=== PATIENT | male | born 1980 | race Caucasian/White ===

== ENCOUNTER 2024-08-28 02:49 | Inpatient (IN) | payer OTHER, SELFPAY ==
[2024-08-28 02:50] VITALS: BP 136/90; PULSE 116; RESP 18; O2SAT 96; BMI 25.8
--- NOTE | 2024-08-28 03:02 | ED_ITS ---
Documented by User: Ernesto Mauricio DO 08/28/24 05:49 HPI - Altered Mental Status 2 General: Chief Complaint: Altered Mental Status Stated Complaint: combative Time Seen by Provider: 08/28/24 03:01 Mode of arrival: other (Police) Limitations: altered mental status History of Present Illness: Presents to the ER by police escort for altered mental status and agitation. Please see he was at his neighbors yard throwing stuff at her house while he was seeing things and hearing things and talking to people that were not there. He was saying that he was Satan and he was shooting lasers out of his eyeballs Patient is resting comfortably in bed but he will not acknowledge anyone's existence, speak to anyone or look anyone in the eye. Per chart review it does appear the patient has a history of polysubstance abuse schizophrenia, psychosis, anxiety, After about 10 minutes of being here patient began yelling and acting in a very threatening and psychotic manner. Patient will not stay in his room. Patient asked like he is attempting to perform comfy moves on people. Patient is yelling and talking to people about things that he is of the person or the things are there. Related Data Previous Rx's Medication Instructions Recorded clonazepam 1 mg tablet 1 mg PO BID Anxiety 30 days #60 06/22/24 tabs Allergies Allergy/AdvReac Type Severity Reaction Status Date / Time No Known Allergies Allergy Unverified 05/27/24 09:06 Review of Systems 2 General: Reports: ROS unobtainable due to mental status PFS ED 2 PFSH: Medical History Psychiatric care Smoker Polysubstance abuse Nicotine addiction, alcoholism sober since November 2023, history of methamphetamine use Obesity (BMI 35.0-39.9 without comorbidity) Anxiety as acute reaction to gross stress Unspecified psychosis Schizophrenia Surgical History No pertinent past surgical history Family History Father Heart disease Gout Mother Diabetes mellitus, type 2 Diabetes Cancer Social History Smoking and tobacco/nicotine status: current every day tobacco/nicotine user Quit status (tobacco/nicotine): not considering quitting Alcohol intake: former Year of sobriety/quit date alcohol: 5 mo Substance/Drug Use: former Date of last use: 3 yrs Former substance use details: methametpmine Physical Exam 2 Const: COMMON NORMALS: no acute distress, average body habitus, healthy appearing and well nourished HENMT: COMMON NORMALS: normocephalic, atraumatic, hearing grossly normal bilaterally, external ears normal, Normal external nose present and moist oral mucous membranes HEAD & SCALP: normocephalic and atraumatic NOSE: Normal external nose present EXTERNAL EAR: Yes external ears normal Neck/C-Spine: COMMON NORMALS: no JVD Chest: COMMONS NORMALS: normal inspection of the chest and normal palpation of entire chest wall Resp: COMMON NORMALS: normal respiratory effort, No retractions, No use of accessory muscles and clear to auscultation bilaterally AUSCULTATION: clear to auscultation bilaterally Cardio: COMMON NORMALS: no JVD, regular rate, regular rhythm, S1 normal heart sound present, S2 normal heart sound present, No gallops present (Cardio), No clicks present (Cardio), No murmurs present (Cardio) and No rub (Cardio) R ATE: regular rate RHYTHM: regular rhythm HEART SOUNDS: S1 normal heart sound present and S2 normal heart sound present GI: COMMON NORMALS: Normal to inspection, nondistended, normoactive bowel sounds present, Soft to palpation, non-tender, No hepatosplenomegaly present and no masses PALPATION: Yes Soft to palpation and Yes No hepatosplenomegaly present Course 2 Vital Signs: Vital signs: Vital Signs Temperature 97.6 F 08/29/24 05:00 Pulse Rate 70 08/29/24 20:00 Respiratory Rate 16 08/30/24 04:00 Blood Pressure 143/81 08/29/24 20:00 Pulse Oximetry 98 08/29/24 20:00 Oxygen Delivery Me thod Room Air 08/29/24 20:00 MDM - Altered Mental Status Medical Records I reviewed the patient's medical records. Lab Data I reviewed the patient's lab results. 08/28/24 03:00 08/28/24 03:00 Laboratory Results WBC 6.71 10^3/uL (3.29-11.43) 08/28/24 03:00 RBC 5.16 10^6/uL (3.85-5.65) 08/28/24 03:00 Hgb 14.80 g/dL (11.27-16.99) 08/28/24 03:00 Hct 44.9 % (37-53) 08/28/24 03:00 MCV 87.0 fl (82-101) 08/28/24 03:00 MCH 28.7 pg (27-33) 08/28/24 03:00 MCHC 33.0 g/dL (30-55) 08/28/24 03:00 RDW 13.6 % (12.1-15.1) 08/28/24 03:00 Plt Count 262 10^3/cmm (157-399) 08/28/24 03:00 MPV 10.3 fL (7.4-10.4) 08/28/24 03:00 Neut % (Auto) 51.5 % 08/28/24 03:00 Lymph % (Auto) 33.8 % 08/28/24 03:00 Pope % (Auto) 11.9 % 08/28/24 03:00 Eos % (Auto) 1.6 % 08/28/24 03:00 Baso % (Auto) 0.9 % 08/28/24 03:00 Neut # (Auto) 3.45 10^3/uL (1.8-7.7) 08/28/24 03:00 Lymph # (Auto) 2.3 10^3/uL (0.8-4.8) 08/28/24 03:00 Pope # (Auto) 0.8 10^3/uL (0.2-0.9) 08/28/24 03:00 Eos # (Auto) 0.1 10^3/uL (0.0-0.8) 08/28/24 03:00 Baso # (Auto) 0.1 10^3/uL (0.0-0.1) 08/28/24 03:00 Nucleated RBC % (auto) 0 % 08/28/24 03:00 Nucleated RBCs # 0.0 /100WBC 08/28/24 03:00 Sodium 137 mmol/L (136-145) 08/28/24 03:00 Potassium 3.6 mmol/L (3.5-5.1) 08/28/24 03:00 Chloride 102 mmol/L (98-107) 08/28/24 03:00 Carbon Dioxide 20 mmol/L (22-29) L 08/28/24 03:00 Anion Gap 18.6 (5-19) 08/28/24 03:00 BUN 6 mg/dL (6-20) 08/28/24 03:00 Creatinine 1.0 mg/dL (0.7-1.2) 08/28/24 03:00 GFR Calculation 81.9 mL/min (90-130) L 08/28/24 03:00 Glucose 101 mg/dL (65-115) 08/28/24 03:00 Calculated Osmolality 282 mOsm/kg (285-295) L 08/28/24 03:00 Calcium 8.4 mg/dL (8.5-10.5) L 08/28/24 03:00 Total Bilirubin 0.4 mg/dL (0.15-1.2) 08/28/24 03:00 AST 31 U/L (0-40) 08/28/24 03:00 ALT 18 U/L (0-41) 08/28/24 03:00 Alkaline Phosphatase 138 U/L (40-130) H 08/28/24 03:00 Total Protein 7.5 g/dL (6.6-8.7) 08/28/24 03:00 Albumin 4.5 g/dL (3.5-5.2) 08/28/24 03:00 Globulin 3.0 g/dL (1.3-4.6) 08/28/24 03:00 Urine Color Yellow (Yellow) 08/28/24 05:15 Urine Appearance Clear (CLEAR) 08/28/24 05:15 Urine pH 5.5 (5-7) 08/28/24 05:15 Ur Specific [place] 1.007 (1.005-1.030) 08/28/24 05:15 Urine Protein Negative (Negative) 08/28/24 05:15 Urine Glucose (UA) Negative (Normal) 08/28/24 05:15 Urine Ketones Negative (Negative) 08/28/24 05:15 Urine Blood Negative (Negative) 08/28/24 05:15 Urine Nitrate Negative (Negative) 08/28/24 05:15 Urine Bilirubin Negative (Negative) 08/28/24 05:15 Urine Urobilinogen 0.2 mg/dL (Negative) 08/28/24 05:15 Ur Leukocyte Esterase Negative (Negative) 08/28/24 05:15 Urine RBC 0-2 /hpf (0-2) 08/28/24 05:15 Urine WBC 0-5 /hpf (0-5) 08/28/24 05:15 Ur Squamous Epith Cells 0-5 /hpf (0-5) 08/28/24 05:15 Amorphous Sediment Not Reportable 08/28/24 05:15 Urine Bacteria None seen /hpf (NONE) 08/28/24 05:15 Hyaline Casts 0.81 /lpf 08/28/24 05:15 Salicylates 0.5 mg/dL (3-10) L 08/28/24 03:00 Urine Opiates Screen Negative ng/mL (Negative) 08/28/24 05:15 Acetaminophen < 5.0 ug/mL (10-30) L 08/28/24 03:00 Ur Barbiturates Screen Negative ng/mL (Negative) 08/28/24 05:15 Ur Phencyclidine Scrn Negative ng/mL (Negative) 08/28/24 05:15 Ur Amphetamines Screen Negative ng/mL (Negative) 08/28/24 05:15 U Benzodiazepines Scrn Negative ng/mL (Negative) 08/28/24 05:15 Urine Cocaine Screen Negative ng/mL (Negative) 08/28/24 05:15 U Marijuana (THC) Screen Negative ng/mL (Negative) 08/28/24 05:15 Ethyl Alcohol 190 mg/dL (0-10) H 08/28/24 03:00 Coronavirus (PCR) Negative (Negative) 08/28/24 09:46 Influenza A (PCR) Negative (Negative) 08/28/24 09:46 Influenza Type B (PCR) Negative (Negative) 08/28/24 09:46 RSV (PCR) Negative (Negative) 08/28/24 09:46 No radiology studies performed this visit Discharge Plan Discharge Patient Disposition: Admitted As Inpatient Admit Provider: Javier Grace Clinical Impression: Alcoholic intoxication Unspecified psychosis Qualifiers: Psychosis type: unspecified psychosis type Qualified Code(s): F29 - Unspecified psychosis not due to a substance or known physiological condition Condition: Stable Sign Out Sign Out Data: Patient Sign Out occurred on 08/28/24 at 06:12. Patient's care was discussed, and care was transferred from Ernesto Mauricio DO to Alejandro Nicolas DO. Coding Level of Care Code ED [employer] for Concepciong Araseli Face to Face: Restrn/Seclusion Events leading up to initiation: Demonstrating self-destructive behavior (cutting, hitting lock etc.) and Combative/Striking out at staff or others Evaluation of patient's immediate situation: Alert and oriented and No signs of physical distress Patient reaction since intervention applied: De-escalation/no displays of violent/destructive behavior Recent labs reviewed: Yes Review of medications: Yes Patient's current medical/behavioral condition: No new concerns since last ROS Need for restraint or seclusion is: Continued Attending notified: Yes Documented by User: Ludin West DO 08/29/24 05:20 HPI - Altered Mental Status 2 General: Chief Complaint: Altered Mental Status Stated Complaint: combative Time Seen by Provider: 08/28/24 03:01 Related Data Previous Rx's Medication Instructions Recorded clonazepam 1 mg tablet 1 mg PO BID Anxiety 30 days #60 06/22/24 tabs Allergies Allergy/AdvReac Type Severity Reaction Status Date / Time No Known Allergies Allergy Unverified 05/27/24 09:06 [facility] ED 2 PFSH: Medical History Psychiatric care Smoker Polysubstance abuse Nicotine addiction, alcoholism sober since November 2023, history of methamphetamine use Obesity (BMI 35.0-39.9 without comorbidity) Anxiety as acute reaction to gross stress Unspecified psychosis Schizophrenia Surgical History No pertinent past surgical history Family History Father Heart disease Gout Mother Diabetes mellitus, type 2 Diabetes Cancer Social History Smoking and tobacco/nicotine status: current every day tobacco/nicotine user Quit status (tobacco/nicotine): not considering quitting Alcohol intake: former Year of sobriety/quit date alcohol: 5 mo Substance/Drug Use: former Date of last use: 3 yrs Former substance use details: methametpmine Course 2 Vital Signs: Vital signs: Vital Signs Temperature 97.6 F 08/29/24 05:00 Pulse Rate 70 08/29/24 20:00 Respiratory Rate 16 08/30/24 04:00 Blood Pressure 143/81 08/29/24 20:00 Pulse Oximetry 98 08/29/24 20:00 Oxygen Delivery Me thod Room Air 08/29/24 20:00 MDM - Altered Mental Status Medical Decision Making 43-year-old male signed out to me at shift change. This gentleman has been calm since yesterday morning. He has not had any outburst of activity. He began to suffer some withdrawal symptoms yesterday, requiring some doses of lorazepam, which helped significantly. Despite no longer being intoxicated, he continues to talk to the wall in the room, respond to internal stimuli, and have bizarre behavior. 96-hour affidavits were written by law enforcement. Medically, he is stable. His laboratory is essentially nonremarkable. We have had trouble finding bed availability across the state, as until now, we have not had a bed at our facility. We have, however opened up a bed at our facility 3 discharges, and he is stable for admission here. Lab Data 08/28/24 03:00 08/28/24 03:00 Laboratory Results WBC 6.71 10^3/uL (3.29-11.43) 08/28/24 03:00 RBC 5.16 10^6/uL (3.85-5.65) 08/28/24 03:00 Hgb 14.80 g/dL (11.27-16.99) 08/28/24 03:00 Hct 44.9 % (37-53) 08/28/24 03:00 MCV 87.0 fl (82-101) 08/28/24 03:00 MCH 28.7 pg (27-33) 08/28/24 03:00 MCHC 33.0 g/dL (30-55) 08/28/24 03:00 RDW 13.6 % (12.1-15.1) 08/28/24 03:00 Plt Count 262 10^3/cmm (157-399) 08/28/24 03:00 MPV 10.3 fL (7.4-10.4) 08/28/24 03:00 Neut % (Auto) 51.5 % 08/28/24 03:00 Lymph % (Auto) 33.8 % 08/28/24 03:00 Pope % (Auto) 11.9 % 08/28/24 03:00 Eos % (Auto) 1.6 % 08/28/24 03:00 Baso % (Auto) 0.9 % 08/28/24 03:00 Neut # (Auto) 3.45 10^3/uL (1.8-7.7) 08/28/24 03:00 Lymph # (Auto) 2.3 10^3/uL (0.8-4.8) 08/28/24 03:00 Pope # (Auto) 0.8 10^3/uL (0.2-0.9) 08/28/24 03:00 Eos # (Auto) 0.1 10^3/uL (0.0-0.8) 08/28/24 03:00 Baso # (Auto) 0.1 10^3/uL (0.0-0.1) 08/28/24 03:00 Nucleated RBC % (auto) 0 % 08/28/24 03:00 Nucleated RBCs # 0.0 /100WBC 08/28/24 03:00 Sodium 137 mmol/L (136-145) 08/28/24 03:00 Potassium 3.6 mmol/L (3.5-5.1) 08/28/24 03:00 Chloride 102 mmol/L (98-107) 08/28/24 03:00 Carbon Dioxide 20 mmol/L (22-29) L 08/28/24 03:00 Anion Gap 18.6 (5-19) 08/28/24 03:00 BUN 6 mg/dL (6-20) 08/28/24 03:00 Creatinine 1.0 mg/dL (0.7-1.2) 08/28/24 03:00 GFR Calculation 81.9 mL/min (90-130) L 08/28/24 03:00 Glucose 101 mg/dL (65-115) 08/28/24 03:00 Calculated Osmolality 282 mOsm/kg (285-295) L 08/28/24 03:00 Calcium 8.4 mg/dL (8.5-10.5) L 08/28/24 03:00 Total Bilirubin 0.4 mg/dL (0.15-1.2) 08/28/24 03:00 AST 31 U/L (0-40) 08/28/24 03:00 ALT 18 U/L (0-41) 08/28/24 03:00 Alkaline Phosphatase 138 U/L (40-130) H 08/28/24 03:00 Total Protein 7.5 g/dL (6.6-8.7) 08/28/24 03:00 Albumin 4.5 g/dL (3.5-5.2) 08/28/24 03:00 Globulin 3.0 g/dL (1.3-4.6) 08/28/24 03:00 Urine Color Yellow (Yellow) 08/28/24 05:15 Urine Appearance Clear (CLEAR) 08/28/24 05:15 Urine pH 5.5 (5-7) 08/28/24 05:15 Ur Specific [place] 1.007 (1.005-1.030) 08/28/24 05:15 Urine Protein Negative (Negative) 08/28/24 05:15 Urine Glucose (UA) Negative (Normal) 08/28/24 05:15 Urine Ketones Negative (Negative) 08/28/24 05:15 Urine Blood Negative (Negative) 08/28/24 05:15 Urine Nitrate Negative (Negative) 08/28/24 05:15 Urine Bilirubin Negative (Negative) 08/28/24 05:15 Urine Urobilinogen 0.2 mg/dL (Negative) 08/28/24 05:15 Ur Leukocyte Esterase Negative (Negative) 08/28/24 05:15 Urine RBC 0-2 /hpf (0-2) 08/28/24 05:15 Urine WBC 0-5 /hpf (0-5) 08/28/24 05:15 Ur Squamous Epith Cells 0-5 /hpf (0-5) 08/28/24 05:15 Amorphous Sediment Not Reportable 08/28/24 05:15 Urine Bacteria None seen /hpf (NONE) 08/28/24 05:15 Hyaline Casts 0.81 /lpf 08/28/24 05:15 Salicylates 0.5 mg/dL (3-10) L 08/28/24 03:00 Urine Opiates Screen Negative ng/mL (Negative) 08/28/24 05:15 Acetaminophen < 5.0 ug/mL (10-30) L 08/28/24 03:00 Ur Barbiturates Screen Negative ng/mL (Negative) 08/28/24 05:15 Ur Phencyclidine Scrn Negative ng/mL (Negative) 08/28/24 05:15 Ur Amphetamines Screen Negative ng/mL (Negative) 08/28/24 05:15 U Benzodiazepines Scrn Negative ng/mL (Negative) 08/28/24 05:15 Urine Cocaine Screen Negative ng/mL (Negative) 08/28/24 05:15 U Marijuana (THC) Screen Negative ng/mL (Negative) 08/28/24 05:15 Ethyl Alcohol 190 mg/dL (0-10) H 08/28/24 03:00 Coronavirus (PCR) Negative (Negative) 08/28/24 09:46 Influenza A (PCR) Negative (Negative) 08/28/24 09:46 Influenza Type B (PCR) Negative (Negative) 08/28/24 09:46 RSV (PCR) Negative (Negative) 08/28/24 09:46 Discharge Plan Discharge Patient Disposition: Admitted As Inpatient Admit Provider: Javier Grace Clinical Impression: Alcoholic intoxication Unspecified psychosis Qualifiers: Psychosis type: unspecified psychosis type Qualified Code(s): F29 - Unspecified psychosis not due to a substance or known physiological condition Condition: Stable Sign Out Sign Out Data: Patient Sign Out occurred on 08/28/24 at 06:12. Patient's care was discussed, and care was transferred from Ernesto Mauricio DO to Alejandro Nicolas DO. Coding Level of Care Code ED [employer] for Chg Fwd Documented by User: Alejandro Nicolas DO 08/30/24 07:16 HPI - Altered Mental Status 2 General: Chief Complaint: Altered Mental Status Stated Complaint: combative Time Seen by Provider: 08/28/24 03:01 Related Data Previous Rx's Medication Instructions Recorded clonazepam 1 mg tablet 1 mg PO BID Anxiety 30 days #60 06/22/24 tabs Allergies Allergy/AdvReac Type Severity Reaction Status Date / Time No Known Allergies Allergy Unverified 05/27/24 09:06 PFS ED 2 PFSH: Medical History Psychiatric care Smoker Polysubstance abuse Nicotine addiction, alcoholism sober since November 2023, history of methamphetamine use Obesity (BMI 35.0-39.9 without comorbidity) Anxiety as acute reaction to gross stress Unspecified psychosis Schizophrenia Surgical History No pertinent past surgical history Family History Father Heart disease Gout Mother Diabetes mellitus, type 2 Diabetes Cancer Social History Smoking and tobacco/nicotine status: current every day tobacco/nicotine user Quit status (tobacco/nicotine): not considering quitting Alcohol intake: former Year of sobriety/quit date alcohol: 5 mo Substance/Drug Use: former Date of last use: 3 yrs Former substance use details: methametpmine Course 2 Vital Signs: Vital signs: Vital Signs Temperature 97.6 F 08/29/24 05:00 Pulse Rate 70 08/29/24 20:00 Respiratory Rate 16 08/30/24 04:00 Blood Pressure 143/81 08/29/24 20:00 Pulse Oximetry 98 08/29/24 20:00 Oxygen Delivery Me thod Room Air 08/29/24 20:00 MDM - Altered Mental Status Medical Decision Making Care assumed at change of shift patient has had some hallucinations he was given Ativan suspect that his withdrawal from alcohol he has otherwise been stable care signed out to Dr. West 43-year-old male signed out to me at shift change. This gentleman has been calm since yesterday morning. He has not had any outburst of activity. He began to suffer some withdrawal symptoms yesterday, requiring some doses of lorazepam, which helped significantly. Despite no longer being intoxicated, he continues to talk to the wall in the room, respond to internal stimuli, and have bizarre behavior. 96-hour affidavits were written by law enforcement. Medically, he is stable. His laboratory is essentially nonremarkable. We have had trouble finding bed availability across the state, as until now, we have not had a bed at our facility. We have, however opened up a bed at our facility 3 discharges, and he is stable for admission here. Lab Data 08/28/24 03:00 08/28/24 03:00 Laboratory Results WBC 6.71 10^3/uL (3.29-11.43) 08/28/24 03:00 RBC 5.16 10^6/uL (3.85-5.65) 08/28/24 03:00 Hgb 14.80 g/dL (11.27-16.99) 08/28/24 03:00 Hct 44.9 % (37-53) 08/28/24 03:00 MCV 87.0 fl (82-101) 08/28/24 03:00 MCH 28.7 pg (27-33) 08/28/24 03:00 MCHC 33.0 g/dL (30-55) 08/28/24 03:00 RDW 13.6 % (12.1-15.1) 08/28/24 03:00 Plt Count 262 10^3/cmm (157-399) 08/28/24 03:00 MPV 10.3 fL (7.4-10.4) 08/28/24 03:00 Neut % (Auto) 51.5 % 08/28/24 03:00 Lymph % (Auto) 33.8 % 08/28/24 03:00 Pope % (Auto) 11.9 % 08/28/24 03:00 Eos % (Auto) 1.6 % 08/28/24 03:00 Baso % (Auto) 0.9 % 08/28/24 03:00 Neut # (Auto) 3.45 10^3/uL (1.8-7.7) 08/28/24 03:00 Lymph # (Auto) 2.3 10^3/uL (0.8-4.8) 08/28/24 03:00 Pope # (Auto) 0.8 10^3/uL (0.2-0.9) 08/28/24 03:00 Eos # (Auto) 0.1 10^3/uL (0.0-0.8) 08/28/24 03:00 Baso # (Auto) 0.1 10^3/uL (0.0-0.1) 08/28/24 03:00 Nucleated RBC % (auto) 0 % 08/28/24 03:00 Nucleated RBCs # 0.0 /100WBC 08/28/24 03:00 Sodium 137 mmol/L (136-145) 08/28/24 03:00 Potassium 3.6 mmol/L (3.5-5.1) 08/28/24 03:00 Chloride 102 mmol/L (98-107) 08/28/24 03:00 Carbon Dioxide 20 mmol/L (22-29) L 08/28/24 03:00 Anion Gap 18.6 (5-19) 08/28/24 03:00 BUN 6 mg/dL (6-20) 08/28/24 03:00 Creatinine 1.0 mg/dL (0.7-1.2) 08/28/24 03:00 GFR Calculation 81.9 mL/min (90-130) L 08/28/24 03:00 Glucose 101 mg/dL (65-115) 08/28/24 03:00 Calculated Osmolality 282 mOsm/kg (285-295) L 08/28/24 03:00 Calcium 8.4 mg/dL (8.5-10.5) L 08/28/24 03:00 Total Bilirubin 0.4 mg/dL (0.15-1.2) 08/28/24 03:00 AST 31 U/L (0-40) 08/28/24 03:00 ALT 18 U/L (0-41) 08/28/24 03:00 Alkaline Phosphatase 138 U/L (40-130) H 08/28/24 03:00 Total Protein 7.5 g/dL (6.6-8.7) 08/28/24 03:00 Albumin 4.5 g/dL (3.5-5.2) 08/28/24 03:00 Globulin 3.0 g/dL (1.3-4.6) 08/28/24 03:00 Urine Color Yellow (Yellow) 08/28/24 05:15 Urine Appearance Clear (CLEAR) 08/28/24 05:15 Urine pH 5.5 (5-7) 08/28/24 05:15 Ur Specific [place] 1.007 (1.005-1.030) 08/28/24 05:15 Urine Protein Negative (Negative) 08/28/24 05:15 Urine Glucose (UA) Negative (Normal) 08/28/24 05:15 Urine Ketones Negative (Negative) 08/28/24 05:15 Urine Blood Negative (Negative) 08/28/24 05:15 Urine Nitrate Negative (Negative) 08/28/24 05:15 Urine Bilirubin Negative (Negative) 08/28/24 05:15 Urine Urobilinogen 0.2 mg/dL (Negative) 08/28/24 05:15 Ur Leukocyte Esterase Negative (Negative) 08/28/24 05:15 Urine RBC 0-2 /hpf (0-2) 08/28/24 05:15 Urine WBC 0-5 /hpf (0-5) 08/28/24 05:15 Ur Squamous Epith Cells 0-5 /hpf (0-5) 08/28/24 05:15 Amorphous Sediment Not Reportable 08/28/24 05:15 Urine Bacteria None seen /hpf (NONE) 08/28/24 05:15 Hyaline Casts 0.81 /lpf 08/28/24 05:15 Salicylates 0.5 mg/dL (3-10) L 08/28/24 03:00 Urine Opiates Screen Negative ng/mL (Negative) 08/28/24 05:15 Acetaminophen < 5.0 ug/mL (10-30) L 08/28/24 03:00 Ur Barbiturates Screen Negative ng/mL (Negative) 08/28/24 05:15 Ur Phencyclidine Scrn Negative ng/mL (Negative) 08/28/24 05:15 Ur Amphetamines Screen Negative ng/mL (Negative) 08/28/24 05:15 U Benzodiazepines Scrn Negative ng/mL (Negative) 08/28/24 05:15 Urine Cocaine Screen Negative ng/mL (Negative) 08/28/24 05:15 U Marijuana (THC) Screen Negative ng/mL (Negative) 08/28/24 05:15 Ethyl Alcohol 190 mg/dL (0-10) H 08/28/24 03:00 Coronavirus (PCR) Negative (Negative) 08/28/24 09:46 Influenza A (PCR) Negative (Negative) 08/28/24 09:46 Influenza Type B (PCR) Negative (Negative) 08/28/24 09:46 RSV (PCR) Negative (Negative) 08/28/24 09:46 Discharge Plan Discharge Patient Disposition: Admitted As Inpatient Admit Provider: Javier Grace Clinical Impression: Alcoholic intoxication Unspecified psychosis Qualifiers: Psychosis type: unspecified psychosis type Qualified Code(s): F29 - Unspecified psychosis not due to a substance or known physiological condition Condition: Stable Sign Out Sign Out Data: Patient Sign Out occurred on 08/28/24 at 06:12. Patient's care was discussed, and care was transferred from Ernesto Mauricio DO to Alejandro Nicolas DO. Coding Level of Care Code ED [employer] for Leona Marx
[2024-08-28 03:12] LABS: Basophils # 0.1 10^3/uL (0.0-0.1); Basophils % 0.9 %; Eosinophils # 0.1 10^3/uL (0.0-0.8); Eosinophils % 1.6 %; Hematocrit 44.9 % (37-53); Lymphocytes # 2.3 10^3/uL (0.8-4.8); Lymphocytes % 33.8 %; Mean Corpuscular Hemoglobin 28.7 pg (27-33); Mean Platelet Volume 10.3 fL (7.4-10.4); Monocytes # 0.8 10^3/uL (0.2-0.9); Monocytes % 11.9 %; Neutrophils # 3.45 10^3/uL (1.8-7.7); Neutrophils % 51.5 %; Nucleated Red Blood Cells % 0 %; Platelet Count 262 10^3/cmm (157-399); Red Blood Count 5.16 10^6/uL (3.85-5.65); Red Cell Distribution Width 13.6 % (12.1-15.1); White Blood Count 6.71 10^3/uL (3.29-11.43)
[2024-08-28 03:34] LABS: Alanine Aminotransferase 18 U/L (0-41); Albumin Level 4.5 g/dL (3.5-5.2); Alcohol Level 190 mg/dL (0-10); Alkaline Phosphatase 138 U/L (40-130); Anion Gap 18.6 (5-19); Aspartate Amino Transferase 31 U/L (0-40); Blood Urea Nitrogen 6 mg/dL (6-20); Calcium 8.4 mg/dL (8.5-10.5); Carbon Dioxide 20 mmol/L (22-29); Chloride 102 mmol/L (98-107); Creatinine Clr Calc Pharmacy 97.8427; Glomerular Filtration Rate 81.9 mL/min (90-130); Glucose 101 mg/dL (65-115); Osmolality Calculated 282 mOsm/kg (285-295); Potassium 3.6 mmol/L (3.5-5.1); Salicylate 0.5 mg/dL (3-10); Sodium 137 mmol/L (136-145); Total Bilirubin 0.4 mg/dL (0.15-1.2); Total Protein 7.5 g/dL (6.6-8.7)
[2024-08-28 03:36] LABS: Acetaminophen < 5.0 ug/mL (10-30)
--- NOTE | 2024-08-28 04:00 | PC.NURSE ---
pt up and out of room making aggressive actions. pt hitting his chest and waving his arms toward staff. MD notified and order for ketamine administered.
[2024-08-28] MEDS: ketamine 100 mg/mL Inj 5 mL 200 MG IM (04:07)
[2024-08-28] MEDS: LORazepam 2 mg/mL INJ 1 mL IM (05:12)
--- NOTE | 2024-08-28 05:14 | PC.NURSE ---
to room. pt out of bed saying he needs to urinate. pt speaking jibberish. attempted to obtain urine. pt unable to urinate. pt continues to get out of bed. notified and order for ativan IM given and administered.
[2024-08-28 05:53] LABS: Bilirubin Urine Negative (Negative); Blood Urine Negative (Negative); Glucose Urine UA Negative (Normal); Ketones Urine Negative (Negative); Leukocyte Esterase Urine Negative (Negative); Nitrate Urine Negative (Negative); Protein Urine Negative (Negative); Specific Gravity, Urine 1.007 (1.005-1.030); Urine Appearance Clear (CLEAR); Urine Color Yellow (Yellow); Urobilinogen Urine 0.2 mg/dL (Negative); pH Urine 5.5 (5-7)
[2024-08-28 05:58] LABS: Add Urine Microscopic? YES; Bacteria Urine None Seen /hpf; Hyaline Casts Urine 0.81 /lpf; RBC Urine 0-2 /hpf (0-2); Squamous Epithelial Cell Urine 0-5 /hpf (0-5); WBC Urine 0-5 /hpf (0-5)
[2024-08-28 06:01] LABS: Amphetamines Screen Urine Negative (Negative); Barbiturates Screen Urine Negative (Negative); Benzodiazepines Screen Urine Negative (Negative); Cocaine Screen Urine Negative (Negative); Opiate Screen Urine Negative (Negative); PCP Screen Urine Negative (Negative); THC Screen Urine Negative (Negative)
--- NOTE | 2024-08-28 07:38 | PC.NURSE ---
Addendum entered by Traci Xiao RN 08/28/24 07:45: time correction 0650 Original Note: this RN assumed care from ANDI Hopkins at 0750, pt in stable condition at time of transfer and is resting in room with even unlabored respirations.
[2024-08-28 07:44] VITALS: BP 123/83; PULSE 99; RESP 18; O2SAT 98
[2024-08-28 10:47] LABS: Covid PCR NEGATIVE (Negative); Influenza A NEGATIVE (Negative); Influenza B NEGATIVE (Negative); Respiratory Syncytial Virus Ce NEGATIVE (Negative)
--- NOTE | 2024-08-28 11:05 | PC.NURSE ---
this nurse assumed pt care at 1105 from Aster ESCAMILLA. pt resting in bed and stable at this time.
[2024-08-28] MEDS: LORazepam 2 mg Tablet PO (12:10)
[2024-08-28 19:06] VITALS: BP 107/62; PULSE 60; RESP 16; O2SAT 97
--- NOTE | 2024-08-29 01:25 | PC.NURSE ---
Assumed care of pt. Pt resting quietly. NAD. Resp even/unlabored. Skin w/p/d.
[2024-08-29 04:08] VITALS: BP 126/76; PULSE 72; RESP 15; O2SAT 100
--- NOTE | 2024-08-29 04:35 | PC.NURSE ---
THIS NURSE CONTACTED ABOUT PT HOME PRESCRIPTION OF CLONAZEPAM 1MG BID FOR RESTART ORDERS. PHYSICIAN WAS NOTIFIED THAT PT REQUIRED CIWA PROTOCOL. PHYSICIAN GAVE ORDERS FOR THIS NURSE TO HOLD MEDICATION AT LEAST UNTIL PT IS TAKEN OFF CIWA PROTOCOL AND THAT PT COVERING PROVIDER WILL HANDLE MEDICATION MANAGEMENT FROM THEN ON.
[2024-08-29 05:00] VITALS: BP 149/80; PULSE 88; RESP 18; TEMP 36.4; O2SAT 94
[2024-08-29 08:00] VITALS: BP 122/81; PULSE 78; RESP 17; O2SAT 95
--- NOTE | 2024-08-29 11:32 | PC.NURSE ---
Patient refused flu vaccination this morning. Stated he did not want one at this time.
[2024-08-29 12:00] VITALS: BP 123/77; PULSE 81; RESP 16; O2SAT 97
--- NOTE | 2024-08-29 15:23 | W.PM.NPUH&PS ---
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 of beer, 1 joint weekly, grams, etc.: A joint once and made him sick Age at first use: 40 Cocaine/Crack Date of last use: 08/30/21 Prior Lifetime use/Use in the last 3 months: Prior Lifetime Use Method of Use: Smoked (Glass pipe ) and Other Frequency in last 30 days: Other (Tried once) Amount of use in the last 30 days For Example: 1 joint daily, 30 pack of beer, 1 joint weekly, grams, etc.: Tried once smoked out of glass pipe Age at first use: 40 Compulsive Spending Denies Past History: Denies Past History Gambling Denies Past History: Denies Past History Hallucinogens Date of last use: 01/12/02 Method of Use: Oral Amount of use in the last 30 days For Example: 1 joint daily, 30 pack of beer, 1 joint weekly, grams, etc.: Took acid hits Age at first use: 21 Inhalants Date of last use: 05/15/03 Prior Lifetime use/Use in the last 3 months: Prior Lifetime Use Method of Use: Other (huffed) Frequency in last 30 days: Other (When available ) Amount of use in the last 30 days For Example: 1 joint daily, 30 pack of beer, 1 joint weekly, grams, etc.: Coolant bottle on break at work Age at first use: 13 Misuse of RX Medications Denies Past History: Denies Past History Amount of use in the last 30 days Nicotine Date of last use: 06/23/24 Prior Lifetime use/Use in the last 3 months: Use in the last 3 months Method of Use: Smoked Frequency in last 30 days: Daily Amount of use in the last 30 days For Example: 1 joint daily, 30 pack of beer, 1 joint weekly, grams, etc.: a pack of smokes a day Age at first use: 9 Do you want a referral to a tobacco regional facilities specialist?: No Opioid Pain Medications (non-prescribed) Denies Past History: Denies Past History Amount of use in the last 30 days [id number] Denies Past History: Denies Past History Amount of use in the last 30 days Sedatives(Benzos,Sleep Pills, No script) Denies Past History: Denies Past History Amount of use in the last 30 days In the last 12 months have you Taken the substance in larger amounts for longer than you're meant to: Nicotine Wanting to cut down or stop using the substance but not managing to: Alcohol Spending a lot of time getting, using, or recovering from use of the substance: Alcohol Cravings and urges to use the substance: Alcohol and Nicotine Not managing to do what you should at work, home, or school because of substance use: Alcohol Using substances again and again, even when it puts you in danger: Alcohol and Nicotine Continuing to use, even when you know you have a physical or psychological problems that could have been caused or made worse by the substance: Alcohol and Nicotine Needing more of the substance to get the effect you want (tolerance): Alcohol and Nicotine 2 to 3 symptoms indicate Mild RUSLAN, 4 to 5 Symptoms indicate moderate RUSLAN, 5 or More indicate Severe RUSLAN AOD (Alcohol and Other Drugs) Diagnosis and justification:: F17.200 Referrals and Recommendations: RUSLAN Outpatient Services: Does client have a less severe RUSLAN?: No Does client wish to have referral to RUSLAN treatment?: Yes Tobacco Cessation Treatment: Does Client have a nicotine use disorder?: Yes Does the client want a referral to the Tobacco Cessation Treatment program?: No Co-Occurring Treatment/ITCD services: Does client have [facility] qualifying mental health diagnosis and RUSLAN diagnosis?: Yes Does the client want a referral to the ITCD program?: Yes Patient-Family Edu. Assessment Date Done Patient Family Education Date Done: 06/23/24 Education Assessment Motivation Level: Appears Motivated, Asks Questions and Cooperative Best Way to Learn: Hands-On Level of Education: Less than 12 years(Specify) (10th Grade) Preferred Language for Healthcare: [place] Barriers Which Affect Learning Language/Culture: No Difficulty Reading: No Difficulty Writing: No Physical Barriers: No Sensory Barriers: No Emotional Barriers: No Cognitive Barriers: No Intensity of Illness: Yes Financial Concerns: No Any denominational or cultural practices that may affect medical care (Restrictions of diet, Blood Transfusions, etc.): No Knowledge of Current Illness: Below Average What would you like to know about your condition or illness?: More About Diagnosis, How to [place], Treatment Options and Prognosis Goals/Plans Education Goals/Plans: Plan of care, Treatment and Services, Basic Health Practices and Safety and Habilitation or Rehabilitation Techniques/Achieving [place] Risks Date Date of last Risks: 06/23/24 Suicide Risk Assessment In the last 30 days have you... Little interest or pleasure in doing things: not at all Feeling down, depressed, or hopeless: more than half the days PHQ-2 Score: 2 Total (If greater than 3 please do full PHQ-9): Yes Have you had suicidal thoughts?: Not At All Do you ever wish you weren't alive anymore?: Not At All Suicide Risk Score: 2 Patient score 3 or greater or had suicidal thoughts?: No Risk to Others Current or History of HI: Denies any homicidal thoughts, plans, intentions, or time frames Previous and/or current violence: No Previous and/or current threats (verbal/physical): No If both Yes, then complete full screening: No Other Self-Harm or Risk Taking Behaviors Other Risk Taking Behaviors:: None Protective Factors Protective Factors and Deterrents: Identifies a reason for living and Responsibility to family or others Final Disposition of Risk Screening Final Disposition: No Emergency response: Safety planning OZH PHQ-9 Over the last 2 weeks, how often have you been bothered by any of the following problems? 1. Little interest or pleasure in doing things: not at all 2. Feeling down, depressed, or hopeless: more than half the days PHQ-9 score (0-4 None; 5-9 Mild; 10-14 Moderate; 15-19 Moderately severe; 20-27 Severe) Source: Developed by Drs. Danie De Paz, Chelle Zafar, Keegan Saldana and colleagues, with an educational jun from [employer]. OZH JAZMINE-7 JAZMINE-7 Over the last 2 weeks, have you felt bothered by any of these things? Feeling nervous, anxious, or on edge: 3 = Nearly every day Not being able to stop or control worryin = More than half the days Worrying too much about different things: 0 = Not at all Trouble relaxin = Several days Being so restless that it is hard to sit still: 1 = Several days Becoming easily annoyed or irritable: 0 = Not at all Feeling afraid as if something awful might happen: 1 = Several days Total JAZMINE-7 score (0-4 normal; 5-9 mild; 10-14 moderate; 15-21 severe): 8 Source: Developed by Drs. Danie De Paz, Chelle Zafar, Keegan Saldana and colleagues, with an educational jun from [employer]. Meds NPU Home Medications Medication Instructions Recorded Confirmed Last Taken Type clonazepam 1 mg tablet 1 mg PO BID Anxiety 30 days #60 06/22/24 08/29/24 Unknown Rx tabs Allergies Allergy/AdvReac Type Severity Reaction Status Date / Time No Known Allergies Allergy Unverified 05/27/24 09:06 PFS NPU PFSH: Medical History Psychiatric care Smoker Polysubstance abuse Nicotine addiction, alcoholism sober since November 2023, history of methamphetamine use Obesity (BMI 35.0-39.9 without comorbidity) Anxiety as acute reaction to gross stress Unspecified psychosis Schizophrenia Surgical History No pertinent past surgical history Family History Father Heart disease Gout Mother Diabetes mellitus, type 2 Diabetes Cancer Social History Smoking and tobacco/nicotine status: current every day tobacco/nicotine user Quit status (tobacco/nicotine): not considering quitting Alcohol intake: former Year of sobriety/quit date alcohol: 5 mo Substance/Drug Use: former Date of last use: 3 yrs Former substance use details: methametpmine Mental Status Exam MSE Comments: The patient was lying in bed with no eye contact. His gait appeared within normal limits. There was no evidence of any abnormal involuntary motor movements tics or tremors appreciated. He was alert and oriented to person and place at this time only. His he was partially cooperative on interview. He appeared somewhat guarded. His speech was monotone in quality and increased in rate and normal in volume. He did not appear to be responding to internal stimuli. There was evidence of bizarre delusions. He appeared hyperreligious. His mood was described as fine. His affect was bizarre and mood incongruent. His thought process was initially linear but appeared to derail. He denied any homicidal or suicidal ideation. Recent and remote memory appeared poor. His insight is impaired. His judgment is impaired. His impulse control appeared poor. Vitals/I&O/Wt Last Vital Signs Temp 97.6 F 08/29/24 05:00 Pulse 81 08/29/24 12:00 Resp 16 08/29/24 12:00 BP 123/77 08/29/24 12:00 Pulse Ox 97 08/29/24 12:00 O2 Del Method Room Air 08/29/24 05:00 Weight last 48 hrs Weight 77.111 kg Weight 77.111 kg Data NPU 08/28/24 03:00 08/28/24 03:00 A&P Assessment and plan (1) Schizoaffective disorder, manic type: (2) Schizophrenia: Qualifiers: Schizophrenia type: undifferentiated schizophrenia Qualified Code(s): F20.3 - Undifferentiated schizophrenia (3) Alcoholic intoxication: (4) Polysubstance abuse: Plan 43-year-old male who presents with psychosis with a blood alcohol level of 190 with a history of schizophrenia requesting Klonopin admitted with bizarre behavior. Patient will continue to require acute inpatient hospitalization at this time. #1.? Engage patient in individual milieu and group therapy. #2?? Recommend sober living treatment at the highest level of care to which the patient is willing to commit #3??? CIWA for alcohol withdrawal #4?? TO-15 minute checks? #5?? Will attempt to gather collateral information, consider forced medications as patient refusing antipsychotic medications. Involuntary Hold Information 96 Hour Hold: 96 Hour Involuntary Admission: Yes 96 Hour Hold Ending Date: 09/03/24 96 Hour Hold Ending Time: 00:01 Other Hold: Hold End Date: 09/03/24 Attestations NPU Medical Necessity Statement*: Inpatient hospitalization is medically necessary and deemed to ?be ?the clinically appropriate intervention ?at this time.? We will monitor/initiate medications and make changes as indicated.? The patient will be in the hospital for over 2 midnights.? The patient?s likely length of stay 7-10 days. Coding Level of Care Code Acute Code for [facility] Fwd Diagnoses Schizoaffective disorder, manic type F25.0 Undifferentiated schizophrenia F20.3 Schizophrenia type: undifferentiated schizophrenia Alcoholic intoxication F10.929 Polysubstance abuse F19.10
[2024-08-29 16:00] VITALS: RESP 16
--- NOTE | 2024-08-29 17:06 | PC.NURSE ---
THIS CLIMATOLOGY PROFESSOR WENT IN TO PTS ROOM, ASKED IF I COULD GET 1600 VITALS, PT STATED I DID NOT EAT THAT . THIS CLIMATOLOGY PROFESSOR THEN ASKED IF I COULD GET HIS BLOOD PRESSURE. PT DID NOT RESPOND VERBALLY, BUT THEN STARTED PUNCHING AT THE AIR MULTIPLE TIMES. RESPIRATIONS WERE OBTAINED AT 16. CHARGE NURSE NOTIFIED.
[2024-08-29 20:00] VITALS: BP 143/81; PULSE 70; RESP 18; O2SAT 98
[2024-08-29] MEDS: OLANZapine 10 mg ODT PO (20:05)
[2024-08-30] VITALS: RESP 16
[2024-08-30 04:00] VITALS: RESP 16
[2024-08-30 08:00] VITALS: BP 134/79; PULSE 129; RESP 18; TEMP 36.6; O2SAT 98
[2024-08-30] MEDS: folic acid 1 mg Tablet PO (09:02)
[2024-08-30] MEDS: multivitamin therapeutic Tablet 1 TAB PO (09:02)
[2024-08-30] MEDS: thiamine 100 mg Tablet PO (09:02)
[2024-08-30 12:00] VITALS: BP 109/67; PULSE 52; RESP 18; TEMP 36.6; O2SAT 96
[2024-08-30 16:00] VITALS: BP 116/70; PULSE 60; RESP 18; TEMP 36.6; O2SAT 99
--- NOTE | 2024-08-30 17:51 | P.NPUPN_ITS ---
Subjective NPU 2 Subjective: 43-year-old male schizoaffective disorde r bipolar type admitted with bizarre behavior leading to involuntary hospitalization. Patient continued to isolate himself in the room. He had refused any antipsychotic medications. The patient had reported that he continued to have special telles and stated that he was influenced by witchcraft. He reported that his anxiety was his primary problem and continued to report that Celine was his master. Mental Status Exam 2 MSE Comments: The patient was lying in bed with no eye contact. His gait appeared within normal limits. There was no evidence of any abnormal involuntary motor movements tics or tremors appreciated. He was alert and oriented to person and place at this time only. His he was partially cooperative on interview. He remained guarded on interview. His speech was monotone in quality and increased in rate and normal in volume. He did not appear to be responding to internal stimuli. There was evidence of bizarre delusions. He appeared hyperreligious. His mood was described as okay. His affect was bizarre and mood incongruent. His thought process was initially linear but appeared to derail. He denied any homicidal or suicidal ideation. Recent and remote memory appeared poor. His insight is impaired. His judgment is impaired. His impulse control appeared poor. Vitals/I&O/Wt Last Vital Signs Temp 98 F 08/30/24 16:00 Pulse 60 08/30/24 16:00 Resp 18 08/30/24 16:00 BP 116/70 08/30/24 16:00 Pulse Ox 99 08/30/24 16:00 O2 Del Method Room Air 08/29/24 20:00 Weight last 48 hrs Weight 77.111 kg Data NPU 08/28/24 03:00 08/28/24 03:00 A&P Assessment and plan (1) Schizoaffective disorder, manic type: (2) Schizophrenia: Qualifiers: Schizophrenia type: undifferentiated schizophrenia Qualified Code(s): F 20.3 - Undifferentiated schizophrenia (3) Alcoholic intoxication: (4) Polysubstance abuse: Plan 43-year-old male who presents with psychosis with a blood alcohol level of 190 with a history of schizophrenia requesting Klonopin admitted with bizarre behavior. Patient will continue to require acute inpatient hospitalization at this time. #1.? Engage patient in individual milieu and group therapy. #2?? Recommend sober living treatment at the highest level of care to which the patient is willing to commit #3??? CIWA for alcohol withdrawal #4?? TO-15 minute checks? #5?? Will attempt to gather collateral information, consider forced medications as patient refusing antipsychotic medications. Involuntary Hold Information 2 96 Hour Hold: 96 Hour Involuntary Admission: Yes 96 Hour Hold Ending Date: 09/03/24 96 Hour Hold Ending Time: 00:01 Other Hold: Hold End Date: 09/03/24 Attestations NPU 2 Medical Necessity Statement*: Inpatient hospitalization is medically necessary and deemed to ?be ?the clinically appropriate intervention ?at this time.? We will monitor/initiate medications and make changes as indicated. The patient?s likely length of stay 7-10 days. Coding Level of Care Code Acute Code for [facility] Diagnoses Schizoaffective disorder, manic type F25.0 Undifferentiated schizophrenia F20.3 Schizophrenia type: undifferentiated schizophrenia Alcoholic intoxication F10.929 Polysubstance abuse F19.10
[2024-08-30 20:00] VITALS: BP 127/80; PULSE 78; RESP 18; O2SAT 98
[2024-08-30] MEDS: trazodone 50 mg Tablet PO (21:08)
[2024-08-30] MEDS: OLANZapine 10 mg ODT PO (21:08)
[2024-08-31] VITALS: RESP 18
[2024-08-31 04:00] VITALS: BP 112/67; PULSE 51; RESP 16; O2SAT 95
--- NOTE | 2024-08-31 09:26 | PC.NURSE ---
Patient refused morning vitamins. Patient said, No I ain't taking that shit.
[2024-08-31 11:15] VITALS: BP 126/76; PULSE 84; RESP 16; TEMP 36.7; O2SAT 97
[2024-08-31 14:12] VITALS: BP 121/84; PULSE 94; RESP 18; TEMP 36.7; O2SAT 97
--- NOTE | 2024-08-31 15:09 | P.NPUPN_ITS ---
Subjective NPU 2 Subjective: 43-year-old male schizoaffective disorde r bipolar type admitted with bizarre behavior leading to involuntary hospitalization. The patient had continued to report that he did not wish to be on any medications. He had spoken again of having been genetically cursed. He had stated that he was at home when the police had arrived and stated that he remained unsure as to where he would go. He had continued to report that he was influenced by the june adhoclabs. He had continued to engage in substantial self talk while alone and isolating in the room. He had engaged in oral intake both fluids and solids here. Mental Status Exam 2 MSE Comments: The patient was lying in bed with no eye contact. His gait appeared within normal limits. There was no evidence of any abnormal involuntary motor movements tics or tremors appreciated. He was alert and oriented to person and place at this time only. His he was partially cooperative on interview. He remained guarded on interview. His speech was monotone in quality and increased in rate and normal in volume. He did appear to be responding to internal stimuli. There was evidence of bizarre delusions of persecution. He appeared hyperreligious. His mood was described as [place] . His affect was bizarre and mood incongruent. His thought process was initially linear but appeared to derail. He denied any homicidal or suicidal ideation. Recent and remote memory appeared poor. His insight is impaired. His judgment is impaired. His impulse control appeared poor. Vitals/I&O/Wt Last Vital Signs Temp 98.1 F 08/31/24 14:12 Pulse 94 08/31/24 14:12 Resp 18 08/31/24 14:12 BP 121/84 08/31/24 14:12 Pulse Ox 97 08/31/24 14:12 O2 Del Method Room Air 08/31/24 11:15 Data NPU 08/28/24 03:00 08/28/24 03:00 A&P Assessment and plan (1) Schizoaffective disorder, manic type: (2) Schizophrenia: Qualifiers: Schizophrenia type: undifferentiated schizophrenia Qualified Code(s): F 20.3 - Undifferentiated schizophrenia (3) Alcoholic intoxication: (4) Polysubstance abuse: Plan 43-year-old male who presents with psychosis with a blood alcohol level of 190 with a history of schizophrenia requesting Klonopin admitted with bizarre behavior. Patient will continue to require acute inpatient hospitalization at this time. #1.? Engage patient in individual milieu and group therapy. #2?? Recommend sober living treatment at the highest level of care to which the patient is willing to commit #3??? CIWA for alcohol withdrawal. No ETOH withdrawal currently. #4?? TO-15 minute checks? #5?? Will attempt to gather collateral information, consider forced medications as patient refusing antipsychotic medications. Involuntary Hold Information 2 96 Hour Hold: 96 Hour Involuntary Admission: Yes 96 Hour Hold Ending Date: 09/03/24 96 Hour Hold Ending Time: 00:01 Other Hold: Hold End Date: 09/03/24 Attestations NPU 2 Medical Necessity Statement*: Inpatient hospitalization is medically necessary and deemed to ?be ?the clinically appropriate intervention ?at this time.? We will monitor/initiate medications and make changes as indicated. The patient?s likely length of stay 7-10 days. Coding Level of Care Code Acute Code for [facility] Diagnoses Schizoaffective disorder, manic type F25.0 Undifferentiated schizophrenia F20.3 Schizophrenia type: undifferentiated schizophrenia Alcoholic intoxication F10.929 Polysubstance abuse F19.10
--- NOTE | 2024-08-31 19:41 | PC.NURSE ---
this JOB DEVELOPMENT SPECIALIST went into this pts room and asked to get his vs and he stated NO resp 18. pt currently knocking loudly on window in his room as he is repeating his social security number to the window
--- NOTE | 2024-09-01 00:33 | PC.NURSE ---
pt ref vs resp 16 charge notified
--- NOTE | 2024-09-01 06:40 | PC.NURSE ---
pt vs not obtained per charge resp 16
[2024-09-01 08:00] VITALS: BP 112/71; PULSE 69; RESP 16; TEMP 36.5; O2SAT 92
[2024-09-01 11:48] VITALS: BP 146/88; PULSE 94; RESP 16; TEMP 36.5; O2SAT 96
[2024-09-01 14:00] VITALS: BP 112/71; PULSE 69; RESP 16; TEMP 36.5; O2SAT 92
--- NOTE | 2024-09-01 16:29 | P.NPUPN_ITS ---
Subjective NPU 2 Subjective: 43-year-old male schizoaffective disorde r bipolar type admitted with bizarre behavior leading to involuntary hospitalization. The patient had appeared isolative in his room continuing to ruminate about having been placed here against his will. He appeared to be brooding and stated that witchcraft was behind all of this at this time. He reported that he did not need any medications. He had been eating and drinking fluids on the unit but continue to require some prompting for completion of other activities of daily living. He had continued to report that the police were largely responsible for keeping him here as he had suspected that it was some plot involving witchcraft and the devil. Mental Status Exam 2 MSE Comments: The patient was lying in bed with no eye contact. His gait appeared within normal limits. There was no evidence of any abnormal involuntary motor movements tics or tremors appreciated. He was alert and oriented to person and place at this time only. His he was partially cooperative on interview. He remained guarded on interview. His speech was monotone in quality and increased in rate and normal in volume. He did appear to be responding to internal stimuli. There was evidence of bizarre delusions of persecution. He appeared hyperreligious. There was evidence of clang associations. His mood was described as extended . His affect was bizarre and mood incongruent. His thought process was showed evidence of derailment. He denied any homicidal or suicidal ideation. Recent and remote memory appeared poor. His insight is impaired. His judgment is impaired. His impulse control appeared poor. Vitals/I&O/Wt Last Vital Signs Temp 97.7 F 09/01/24 14:00 Pulse 69 09/01/24 14:00 Resp 16 09/01/24 14:00 BP 112/71 09/01/24 14:00 Pulse Ox 92 09/01/24 14:00 O2 Del Method Room Air 09/01/24 14:00 Data NPU 08/28/24 03:00 08/28/24 03:00 A&P Assessment and plan (1) Schizoaffective disorder, manic type: (2) Schizophrenia: Qualifiers: Schizophrenia type: undifferentiated schizophrenia Qualified Code(s): F 20.3 - Undifferentiated schizophrenia (3) Alcoholic intoxication: (4) Polysubstance abuse: Plan 43-year-old male who presents with psychosis with a blood alcohol level of 190 with a history of schizophrenia requesting Klonopin admitted with bizarre behavior. Patient will continue to require acute inpatient hospitalization at this time. #1.? Engage patient in individual milieu and group therapy. #2?? Recommend sober living treatment at the highest level of care to which the patient is willing to commit #3??? CIWA for alcohol withdrawal. No ETOH withdrawal currently. #4?? TO-15 minute checks? #5?? Will attempt to gather collateral information, consider forced medications as patient refusing antipsychotic medications. He will likely need forced medications at this time. Involuntary Hold Information 2 96 Hour Hold: 96 Hour Involuntary Admission: Yes 96 Hour Hold Ending Date: 09/03/24 96 Hour Hold Ending Time: 00:01 Other Hold: Hold End Date: 09/03/24 Attestations NPU 2 Medical Necessity Statement*: Inpatient hospitalization is medically necessary and deemed to ?be ?the clinically appropriate intervention ?at this time.? We will monitor/initiate medications and make changes as indicated. The patient?s likely length of stay 7-10 days. Coding Level of Care Code Acute Code for [facility] Fwd Diagnoses Schizoaffective disorder, manic type F25.0 Undifferentiated schizophrenia F20.3 Schizophrenia type: undifferentiated schizophrenia Alcoholic intoxication F10.929 Polysubstance abuse F19.10
[2024-09-01] MEDS: haloperidol inj 5 mg/mL INJ 1 mL IM (17:29)
[2024-09-01] MEDS: diphenhydrAMINE 50 mg/mL SDV 1mL IM (17:29)
[2024-09-01] MEDS: LORazepam 2 mg/mL INJ 1 mL IM (17:29)
[2024-09-01 20:08] VITALS: BP 107/62; PULSE 74; RESP 18; TEMP 36.3; O2SAT 99
[2024-09-02 05:22] VITALS: BP 116/82; PULSE 78; RESP 18; O2SAT 97
[2024-09-02 14:00] VITALS: BP 144/100; PULSE 83; RESP 18; TEMP 36.7; O2SAT 97
--- NOTE | 2024-09-02 15:23 | W.PM.NPUPNS ---
Subjective NPU Subjective: 43-year-old male schizoaffective disorder bipolar type admitted with bizarre behavior leading to involuntary hospitalization. The patient had continued to complain that he was here due to witchcraft. He had spent time in his room and appeared very angry stating that he would harm someone here if he did not leave soon. He had continued to appear minimally engaged in treatment. He had stated that he was a simple victim of witchcraft and nothing else and reported that the people here were part of a deeper plot to work with the [employer]. He had been practicing Karate moves in his room and minimized any conversations that he was having with himself when asked. Mental Status Exam MSE Comments: The patient was lying in bed with no eye contact. His gait appeared within normal limits. There was no evidence of any abnormal involuntary motor movements tics or tremors appreciated. He was alert and oriented to person and place at this time only. His he was minimally cooperative on interview. He remained extremely guarded on interview as he had quiet conversations with himself and then proceeded to say [facility] when this typewriter assembler arrived near his room. His speech was monotone in quality and increased in rate and normal in volume. He did appear to be responding to internal stimuli. There was evidence of bizarre delusions of persecution. He appeared hyperreligious. There was evidence of clang associations. His mood was described as angry . His affect was bizarre and mood incongruent. His thought process was showed evidence of derailment. He denied any homicidal or suicidal ideation. Recent and remote memory appeared poor. His insight is impaired. His judgment is impaired. His impulse control appeared poor. Vitals/I&O/Wt Last Vital Signs Temp 97.4 F L 09/01/24 20:08 Pulse 78 09/02/24 05:22 Resp 18 09/02/24 05:22 BP 116/82 09/02/24 05:22 Pulse Ox 97 09/02/24 05:22 O2 Del Method Room Air 09/02/24 05:22 Data NPU 08/28/24 03:00 08/28/24 03:00 A&P Assessment and plan (1) Schizoaffective disorder, manic type: (2) Schizophrenia: Qualifiers: Schizophrenia type: undifferentiated schizophrenia Qualified Code(s): F20.3 - Undifferentiated schizophrenia (3) Alcoholic intoxication: (4) Polysubstance abuse: Plan 43-year-old male who presents with psychosis with a blood alcohol level of 190 with a history of schizophrenia requesting Klonopin admitted with bizarre behavior. Patient will continue to require acute inpatient hospitalization at this time. #1.? Engage patient in individual milieu and group therapy. #2?? Recommend sober living treatment at the highest level of care to which the patient is willing to commit #3??? CIWA for alcohol withdrawal. No ETOH withdrawal currently. #4?? TO-15 minute checks? #5?? Will attempt to gather collateral information, consider forced medications as patient refusing antipsychotic medications. 21 day hold filed today with forced medications likely. Involuntary Hold Information 96 Hour Hold: 96 Hour Involuntary Admission: Yes 96 Hour Hold Ending Date: 09/03/24 96 Hour Hold Ending Time: 00:01 Other Hold: Hold End Date: 09/03/24 Attestations NPU Medical Necessity Statement*: Inpatient hospitalization is medically necessary and deemed to ?be ?the clinically appropriate intervention ?at this time.? We will monitor/initiate medications and make changes as indicated. The patient?s likely length of stay 7-10 days. Coding Level of Care Code Acute Code for [facility] Diagnoses Schizoaffective disorder, manic type F25.0 Undifferentiated schizophrenia F20.3 Schizophrenia type: undifferentiated schizophrenia Alcoholic intoxication F10.929 Polysubstance abuse F19.10
[2024-09-02] MEDS: nicotine 4 mg lozenge MUCOUS MEM (17:22)
[2024-09-02 19:30] VITALS: BP 120/81; PULSE 87; RESP 16; TEMP 37.2; O2SAT 97
[2024-09-03] MEDS: nicotine 2 mg Gum BUCCAL ×2 (02:00→18:13)
[2024-09-03 05:54] VITALS: RESP 18
--- NOTE | 2024-09-03 05:54 | PC.NURSE ---
Patient was up all night and was finally resting around 6 am. Nurse said it was ok for aid to get respirations.
--- NOTE | 2024-09-03 09:01 | PC.NURSE ---
PT CONTINUES TO REFUSE AM MEDICATIONS (VITAMINS) AND INVEGA AT BEDTIME. WHEN RN WENT TO ROOM PT ACTED LIKE HE WAS ASLEEP AND THEN ROLLED OVER AND IGNORED RN. PT EDUCATED THAT THIS RN WOULD BE BACK TO COMPLETE ASSESSMENTS.
--- NOTE | 2024-09-03 09:23 | PC.NURSE ---
IN BED RESTING. EVASIVE WITH ASSESSMENT, REFUSING TO SPEAK TO RN. PT DID NOD HEAD NO THAT HE WAS NOT SUICIDAL/HOMICIDAL OR HAVING AVH. DENIES PAIN. AFFECT IS FLAT. PT IS NEGATIVE AND RESISTIVE TO CARE. RATES ANXIETY AND DEPRESSION 0/10. SUPPORT VOICEE.
[2024-09-03 14:00] VITALS: BP 127/91; PULSE 106; RESP 16; TEMP 36.8; O2SAT 96
--- NOTE | 2024-09-03 15:14 | W.PM.NPUPNS ---
Subjective NPU Subjective: Patient presented today reporting that he is doing fine he reports. But then he rambled off some clearly psychotic content that was not connected to it in part of our conversation. He was talking about crocodile [place] and [place] Afghan's as well as him being [place] and [place] Americans. We discussed the 21-day hold and his hearing on Friday and he seemed to appreciate something about that reporting that he could stay here for 6 months if that is what is needed to prove his competency. Mental Status Exam MSE Comments: The patient was lying in bed with no eye contact. His gait appeared within normal limits. There was no evidence of any abnormal involuntary motor movements tics or tremors appreciated. He was alert and oriented to person and place at this time only. His he was minimally cooperative on interview. He remained extremely guarded on interview as he had quiet conversations with himself and then proceeded to [facility] when this television writer arrived near his room. His speech was monotone in quality and increased in rate and normal in volume. He did appear to be responding to internal stimuli. There was evidence of bizarre delusions of persecution. He appeared hyperreligious. There was evidence of clang associations. His mood was described as angry . His affect was bizarre and mood incongruent. His thought process was showed evidence of derailment. He denied any homicidal or suicidal ideation. Recent and remote memory appeared poor. His insight is impaired. His judgment is impaired. His impulse control appeared poor. Vitals/I&O/Wt Last Vital Signs Temp 99 F 09/02/24 19:30 Pulse 87 09/02/24 19:30 Resp 18 09/03/24 05:54 BP 120/81 09/02/24 19:30 Pulse Ox 97 09/02/24 19:30 O2 Del Method Room Air 09/02/24 19:30 Data NPU 08/28/24 03:00 08/28/24 03:00 A&P Assessment and plan (1) Schizoaffective disorder, manic type: (2) Schizophrenia: Qualifiers: Schizophrenia type: undifferentiated schizophrenia Qualified Code(s): F20.3 - Undifferentiated schizophrenia (3) Alcoholic intoxication: (4) Polysubstance abuse: Plan 43-year-old male who presents with psychosis with a blood alcohol level of 190 with a history of schizophrenia requesting Klonopin admitted with bizarre behavior. Patient will continue to require acute inpatient hospitalization at this time. 1.? Engage patient in individual milieu and group therapy. 2.? Recommend sober living treatment at the highest level of care to which the patient is willing to commit 3.??Obtain collateral information patient currently floridly psychotic. 4.? TO-15 minute checks? 5. We will need to consider forced medications as patient refusing antipsychotic medications. 21 day hold filed with hearing on Friday. Involuntary Hold Information 96 Hour Hold: 96 Hour Involuntary Admission: Yes 96 Hour Hold Ending Date: 09/03/24 96 Hour Hold Ending Time: 00:01 Other Hold: Hold End Date: 09/23/24 Attestations NPU Medical Necessity Statement*: Inpatient hospitalization is medically necessary and?the clinically appropriate intervention at this time.? We will monitor/initiate medications and make changes as indicated. Likely length of stay 7-10 days. Coding Level of Care Code Acute Code for [facility] Diagnoses Schizoaffective disorder, manic type F25.0 Undifferentiated schizophrenia F20.3 Schizophrenia type: undifferentiated schizophrenia Alcoholic intoxication F10.929 Polysubstance abuse F19.10
[2024-09-03] MEDS: haloperidol inj 5 mg/mL INJ 1 mL IM (16:45)
--- NOTE | 2024-09-03 18:15 | PC.NURSE ---
PT CONTINUES TO COME TO NURSES STATION HAVING HALLUCINATIONS SPEAKING TO UNSEEN OTHERS, RESPONDING TO INTERNAL AND EXTERNAL STIMULI. PT MADE STATEMENTS YOU KEEP SAYING THEY ARE ENTITIES AND THEY ARE DEMONS, I KEEP MAKING FUN OF YOU GUYS BUT ITS THE DEMONS. I KNOW YOU ALL ARE GOING TO FUCK MY SON UP THE BUTT. SEE YOU HEARD IT TO DIDN'T YOU. I KNOW YOU HEARD IT DIDN'T YOU, JUST FUCK MY SON IN THE BUTT. PT THEN REPORTED THAT HE TAKES CLONAZEPAM 1 MG PO BID AND NEEDED HIS PRESCRIPTION. RN CALLED GARCIA AND CONFIRMED PRESCRIPTION AND THAT PT HAD BEEN TAKING CLONAZEPAM 1 MG PO BID SINCE MARCH, THE ABOVE INFO WAS REPORTED TO DR. GOSS AND ORDERS RECEIVED TO RESTART CLONAZEPAM 1 MG PO BID, ORDERS PLACED AND PT EDUCATED, SUPPORT VOICED.
[2024-09-03] MEDS: CLONazepam 1 mg Tablet PO (21:32)
[2024-09-03] MEDS: paliperidone ER 6 mg Tablet PO (21:32)
[2024-09-03 21:46] VITALS: RESP 15
[2024-09-04 06:00] VITALS: BP 128/85; PULSE 62; RESP 16; O2SAT 98
--- NOTE | 2024-09-04 08:17 | P.NPUPN_ITS ---
Subjective NPU 2 Subjective: Patient presented today reporting that he is okay but spent the entirety of the conversation with his blankets pulled over his head. Staff reported that he has been spending time at his room today and that condition. He did not want to discuss why he was doing that and if that had anything to do with his paranoia. He denied any issues and continued to be resistant to the initiation of an antipsychotic medication to help with his condition. We again discussed that he would have a 21-day hold hearing on Friday. Mental Status Exam 2 MSE Comments: The patient was lying in bed with no eye contact. His gait appeared within normal limits. There was no evidence of any abnormal involuntary motor movements tics or tremors appreciated. He was alert and oriented to person and place at this time only. His he was minimally cooperative on interview. He remained extremely guarded on interview as he had quiet conversations with himself and then proceeded to say SHHH when this television script writer arrived near his room. His speech was monotone in quality and increased in rate and normal in volume. He did appear to be responding to internal stimuli. There was evidence of bizarre delusions of persecution. He appeared hyperreligious. There was evidence of clang associations. His mood was described as angry . His affect was bizarre and mood incongruent. His thought process was showed evidence of derailment. He denied any homicidal or suicidal ideation. Recent and remote memory appeared poor. His insight is impaired. His judgment is impaired. His impulse control appeared poor. Vitals/I&O/Wt Last Vital Signs Temp 98 F 09/04/24 22:00 Pulse 94 09/04/24 22:00 Resp 18 09/04/24 22:00 BP 117/79 09/04/24 22:00 Pulse Ox 95 09/04/24 22:00 O2 Del Method Room Air 09/04/24 22:00 Data NPU 08/28/24 03:00 08/28/24 03:00 A&P Assessment and plan (1) Schizoaffective disorder, manic type: (2) Schizophrenia: Qualifiers: Schizophrenia type: undifferentiated schizophrenia Qualified Code(s): F 20.3 - Undifferentiated schizophrenia (3) Alcoholic intoxication: (4) Polysubstance abuse: Plan 43-year-old male who presents with psychosis with a blood alcohol level of 190 with a history of schizophrenia requesting Klonopin admitted with bizarre behavior. Patient will continue to require acute inpatient hospitalization at this time. 1.? Engage patient in individual milieu and group therapy. 2.? Recommend sober living treatment at the highest level of care to which the patient is willing to commit 3.??Obtain collateral information patient currently floridly psychotic. 4.? TO-15 minute checks? 5. We will need to consider forced medications as patient refusing antipsychotic medications. 21 day hold filed with hearing on Friday. Involuntary Hold Information 2 96 Hour Hold: 96 Hour Involuntary Admission: Yes 96 Hour Hold Ending Date: 09/03/24 96 Hour Hold Ending Time: 00:01 Other Hold: Hold End Date: 09/23/24 Attestations NPU 2 Medical Necessity Statement*: Inpatient hospitalization is medically necessary and?the clinically appropriate intervention at this time.? We will monitor/initiate medications and make changes as indicated. Likely length of stay 7-10 days. Coding Level of Care Code Acute Code for [facility] Diagnoses Schizoaffective disorder, manic type F25.0 Undifferentiated schizophrenia F20.3 Schizophrenia type: undifferentiated schizophrenia Alcoholic intoxication F10.929 Polysubstance abuse F19.10
[2024-09-04] MEDS: multivitamin therapeutic Tablet 1 TAB PO (09:04)
[2024-09-04] MEDS: folic acid 1 mg Tablet PO (09:04)
[2024-09-04] MEDS: CLONazepam 1 mg Tablet PO ×2 (09:04→18:09)
[2024-09-04] MEDS: thiamine 100 mg Tablet PO (09:04)
[2024-09-04] MEDS: nicotine 4 mg lozenge MUCOUS MEM ×4 (09:05→21:48)
--- NOTE | 2024-09-04 09:46 | PC.NURSE ---
Morning assessment Patient denies all during morning assessment. Patient stated that he doesn't understand why he is here because he was drinking and he ended up here. Patient said that this has happened in the past. Patient talking in an animated tone on the phone. Patient appears more clear today.
[2024-09-04 14:00] VITALS: BP 91/55; PULSE 73; RESP 18; TEMP 36.5; O2SAT 100
[2024-09-04] MEDS: paliperidone ER 6 mg Tablet PO (21:33)
[2024-09-04 22:00] VITALS: BP 117/79; PULSE 94; RESP 18; TEMP 36.6; O2SAT 95
[2024-09-04] MEDS: haloperidol inj 5 mg/mL INJ 1 mL IM (23:21)
[2024-09-04] MEDS: diphenhydrAMINE 50 mg/mL SDV 1mL IM (23:21)
[2024-09-04] MEDS: LORazepam 2 mg/mL INJ 1 mL IM (23:22)
[2024-09-05 06:00] VITALS: RESP 15
[2024-09-05] MEDS: folic acid 1 mg Tablet PO (08:57)
[2024-09-05] MEDS: thiamine 100 mg Tablet PO (08:57)
[2024-09-05] MEDS: multivitamin therapeutic Tablet 1 TAB PO (08:57)
[2024-09-05] MEDS: CLONazepam 1 mg Tablet PO ×2 (08:57→20:22)
[2024-09-05] MEDS: nicotine 4 mg lozenge MUCOUS MEM ×4 (09:23→18:06)
[2024-09-05] MEDS: haloperidol 5 mg Tablet PO (12:53)
--- NOTE | 2024-09-05 12:53 | PC.NURSE ---
PRN HALDOL 5 MG GIVEN PO PER PT C/O AGITATION/PSYCHOSIS. PACING UNIT, TALKING TO HIMSELF. TOOK MED WILLINGLY.
[2024-09-05 14:00] VITALS: BP 136/84; PULSE 78; RESP 17; TEMP 36.8; O2SAT 98
--- NOTE | 2024-09-05 15:08 | W.PM.NPUPNS ---
Subjective NPU Subjective: Patient presented today reporting that he was doing a little better. He was more out on the unit and less isolative today per staff reports and direct observation. We discussed his 21-day hold hearing being tomorrow and that he was able to attend if he so desired. We discussed the hearing process. He continues to resist being placed on regular medication but has become more open to a as needed medication you are requesting it when his symptoms had seemed to worsen. Mental Status Exam MSE Comments: The patient was lying in bed with no eye contact. His gait appeared within normal limits. There was no evidence of any abnormal involuntary motor movements tics or tremors appreciated. He was alert and oriented to person and place at this time only. His he was minimally cooperative on interview. He remained extremely guarded on interview as he had quiet conversations with himself and then proceeded to say SHHH when this typewriter assembly and parts inspector arrived near his room. His speech was monotone in quality and increased in rate and normal in volume. He did appear to be responding to internal stimuli. There was evidence of bizarre delusions of persecution. He appeared hyperreligious. There was evidence of clang associations. His mood was described as angry . His affect was bizarre and mood incongruent. His thought process was showed evidence of derailment. He denied any homicidal or suicidal ideation. Recent and remote memory appeared poor. His insight is impaired. His judgment is impaired. His impulse control appeared poor. Vitals/I&O/Wt Last Vital Signs Temp 98 F 09/04/24 22:00 Pulse 94 09/04/24 22:00 Resp 15 09/05/24 06:00 BP 117/79 09/04/24 22:00 Pulse Ox 95 09/04/24 22:00 O2 Del Method Room Air 09/04/24 22:00 Weight last 48 hrs Weight 86.863 kg Data NPU 08/28/24 03:00 08/28/24 03:00 A&P Assessment and plan (1) Schizoaffective disorder, manic type: (2) Schizophrenia: Qualifiers: Schizophrenia type: undifferentiated schizophrenia Qualified Code(s): F20.3 - Undifferentiated schizophrenia (3) Alcoholic intoxication: (4) Polysubstance abuse: Plan 43-year-old male who presents with psychosis with a blood alcohol level of 190 with a history of schizophrenia requesting Klonopin admitted with bizarre behavior. Patient will continue to require acute inpatient hospitalization at this time. 1.? Engage patient in individual milieu and group therapy. 2.? Recommend sober living treatment at the highest level of care to which the patient is willing to commit 3.??Obtain collateral information patient currently floridly psychotic. 4.? TO-15 minute checks? 5. We will need to consider forced medications as patient refusing antipsychotic medications. 21 day hold filed with hearing on Friday. Involuntary Hold Information 96 Hour Hold: 96 Hour Involuntary Admission: Yes 96 Hour Hold Ending Date: 09/03/24 96 Hour Hold Ending Time: 00:01 Other Hold: Hold End Date: 09/23/24 Attestations NPU Medical Necessity Statement*: Inpatient hospitalization is medically necessary and?the clinically appropriate intervention at this time.? We will monitor/initiate medications and make changes as indicated. Likely length of stay 7-10 days. Coding Level of Care Code Acute Code for [facility] Diagnoses Schizoaffective disorder, manic type F25.0 Undifferentiated schizophrenia F20.3 Schizophrenia type: undifferentiated schizophrenia Alcoholic intoxication F10.929 Polysubstance abuse F19.10
--- NOTE | 2024-09-05 15:47 | PC.NURSE ---
Patient at window talking about seretonin and cortisol levels. Patient talking about MDMA and taking it years ago. Patient also said that he saw Alcides today, that he comes and goes. Alcides looks like he could be an [place] dude. Patient is having continuous speech with flat affect.
[2024-09-05] MEDS: paliperidone ER 6 mg Tablet PO (20:22)
[2024-09-05] MEDS: trazodone 50 mg Tablet PO (20:22)
[2024-09-05] MEDS: OLANZapine 5 mg ODT PO (20:22)
[2024-09-05 22:00] VITALS: BP 104/81; PULSE 78; RESP 18; TEMP 36.6; O2SAT 97
[2024-09-05] MEDS: diphenhydrAMINE 50 mg/mL SDV 1mL IM (22:42)
[2024-09-05] MEDS: haloperidol inj 5 mg/mL INJ 1 mL IM (22:42)
--- NOTE | 2024-09-06 05:02 | PC.NURSE ---
At around 2200 pt came up to the window and asked if he could have shots again because they are the only things that help him settle down at night. This nurse asked DR. Zafar if we could give the patient a B52 to help him settle down to be able to go to sleep and the physician said we could give the patient IM Haldol and Benadryl but no Ativan. This nurse told the patient the plan and he agreed. Pt was given Haldol 5mg IM in the right deltoid and Benadryl 50mg IM in the left deltoid at 2237. Pt has been resting in bed since then. Respirations even and unlabored.
[2024-09-06 06:00] VITALS: RESP 15
[2024-09-06] MEDS: folic acid 1 mg Tablet PO (08:43)
[2024-09-06] MEDS: multivitamin therapeutic Tablet 1 TAB PO (08:43)
[2024-09-06] MEDS: thiamine 100 mg Tablet PO (08:43)
[2024-09-06] MEDS: CLONazepam 1 mg Tablet PO ×2 (08:45→21:37)
[2024-09-06 14:00] VITALS: BP 102/73; PULSE 85; TEMP 36.8
[2024-09-06] MEDS: nicotine 4 mg lozenge MUCOUS MEM ×3 (14:38→21:37)
--- NOTE | 2024-09-06 14:45 | W.PM.NPUPNS ---
Subjective NPU Subjective: Patient presented today reporting that he is doing okay. He reported a plan for going to the hearing today. We discussed the plan for getting him restarted on medication. He continues to deny the need for medication and reports that he simply has had a spiritual awakening that is not being well understood. He continues to speak to himself regularly per staff and direct observation. He denies any need for medication but has occasionally asked for as needed medication in the evening. Mental Status Exam MSE Comments: The patient was lying in bed with no eye contact. His gait appeared within normal limits. There was no evidence of any abnormal involuntary motor movements tics or tremors appreciated. He was alert and oriented to person and place at this time only. His he was minimally cooperative on interview. He remained extremely guarded on interview as he had quiet conversations with himself and then proceeded to say SHHH when this proposal writer arrived near his room. His speech was monotone in quality and increased in rate and normal in volume. He did appear to be responding to internal stimuli. There was evidence of bizarre delusions of persecution. He appeared hyperreligious. There was evidence of clang associations. His mood was described as angry . His affect was bizarre and mood incongruent. His thought process was showed evidence of derailment. He denied any homicidal or suicidal ideation. Recent and remote memory appeared poor. His insight is impaired. His judgment is impaired. His impulse control appeared poor. Vitals/I&O/Wt Last Vital Signs Temp 98.2 F 09/06/24 14:00 Pulse 85 09/06/24 14:00 Resp 15 09/06/24 06:00 BP 102/73 09/06/24 14:00 Pulse Ox 97 09/05/24 22:00 O2 Del Method Room Air 09/05/24 22:00 Weight last 48 hrs Weight 86.863 kg Data NPU 08/28/24 03:00 08/28/24 03:00 A&P Assessment and plan (1) Schizoaffective disorder, manic type: (2) Schizophrenia: Qualifiers: Schizophrenia type: undifferentiated schizophrenia Qualified Code(s): F20.3 - Undifferentiated schizophrenia (3) Alcoholic intoxication: (4) Polysubstance abuse: Plan 43-year-old male who presents with psychosis with a blood alcohol level of 190 with a history of schizophrenia requesting Klonopin admitted with bizarre behavior. Patient will continue to require acute inpatient hospitalization at this time. 1.? Engage patient in individual milieu and group therapy. 2.? Recommend sober living treatment at the highest level of care to which the patient is willing to commit 3.??Obtain collateral information patient currently floridly psychotic. 4.? TO-15 minute checks? 5. We will need to consider forced medications as patient refusing antipsychotic medications. 21-day hold hearing at 3:30 PM today Involuntary Hold Information 96 Hour Hold: 96 Hour Involuntary Admission: Yes 96 Hour Hold Ending Date: 09/03/24 96 Hour Hold Ending Time: 00:01 Other Hold: Hold End Date: 09/03/24 Attestations NPU Medical Necessity Statement*: Inpatient hospitalization is medically necessary and?the clinically appropriate intervention at this time.? We will monitor/initiate medications and make changes as indicated. Likely length of stay 7-10 days. Coding Level of Care Code Acute Code for [facility] Diagnoses Schizoaffective disorder, manic type F25.0 Undifferentiated schizophrenia F20.3 Schizophrenia type: undifferentiated schizophrenia Alcoholic intoxication F10.929 Polysubstance abuse F19.10
[2024-09-06 19:35] VITALS: BP 119/81; PULSE 108; RESP 16; TEMP 36.6; O2SAT 97
--- NOTE | 2024-09-07 00:45 | PC.NURSE ---
During 2100 med pass pt stated that he did not want to take his 2100 dose of Invega. When asked why he did not want to take it he stated something must be wrong with your system because i stood in court today and told them i didn't want to take that. This nurse informed the patient that the doctor still wanted him to take it and he stated no ma'am your mistaken and then walked away. This nurse notified Dr. Zafar that patient refused the medication. No new orders were given at this time.
[2024-09-07 06:00] VITALS: BP 124/75; PULSE 74; RESP 16; TEMP 36.5; O2SAT 98
[2024-09-07] MEDS: CLONazepam 1 mg Tablet PO ×2 (09:19→21:58)
[2024-09-07] MEDS: folic acid 1 mg Tablet PO (09:19)
[2024-09-07] MEDS: multivitamin therapeutic Tablet 1 TAB PO (09:19)
[2024-09-07] MEDS: thiamine 100 mg Tablet PO (09:19)
[2024-09-07] MEDS: nicotine 4 mg lozenge MUCOUS MEM ×3 (09:32→18:17)
[2024-09-07 14:00] VITALS: BP 125/85; PULSE 100; RESP 16; TEMP 36.7; O2SAT 97
[2024-09-07] MEDS: diphenhydrAMINE 50 mg/mL SDV 1mL IM (15:52)
[2024-09-07] MEDS: haloperidol inj 5 mg/mL INJ 1 mL IM (15:52)
[2024-09-07] MEDS: LORazepam 2 mg/mL INJ 1 mL IM (15:52)
--- NOTE | 2024-09-07 15:58 | PC.NURSE ---
Patient becoming increasingly agitated after he says he talked with his director of property management, Kortney, although he can not say why. Patient observed to be actively hallucinating, fighting someone/something that is not there and talking constantly. When this RN attempted to redirect him he looked in his mirror and stated, jones, blue and red. That's not normal. My eyes are too black. He then began talking about his son and how he believes he has asperger's and that it has a stigma with it. Patient is having a flight of ideas and continues to argue with someone in the hallway. Patient at one point asked for the code enforcement officer's office number and made the comment that there were too many damn cameras here. Patient would not agree to take any oral medications at this time for anxiety or agitation. However, he did agree to take them intramuscularly. Dr. Zafar notified. Patient given haldol 5 mg IM and ativan 2mg IM in the left deltoid and benadryl 50mg IM in the right deltoid.
--- NOTE | 2024-09-07 16:56 | P.NPUPN_ITS ---
Subjective NPU 2 Subjective: Patient presents today continuum to be resistant to treatment and denying any antipsychotic is helpful reporting that he would to the hospital if any of those medications were started. We attempted to discuss the risk benefits and alternatives of the medications but also tried to understand what he has been exposed to before and we discussed calling insurance and possible pharmacies to identify if they have some information that could assist this. He continued to be very actively psychotic per staff reports and direct observation. Mental Status Exam 2 MSE Comments: The patient was lying in bed with no eye contact. His gait appeared within normal limits. There was no evidence of any abnormal involuntary motor movements tics or tremors appreciated. He was alert and oriented to person and place at this time only. His he was minimally cooperative on interview. He remained extremely guarded on interview as he had quiet conversations with himself and then proceeded to say SHHH when this staff writer arrived near his room. His speech was monotone in quality and increased in rate and normal in volume. He did appear to be responding to internal stimuli. There was evidence of bizarre delusions of persecution. He appeared hyperreligious. There was evidence of clang associations. His mood was described as angry . His affect was bizarre and mood incongruent. His thought process was showed evidence of derailment. He denied any homicidal or suicidal ideation. Recent and remote memory appeared poor. His insight is impaired. His judgment is impaired. His impulse control appeared poor. Vitals/I&O/Wt Last Vital Signs Temp 98.0 F 09/07/24 14:00 Pulse 100 09/07/24 14:00 Resp 16 09/07/24 14:00 BP 125/85 09/07/24 14:00 Pulse Ox 97 09/07/24 14:00 O2 Del Method Room Air 09/07/24 14:00 Data NPU 08/28/24 03:00 08/28/24 03:00 A&P Assessment and plan (1) Schizoaffective disorder, manic type: (2) Schizophrenia: Qualifiers: Schizophrenia type: undifferentiated schizophrenia Qualified Code(s): F 20.3 - Undifferentiated schizophrenia (3) Alcoholic intoxication: (4) Polysubstance abuse: Plan 43-year-old male who presents with psychosis with a blood alcohol level of 190 with a history of schizophrenia requesting Klonopin admitted with bizarre behavior. Patient will continue to require acute inpatient hospitalization at this time. 1.? Engage patient in individual milieu and group therapy. 2.? Recommend sober living treatment at the highest level of care to which the patient is willing to commit 3.??Obtain collateral information patient currently floridly psychotic. 4.? TO-15 minute checks? 5. We will need to consider forced medications as patient refusing antipsychotic medications. Patient placed on a 21-day hold yesterday. We will initiate forced medication protocol tomorrow. Involuntary Hold Information 2 96 Hour Hold: 96 Hour Involuntary Admission: Yes 96 Hour Hold Ending Date: 09/03/24 96 Hour Hold Ending Time: 00:01 Other Hold: Hold End Date: 09/03/24 Attestations NPU 2 Medical Necessity Statement*: Inpatient hospitalization is medically necessary and?the clinically appropriate intervention at this time.? We will monitor/initiate medications and make changes as indicated. Likely length of stay 7-10 days. Coding Level of Care Code Acute Code for [facility] Diagnoses Schizoaffective disorder, manic type F25.0 Undifferentiated schizophrenia F20.3 Schizophrenia type: undifferentiated schizophrenia Alcoholic intoxication F10.929 Polysubstance abuse F19.10
--- NOTE | 2024-09-07 20:22 | PC.NURSE ---
pt ref vs resp 18 charge notified
[2024-09-08 06:00] VITALS: BP 121/79; PULSE 80; RESP 18; TEMP 36.4; O2SAT 98
[2024-09-08] MEDS: nicotine 4 mg lozenge MUCOUS MEM ×4 (06:05→21:01)
[2024-09-08] MEDS: thiamine 100 mg Tablet PO (08:35)
[2024-09-08] MEDS: multivitamin therapeutic Tablet 1 TAB PO (08:35)
[2024-09-08] MEDS: CLONazepam 1 mg Tablet PO ×2 (08:35→21:00)
[2024-09-08] MEDS: folic acid 1 mg Tablet PO (08:35)
--- NOTE | 2024-09-08 11:44 | P.NPUPN_ITS ---
Subjective NPU 2 Subjective: Patient presented today reporting that he is doing okay. Continues to talk to himself regularly per staff reports and direct observation. He continues to refuse his medication and we discussed trying to determine from his insurance company what he is taken before so we do not waste time. We we discussed that we would initiate something through forced medication if necessary tomorrow regardless of our findings. Mental Status Exam 2 MSE Comments: The patient was lying in bed with no eye contact. His gait appeared within normal limits. There was no evidence of any abnormal involuntary motor movements tics or tremors appreciated. He was alert and oriented to person and place at this time only. His he was minimally cooperative on interview. He remained extremely guarded on interview as he had quiet conversations with himself and then proceeded to say [facility] when this television script writer arrived near his room. His speech was monotone in quality and increased in rate and normal in volume. He did appear to be responding to internal stimuli. There was evidence of bizarre delusions of persecution. He appeared hyperreligious. There was evidence of clang associations. His mood was described as angry . His affect was bizarre and mood incongruent. His thought process was showed evidence of derailment. He denied any homicidal or suicidal ideation. Recent and remote memory appeared poor. His insight is impaired. His judgment is impaired. His impulse control appeared poor. Vitals/I&O/Wt Last Vital Signs Temp 97.5 F L 09/08/24 06:00 Pulse 80 09/08/24 06:00 Resp 18 09/08/24 06:00 BP 121/79 09/08/24 06:00 Pulse Ox 98 09/08/24 06:00 O2 Del Method Room Air 09/08/24 06:00 Data NPU 08/28/24 03:00 08/28/24 03:00 A&P Assessment and plan (1) Schizoaffective disorder, manic type: (2) Schizophrenia: Qualifiers: Schizophrenia type: undifferentiated schizophrenia Qualified Code(s): F 20.3 - Undifferentiated schizophrenia (3) Alcoholic intoxication: (4) Polysubstance abuse: Plan 43-year-old male who presents with psychosis with a blood alcohol level of 190 with a history of schizophrenia requesting Klonopin admitted with bizarre behavior. Patient will continue to require acute inpatient hospitalization at this time. 1.? Engage patient in individual milieu and group therapy. 2.? Recommend sober living treatment at the highest level of care to which the patient is willing to commit 3.??Obtain collateral information patient currently floridly psychotic. 4.? TO-15 minute checks? 5. We will need to consider forced medications as patient refusing antipsychotic medications. Patient placed on a 21-day hold yesterday. We will initiate forced medication protocol tomorrow, but trying to determine from his insurance company what he has taken previously. Involuntary Hold Information 2 96 Hour Hold: 96 Hour Involuntary Admission: Yes 96 Hour Hold Ending Date: 09/03/24 96 Hour Hold Ending Time: 00:01 Other Hold: Hold End Date: 09/27/24 Attestations NPU 2 Medical Necessity Statement*: Inpatient hospitalization is medically necessary and?the clinically appropriate intervention at this time.? We will monitor/initiate medications and make changes as indicated. Likely length of stay 7-10 days. Coding Level of Care Code Acute Code for [facility] Diagnoses Schizoaffective disorder, manic type F25.0 Undifferentiated schizophrenia F20.3 Schizophrenia type: undifferentiated schizophrenia Alcoholic intoxication F10.929 Polysubstance abuse F19.10
[2024-09-08 14:00] VITALS: BP 115/66; PULSE 103; RESP 18; TEMP 36.8; O2SAT 97
[2024-09-08 20:09] VITALS: BP 138/95; PULSE 90; RESP 17; TEMP 36.7; O2SAT 97
--- NOTE | 2024-09-09 06:17 | PC.NURSE ---
pt up until 0300 pt was delusional, anxious, hallucinating and was pacing the halls and ref meds and PRNs. doc notified per charge resp only were collected while asleep. resp 18
[2024-09-09] MEDS: nicotine 4 mg lozenge MUCOUS MEM ×4 (08:10→18:29)
[2024-09-09] MEDS: multivitamin therapeutic Tablet 1 TAB PO (09:16)
[2024-09-09] MEDS: thiamine 100 mg Tablet PO (09:16)
[2024-09-09] MEDS: folic acid 1 mg Tablet PO (09:16)
[2024-09-09] MEDS: CLONazepam 1 mg Tablet PO ×2 (09:16→21:31)
--- NOTE | 2024-09-09 11:12 | PC.NURSE ---
CONTINUES TO REFUSE PO INVEGA.. DR. GOSS NOTIFIED, NEW ORDERS TO GIVE IM HALDOL 5MG WITH 50 MG OF BENADRYL FOR REFUSAL OF PO INVEGA. ORDERS PLACED,
[2024-09-09] MEDS: diphenhydrAMINE 50 mg/mL SDV 1mL IM (11:31)
[2024-09-09] MEDS: haloperidol inj 5 mg/mL INJ 1 mL IM (11:31)
[2024-09-09 14:00] VITALS: BP 123/80; PULSE 94; RESP 17; TEMP 36.5; O2SAT 96
--- NOTE | 2024-09-09 14:38 | PC.NURSE ---
PT HAS BEEN OBSERVED BLOWING KISSES TO THE BACK TENDER CLOTH PRINTING, ASKING FOR HER PHONE NUMBER AND STANDING IN THE CORNER STARRING AT HER INAPPROPRIATELY. PT WILL TRY TO HIDE FROM OTHER STAFF MEMBERS AND THE BLOW KISSES AT HER WHEN HE BELIEVES NO ONE IS LOOKING. PT HAS BEEN VERBALLY REDIRECTED MULTIPLE TIMES. PT WILL THEN SIT ON HIS BED AND COMB HIS HAIR, EVEN THOUGH HE IS BALB AND HAS NONE. PT IS ALSO OBSERVED KARATE KICKING IN HIS ROOM. SUPPORT VOICED.
--- NOTE | 2024-09-09 16:55 | P.NPUPN_ITS ---
Subjective NPU 2 Subjective: Patient presented today reporting that he is fine but was very elusive from the standpoint of engaging in a conversation seeming to want to be somewhere other than where this law writer was. Staff report continued talking to himself, isolation and bizarre statements, and this is noted on direct observation. He continued to report the medication not being something he can take due to concerns for sexual side effects. We continue to discuss our attempts to find out if insurance could give us insight on his past effective treatments. We continue to explain the fact that he would get IM Haldol for p.o. refusal of medication. Mental Status Exam 2 MSE Comments: This is a well-nourished well-developed white male in hospital scrubs with limited grooming and with no eye contact. No abnormal movements except for mild psychomotor agitation that which increased with managing the fact that he needed to take medication. He was mostly uncooperative with exam and moderate distress. Speech was increased rate but decreased volume. And he was often heard speaking to himself even at times loudly from within his bathroom. Mood described as fine affect odd and guarded. Thought process was disorganized. Thought content: Patient did not respond to questions about suicidal or homicidal ideation he had no self-directed or outward directed aggression noted except for when conversations about taking medication occurred he had some posturing and verbal aggression, no delusions reported but clear paranoid, persecutory and likely grandiose delusions as well as latter day preoccupation, he did not report any auditory or visual hallucinations but was clearly at times responding to internal stimuli. Attention and concentration was limited and memory was unreliable but none formally tested. Insight And judgment and impulse control are all impaired. Vitals/I&O/Wt Last Vital Signs Temp 97.7 F 09/09/24 14:00 Pulse 94 09/09/24 14:00 Resp 17 09/09/24 14:00 BP 123/80 09/09/24 14:00 Pulse Ox 96 09/09/24 14:00 O2 Del Method Room Air 09/08/24 20:09 Data NPU 08/28/24 03:00 08/28/24 03:00 A&P Assessment and plan (1) Schizoaffective disorder, manic type: (2) Schizophrenia: Qualifiers: Schizophrenia type: undifferentiated schizophrenia Qualified Code(s): F 20.3 - Undifferentiated schizophrenia (3) Alcoholic intoxication: (4) Polysubstance abuse: Plan 43-year-old male who presents with psychosis with a blood alcohol level of 190 with a history of schizophrenia requesting Klonopin admitted with bizarre behavior. Patient will continue to require acute inpatient hospitalization at this time. 1.? Engage patient in individual milieu and group therapy. 2.? Recommend sober living treatment at the highest level of care to which the patient is willing to commit 3.??Obtain collateral information patient currently floridly psychotic. 4.? TO-15 minute checks? 5. We will need to consider forced medications as patient refusing antipsychotic medications. Patient placed on a 21-day hold yesterday. We will initiate forced medication protocol tomorrow, but trying to determine from his insurance company what he has taken previously. Have instituted forced medication protocol. Patient received Haldol injection for refused Invega. Involuntary Hold Information 2 96 Hour Hold: 96 Hour Involuntary Admission: Yes 96 Hour Hold Ending Date: 09/03/24 96 Hour Hold Ending Time: 00:01 Other Hold: Hold End Date: 09/27/24 Attestations NPU 2 Medical Necessity Statement*: Inpatient hospitalization is medically necessary and?the clinically appropriate intervention at this time.? We will monitor/initiate medications and make changes as indicated. Likely length of stay 7-10 days. Coding Level of Care Code Acute Code for [facility] Diagnoses Schizoaffective disorder, manic type F25.0 Undifferentiated schizophrenia F20.3 Schizophrenia type: undifferentiated schizophrenia Alcoholic intoxication F10.929 Polysubstance abuse F19.10
[2024-09-09 19:39] VITALS: BP 144/84; PULSE 84; RESP 18; TEMP 36.6; O2SAT 98
[2024-09-10 06:00] VITALS: BP 130/82; PULSE 69; RESP 18; TEMP 36.7; O2SAT 98
[2024-09-10] MEDS: thiamine 100 mg Tablet PO (08:29)
[2024-09-10] MEDS: paliperidone ER 6 mg Tablet PO (08:29)
[2024-09-10] MEDS: multivitamin therapeutic Tablet 1 TAB PO (08:29)
[2024-09-10] MEDS: folic acid 1 mg Tablet PO (08:29)
[2024-09-10] MEDS: nicotine 4 mg lozenge MUCOUS MEM ×4 (08:29→20:27)
[2024-09-10] MEDS: CLONazepam 1 mg Tablet PO ×2 (08:31→20:28)
[2024-09-10 14:00] VITALS: BP 112/75; PULSE 82; RESP 20; TEMP 36.9; O2SAT 97
--- NOTE | 2024-09-10 14:43 | P.NPUPN_ITS ---
Subjective NPU 2 Subjective: Patient presented today reporting that he is doing okay. He was a little more interactive with this story writer and less invasive. He was less isolative per staff reports and direct observation. He identified that he took his medication and staff reported that this happened. Mental Status Exam 2 MSE Comments: This is a well-nourished well-developed white male in hospital scrubs with limited grooming and with no eye contact. No abnormal movements except for mild psychomotor agitation that which increased with managing the fact that he needed to take medication. He was mostly uncooperative with exam and moderate distress. Speech was increased rate but decreased volume. And he was often heard speaking to himself even at times loudly from within his bathroom. Mood described as fine affect odd and guarded. Thought process was disorganized. Thought content: Patient did not respond to questions about suicidal or homicidal ideation he had no self-directed or outward directed aggression noted except for when conversations about taking medication occurred he had some posturing and verbal aggression, no delusions reported but clear paranoid, persecutory and likely grandiose delusions as well as restorationism preoccupation, he did not report any auditory or visual hallucinations but was clearly at times responding to internal stimuli. Attention and concentration was limited and memory was unreliable but none formally tested. Insight And judgment and impulse control are all impaired. Vitals/I&O/Wt Last Vital Signs Temp 98.1 F 09/10/24 06:00 Pulse 69 09/10/24 06:00 Resp 18 09/10/24 06:00 BP 130/82 09/10/24 06:00 Pulse Ox 98 09/10/24 06:00 O2 Del Method Room Air 09/10/24 06:00 Data NPU 08/28/24 03:00 08/28/24 03:00 A&P Assessment and plan (1) Schizoaffective disorder, manic type: (2) Schizophrenia: Qualifiers: Schizophrenia type: undifferentiated schizophrenia Qualified Code(s): F 20.3 - Undifferentiated schizophrenia (3) Alcoholic intoxication: (4) Polysubstance abuse: Plan 43-year-old male who presents with psychosis with a blood alcohol level of 190 with a history of schizophrenia requesting Klonopin admitted with bizarre behavior. Patient will continue to require acute inpatient hospitalization at this time. 1.? Engage patient in individual milieu and group therapy. 2.? Recommend sober living treatment at the highest level of care to which the patient is willing to commit 3.??Obtain collateral information patient currently floridly psychotic. 4.? TO-15 minute checks? 5. We will need to consider forced medications as patient refusing antipsychotic medications. Patient placed on a 21-day hold. We will initiate forced medication protocol tomorrow, but trying to determine from his insurance company what he has taken previously. Have instituted forced medication protocol. Patient received Haldol injection for refused Invega. He took the medication without incident today. Involuntary Hold Information 2 96 Hour Hold: 96 Hour Involuntary Admission: Yes 96 Hour Hold Ending Date: 09/03/24 96 Hour Hold Ending Time: 00:01 Other Hold: Hold End Date: 09/27/24 Attestations NPU 2 Medical Necessity Statement*: Inpatient hospitalization is medically necessary and?the clinically appropriate intervention at this time.? We will monitor/initiate medications and make changes as indicated. Likely length of stay 7-10 days. Coding Level of Care Code Acute Code for [facility] Diagnoses Schizoaffective disorder, manic type F25.0 Undifferentiated schizophrenia F20.3 Schizophrenia type: undifferentiated schizophrenia Alcoholic intoxication F10.929 Polysubstance abuse F19.10
[2024-09-10 19:31] VITALS: BP 137/81; PULSE 89; RESP 18; TEMP 36.8; O2SAT 98
--- NOTE | 2024-09-10 22:34 | PC.NURSE ---
PT CONTINUES TO SPEAK TO UNSEEN OTHERS AND RESPONDS TO EXTERNAL STIMULI. DENIES PAIN.. DENIES SI/HI AND AVH AT THIS TIME. DENIES HE SPEAKS TO UNSEEN OTHERS BUT IS POSITIVE FOR AVH PER CONTINUOUS OBSERVATIONS. STATES HIS GOAL FOR TONIGHT IS TO GET MY MEDS AND NICOTINE AND GET SOME GOOD REST. PT DID COMPLY WITH TAKING HIS NIGHT TIME MEDICATION CLONZEPAM. PT DID REQUEST TO SEE THE PACKAGE OF THE MEDICATION TO SEE IF ITS REALLY CLONZEPAM CAUSE THATS WHAT I'M SUPPOSE TO TAKE. RN SHOWED PT THE ORIGINAL PACKAGE OF MEDICATION, PT SAID OH OK JUST CHECKING. RN ASSURED PT THAT HE CAN SEE WHAT HE IS TAKING AT ANY TIME, THAT IS WHY WE OPEN THE MEDICATIONS IN FRONT OF THE PTS. EVASIVE WITH ASSESSMENT, WITHDRAWN TO ROOM. ALL QUESTIONS ANSWERED AND SUPPORT WAS VOICED.
[2024-09-11] MEDS: nicotine 4 mg lozenge MUCOUS MEM ×5 (05:40→20:48)
[2024-09-11 05:51] VITALS: BP 148/93; PULSE 91; RESP 20; TEMP 36.6; O2SAT 97
--- NOTE | 2024-09-11 08:12 | W.PM.NPUPNS ---
Subjective NPU Subjective: Patient presented today reporting that he is doing a little better. There was a point where his medication was refused and security and staff prepared for a forced injection however we had a long discussion about his options which did not include not taking medication and after a discussion of the risks, benefits and alternatives including the high risk of tar dive dyskinesia with older medications like Haldol he understood and agreed to proceed as is documented in this note. Mental Status Exam MSE Comments: This is a well-nourished well-developed white male in hospital scrubs with limited grooming and with no eye contact. No abnormal movements except for mild psychomotor agitation that which increased with managing the fact that he needed to take medication. He was mostly uncooperative with exam and moderate distress. Speech was increased rate but decreased volume. And he was often heard speaking to himself even at times loudly from within his bathroom. Mood described as fine affect odd and guarded. Thought process was disorganized. Thought content: Patient did not respond to questions about suicidal or homicidal ideation he had no self-directed or outward directed aggression noted except for when conversations about taking medication occurred he had some posturing and verbal aggression, no delusions reported but clear paranoid, persecutory and likely grandiose delusions as well as zoroastrianism preoccupation, he did not report any auditory or visual hallucinations but was clearly at times responding to internal stimuli. Attention and concentration was limited and memory was unreliable but none formally tested. Insight And judgment and impulse control are all impaired. Vitals/I&O/Wt Last Vital Signs Temp 97.9 F 09/11/24 05:51 Pulse 91 09/11/24 05:51 Resp 20 H 09/11/24 05:51 BP 148/93 09/11/24 05:51 Pulse Ox 97 09/11/24 05:51 O2 Del Method Room Air 09/11/24 05:51 Data NPU 08/28/24 03:00 08/28/24 03:00 A&P Assessment and plan (1) Schizoaffective disorder, manic type: (2) Schizophrenia: Qualifiers: Schizophrenia type: undifferentiated schizophrenia Qualified Code(s): F20.3 - Undifferentiated schizophrenia (3) Alcoholic intoxication: (4) Polysubstance abuse: Plan 43-year-old male who presents with psychosis with a blood alcohol level of 190 with a history of schizophrenia requesting Klonopin admitted with bizarre behavior. Patient will continue to require acute inpatient hospitalization at this time. 1.? Engage patient in individual milieu and group therapy. 2.? Recommend sober living treatment at the highest level of care to which the patient is willing to commit 3.??Obtain collateral information patient currently floridly psychotic. 4.? TO-15 minute checks? 5. We will need to consider forced medications as patient refusing antipsychotic medications. Patient placed on a 21-day hold. We will initiate forced medication protocol tomorrow, but trying to determine from his insurance company what he has taken previously. Have instituted forced medication protocol. Patient once again refused his Invega. We had a fairly lengthy discussion and he agreed to take 10 mg of Haldol daily oral and then took the medication without incident. Ultimately we will transition him to the IM Haldol decanoate prior to discharge. Involuntary Hold Information 96 Hour Hold: 96 Hour Involuntary Admission: Yes 96 Hour Hold Ending Date: 09/03/24 96 Hour Hold Ending Time: 00:01 Other Hold: Hold End Date: 09/27/24 Attestations NPU Medical Necessity Statement*: Inpatient hospitalization is medically necessary and?the clinically appropriate intervention at this time.? We will monitor/initiate medications and make changes as indicated. Likely length of stay 7-10 days. Coding Level of Care Code Acute Code for [facility] Diagnoses Schizoaffective disorder, manic type F25.0 Undifferentiated schizophrenia F20.3 Schizophrenia type: undifferentiated schizophrenia Alcoholic intoxication F10.929 Polysubstance abuse F19.10
[2024-09-11] MEDS: folic acid 1 mg Tablet PO (09:22)
[2024-09-11] MEDS: thiamine 100 mg Tablet PO (09:22)
[2024-09-11] MEDS: CLONazepam 1 mg Tablet PO ×2 (09:22→20:48)
[2024-09-11] MEDS: multivitamin therapeutic Tablet 1 TAB PO (09:22)
--- NOTE | 2024-09-11 10:26 | PC.NURSE ---
Denies avh and si/hi. However, patient is constantly facing the window in his room and talking about various topics to no one in particular. When asked if he was having any pain this morning he replied, my right shoulder hardin from the electricity from the GPS from the [employer]. I uninstalled it from my phone. Unruly Mello said it had been hiding in a file for 6-8 months. I told them to get fucked and to give me an ankle bracelet. I did 20 rounds of ECT and they hooked it to my head and my heart. When they put you back in the wheelchair it's a temporary lobotomy. Patient then continued on repeating himself and when he would trip up on words he would mutter, they won't let me talk. Patient refused his invega this morning and this RN asked him what was concerning him about the invega. He said when he was in sober living in [place] he read google reviews that advised against taking it. He then said, and, andddd my penis stays soft when I masturbate. There's no stimulation and my sperm count is like negative zero percent.
--- NOTE | 2024-09-11 10:45 | PC.NURSE ---
Patient refusing invega PO. Dr. Zafar was notified and he requested this RN place orders to give patient haldol 5mg IM and benadryl 50mg IM. Orders were placed and security was called for preventative measures.
[2024-09-11] MEDS: haloperidol 5 mg Tablet 10 MG PO (11:20)
[2024-09-11 14:00] VITALS: BP 121/76; PULSE 120; RESP 20; TEMP 36.6; O2SAT 97
--- NOTE | 2024-09-11 14:19 | PC.NURSE ---
Patient apologized to a nurse for being rude to her earlier in the day when asked to take his morning medications. He said he understood that staff had to give him something to help treat him while he was here and that he would be more cooperative. Staff thanked him. Patient has been conversational with other patients and calm at this time.
[2024-09-11 19:23] VITALS: BP 145/95; PULSE 91; RESP 18; TEMP 36.7; O2SAT 97
--- NOTE | 2024-09-11 23:58 | PC.NURSE ---
PT CONTINUES TO RESPOND TO INTERNAL AND EXTERNAL STIMULI AND IS THEN OBSERVED SITTING ON BENCH BY NURSES STATION STARRING DIRECTLY AT STAFF, NOT BLINKING. WHEN ASKED WHAT HE NEEDS HE JUST CONTINUES TO SIT, STARE AND NOT BLINK. PT WILL THEN GET UP AND INTERACT WITH EXTERNAL STIMULI WHILE PACING THE HALLS AND LAUGHING INAPPROPRIATELY. DENIES PAIN. DENIES SI/HI AND AVH AT THIS TIME. RATES ANXIETY AND DEPRESSION 10/10 TONIGHT. OFFERED PRN MEDICATION BUT PT STATES NO INVEGA JUST KLONOPIN THATS ALL I WANT. PT IS OBSERVED HAVING EPISODES OF PARANOIA AND MAKES STATEMENTS HE IS SCARED. CONTINUES TO SAY INAPPROPRIATE THINGS TO FEMALE STAFF BUT PT WILL STATE HE KNOWS HE SHOULDN'T SAY IT BECAUSE IF I SAY YOU'RE PRETTY I WILL PROBABLY TONIGHT BECAUSE YOU'RE . RN ASSURED PT HE IS NOT GOING TO TONIGHT. PT WILL LAUGH AND CONTINUE TO MAKE OTHER INAPPROPRIATE STATEMENTS. SUPPORT WAS VOICED.
[2024-09-12] MEDS: nicotine 4 mg lozenge MUCOUS MEM ×4 (05:31→20:14)
[2024-09-12 05:50] VITALS: BP 123/83; PULSE 72; RESP 18; TEMP 36.9; O2SAT 97; BMI 29.7
--- NOTE | 2024-09-12 06:42 | PC.NURSE ---
PT SLEPT APPROXIMATELY 6 HOURS LAST SHIFT. PT IS UP EARLY THIS AM SPEAKING TO UNSEEN OTHERS AND BEING INTRUSIVE WITH STAFF. PT IS OBSERVED IN ROOM DOING KARATEE KICKS. PT WAS VERBALLY REDIRECTED AND DID EVENTUALLY SIT ON THE BENCH AND TALK TO ANOTHER PT. SUPPORT WAS VOICED.
--- NOTE | 2024-09-12 08:09 | P.NPUPN_ITS ---
Subjective NPU 2 Subjective: Patient presented today reporting that things are going okay. He took his medication as prescribed today without difficulty. He continues to stand around and speak incessantly about different subjects and almost a stream of consciousness per staff reports and direct observation. He denied any side effects or any problems with the medication thus far. Mental Status Exam 2 MSE Comments: This is a well-nourished well-developed white male in hospital scrubs with limited grooming and with no eye contact. No abnormal movements except for mild psychomotor agitation that which increased with managing the fact that he needed to take medication. He was mostly uncooperative with exam in mild to moderate distress. Speech was increased rate but decreased volume. And he was often heard speaking to himself even at times loudly from within his bathroom. Mood described as fine affect odd and guarded. Thought process was disorganized. Thought content: Patient did not respond to questions about suicidal or homicidal ideation he had no self-directed or outward directed aggression noted except for when conversations about taking medication occurred he had some posturing and verbal aggression, no delusions reported but clear paranoid, persecutory and likely grandiose delusions as well as oriental orthodox preoccupation, he did not report any auditory or visual hallucinations but was clearly at times responding to internal stimuli. Attention and concentration was limited and memory was unreliable but none formally tested. Insight And judgment and impulse control are all impaired. 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 Patient will continue to require acute inpatient hospitalization at this time. 1.? Engage patient in individual milieu and group therapy. 2.? Recommend sober living treatment at the highest level of care to which the patient is willing to commit 3.??Obtain collateral information patient currently floridly psychotic. 4.? TO-15 minute checks? 5. We will need to consider forced medications as patient refusing antipsychotic medications. Patient placed on a 21-day hold. We will initiate forced medication protocol tomorrow, but trying to determine from his insurance company what he has taken previously. Have instituted forced medication protocol. Patient once again refused his Invega. We had a fairly lengthy discussion and he agreed to take 10 mg of Haldol daily oral and then took the medication without incident. Ultimately we will transition him to the IM Haldol decanoate prior to discharge. Involuntary Hold Information 2 96 Hour Hold: 96 Hour Involuntary Admission: Yes 96 Hour Hold Ending Date: 09/03/24 96 Hour Hold Ending Time: 00:01 Other Hold: Hold End Date: 09/27/24 Attestations NPU 2 Medical Necessity Statement*: Inpatient hospitalization is medically necessary and?the clinically appropriate intervention at this time.? We will monitor/initiate medications and make changes as indicated. Likely length of stay 7-10 days. Coding Level of Care Code Acute Code for [facility] Diagnoses Schizoaffective disorder, manic type F25.0 Undifferentiated schizophrenia F20.3 Schizophrenia type: undifferentiated schizophrenia Alcoholic intoxication F10.929 Polysubstance abuse F19.10
[2024-09-12] MEDS: folic acid 1 mg Tablet PO (09:35)
[2024-09-12] MEDS: haloperidol 5 mg Tablet 10 MG PO (09:35)
[2024-09-12] MEDS: multivitamin therapeutic Tablet 1 TAB PO (09:35)
[2024-09-12] MEDS: thiamine 100 mg Tablet PO (09:35)
[2024-09-12] MEDS: CLONazepam 1 mg Tablet PO ×2 (09:35→21:35)
--- NOTE | 2024-09-12 09:48 | PC.NURSE ---
Morning assessment Patient has animated speech, flight of ideas. Patient appears to be repsonding to internal stimuli. Patient keeps saying to himself, calm down Ernesto. Patient is saying things like, he is an empath and this is because he has cortisol coursing through his body. Patient says that what goes up must come down and what comes down must go up because water coms down from the clouds, the cumulonimbus. And it is a jud
[2024-09-12 14:00] VITALS: BP 121/84; PULSE 89; RESP 18; TEMP 36.6; O2SAT 97
[2024-09-12 21:27] VITALS: BP 130/85; PULSE 86; RESP 17; TEMP 36.8; O2SAT 97
[2024-09-13] MEDS: nicotine 4 mg lozenge MUCOUS MEM ×5 (03:04→21:48)
[2024-09-13 06:00] VITALS: BP 146/99; PULSE 88; RESP 17; TEMP 36.4; O2SAT 98
--- NOTE | 2024-09-13 08:42 | PC.NURSE ---
IN ROOM DOING KARATEE KICKING. DENIES PAIN. DENIES SI/HI AND AVH AT THIS TIME. PT CONTINUES TO BE IMPULSIVE AND INTRUSIVE. SPEECH IS EXCESSIVE AND RAMBLING. TALKING ABOUT POSSESSION, DEMONS AND DRUGS. PT WILL LOOK TO THE SIDE WHILE SPEAKING TO THIS RN AND LAUGH INAPPROPRIATELY. RATES ANXIETY 05/12 AND DEPRESSION 08/12. SLEPT APPROXIMATELY 4 HOURS LAST NIGHT. CONTINUES TO BE IMPULSIVE AND INTRUSIVE. SUPPORT VOICEE.
[2024-09-13] MEDS: haloperidol 5 mg Tablet 10 MG PO (08:45)
[2024-09-13] MEDS: CLONazepam 1 mg Tablet PO ×2 (08:45→20:49)
[2024-09-13] MEDS: folic acid 1 mg Tablet PO (08:45)
[2024-09-13] MEDS: multivitamin therapeutic Tablet 1 TAB PO (08:45)
[2024-09-13] MEDS: thiamine 100 mg Tablet PO (08:45)
[2024-09-13 14:00] VITALS: BP 122/75; PULSE 99; RESP 18; TEMP 36.6; O2SAT 95
[2024-09-13 20:08] VITALS: BP 137/94; PULSE 84; RESP 19; TEMP 36.8; O2SAT 96
--- NOTE | 2024-09-13 21:02 | P.NPUPN_ITS ---
Subjective NPU 2 Subjective: Patient presented today reporting that he is doing okay. He does continue to take the Haldol without any difficulties per staff report. He continues to be somewhat mercurial but is less isolative and more interactive. No notable aggression reported. He denies any side effects to the medication. Mental Status Exam 2 MSE Comments: This is a well-nourished well-developed white male in hospital scrubs with limited grooming and with no eye contact. No abnormal movements except for mild psychomotor agitation that which increased with managing the fact that he needed to take medication. He was mostly uncooperative with exam in mild to moderate distress. Speech was increased rate but decreased volume. And he was often heard speaking to himself. Mood described as fine affect odd and guarded. Thought process was disorganized. Thought content: Patient did not respond to questions about suicidal or homicidal ideation he had no self-directed or outward directed aggression noted except for when conversations about taking medication occurred he had some posturing and verbal aggression, no delusions reported but clear paranoid, persecutory and likely grandiose delusions as well as yazdanism preoccupation, he did not report any auditory or visual hallucinations but was clearly at times responding to internal stimuli. Attention and concentration was limited and memory was unreliable but none formally tested. Insight And judgment and impulse control are all impaired. Vitals/I&O/Wt Last Vital Signs Temp 98.3 F 09/13/24 20:08 Pulse 84 09/13/24 20:08 Resp 19 H 09/13/24 20:08 BP 137/94 09/13/24 20:08 Pulse Ox 96 09/13/24 20:08 O2 Del Method Room Air 09/13/24 20:08 Weight last 48 hrs Weight 88.677 kg Data NPU 08/28/24 03:00 08/28/24 03:00 A&P Assessment and plan (1) Schizoaffective disorder, manic type: (2) Schizophrenia: Qualifiers: Schizophrenia type: undifferentiated schizophrenia Qualified Code(s): F 20.3 - Undifferentiated schizophrenia (3) Alcoholic intoxication: (4) Polysubstance abuse: Plan 43-year-old male who presents with psychosis with a blood alcohol level of 190 with a history of schizophrenia requesting Klonopin admitted with bizarre behavior. Patient will continue to require acute inpatient hospitalization at this time. 1.? Engage patient in individual milieu and group therapy. 2.? Recommend sober living treatment at the highest level of care to which the patient is willing to commit 3.??Obtain collateral information patient currently floridly psychotic. 4.? TO-15 minute checks? 5. We will need to consider forced medications as patient refusing antipsychotic medications. Patient placed on a 21-day hold. We will initiate forced medication protocol tomorrow, but trying to determine from his insurance company what he has taken previously. Have instituted forced medication protocol. Patient once again refused his Invega. We had a fairly lengthy discussion and he agreed to take 10 mg of Haldol daily oral and then took the medication without incident. Ultimately we will transition him to the IM Haldol decanoate prior to discharge. Involuntary Hold Information 2 96 Hour Hold: 96 Hour Involuntary Admission: Yes 96 Hour Hold Ending Date: 09/03/24 96 Hour Hold Ending Time: 00:01 Other Hold: Hold End Date: 09/27/24 Attestations NPU 2 Medical Necessity Statement*: Inpatient hospitalization is medically necessary and?the clinically appropriate intervention at this time.? We will monitor/initiate medications and make changes as indicated. Likely length of stay 7-10 days. Coding Level of Care Code Acute Code for [facility] Diagnoses Schizoaffective disorder, manic type F25.0 Undifferentiated schizophrenia F20.3 Schizophrenia type: undifferentiated schizophrenia Alcoholic intoxication F10.929 Polysubstance abuse F19.10
[2024-09-14 06:00] VITALS: BP 124/85; PULSE 68; RESP 19; TEMP 36.4; O2SAT 97
[2024-09-14] MEDS: thiamine 100 mg Tablet PO (08:11)
[2024-09-14] MEDS: CLONazepam 1 mg Tablet PO ×2 (08:11→20:03)
[2024-09-14] MEDS: haloperidol 5 mg Tablet 10 MG PO (08:11)
[2024-09-14] MEDS: multivitamin therapeutic Tablet 1 TAB PO (08:11)
[2024-09-14] MEDS: folic acid 1 mg Tablet PO (08:11)
[2024-09-14] MEDS: nicotine 4 mg lozenge MUCOUS MEM ×5 (09:09→20:03)
[2024-09-14 14:00] VITALS: BP 115/75; PULSE 108; RESP 16; TEMP 36.7; O2SAT 97
--- NOTE | 2024-09-14 17:43 | P.NPUPN_ITS ---
Subjective NPU 2 Subjective: Patient presented today reporting that he is doing okay. He is starting to be less isolative per staff reports and direct observation. Spending more time out of his room and being more likely to interact with other patients. He continues to have odd conversation topics. We continue to discuss the possibility of some medication changes including possibly adding a mood stabilizer to help his situation. He is overall resistant to medication and so this is a delicate conversation to keep him engaged in any conversation about medications or adding medications. He denied any side effects to the medication. Mental Status Exam 2 MSE Comments: This is a well-nourished well-developed white male in hospital scrubs with limited grooming and with no eye contact. No abnormal movements except for mild psychomotor agitation that which increased with managing the fact that he needed to take medication. He was mostly uncooperative with exam in mild to moderate distress. Speech was increased rate but decreased volume. And he was often heard speaking to himself. Mood described as fine affect odd and guarded. Thought process was disorganized. Thought content: Patient did not respond to questions about suicidal or homicidal ideation he had no self-directed or outward directed aggression noted except for when conversations about taking medication occurred he had some posturing and verbal aggression, no delusions reported but clear paranoid, persecutory and likely grandiose delusions as well as bahai preoccupation, he did not report any auditory or visual hallucinations but was clearly at times responding to internal stimuli. Attention and concentration was limited and memory was unreliable but none formally tested. Insight And judgment and impulse control are all impaired. Vitals/I&O/Wt Last Vital Signs Temp 98.1 F 09/14/24 14:00 Pulse 108 H 09/14/24 14:00 Resp 16 09/14/24 14:00 BP 115/75 09/14/24 14:00 Pulse Ox 97 09/14/24 14:00 O2 Del Method Room Air 09/14/24 14:00 Data NPU 08/28/24 03:00 08/28/24 03:00 A&P Assessment and plan (1) Schizoaffective disorder, manic type: (2) Schizophrenia: Qualifiers: Schizophrenia type: undifferentiated schizophrenia Qualified Code(s): F 20.3 - Undifferentiated schizophrenia (3) Alcoholic intoxication: (4) Polysubstance abuse: Plan 43-year-old male who presents with psychosis with a blood alcohol level of 190 with a history of schizophrenia requesting Klonopin admitted with bizarre behavior. Patient will continue to require acute inpatient hospitalization at this time. 1.? Engage patient in individual milieu and group therapy. 2.? Recommend sober living treatment at the highest level of care to which the patient is willing to commit 3.??Obtain collateral information patient currently floridly psychotic. 4.? TO-15 minute checks? 5. We will need to consider forced medications as patient refusing antipsychotic medications. Patient placed on a 21-day hold. We will initiate forced medication protocol tomorrow, but trying to determine from his insurance company what he has taken previously. Have instituted forced medication protocol. Patient once again refused his Invega. We had a fairly lengthy discussion and he agreed to take 10 mg of Haldol daily oral and then took the medication without incident. Ultimately we will transition him to the IM Haldol decanoate prior to discharge. Will see if he will possibly consider an additional mood stabilizer like Depakote. Involuntary Hold Information 2 96 Hour Hold: 96 Hour Involuntary Admission: Yes 96 Hour Hold Ending Date: 09/03/24 96 Hour Hold Ending Time: 00:01 Other Hold: Hold End Date: 09/27/24 Attestations NPU 2 Medical Necessity Statement*: Inpatient hospitalization is medically necessary and?the clinically appropriate intervention at this time.? We will monitor/initiate medications and make changes as indicated. Likely length of stay 7-10 days. Coding Level of Care Code Acute Code for [facility] Diagnoses Schizoaffective disorder, manic type F25.0 Undifferentiated schizophrenia F20.3 Schizophrenia type: undifferentiated schizophrenia Alcoholic intoxication F10.929 Polysubstance abuse F19.10
[2024-09-14] MEDS: quetiapine 25 mg Tablet 50 MG PO (20:03)
[2024-09-14 20:25] VITALS: BP 138/89; PULSE 66; RESP 18; TEMP 36.7; O2SAT 100
[2024-09-15 04:20] VITALS: BP 123/81; PULSE 70; RESP 18; O2SAT 98
[2024-09-15] MEDS: nicotine 4 mg lozenge MUCOUS MEM ×6 (06:00→19:10)
[2024-09-15] MEDS: thiamine 100 mg Tablet PO (08:34)
[2024-09-15] MEDS: CLONazepam 1 mg Tablet PO ×2 (08:34→19:10)
[2024-09-15] MEDS: multivitamin therapeutic Tablet 1 TAB PO (08:34)
[2024-09-15] MEDS: folic acid 1 mg Tablet PO (08:34)
[2024-09-15] MEDS: haloperidol 5 mg Tablet 10 MG PO (08:34)
[2024-09-15 14:00] VITALS: BP 95/63; PULSE 80; RESP 18; TEMP 36.4; O2SAT 98
--- NOTE | 2024-09-15 15:47 | P.NPUPN_ITS ---
Subjective NPU 2 Subjective: Patient presented today reporting that he is doing okay. He has some moments of frustration at 1 point per staff reports and direct observation otherwise has been taking his medication as prescribed but is starting to desire discharging. We continue to discuss the possibility of him trying a different medication in addition to the Haldol and right now he is resistant. He continues to be less isolative per staff reports and direct observation and he denied any side effects to the medication. Mental Status Exam 2 MSE Comments: This is a well-nourished well-developed white male in hospital scrubs with limited grooming and with no eye contact. No abnormal movements except for mild psychomotor agitation that which increased with managing the fact that he needed to take medication. He was mostly uncooperative with exam in mild to moderate distress. Speech was increased rate but decreased volume. And he was often heard speaking to himself. Mood described as fine affect odd and guarded. Thought process was disorganized. Thought content: Patient did not respond to questions about suicidal or homicidal ideation he had no self-directed or outward directed aggression noted except for when conversations about taking medication occurred he had some posturing and verbal aggression, no delusions reported but clear paranoid, persecutory and likely grandiose delusions as well as restorationist preoccupation, he did not report any auditory or visual hallucinations but was clearly at times responding to internal stimuli. Attention and concentration was limited and memory was unreliable but none formally tested. Insight And judgment and impulse control are all impaired. Vitals/I&O/Wt Last Vital Signs Temp 97.5 F L 09/15/24 14:00 Pulse 80 09/15/24 14:00 Resp 18 09/15/24 14:00 BP 95/63 09/15/24 14:00 Pulse Ox 98 09/15/24 14:00 O2 Del Method Room Air 09/14/24 14:00 Data NPU 08/28/24 03:00 08/28/24 03:00 A&P Assessment and plan (1) Schizoaffective disorder, manic type: (2) Schizophrenia: Qualifiers: Schizophrenia type: undifferentiated schizophrenia Qualified Code(s): F 20.3 - Undifferentiated schizophrenia (3) Alcoholic intoxication: (4) Polysubstance abuse: Plan 43-year-old male who presents with psychosis with a blood alcohol level of 190 with a history of schizophrenia requesting Klonopin admitted with bizarre behavior. Patient will continue to require acute inpatient hospitalization at this time. 1.? Engage patient in individual milieu and group therapy. 2.? Recommend sober living treatment at the highest level of care to which the patient is willing to commit 3.??Obtain collateral information patient currently floridly psychotic. 4.? TO-15 minute checks? 5. We will need to consider forced medications as patient refusing antipsychotic medications. Patient placed on a 21-day hold. We will initiate forced medication protocol tomorrow, but trying to determine from his insurance company what he has taken previously. Have instituted forced medication protocol. Patient once again refused his Invega. We had a fairly lengthy discussion and he agreed to take 10 mg of Haldol daily oral and then took the medication without incident. Ultimately we will transition him to the IM Haldol decanoate prior to discharge. Will see if he will possibly consider an additional mood stabilizer like Depakote. Involuntary Hold Information 2 96 Hour Hold: 96 Hour Involuntary Admission: Yes 96 Hour Hold Ending Date: 09/03/24 96 Hour Hold Ending Time: 00:01 Other Hold: Hold End Date: 09/27/24 Attestations NPU 2 Medical Necessity Statement*: Inpatient hospitalization is medically necessary and?the clinically appropriate intervention at this time.? We will monitor/initiate medications and make changes as indicated. Likely length of stay 7-10 days. Coding Level of Care Code Acute Code for [facility] Diagnoses Schizoaffective disorder, manic type F25.0 Undifferentiated schizophrenia F20.3 Schizophrenia type: undifferentiated schizophrenia Alcoholic intoxication F10.929 Polysubstance abuse F19.10
[2024-09-15 20:11] VITALS: BP 130/93; PULSE 80; RESP 18; TEMP 37.1; O2SAT 96
--- NOTE | 2024-09-15 22:00 | PC.NURSE ---
PATIENT REFUSED TO TAKE SCHEDULED SEROQUEL, AND TRAZODONE THAR WAS OFFERED
[2024-09-16 06:00] VITALS: BP 133/94; PULSE 82; RESP 16; TEMP 36.6; O2SAT 98
[2024-09-16] MEDS: nicotine 4 mg lozenge MUCOUS MEM ×5 (06:16→19:30)
[2024-09-16] MEDS: CLONazepam 1 mg Tablet PO ×2 (08:27→20:53)
--- NOTE | 2024-09-16 08:38 | PC.NURSE ---
Pt refused to take 10mg Haldol, multivitamin, thiamine B-1, folic acid. This nurse encouraged the pt to take the haldol, pt then stated Do you want me to turn into a fucking retard . Pt also stated that he was getting his vitamins from food intake
[2024-09-16] MEDS: haloperidol inj 5 mg/mL INJ 1 mL 10 MG IM (11:36)
--- NOTE | 2024-09-16 11:39 | PC.NURSE ---
Administered 10mg Haldol IM to the right deltoid ordered by Dr. Zafar, due to pt refusing oral medication this AM.
[2024-09-16 14:00] VITALS: BP 114/70; PULSE 72; RESP 18; TEMP 36.6; O2SAT 98
[2024-09-16 19:26] VITALS: BP 120/85; PULSE 97; RESP 18; TEMP 36.8; O2SAT 97
--- NOTE | 2024-09-16 20:28 | W.PM.NPUPNS ---
Subjective NPU Subjective: Patient presented today reporting that he is doing okay. He is identified that he is going to be resistant to taking his Haldol now. We discussed that if this continues that he would get forced medication for the Haldol and that we would consider moving to Invega or Abilify again if this was not being effective. He continued to be more about and about less isolative per staff and direct observation. Mental Status Exam MSE Comments: This is a well-nourished well-developed white male in hospital scrubs with limited grooming and with no eye contact. No abnormal movements except for mild psychomotor agitation that which increased with managing the fact that he needed to take medication. He was mostly uncooperative with exam in mild to moderate distress. Speech was increased rate but decreased volume. And he was often heard speaking to himself. Mood described as fine affect odd and guarded. Thought process was disorganized. Thought content: Patient did not respond to questions about suicidal or homicidal ideation he had no self-directed or outward directed aggression noted except for when conversations about taking medication occurred he had some posturing and verbal aggression, no delusions reported but clear paranoid, persecutory and likely grandiose delusions as well as shinto preoccupation, he did not report any auditory or visual hallucinations but was clearly at times responding to internal stimuli. Attention and concentration was limited and memory was unreliable but none formally tested. Insight And judgment and impulse control are all impaired. Vitals/I&O/Wt Last Vital Signs Temp 98.2 F 09/16/24 21:52 Pulse 97 09/16/24 21:52 Resp 18 09/16/24 21:52 BP 120/65 09/16/24 21:52 Pulse Ox 97 09/16/24 21:52 O2 Del Method Room Air 09/16/24 21:52 Data NPU 08/28/24 03:00 08/28/24 03:00 A&P Assessment and plan (1) Schizoaffective disorder, manic type: (2) Schizophrenia: Qualifiers: Schizophrenia type: undifferentiated schizophrenia Qualified Code(s): F20.3 - Undifferentiated schizophrenia (3) Alcoholic intoxication: (4) Polysubstance abuse: Plan 43-year-old male who presents with psychosis with a blood alcohol level of 190 with a history of schizophrenia requesting Klonopin admitted with bizarre behavior. Patient will continue to require acute inpatient hospitalization at this time. 1.? Engage patient in individual milieu and group therapy. 2.? Recommend sober living treatment at the highest level of care to which the patient is willing to commit 3.??Obtain collateral information patient currently floridly psychotic. 4.? TO-15 minute checks? 5. We will need to consider forced medications as patient refusing antipsychotic medications. Patient placed on a 21-day hold. We will initiate forced medication protocol tomorrow, but trying to determine from his insurance company what he has taken previously. Have instituted forced medication protocol. Patient once again refused his Invega. We had a fairly lengthy discussion and he agreed to take 10 mg of Haldol daily oral and then took the medication without incident. Ultimately we will transition him to the IM Haldol decanoate prior to discharge. Will see if he will possibly consider an additional mood stabilizer like Depakote. Involuntary Hold Information 96 Hour Hold: 96 Hour Involuntary Admission: Yes 96 Hour Hold Ending Date: 09/03/24 96 Hour Hold Ending Time: 00:01 Other Hold: Hold End Date: 09/27/24 Attestations NPU Medical Necessity Statement*: Inpatient hospitalization is medically necessary and?the clinically appropriate intervention at this time.? We will monitor/initiate medications and make changes as indicated. Likely length of stay 7-10 days. Coding Level of Care Code Acute Code for [facility] Diagnoses Schizoaffective disorder, manic type F25.0 Undifferentiated schizophrenia F20.3 Schizophrenia type: undifferentiated schizophrenia Alcoholic intoxication F10.929 Polysubstance abuse F19.10
[2024-09-16 21:52] VITALS: BP 120/65; PULSE 97; RESP 18; TEMP 36.8; O2SAT 97
[2024-09-16] MEDS: haloperidol inj 5 mg/mL INJ 1 mL IM (23:35)
--- NOTE | 2024-09-17 00:21 | PC.NURSE ---
At 2300 Mikey came from day room to nurses station to kurtis a complaint that anothe patient had insulted him. Mikey's spech became more animated and he was verbalizing thrats toward the othe patient who was watching TV in the day room.Mikey acknowledged he was getting more upset and agreed to haldol IM medication. Mikey was moved to room 170 in order to give him a quiet space.
--- NOTE | 2024-09-17 00:26 | PC.NURSE ---
pt was at nurse station telling staff that another pt had cussed at them and that pt had come to nurses station to ask for something from staff this pt putt his hands up and told other pt to get back that pt did this chief underwriter and the other aide came out and got between this pt and another and told them to stay away from each other this chief underwriter was melody out of nurses station and this pt asked me if he could have a shot. this chief underwriter told discharge specialist Cesar and when then move this pt to other side of unit and Cesar RN gave this pt a shot
[2024-09-17 06:00] VITALS: BP 123/92; PULSE 115; RESP 18; TEMP 36.4; O2SAT 95
[2024-09-17] MEDS: CLONazepam 1 mg Tablet PO (08:19)
--- NOTE | 2024-09-17 08:40 | PC.NURSE ---
PT CURRENTLY DENIES SI/HI/AH/VH. PT CURRENTLY DENIES DEPRESSION AND ANXIETY. DURING MORNING MEDICATION ADMINISTRATIONS PT REFUSED ORAL MEDICATIONS DUE TO PT CURRENTLY BEING ON A 21 DAY HOLD PHYSICIAN HAS ORDERED IF PT REFUSES ORAL ANTIPSYCHOTICS PT IS TO RECEIVE IM 10 MG HALDOL. THIS NURSE EXPLAINED THAT IF HE CHOOSES TO REFUSE HIS ORAL HALDOL HE WOULD RECEIVE IT VIA INJECTION. PT BECAME AGITATED AND THREW HIS CUP OF COFFEE AT THE WALL. ECTOR WAS ALREADY PRESENT ON FLOOR AND SPOKE WITH PT WHO THEN AGREED TO TAKE HIS IM INJECTION WILLINGLY. THIS NURSE ADMINISTERED THE INJECTION. PT CURRENT NEEDS ARE MET AT THIS TIME.
[2024-09-17] MEDS: haloperidol inj 5 mg/mL INJ 1 mL 10 MG IM (08:41)
[2024-09-17] MEDS: nicotine 4 mg lozenge MUCOUS MEM ×2 (09:37→14:35)
[2024-09-17 14:00] VITALS: BP 132/91; PULSE 93; RESP 18; TEMP 36.8; O2SAT 97
--- NOTE | 2024-09-17 16:51 | P.NPUPN_ITS ---
Subjective NPU 2 Subjective: Patient presented today reporting that he is doing okay in general. He cannot give any explanation for his poor showing this morning when he threw coffee all the door and above the door leading out of the unit. At that time he reported he did it due to anger that this scenario writer but at this point he denies any true recollection of what happened at that moment. He denied having any anger towards this scenario writer at this time or any feelings of animosity. We discussed the fact that Dr. Grace would be returning on Friday and that he would work on considering options for discharge. We again reiterated that if he refused medication they would be an injection for p.o. refusal. He denied any issues or side effects of his medication currently. Mental Status Exam 2 MSE Comments: This is a well-nourished well-developed white male in hospital scrubs with limited grooming and with no eye contact. No abnormal movements except for mild psychomotor agitation that which increased with managing the fact that he needed to take medication. He was mostly uncooperative with exam in mild to moderate distress. Speech was increased rate but decreased volume. And he was often heard speaking to himself. Mood described as fine affect odd and guarded. Thought process was disorganized. Thought content: Patient did not respond to questions about suicidal or homicidal ideation he had no self-directed or outward directed aggression noted except for when conversations about taking medication occurred he had some posturing and verbal aggression, no delusions reported but clear paranoid, persecutory and likely grandiose delusions as well as presybeterian preoccupation, he did not report any auditory or visual hallucinations but was clearly at times responding to internal stimuli. Attention and concentration was limited and memory was unreliable but none formally tested. Insight And judgment and impulse control are all impaired. 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 Patient will continue to require acute inpatient hospitalization at this time. 1.? Engage patient in individual milieu and group therapy. 2.? Recommend sober living treatment at the highest level of care to which the patient is willing to commit 3.??Obtain collateral information patient currently floridly psychotic. 4.? TO-15 minute checks? 5. We will need to consider forced medications as patient refusing antipsychotic medications. Patient placed on a 21-day hold. We will initiate forced medication protocol tomorrow, but trying to determine from his insurance company what he has taken previously. Have instituted forced medication protocol. Patient once again refused his Invega. We had a fairly lengthy discussion and he agreed to take 10 mg of Haldol daily oral and then took the medication without incident. Ultimately we will transition him to the IM Haldol decanoate prior to discharge. Will see if he will possibly consider an additional mood stabilizer like Depakote. Involuntary Hold Information 2 96 Hour Hold: 96 Hour Involuntary Admission: Yes 96 Hour Hold Ending Date: 09/03/24 96 Hour Hold Ending Time: 00:01 Other Hold: Hold End Date: 09/27/24 Attestations NPU 2 Medical Necessity Statement*: Inpatient hospitalization is medically necessary and?the clinically appropriate intervention at this time.? We will monitor/initiate medications and make changes as indicated. Likely length of stay 7-10 days. Coding Level of Care Code Acute Code for [facility] Fwd Diagnoses Schizoaffective disorder, manic type F25.0 Undifferentiated schizophrenia F20.3 Schizophrenia type: undifferentiated schizophrenia Alcoholic intoxication F10.929 Polysubstance abuse F19.10
[2024-09-17 19:36] VITALS: BP 132/90; PULSE 118; RESP 20; TEMP 36.7; O2SAT 97
[2024-09-17 22:00] VITALS: BP 132/90; PULSE 118; RESP 20; TEMP 36.7; O2SAT 97
[2024-09-18 06:00] VITALS: BP 142/90; PULSE 60; RESP 18; TEMP 36.5; O2SAT 99
[2024-09-18] MEDS: nicotine 4 mg lozenge MUCOUS MEM ×5 (08:15→18:35)
[2024-09-18] MEDS: haloperidol 5 mg Tablet 10 MG PO (08:15)
[2024-09-18] MEDS: CLONazepam 1 mg Tablet PO ×2 (08:15→21:21)
--- NOTE | 2024-09-18 11:25 | P.NPUPN_ITS ---
Subjective NPU 2 Subjective: Patient presented today reporting that he is doing okay. We discussed the fact that Dr. Grace would be returning on tomorrow and that he would work on considering options for discharge. He hasn't refused medication. We again discussed that if he refused medication there would be an injection for p.o. refusal. He denied any issues or side effects of his medication currently. Mental Status Exam 2 MSE Comments: This is a well-nourished well-developed white male in hospital scrubs with limited grooming and with no eye contact. No abnormal movements except for mild psychomotor agitation that which increased with managing the fact that he needed to take medication. He was mostly uncooperative with exam in mild to moderate distress. Speech was increased rate but decreased volume. And he was often heard speaking to himself. Mood described as fine affect odd and guarded. Thought process was disorganized. Thought content: Patient did not respond to questions about suicidal or homicidal ideation he had no self-directed or outward directed aggression noted except for when conversations about taking medication occurred he had some posturing and verbal aggression, no delusions reported but clear paranoid, persecutory and likely grandiose delusions as well as pentecostal preoccupation, he did not report any auditory or visual hallucinations but was clearly at times responding to internal stimuli. Attention and concentration was limited and memory was unreliable but none formally tested. Insight And judgment and impulse control are all impaired. Vitals/I&O/Wt Last Vital Signs Temp 98 F 09/18/24 19:35 Pulse 113 H 09/18/24 19:35 Resp 18 09/18/24 19:35 BP 123/82 09/18/24 19:35 Pulse Ox 96 09/18/24 19:35 O2 Del Method Room Air 09/18/24 19:35 Data NPU 08/28/24 03:00 08/28/24 03:00 A&P Assessment and plan (1) Schizoaffective disorder, manic type: (2) Schizophrenia: Qualifiers: Schizophrenia type: undifferentiated schizophrenia Qualified Code(s): F 20.3 - Undifferentiated schizophrenia (3) Alcoholic intoxication: (4) Polysubstance abuse: Plan 43-year-old male who presents with psychosis with a blood alcohol level of 190 with a history of schizophrenia requesting Klonopin admitted with bizarre behavior. Patient will continue to require acute inpatient hospitalization at this time. 1.? Engage patient in individual milieu and group therapy. 2.? Recommend sober living treatment at the highest level of care to which the patient is willing to commit 3.??Obtain collateral information patient currently floridly psychotic. 4.? TO-15 minute checks? 5. We will need to consider forced medications as patient refusing antipsychotic medications. Patient placed on a 21-day hold. We will initiate forced medication protocol tomorrow, but trying to determine from his insurance company what he has taken previously. Have instituted forced medication protocol. Patient once again refused his Invega. We had a fairly lengthy discussion and he agreed to take 10 mg of Haldol daily oral and then took the medication without incident. Ultimately we will transition him to the IM Haldol decanoate prior to discharge. Will see if he will possibly consider an additional mood stabilizer like Depakote. Involuntary Hold Information 2 96 Hour Hold: 96 Hour Involuntary Admission: Yes 96 Hour Hold Ending Date: 09/03/24 96 Hour Hold Ending Time: 00:01 Other Hold: Hold End Date: 09/27/24 Attestations NPU 2 Medical Necessity Statement*: Inpatient hospitalization is medically necessary and?the clinically appropriate intervention at this time.? We will monitor/initiate medications and make changes as indicated. Likely length of stay 7-10 days. Coding Level of Care Code Acute Code for [facility] Fwd Diagnoses Schizoaffective disorder, manic type F25.0 Undifferentiated schizophrenia F20.3 Schizophrenia type: undifferentiated schizophrenia Alcoholic intoxication F10.929 Polysubstance abuse F19.10
[2024-09-18 14:00] VITALS: BP 145/70; PULSE 90; RESP 16; TEMP 36.4; O2SAT 99
[2024-09-18 19:35] VITALS: BP 123/82; PULSE 113; RESP 18; TEMP 36.6; O2SAT 96
[2024-09-18] MEDS: haloperidol 5 mg Tablet PO (21:21)
[2024-09-19 06:00] VITALS: BP 128/84; PULSE 100; RESP 18; TEMP 36.4; O2SAT 97; BMI 29.2
[2024-09-19] MEDS: multivitamin therapeutic Tablet 1 TAB PO (08:35)
[2024-09-19] MEDS: thiamine 100 mg Tablet PO (08:35)
[2024-09-19] MEDS: CLONazepam 1 mg Tablet PO ×2 (08:35→20:25)
[2024-09-19] MEDS: folic acid 1 mg Tablet PO (08:35)
[2024-09-19] MEDS: haloperidol 5 mg Tablet 10 MG PO (08:36)
[2024-09-19] MEDS: nicotine 4 mg lozenge MUCOUS MEM ×3 (08:36→18:33)
--- NOTE | 2024-09-19 11:07 | PC.NURSE ---
At about 0800, patient was in his bathroom. Per patient, he was trying to masterbate when the MOBILE UI DEVELOPER interupted him. This enraged the patient. Patient banging his bathroom door, walked to the dayroom while flipping off staff. Patient yelling fuck you down the hallway. This nurse and MOBILE UI DEVELOPER went to check patient in dayroom. Patient told the nurse to get the fuck away from me. Patient's body language was rigid and tense. This nurse gave patient his space. MOBILE UI DEVELOPER gave patient his breakfast tray. Security arrived to the unit during this time. While patient was eating, security Martin made a round in the dayroom, where patient told him to stay away. After breakfast, patient apologist to security and apologized to JEANMARIE and this signwriter. Patient told this nurse that when he woke up, he felt like he was God. Patient said that he was trying to masterbate and was interupted. Patient said that it has to do with AI, and pointed at the camera. Patient said that it isn't the workers fault, the blue bloods.
[2024-09-19 14:00] VITALS: BP 117/68; PULSE 105; RESP 16; O2SAT 96
--- NOTE | 2024-09-19 18:20 | P.NPUPN_ITS ---
Subjective NPU 2 Subjective: 43-year-old male with schizophrenia curr ently on Haldol 10 mg daily. He had reported that he was doing okay but continued to ramble on and became agitated requiring some as needed medications earlier. He had continued to engage in conversations with himself and appeared to minimize any side effects from his Haldol. He reported that he was frustrated that he would not be able to be discharged soon. He had reported adequate sleep. Mental Status Exam 2 MSE Comments: This is a well-nourished well-developed white male in hospital scrubs with limited grooming and with no eye contact. No abnormal movements except for mild psychomotor agitation He was mostly uncooperative with exam in mild to moderate distress. Speech was increased in rate but normal in volume engaged in conversation to himself. Mood described as okay. Thought process was disorganized and tangential. Thought content: Patient did not respond to questions about suicidal or homicidal ideation He had no self-directed or outward directed aggression noted except for when conversations about taking medication occurred he had some posturing and verbal aggression, no delusions reported but clear paranoid, persecutory and likely grandiose delusions as well as episcopal preoccupation, he did not report any auditory or visual hallucinations but was clearly at times responding to internal stimuli. Attention and concentration was limited and memory was unreliable but none formally tested. Insight And judgment and impulse control are all impaired. Vitals/I&O/Wt Last Vital Signs Temp 97.5 F L 09/19/24 06:00 Pulse 105 H 09/19/24 14:00 Resp 16 09/19/24 14:00 BP 117/68 09/19/24 14:00 Pulse Ox 96 09/19/24 14:00 O2 Del Method Room Air 09/19/24 14:00 Weight last 48 hrs Weight 87.26 kg Data NPU 08/28/24 03:00 08/28/24 03:00 A&P Assessment and plan (1) Schizoaffective disorder, manic type: (2) Schizophrenia: Qualifiers: Schizophrenia type: undifferentiated schizophrenia Qualified Code(s): F 20.3 - Undifferentiated schizophrenia (3) Alcoholic intoxication: (4) Polysubstance abuse: Plan 43-year-old male who presents with psychosis with a blood alcohol level of 190 with a history of schizophrenia requesting Klonopin admitted with bizarre behavior. Patient will continue to require acute inpatient hospitalization at this time. 1.? Engage patient in individual milieu and group therapy. 2.? Recommend sober living treatment at the highest level of care to which the patient is willing to commit 3.??Obtain collateral information patient currently floridly psychotic. 4.? TO-15 minute checks? 5. We will need to consider forced medications as patient refusing antipsychotic medications. Patient placed on a 21-day hold. We will initiate forced medication protocol tomorrow, but trying to determine from his insurance company what he has taken previously. Have instituted forced medication protocol. Patient once again refused his Invega. We had a fairly lengthy discussion and he agreed to take 10 mg of Haldol daily oral and then took the medication without incident. Ultimately we will transition him to the IM Haldol decanoate prior to discharge. Will see if he will possibly consider an additional mood stabilizer like Depakote. Consider Caplyta. Involuntary Hold Information 2 96 Hour Hold: 96 Hour Involuntary Admission: Yes 96 Hour Hold Ending Date: 09/03/24 96 Hour Hold Ending Time: 00:01 Other Hold: Hold End Date: 09/27/24 Attestations NPU 2 Medical Necessity Statement*: Inpatient hospitalization is medically necessary and?the clinically appropriate intervention at this time.? We will monitor/initiate medications and make changes as indicated. Likely length of stay 7-10 days. Coding Level of Care Code Acute Code for [facility] Fwd Diagnoses Schizoaffective disorder, manic type F25.0 Undifferentiated schizophrenia F20.3 Schizophrenia type: undifferentiated schizophrenia Alcoholic intoxication F10.929 Polysubstance abuse F19.10
[2024-09-19 20:11] VITALS: BP 122/86; PULSE 92; RESP 18; TEMP 36.5; O2SAT 96
[2024-09-19] MEDS: haloperidol 5 mg Tablet PO (20:25)
[2024-09-20 04:23] VITALS: BP 109/72; PULSE 79; RESP 16; TEMP 36.3; O2SAT 97
[2024-09-20] MEDS: nicotine 4 mg lozenge MUCOUS MEM ×3 (06:25→14:26)
[2024-09-20] MEDS: haloperidol 5 mg Tablet 10 MG PO (09:05)
[2024-09-20] MEDS: multivitamin therapeutic Tablet 1 TAB PO (09:05)
[2024-09-20] MEDS: folic acid 1 mg Tablet PO (09:05)
[2024-09-20] MEDS: thiamine 100 mg Tablet PO (09:05)
[2024-09-20] MEDS: CLONazepam 1 mg Tablet PO ×2 (09:08→20:02)
[2024-09-20 14:00] VITALS: BP 113/75; PULSE 75; RESP 18; TEMP 36.4; O2SAT 99
--- NOTE | 2024-09-20 16:26 | P.NPUPN_ITS ---
Subjective NPU 2 Subjective: 43-year-old male with schizophrenia curr ently on Haldol 10 mg daily. Patient appeared more cooperative and compliant on the milieu although he had isolated himself and had not gone to groups. He had engaged in some improvement in hygiene but continued to have conversations with himself. He had reported that he had been hearing voices for years. He had apparently slept only 1-1/2 to 2 hours at night but reported that he had slept fine and had been compliant with taking his Klonopin. He reported a previous failure on Caplyta while he was at a hospital in [facility]. He had reported a history of frequent mood swings but stated that he was no longer having any thoughts of hurting himself or others. He had reported that he had been unable to find a place to live due to his legal problems as several shelters had rejected him. Mental Status Exam 2 MSE Comments: This is a well-nourished well-developed white male in hospital scrubs with improved grooming and with fair eye contact. No abnormal movements except for mild psychomotor retardation today. He was ooperative with exam in mild to moderate distress. Speech was normal in rate and normal in volume engaged in conversation to himself. Mood described as okay. Thought process was quite linear and logical today. Thought content: Patient denied suicidal or homicidal ideation. He had no self-directed or outward directed aggression noted except for when conversations about taking medication. He appeared less paranoid with less overt grandiosity. He denied auditory or visual hallucinations but was responding to internal stimuli. Attention and concentration was better and memory was better. Insight And judgment and impulse control are all impaired. Vitals/I&O/Wt Last Vital Signs Temp 97.5 F L 09/20/24 14:00 Pulse 75 09/20/24 14:00 Resp 18 09/20/24 14:00 BP 113/75 09/20/24 14:00 Pulse Ox 99 09/20/24 14:00 O2 Del Method Room Air 09/20/24 04:23 Weight last 48 hrs Weight 87.26 kg Data NPU 08/28/24 03:00 08/28/24 03:00 A&P Assessment and plan (1) Schizoaffective disorder, manic type: (2) Schizophrenia: Qualifiers: Schizophrenia type: undifferentiated schizophrenia Qualified Code(s): F 20.3 - Undifferentiated schizophrenia (3) Alcoholic intoxication: (4) Polysubstance abuse: Plan 43-year-old male who presents with psychosis with a blood alcohol level of 190 with a history of schizophrenia requesting Klonopin admitted with bizarre behavior. Patient will continue to require acute inpatient hospitalization at this time. 1.? Engage patient in individual milieu and group therapy. 2.? Recommend sober living treatment at the highest level of care to which the patient is willing to commit 3.??Obtain collateral information patient currently floridly psychotic. 4.? TO-15 minute checks? 5. Will hold on caplyta if patient has been on this medication recently. Continue haldol but in divided doses of 5mg bid, klonopin 1mg bid as prescribed. Consider haldol decanoate 100mg IM initiation. Involuntary Hold Information 2 96 Hour Hold: 96 Hour Involuntary Admission: Yes 96 Hour Hold Ending Date: 09/03/24 96 Hour Hold Ending Time: 00:01 Other Hold: Hold End Date: 09/27/24 Attestations NPU 2 Medical Necessity Statement*: Inpatient hospitalization is medically necessary and?the clinically appropriate intervention at this time.? We will monitor/initiate medications and make changes as indicated. Likely length of stay 7-10 days. Coding Level of Care Code Acute Code for [facility] Diagnoses Schizoaffective disorder, manic type F25.0 Undifferentiated schizophrenia F20.3 Schizophrenia type: undifferentiated schizophrenia Alcoholic intoxication F10.929 Polysubstance abuse F19.10
--- NOTE | 2024-09-20 16:41 | PC.NURSE ---
ORDER RECEIVED TO DISCONTINUE CAPLYTA [address] PELAYO. STATES PT APPEARS BETTER AND REPORTS THAT HE HAD TAKEN CAPLYTA BEFORE WHILE AT [facility] AND IT DID NOT WORK WELL FOR HIM. ORDER DISCONTINUES. EDUCATED PT ON NEW ORDERS. EDUCATION PROVIDED. SUPPORT VOICE.
[2024-09-20] MEDS: haloperidol 5 mg Tablet PO (18:00)
[2024-09-20 20:42] VITALS: BP 122/76; PULSE 76; RESP 18; TEMP 36.8; O2SAT 95
[2024-09-21 05:02] VITALS: BP 128/83; PULSE 64; RESP 18; O2SAT 96
[2024-09-21] MEDS: nicotine 4 mg lozenge MUCOUS MEM ×4 (07:21→21:06)
[2024-09-21] MEDS: folic acid 1 mg Tablet PO (07:21)
[2024-09-21] MEDS: multivitamin therapeutic Tablet 1 TAB PO (07:21)
[2024-09-21] MEDS: CLONazepam 1 mg Tablet PO ×2 (07:22→21:06)
[2024-09-21] MEDS: thiamine 100 mg Tablet PO (07:22)
[2024-09-21] MEDS: haloperidol 5 mg Tablet PO ×2 (07:25→21:07)
[2024-09-21 14:00] VITALS: BP 110/70; PULSE 82; RESP 18; TEMP 36.6; O2SAT 99
--- NOTE | 2024-09-21 17:55 | W.PM.NPUPNS ---
Subjective NPU Subjective: 43-year-old male with schizophrenia currently on Haldol 10 mg daily. The patient continued to show great improvement here on the unit. He was compliant and redirectable with no threatening behaviors. He had been hopeful about returning home and stated that he would be okay with continuing this medication regimen. There were no side effects reported. He had been attending to activities of daily living including showering. He continued to have periods of time where he had conversations quietly in his room but did not appear excessively distracted on the milieu. Mental Status Exam MSE Comments: This is a well-nourished well-developed white male in hospital scrubs with improved grooming and with fair eye contact. No abnormal movements except for mild psychomotor retardation today. He was cooperative with exam in mild distress. Speech was normal in rate and normal in volume. Mood described as good. His affect was brighter today. Thought process was linear and logical today. Thought content: Patient denied suicidal or homicidal ideation. He had no self-directed or outward directed aggression noted except for when conversations about taking medication. He appeared less paranoid with no overt grandiosity. He denied auditory or visual hallucinations but still appeared to be responding to internal stimuli for brief periods. Attention and concentration were better and memory was improved. Insight was improved. Judgment appeared better. Impulse control was improving. Vitals/I&O/Wt Last Vital Signs Temp 98 F 09/21/24 14:00 Pulse 82 09/21/24 14:00 Resp 18 09/21/24 14:00 BP 110/70 09/21/24 14:00 Pulse Ox 99 09/21/24 14:00 O2 Del Method Room Air 09/21/24 05:02 Data NPU 08/28/24 03:00 08/28/24 03:00 A&P Assessment and plan (1) Schizophrenia: Qualifiers: Schizophrenia type: undifferentiated schizophrenia Qualified Code(s): F20.3 - Undifferentiated schizophrenia (2) Schizoaffective disorder, manic type: (3) Alcoholic intoxication: (4) Polysubstance abuse: Plan 43-year-old male who presents with psychosis with a blood alcohol level of 190 with a history of schizophrenia requesting Klonopin admitted with bizarre behavior. Patient will continue to require acute inpatient hospitalization at this time. 1.? Engage patient in individual milieu and group therapy. 2.? Recommend sober living treatment at the highest level of care to which the patient is willing to commit 3.??Obtain collateral information patient currently floridly psychotic. 4.? TO-15 minute checks? 5. Continue Haldol 5mg bid, with plan for discharge tommorow with improvement noted. Involuntary Hold Information 96 Hour Hold: 96 Hour Involuntary Admission: Yes 96 Hour Hold Ending Date: 09/03/24 96 Hour Hold Ending Time: 00:01 Other Hold: Hold End Date: 09/27/24 Attestations NPU Medical Necessity Statement*: Inpatient hospitalization is medically necessary and?the clinically appropriate intervention at this time.? We will monitor/initiate medications and make changes as indicated. The patient's likely length of stay 1-2 days. Coding Level of Care Code Acute Code for [facility] Fwd Diagnoses 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
[2024-09-21 20:26] VITALS: BP 120/88; PULSE 109; RESP 16; TEMP 37.1; O2SAT 95
[2024-09-22 06:00] VITALS: BP 125/85; PULSE 88; RESP 16; TEMP 36.7; O2SAT 96
[2024-09-22] MEDS: folic acid 1 mg Tablet PO (09:00)
[2024-09-22] MEDS: thiamine 100 mg Tablet PO (09:00)
[2024-09-22] MEDS: haloperidol 5 mg Tablet PO (09:00)
[2024-09-22] MEDS: multivitamin therapeutic Tablet 1 TAB PO (09:00)
[2024-09-22] MEDS: CLONazepam 1 mg Tablet PO (10:43)
[2024-09-22] MEDS: nicotine 4 mg lozenge MUCOUS MEM (10:49)
--- NOTE | 2024-09-22 11:16 | P.NPUDS_ITS ---
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 the last 30 days For Example: 1 joint daily, 30 pack of beer, 1 joint weekly, grams, etc.: When available did what ever dpe man was doing Age at first use: 17 Cannabis Date of last use: 04/24/21 Prior Lifetime use/Use in the last 3 months: Prior Lifetime Use Method of Use: Smoked Frequency in last 30 days: Other (Attempted once) Amount of use in the last 30 days For Example: 1 joint daily, 30 pack of beer, 1 joint weekly, grams, etc.: A joint once and made him sick Age at first use: 40 Cocaine/Crack Date of last use: 08/30/21 Prior Lifetime use/Use in the last 3 months: Prior Lifetime Use Method of Use: Smoked (Glass pipe ) and Other Frequency in last 30 days: Other (Tried once) Amount of use in the last 30 days For Example: 1 joint daily, 30 pack of beer, 1 joint weekly, grams, etc.: Tried once smoked out of glass pipe Age at first use: 40 Compulsive Spending Denies Past History: Denies Past History Gambling Denies Past History: Denies Past History Hallucinogens Date of last use: 01/12/02 Method of Use: Oral Amount of use in the last 30 days For Example: 1 joint daily, 30 pack of beer, 1 joint weekly, grams, etc.: Took acid hits Age at first use: 21 Inhalants Date of last use: 05/15/03 Prior Lifetime use/Use in the last 3 months: Prior Lifetime Use Method of Use: Other (huffed) Frequency in last 30 days: Other (When available ) Amount of use in the last 30 days For Example: 1 joint daily, 30 pack of beer, 1 joint weekly, grams, etc.: Coolant bottle on break at work Age at first use: 13 Misuse of RX Medications Denies Past History: Denies Past History Amount of use in the last 30 days Nicotine Date of last use: 06/23/24 Prior Lifetime use/Use in the last 3 months: Use in the last 3 months Method of Use: Smoked Frequency in last 30 days: Daily Amount of use in the last 30 days For Example: 1 joint daily, 30 pack of beer, 1 joint weekly, grams, etc.: a pack of smokes a day Age at first use: 9 Do you want a referral to a tobacco graphics specialist?: No Opioid Pain Medications (non-prescribed) Denies Past History: Denies Past History Amount of use in the last 30 days [id number] Denies Past History: Denies Past History Amount of use in the last 30 days Sedatives(Benzos,Sleep Pills, No script) Denies Past History: Denies Past History Amount of use in the last 30 days In the last 12 months have you Taken the substance in larger amounts for longer than you're meant to: Nicotine Wanting to cut down or stop using the substance but not managing to: Alcohol Spending a lot of time getting, using, or recovering from use of the substance: Alcohol Cravings and urges to use the substance: Alcohol and Nicotine Not managing to do what you should at work, home, or school because of substance use: Alcohol Using substances again and again, even when it puts you in danger: Alcohol and Nicotine Continuing to use, even when you know you have a physical or psychological problems that could have been caused or made worse by the substance: Alcohol and Nicotine Needing more of the substance to get the effect you want (tolerance): Alcohol and Nicotine 2 to 3 symptoms indicate Mild RUSLAN, 4 to 5 Symptoms indicate moderate RUSLAN, 5 or More indicate Severe RUSLAN AOD (Alcohol and Other Drugs) Diagnosis and justification:: F17.200 Referrals and Recommendations: RUSLAN Outpatient Services: Does client have a less severe RUSLAN?: No Does client wish to have referral to RUSLAN treatment?: Yes Tobacco Cessation Treatment: Does Client have a nicotine use disorder?: Yes Does the client want a referral to the Tobacco Cessation Treatment program?: No Co-Occurring Treatment/ITCD services: Does client have [facility] qualifying [facility] health diagnosis and RUSLAN diagnosis?: Yes Does the client want a referral to the ITCD program?: Yes Patient-Family Edu. Assessment Date Done Patient Family Education Date Done: 06/23/24 Education Assessment Motivation Level: Appears Motivated, Asks Questions and Cooperative Best Way to Learn: Hands-On Level of Education: Less than 12 years(Specify) (10th Grade) Preferred Language for Healthcare: Tristanian Barriers Which Affect Learning Language/Culture: No Difficulty Reading: No Difficulty Writing: No Physical Barriers: No Sensory Barriers: No Emotional Barriers: No Cognitive Barriers: No Intensity of Illness: Yes Financial Concerns: No Any shinto or cultural practices that may affect medical care (Restrictions of diet, Blood Transfusions, etc.): No Knowledge of Current Illness: Below Average What would you like to know about your condition or illness?: More About Diagnosis, How to [place], Treatment Options and Prognosis Goals/Plans Education Goals/Plans: Plan of care, Treatment and Services, Basic Health Practices and Safety and Habilitation or Rehabilitation Techniques/Achieving [place] Risks Date Date of last Risks: 06/23/24 Suicide Risk Assessment In the last 30 days have you... Little interest or pleasure in doing things: not at all Feeling down, depressed, or hopeless: more than half the days PHQ-2 Score: 2 Total (If greater than 3 please do full PHQ-9): Yes Have you had suicidal thoughts?: Not At All Do you ever wish you weren't alive anymore?: Not At All Suicide Risk Score: 2 Patient score 3 or greater or had suicidal thoughts?: No Risk to Others Current or History of HI: Denies any homicidal thoughts, plans, intentions, or time frames Previous and/or current violence: No Previous and/or current threats (verbal/physical): No If both Yes, then complete full screening: No Other Self-Harm or Risk Taking Behaviors Other Risk Taking Behaviors:: None Protective Factors Protective Factors and Deterrents: Identifies a reason for living and Responsibility to family or others Final Disposition of Risk Screening Final Disposition: No Emergency response: Safety planning OZH PHQ-9 Over the last 2 weeks, how often have you been bothered by any of the following problems? 1. Little interest or pleasure in doing things: not at all 2. Feeling down, depressed, or hopeless: more than half the days PHQ-9 score (0-4 None; 5-9 Mild; 10-14 Moderate; 15-19 Moderately severe; 20-27 Severe) Source: Developed by Drs. Danie De Paz, Chelle Zafar, Keegan Saldana and colleagues, with an educational jun from [employer]. OZH JAZMINE-7 JAZMINE-7 Over the last 2 weeks, have you felt bothered by any of these things? Feeling nervous, anxious, or on edge: 3 = Nearly every day Not being able to stop or control worryin = More than half the days Worrying too much about different things: 0 = Not at all Trouble relaxin = Several days Being so restless that it is hard to sit still: 1 = Several days Becoming easily annoyed or irritable: 0 = Not at all Feeling afraid as if something awful might happen: 1 = Several days Total JAZMINE-7 score (0-4 normal; 5-9 mild; 10-14 moderate; 15-21 severe): 8 Source: Developed by Drs. Danie De Paz, Chelle Zafar, Keegan Saldana and colleagues, with an educational jun from [employer]. Hospital Course Hospital Course During the hospitalization, the patient had routine laboratory studies which were within normal limits except for a few outliers.? Additionally, there was a general medical evaluation which was also within normal limits and revealed no new acute processes.? At the time of discharge, lethality was denied and psychosis was resolving.? Mood and anxiety were well managed.? The patient endorsed a plan to avoid all drugs of abuse and follow up with the aftercare recommendations of the treatment team.? The patient was evaluated and deemed to be absent credible lethality and had achieved the maximum benefit from an inpatient hospitalization, and so was discharged. ?Patient had initially refused any medications to manage his manic symptoms and psychotic symptoms. Ultimately, the patient had been placed on a 21-day hold and was forcibly medicated with Haldol which was titrated up to a dose of 10 mg a day at the time of discharge. He had received several as needed medications due to agitation and threatening behavior but appeared to calm down during his extended stay here and ultimately appeared significantly better while continuing at times to be responding internal stimuli but reporting less paranoia and appearing far less hostile with improvement in self-care noted. He had been agreeable to return home and continue to take Haldol. He also continue to remain on Klonopin as prescribed prior to his entrance into the neuropsychiatric unit. Involuntary Hold Information 96 Hour Hold: 96 Hour Involuntary Admission: Yes 96 Hour Hold Ending Date: 09/03/24 96 Hour Hold Ending Time: 00:01 Other Hold: Hold End Date: 09/27/24 Mental Status Exam MSE Comments: This is a well-nourished well-developed white male in hospital scrubs with i mproved grooming and with fair eye contact. No abnormal movements except for mild psychomotor retardation today. He was cooperative with exam in mild distress. Speech was normal in rate and normal in volume. Mood described as good. His affect was brighter today. Thought process was linear and logical today. Thought content: Patient denied suicidal or homicidal ideation. He appeared less paranoid with no overt grandiosity. He denied auditory or visual hallucinations but still appeared to be responding to internal stimuli for brief periods. Attention and concentration were better and memory was improved. Insight was improved. Judgment appeared better. Impulse control was improving. Discharge Data Studies Completed and Pending: Laboratory Results WBC 6.71 10^3/uL (3.2 9-11.43) 08/28/24 03:00 RBC 5.16 10^6/uL (3.8 5-5.65) 08/28/24 03:00 Hgb 14.80 g/dL (11.27 -16.99) 08/28/24 03:00 Hct 44.9 % (37-53) 08/28/24 03:00 MCV 87.0 fl (82-101) 08/28/24 03:00 MCH 28.7 pg (27-33) 08/28/24 03:00 MCHC 33.0 g/dL (30-55) 08/28/24 03:00 RDW 13.6 % (12.1-15.1 ) 08/28/24 03:00 Plt Count 262 10^3/cmm (157 -399) 08/28/24 03:00 MPV 10.3 fL (7.4-10.4 ) 08/28/24 03:00 Neut % (Auto) 51.5 % 08/28/24 03:00 Lymph % (Auto) 33.8 % 08/28/24 03:00 Amite % (Auto) 11.9 % 08/28/24 03:00 Eos % (Auto) 1.6 % 08/28/24 03:00 Baso % (Auto) 0.9 % 08/28/24 03:00 Neut # (Auto) 3.45 10^3/uL (1.8 -7.7) 08/28/24 03:00 Lymph # (Auto) 2.3 10^3/uL (0.8- 4.8) 08/28/24 03:00 Amite # (Auto) 0.8 10^3/uL (0.2- 0.9) 08/28/24 03:00 Eos # (Auto) 0.1 10^3/uL (0.0- 0.8) 08/28/24 03:00 Baso # (Auto) 0.1 10^3/uL (0.0- 0.1) 08/28/24 03:00 Nucleated RBC % (a uto) 0 % 08/28/24 03:00 Nucleated RBCs # 0.0 /100WBC 08/28/24 03:00 Sodium 137 mmol/L (136-1 45) 08/28/24 03:00 Potassium 3.6 mmol/L (3.5-5 .1) 08/28/24 03:00 Chloride 102 mmol/L (98-10 7) 08/28/24 03:00 Carbon Dioxide 20 mmol/L (22-29) L 08/28/24 03:00 Anion Gap 18.6 (5-19) 08/28/24 03:00 BUN 6 mg/dL (6-20) 08/28/24 03:00 Creatinine 1.0 mg/dL (0.7-1. 2) 08/28/24 03:00 GFR Calculation 81.9 mL/min (90-1 30) L 08/28/24 03:00 Glucose 101 mg/dL (65-115 ) 08/28/24 03:00 Calculated Osmolal ity 282 mOsm/kg (285- 295) L 08/28/24 03:00 Calcium 8.4 mg/dL (8.5-10 .5) L 08/28/24 03:00 Total Bilirubin 0.4 mg/dL (0.15-1 .2) 08/28/24 03:00 AST 31 U/L (0-40) 08/28/24 03:00 ALT 18 U/L (0-41) 08/28/24 03:00 Alkaline Phosphata se 138 U/L (40-130) H 08/28/24 03:00 Total Protein 7.5 g/dL (6.6-8.7 ) 08/28/24 03:00 Albumin 4.5 g/dL (3.5-5.2 ) 08/28/24 03:00 Globulin 3.0 g/dL (1.3-4.6 ) 08/28/24 03:00 Urine Color Yellow (Yellow) 08/28/24 05:15 Urine Appearance Clear (CLEAR) 08/28/24 05:15 Urine pH 5.5 (5-7) 08/28/24 05:15 Ur Specific Gravit y 1.007 (1.005-1.0 30) 08/28/24 05:15 Urine Protein Negative (Negati ve) 08/28/24 05:15 Urine Glucose (UA) Negative (Normal ) 08/28/24 05:15 Urine Ketones Negative (Negati ve) 08/28/24 05:15 Urine Blood Negative (Negati ve) 08/28/24 05:15 Urine Nitrate Negative (Negati ve) 08/28/24 05:15 Urine Bilirubin Negative (Negati ve) 08/28/24 05:15 Urine Urobilinogen 0.2 mg/dL (Negati ve) 08/28/24 05:15 Ur Leukocyte Elvie ase Negative (Negati ve) 08/28/24 05:15 Urine RBC 0-2 /hpf (0-2) 08/28/24 05:15 Urine WBC 0-5 /hpf (0-5) 08/28/24 05:15 Ur Squamous Epith Cells 0-5 /hpf (0-5) 08/28/24 05:15 Amorphous Sediment Not Reportable 08/28/24 05:15 Urine Bacteria None seen /hpf (N ONE) 08/28/24 05:15 Hyaline Casts 0.81 /lpf 08/28/24 05:15 Salicylates 0.5 mg/dL (3-10) L 08/28/24 03:00 Urine Opiates Scre en Negative ng/mL (N egative) 08/28/24 05:15 Acetaminophen < 5.0 ug/mL (10-3 0) L 08/28/24 03:00 Ur Barbiturates Sc reen Negative ng/mL (N egative) 08/28/24 05:15 Ur Phencyclidine S crn Negative ng/mL (N egative) 08/28/24 05:15 Ur Amphetamines Sc reen Negative ng/mL (N egative) 08/28/24 05:15 U Benzodiazepines Scrn Negative ng/mL (N egative) 08/28/24 05:15 Urine Cocaine Scre en Negative ng/mL (N egative) 08/28/24 05:15 U Marijuana (THC) Screen Negative ng/mL (N egative) 08/28/24 05:15 Ethyl Alcohol 190 mg/dL (0-10) H 08/28/24 03:00 Coronavirus (PCR) Negative (Negati ve) 08/28/24 09:46 Influenza A (PCR) Negative (Negati ve) 08/28/24 09:46 Influenza Type B ( PCR) Negative (Negati ve) 08/28/24 09:46 RSV (PCR) Negative (Negati ve) 08/28/24 09:46 Vitals: Last Vital Signs Temp 98.0 F 09/22/24 06:00 Pulse 88 09/22/24 06:00 Resp 16 09/22/24 06:00 BP 125/85 09/22/24 06:00 Pulse Ox 96 09/22/24 06:00 O2 Del Method Room Air 09/22/24 06:00 Discharge Plan Discharge Patient Disposition: Home Condition: Stable Prescriptions: New haloperidol 5 mg Tablet 10 mg PO 2100 30 Days Qty: 60 1RF clonazepam [Klonopin] 1 mg tablet 1 mg PO BID Qty: 60 0RF Discontinued clonazepam 1 mg tablet 1 mg PO BID 30 Days Qty: 60 2RF Discharge Orders: Discharge Order (Routine); Ordered 09/22/24 Ordered By: Javier Grace Referrals: [facility] [Outside] Julee Zafar NP [Nurse Practitioner] - 10/14/24 10:45 am (Follow up) Jeffery Davison MD [Primary Care Provider] - (Follow up) Discharge Diet: Usual diet Discharge Activity: Resume usual activity Patient Instructions: Clonazepam (By mouth) (Klonopin), Haloperidol (By mouth), Altered Mental Status (ED), Psychotic Disorder (DC), Opioid Safety Discharge Attestations NPU Time Spent in Discharge Care*: less than 30 min Specific Discharge Activities: Specific discharge activities: educating patient, discussing with shoe caser/social workers/dc planners and documenting/other paperwork Coding Level of Care Code Acute Code for [facility] Fwd Diagnoses 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
[2024-09-22 11:32] VITALS: BP 125/85; PULSE 88; RESP 16; TEMP 36.7; O2SAT 96
--- NOTE | 2024-09-22 12:42 | DCPLANNER ---
IMM was given to pt and rights explained and copy placed in pts file.
== END 2024-09-22 15:24 | disposition home or self-care (01) | DRG 885 ==
LOC: ER 08-29 03:09 → NP 08-29 04:15
PROVIDERS: Emergency Medicine; Admitting Provider Psychiatry & Neurology Psychiatry; Emergency Provider Family Medicine; PCP Family Medicine Adult Medicine; Visit Provider Psychiatry & Neurology Psychiatry
DX: F25.0 Schizoaffective disorder, bipolar type (principal); F10.229 Alcohol dependence with intoxication, unspecified; Y90.6 Blood alcohol level of 120-199 mg/100 ml; F19.10 Other psychoactive substance abuse, uncomplicated; F41.1 Generalized anxiety disorder; F17.210 Nicotine dependence, cigarettes, uncomplicated
CPT/HCPCS: 0241U; 80053; 80306; 80307; 81001; 85025; 96372; 97150; 97165; 99285; J1200; J1630; J2060; J3490

== ENCOUNTER 2024-09-24 19:26 | Inpatient (IN) | payer OTHER, SELFPAY ==
--- NOTE | 2024-09-24 19:41 | ECG_ITS ---
[facility]24[facility]24 Pat Name: Mikey Knott Department: Room: 154 Gender: Male Assembler Cards And Announcements: : 1980 Requested By: Sherley Diaz Order Number: [id number] Dunham MD: Darius Davis M.D. Measurements Intervals [place] Rate: 97 P: 56 MD: 167 QRS: 58 QRSD: 91 T: 61 QT: 354 QTc: 450 Interpretive Statements SINUS RHYTHM No previous ECG available for comparison Electronically Signed On 09-25-2024 10:19:59 SALES SUPPORT COORDINATOR by Darius Davis M.D. [email or web address]
--- NOTE | 2024-09-24 19:42 | ED.C_ITS ---
HPI - Psych General: Chief Complaint: Psychiatric Symptoms Stated Complaint: HALLUCINATIONS Time Seen by Provider: 09/24/24 19:38 History of Present Illness: 43-year-old man with a history of schizo phrenia who presents the emergency room with police and EMS. Apparently he is actively hallucinating. When I walk in the room he starts stating that I am part of the FBI or something. Does not really answer any questions appropriately. Police report that they have been called on him twice today. Once he was in front of local gas station yelling at the owners were part of [place]. They finally got him to go home and then recalled again he was at the neighbors house knocking on the door and claiming that his girlfriend live there. The people who live in that house did not know him. Apparently he has not been taking his Haldol. He told police that it is poisoning him Related Data Previous Rx's Medication Instructions Recorded clonazepam 1 mg tablet (Klonopin) 1 mg PO BID #60 tabs 09/22/24 haloperidol 5 mg tablet 10 mg (2 x 5 mg) PO 2100 30 days 09/22/24 #60 tabs Allergies Allergy/AdvReac Type Severity Reaction Status Date / Time No Known Allergies Allergy Unverified 05/27/24 09:06 Review of Systems General: Reports: ROS unobtainable due to medical condition PFSH ED PFSH: Medical History Psychiatric care Smoker Polysubstance abuse Nicotine addiction, alcoholism sober since November 2023, history of methamphetamine use Obesity (BMI 35.0-39.9 without comorbidity) Anxiety as acute reaction to gross stress Unspecified psychosis Schizophrenia Surgical History No pertinent past surgical history Family History Father Heart disease Gout Mother Diabetes mellitus, type 2 Diabetes Cancer Social History Smoking and tobacco/nicotine status: current every day tobacco/nicotine user Quit status (tobacco/nicotine): not considering quitting Alcohol intake: former Year of sobriety/quit date alcohol: 5 mo Substance/Drug Use: former Date of last use: 3 yrs Former substance use details: methametpmine Physical Exam Narrative: EXAM NARRATIVE: General: Alert. no acute distress Skin: Warm, dry Head: Normocephalic, atraumatic. Neck: Supple, trachea midline. Eye: Extraocular movements are intact. Ears, nose, mouth and throat: Oral mucosa moist. Cardiovascular: Regular rate and rhythm, Normal peripheral perfusion. Respiratory: Lungs are clear to auscultation, respirations are non-labored, breath sounds are equal, Symmetrical chest wall expansion. Gastrointestinal: Soft, Nontender, Non distended, Normal bowel sounds. Musculoskeletal: Normal ROM, no deformity. Neurological: Not Alert and oriented to person, place, time, and situation, No focal neurological deficit observed. Psychiatric: Patient does not answer questions appropriately. He seems to be actively hallucinating. MDM - Psych Medical Decision Making Medical decision making: Differential diagnosis for patient with reported psychosis with plan for psychiatric admission including but not limited to and based on the above HPI, review of systems and physical exam: concerns for infection, alcohol intoxication, cardiac issues or other medical problems prior to psychiatric admission. Orders placed to evaluate differential diagnosis based on the above differential, HPI and physical exam labwork, ekg ordered to evaluate the pathologies and to clear the patient medically prior to psychiatric admission Consultation: I spoke with Dr. Grace recently with the patient and agrees to admission. Assessment and plan: Psychosis Schizophrenia Hallucinations Medical noncompliance IM Ativan and Geodon -Admission to neuropsychiatric unit for continued evaluation and treatment. - All lab work was reviewed and interpreted personally by myself, the ER physician - Evaluation and treatment of this problem were appropriate in the emergency setting No radiology studies performed this visit Discharge Plan Discharge Patient Disposition: Admitted As Inpatient Admit Provider: Javier Grace Clinical Impression: Acute psychosis, Medical non-compliance Schizophrenia Qualifiers: Schizophrenia type: undifferentiated schizophrenia Qualified Code(s): F20.3 - Undifferentiated schizophrenia Condition: Stable Coding Level of Care Code ED Apple Press Operator for Leona Marx
[2024-09-24 19:43] VITALS: BMI 25.8
--- NOTE | 2024-09-24 19:52 | PC.NURSE ---
Pt. changed into paper scrubs while police are presents. Pt. is angry calling staff pieces of ryan, neuroscientist and calling the police bro , stating that they are brothers.
--- NOTE | 2024-09-24 19:54 | PC.NURSE ---
unable assess patient's vitals due to violent behavior and threats. Pt. demanding staff do not fucking touch me, only my bro can help me (referencing the [place] police commissioner)
[2024-09-24] MEDS: ziprasidone 20 mg/mL SDV IM (19:59)
[2024-09-24] MEDS: LORazepam 2 mg/mL INJ 1 mL IM (19:59)
--- NOTE | 2024-09-24 20:28 | PC.NURSE ---
96 Hour Involuntary Hold Patient Rights have been read to the patient and a copy of the same has been given to him. Engineer Chief Sushant Chairez was present at bedside at the time of presentation of Rights.
[2024-09-24 21:00] VITALS: BP 108/86; RESP 20; O2SAT 95
[2024-09-24 21:39] LABS: Basophils % 0.6 %; Eosinophils # 0.1 10^3/uL (0.0-0.8); Eosinophils % 1.8 %; Lymphocytes # 1.8 10^3/uL (0.8-4.8); Lymphocytes % 33.4 %; Mean Corpuscular HGB Conc 32.2 g/dL (30-55); Mean Corpuscular Hemoglobin 28.7 pg (27-33); Mean Corpuscular Volume 89.1 fl (82-101); Monocytes # 0.5 10^3/uL (0.2-0.9); Monocytes % 9.4 %; Neutrophils # 2.96 10^3/uL (1.8-7.7); Neutrophils % 54.2 %; Nucleated Red Blood Cells % 0 %; Platelet Count 235 10^3/cmm (157-399); Red Blood Count 5.05 10^6/uL (3.85-5.65); White Blood Count 5.45 10^3/uL (3.29-11.43)
[2024-09-24 21:46] LABS: Alanine Aminotransferase 25 U/L (0-41); Albumin Level 4.4 g/dL (3.5-5.2); Alcohol Level 230 mg/dL (0-10); Alkaline Phosphatase 116 U/L (40-130); Anion Gap 14.9 (5-19); Aspartate Amino Transferase 29 U/L (0-40); Blood Urea Nitrogen 7 mg/dL (6-20); Calcium 8.4 mg/dL (8.5-10.5); Carbon Dioxide 26 mmol/L (22-29); Chloride 107 mmol/L (98-107); Creatinine Clr Calc Pharmacy 122.3033; Glucose 75 mg/dL (65-115); Osmolality Calculated 295 mOsm/kg (285-295); Potassium 3.9 mmol/L (3.5-5.1); Sodium 144 mmol/L (136-145); Thyroid Stimulating Hormone 1.05 uIU/mL (0.27-4.20); Total Bilirubin 0.2 mg/dL (0.15-1.2); Total Protein 7.4 g/dL (6.6-8.7)
[2024-09-24 21:49] LABS: Acetaminophen < 5.0 ug/mL (10-30); Salicylate < 0.3 mg/dL (3-10)
[2024-09-24 22:32] VITALS: BP 123/88; PULSE 99; RESP 20; O2SAT 96
[2024-09-24 23:15] VITALS: BP 126/89; RESP 14; O2SAT 97
[2024-09-24 23:20] VITALS: BP 126/89; PULSE 86; RESP 14; O2SAT 97
[2024-09-24 23:49] VITALS: BP 101/68; PULSE 84; RESP 18; TEMP 36.8; O2SAT 98
[2024-09-25 04:00] VITALS: BP 103/68; PULSE 93; RESP 18; TEMP 36.9; O2SAT 98
--- NOTE | 2024-09-25 06:04 | PC.NURSE ---
Patient woke up at approximately at 05:50 and came to the nurses station to inform me that Haldol is causing him to have increased psychosis and that is why he will be refusing it. He also made it very clear that he INTENDS TO enzo the hospital, the doctors and all the nurses / staff associated with this organization He also stated that he intends to cause physical / bodily harm to staff when and if he ever he gets a chance! His demeanor was very palacios and his body language was also very revealing as his face was reddened, his fists were clinched as well as his teeth. He stated that he wanted to hit this nurse in the face and would do so if he if he could reach me . My ONLY verbal interaction with him was wishing him good morning when he approached the nurses station. He began to deescalate, some what after interacting with another (nonverbal) patient. Security was not called, as in the past this only caused to further escalate him. Unless there is adequate man-power to ensure safety. Patient continued to proceed with negative threatening statements directed toward myself and staff in general.
[2024-09-25] MEDS: CLONazepam 1 mg Tablet PO (07:55)
[2024-09-25] MEDS: folic acid 1 mg Tablet PO (07:55)
[2024-09-25] MEDS: multivitamin therapeutic Tablet 1 TAB PO (07:55)
[2024-09-25] MEDS: thiamine 100 mg Tablet PO (07:55)
[2024-09-25 07:56] LABS: Amphetamines Screen Urine Negative (Negative); Barbiturates Screen Urine Negative (Negative); Benzodiazepines Screen Urine Positive (Negative); Cocaine Screen Urine Negative (Negative); Opiate Screen Urine Negative (Negative); PCP Screen Urine Negative (Negative); THC Screen Urine Negative (Negative)
[2024-09-25 08:00] VITALS: BP 147/95; PULSE 87; RESP 18; O2SAT 97
[2024-09-25 08:21] LABS: Bilirubin Urine Negative (Negative); Blood Urine Negative (Negative); Glucose Urine UA Negative (Normal); Ketones Urine Negative (Negative); Leukocyte Esterase Urine Negative (Negative); Nitrate Urine Negative (Negative); Protein Urine Negative (Negative); Urine Appearance Clear (CLEAR); Urine Color Yellow (Yellow); Urobilinogen Urine 0.2 mg/dL (Negative)
[2024-09-25] MEDS: nicotine 4 mg lozenge MUCOUS MEM ×3 (08:23→19:02)
[2024-09-25 08:24] LABS: Bacteria Urine None Seen /hpf; Hyaline Casts Urine 2.05 /lpf; RBC Urine 0-2 /hpf (0-2); Squamous Epithelial Cell Urine 0-5 /hpf (0-5); WBC Urine 0-5 /hpf (0-5)
--- NOTE | 2024-09-25 10:11 | PC.NURSE ---
THIS NURSE SPOKE WITH PHYSICIAN ABOUT READMIT STATUS. DURING CONVERSATION IT WAS BROUGHT UP THAT PT WAS TAKING CLONAZAPAM WHILE ON A CIWA PROTOCOL AND THAT HE HAD ONLY BEEN GONE FOR ABOUT 2 DAYS WHEN HE HAD BEEN ADMITTED TO THE UNIT PRIOR TO THAT FOR MULTIPLE DAYS, OVER 2 WEEKS. WITH THIS INFORMATION PRESENTED PHYSICIAN DEEMED IT WAS NOT MEDICALLY NECESSARY FOR PT TO BE ON A CIWA PROTOCOL. PHYSICIAN GAVE THIS NURSE VERBAL ORDERS TO DISCONTINUE ORDERS RELATED TO CIWA PROTOCOL.
[2024-09-25] MEDS: ibuprofen 600 mg Tablet PO (11:21)
[2024-09-25] MEDS: simethicone 80 mg Chew PO (13:45)
[2024-09-25 14:00] VITALS: BP 136/72; PULSE 101; RESP 18; TEMP 37; O2SAT 98
--- NOTE | 2024-09-25 14:58 | W.PM.NPUH&PS ---
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 easily. For the above identified treatment goal of: Referral will be placed for Medication management and Psychiatric evaluation as well as CPRC abd RUSLAN services to manage his mental health sympytoms and his sobriety. Referral(s) to the following services have been made: Medication Services, CPRC and Other (RUSLAN) Education Given Rights and Responsibilities, Confidentiality and limits, Client/Staff boundaries, Crisis Management, Treatment Planning and Options, Grievance Policy, Ombudsman Program, Available Services Coding Non CPR DM Assessment Current/Historical Substance Current/Historical Substance Use Client?s drug and/or alcohol use in the last 30 days: Yes Have you ever felt that you ought to cut down on your drinking or drug use?: Yes Have people annoyed you by criticizing your drinking or drug use?: Yes Have you ever felt bad or guilty about your drinking or drug use?: Yes Have you ever had a drink or used drugs first thing in the morning to steady your nerves or to get rid of a hangover?: Yes Total Number of Yes responces: 4 Family history of substance abuse: Alcohol Alcohol Date of last use: 11/14/23 Prior Lifetime use/Use in the last 3 months: Prior Lifetime Use Method of Use: Oral Frequency in last 30 days: Daily Amount of use in the last 30 days Would drink 2 tall cans of malt liquor Age at first use: 6 Has the Audit-C been completed in the last 2 years?: No Amphetamine Date of last use: 04/16/21 Prior Lifetime use/Use in the last 3 months: Prior Lifetime Use Method of Use: Smoked and Other (Snort) Frequency in last 30 days: Daily Amount of use in the last 30 days For Example: 1 joint daily, 30 pack of beer, 1 joint weekly, grams, etc.: When available did what ever dpe man was doing Age at first use: 17 Cannabis Date of last use: 04/24/21 Prior Lifetime use/Use in the last 3 months: Prior Lifetime Use Method of Use: Smoked Frequency in last 30 days: Other (Attempted once) Amount of use in the last 30 days For Example: 1 joint daily, 30 pack of beer, 1 joint weekly, grams, etc.: A joint once and made him sick Age at first use: 40 Cocaine/Crack Date of last use: 08/30/21 Prior Lifetime use/Use in the last 3 months: Prior Lifetime Use Method of Use: Smoked (Glass pipe ) and Other Frequency in last 30 days: Other (Tried once) Amount of use in the last 30 days For Example: 1 joint daily, 30 pack of beer, 1 joint weekly, grams, etc.: Tried once smoked out of glass pipe Age at first use: 40 Compulsive Spending Denies Past History: Denies Past History Gambling Denies Past History: Denies Past History Hallucinogens Date of last use: 01/12/02 Method of Use: Oral Amount of use in the last 30 days For Example: 1 joint daily, 30 pack of beer, 1 joint weekly, grams, etc.: Took acid hits Age at first use: 21 Inhalants Date of last use: 05/15/03 Prior Lifetime use/Use in the last 3 months: Prior Lifetime Use Method of Use: Other (huffed) Frequency in last 30 days: Other (When available ) Amount of use in the last 30 days For Example: 1 joint daily, 30 pack of beer, 1 joint weekly, grams, etc.: Coolant bottle on break at work Age at first use: 13 Misuse of RX Medications Denies Past History: Denies Past History Amount of use in the last 30 days Nicotine Date of last use: 06/23/24 Prior Lifetime use/Use in the last 3 months: Use in the last 3 months Method of Use: Smoked Frequency in last 30 days: Daily Amount of use in the last 30 days For Example: 1 joint daily, 30 pack of beer, 1 joint weekly, grams, etc.: a pack of smokes a day Age at first use: 9 Do you want a referral to a tobacco sales operations specialist?: No Opioid Pain Medications (non-prescribed) Denies Past History: Denies Past History Amount of use in the last 30 days [id number] Denies Past History: Denies Past History Amount of use in the last 30 days Sedatives(Benzos,Sleep Pills, No script) Denies Past History: Denies Past History Amount of use in the last 30 days In the last 12 months have you Taken the substance in larger amounts for longer than you're meant to: Nicotine Wanting to cut down or stop using the substance but not managing to: Alcohol Spending a lot of time getting, using, or recovering from use of the substance: Alcohol Cravings and urges to use the substance: Alcohol and Nicotine Not managing to do what you should at work, home, or school because of substance use: Alcohol Using substances again and again, even when it puts you in danger: Alcohol and Nicotine Continuing to use, even when you know you have a physical or psychological problems that could have been caused or made worse by the substance: Alcohol and Nicotine Needing more of the substance to get the effect you want (tolerance): Alcohol and Nicotine 2 to 3 symptoms indicate Mild RUSLAN, 4 to 5 Symptoms indicate moderate RUSLAN, 5 or More indicate Severe RUSLAN AOD (Alcohol and Other Drugs) Diagnosis and justification:: F17.200 Referrals and Recommendations: RUSLAN Outpatient Services: Does client have a less severe RUSLAN?: No Does client wish to have referral to RUSLAN treatment?: Yes Tobacco Cessation Treatment: Does Client have a nicotine use disorder?: Yes Does the client want a referral to the Tobacco Cessation Treatment program?: No Co-Occurring Treatment/ITCD services: Does client have [facility] qualifying mental health diagnosis and RUSLAN diagnosis?: Yes Does the client want a referral to the ITCD program?: Yes Patient-Family Edu. Assessment Date Done Patient Family Education Date Done: 06/23/24 Education Assessment Motivation Level: Appears Motivated, Asks Questions and Cooperative Best Way to Learn: Hands-On Level of Education: Less than 12 years(Specify) (10th Grade) Preferred Language for Healthcare: Swedish Barriers Which Affect Learning Language/Culture: No Difficulty Reading: No Difficulty Writing: No Physical Barriers: No Sensory Barriers: No Emotional Barriers: No Cognitive Barriers: No Intensity of Illness: Yes Financial Concerns: No Any yarsanism or cultural practices that may affect medical care (Restrictions of diet, Blood Transfusions, etc.): No Knowledge of Current Illness: Below Average What would you like to know about your condition or illness?: More About Diagnosis, How to [place], Treatment Options and Prognosis Goals/Plans Education Goals/Plans: Plan of care, Treatment and Services, Basic Health Practices and Safety and Habilitation or Rehabilitation Techniques/Achieving [place] Risks Date Date of last Risks: 06/23/24 Suicide Risk Assessment In the last 30 days have you... Little interest or pleasure in doing things: not at all Feeling down, depressed, or hopeless: more than half the days PHQ-2 Score: 2 Total (If greater than 3 please do full PHQ-9): Yes Have you had suicidal thoughts?: Not At All Do you ever wish you weren't alive anymore?: Not At All Suicide Risk Score: 2 Patient score 3 or greater or had suicidal thoughts?: No Risk to Others Current or History of HI: Denies any homicidal thoughts, plans, intentions, or time frames Previous and/or current violence: No Previous and/or current threats (verbal/physical): No If both Yes, then complete full screening: No Other Self-Harm or Risk Taking Behaviors Other Risk Taking Behaviors:: None Protective Factors Protective Factors and Deterrents: Identifies a reason for living and Responsibility to family or others Final Disposition of Risk Screening Final Disposition: No Emergency response: Safety planning OZ PHQ-9 Over the last 2 weeks, how often have you been bothered by any of the following problems? 1. Little interest or pleasure in doing things: not at all2. Feeling down, depressed, or hopeless: more than half the daysPHQ-9 score (0-4 None; 5-9 Mild; 10-14 Moderate; 15-19 Moderately severe; 20-27 Severe) Source: Developed by Drs. Danie De Paz, Chelle Zafar, Keegan Saldana and colleagues, with an educational jun from [employer]. OZ JAZMINE-7 JAZMINE-7 Over the last 2 weeks, have you felt bothered by any of these things? Feeling nervous, anxious, or on edge: 3 = Nearly every day Not being able to stop or control worryin = More than half the days Worrying too much about different things: 0 = Not at all Trouble relaxin = Several days Being so restless that it is hard to sit still: 1 = Several days Becoming easily annoyed or irritable: 0 = Not at all Feeling afraid as if something awful might happen: 1 = Several days Total JAZMINE-7 score (0-4 normal; 5-9 mild; 10-14 moderate; 15-21 severe): 8 Source: Developed by Drs. Danie De Paz, Keegan Gilbert and colleagues, with an educational jun from [employer]. Hospital Course Hospital Course During the hospitalization, the patient had routine laboratory studies which were within normal limits except for a few outliers.? Additionally, there was a general medical evaluation which was also within normal limits and revealed no new acute processes.? At the time of discharge, lethality was denied and psychosis was resolving.? Mood and anxiety were well managed.? The patient endorsed a plan to avoid all drugs of abuse and follow up with the aftercare recommendations of the treatment team.? The patient was evaluated and deemed to be absent credible lethality and had achieved the maximum benefit from an inpatient hospitalization, and so was discharged. ?Patient had initially refused any medications to manage his manic symptoms and psychotic symptoms. Ultimately, the patient had been placed on a 21-day hold and was forcibly medicated with Haldol which was titrated up to a dose of 10 mg a day at the time of discharge. He had received several as needed medications due to agitation and threatening behavior but appeared to calm down during his extended stay here and ultimately appeared significantly better while continuing at times to be responding internal stimuli but reporting less paranoia and appearing far less hostile with improvement in self-care noted. He had been agreeable to return home and continue to take Haldol. He also continue to remain on Klonopin as prescribed prior to his entrance into the neuropsychiatric unit. Meds NPU Home Medications Medication Instructions Recorded Confirmed Last Taken Type clonazepam 1 mg tablet (Klonopin) 1 mg PO 0900,2100 09/24/24 09/24/24 Unknown History haloperidol 5 mg tablet 10 mg PO BEDTIME 09/24/24 09/24/24 Unknown History Allergies Allergy/AdvReac Type Severity Reaction Status Date / Time No Known Allergies Allergy Unverified 05/27/24 09:06 [facility] NPU [facility]: Medical History Psychiatric care Smoker Polysubstance abuse Nicotine addiction, alcoholism sober since November 2023, history of methamphetamine use Obesity (BMI 35.0-39.9 without comorbidity) Anxiety as acute reaction to gross stress Unspecified psychosis Schizophrenia Surgical History No pertinent past surgical history Family History Father Heart disease Gout Mother Diabetes mellitus, type 2 Diabetes Cancer Social History (Reviewed 08/28/24 @ 03:04 by RONALD Gomez Smoking and tobacco/nicotine status: current every day tobacco/nicotine user Quit status (tobacco/nicotine): not considering quitting Alcohol intake: former Year of sobriety/quit date alcohol: 5 mo Substance/Drug Use: former Date of last use: 3 yrs Former substance use details: methametpmine Mental Status Exam MSE Comments: The patient was standing with poor hygiene and intense eye contact. His gait appeared within normal limits. There was no evidence of any abnormal involuntary motor movements tics or tremors appreciated. He was alert and oriented to person and place and time. He was quite guarded on interview. His speech was monotone in quality and normal in rate and normal in volume. He did appear to be responding to internal stimuli. There was evidence of bizarre delusions. His mood was described as okay. His affect was bizarre and subdued. His thought process was initially linear but appeared to derail. He denied any homicidal or suicidal ideation. Recent and remote memory appeared poor. His insight is impaired. His judgment is impaired. His impulse control appeared poor. Vitals/I&O/Wt Last Vital Signs Temp 98.6 F 09/25/24 14:00 Pulse 101 H 09/25/24 14:00 Resp 18 09/25/24 14:00 BP 136/72 09/25/24 14:00 Pulse Ox 98 09/25/24 14:00 O2 Del Method Room Air 09/25/24 14:00 Weight last 48 hrs Weight 77.111 kg Data NPU 09/24/24 21:35 09/24/24 21:08 A&P Assessment and plan (1) Schizophrenia: Qualifiers: Schizophrenia type: undifferentiated schizophrenia Qualified Code(s): F20.3 - Undifferentiated schizophrenia (2) Schizoaffective disorder, manic type: (3) Alcoholic intoxication: (4) Polysubstance abuse: Plan 43-year-old male who presents with psychosis with a blood alcohol level of 220 with a history of schizophrenia noncompliant with Haldol for last 2 days and currently intoxicated admitted again with paranoia and bizarre delusions. #1.? Engage patient in individual milieu and group therapy. #2?? Recommend sober living treatment at the highest level of care to which the patient is willing to commit #3??? Patient refusing Haldol now, may require forced medications. #4?? TO-15 minute checks? #5?? Reduce Klonopin as requested by patient. Involuntary Hold Information 96 Hour Hold: 96 Hour Involuntary Admission: Yes 96 Hour Hold Ending Date: 10/04/24 96 Hour Hold Ending Time: 20:01 Other Hold: Hold End Date: 09/27/24 Attestations NPU Medical Necessity Statement*: Inpatient hospitalization is medically necessary and deemed to ?be ?the clinically appropriate intervention ?at this time.? We will monitor/initiate medications and make changes as indicated.? The patient will be in the hospital for over 2 midnights.? The patient?s likely length of stay 7-10 days. Coding Level of Care Code Acute Code for [facility] Fwd Diagnoses 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
[2024-09-25 19:54] VITALS: BP 144/86; PULSE 84; RESP 18; TEMP 36.7; O2SAT 96
[2024-09-25] MEDS: CLONazepam 1 mg Tablet 0.5 MG PO (20:55)
[2024-09-26] MEDS: nicotine 4 mg lozenge MUCOUS MEM ×3 (00:06→21:21)
[2024-09-26 06:00] VITALS: BP 142/95; PULSE 73; RESP 18; TEMP 36.6; O2SAT 95; BMI 30.2
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
[2024-09-26] MEDS: folic acid 1 mg Tablet PO (11:22)
[2024-09-26] MEDS: multivitamin therapeutic Tablet 1 TAB PO (11:22)
[2024-09-26] MEDS: thiamine 100 mg Tablet PO (11:22)
--- NOTE | 2024-09-26 11:23 | PC.NURSE ---
pt up at nurses station talking about the gps AI jason from his phone being implanted in his back an they are being able to track him that way. he can feel it there. pt continues to talk about how he can handle alcohol and that one beer is like one shot of whiskey and that he can handle that. pt wants the doctor to put his new diagnosis on his chart and he know it will be a long one. that he has been in and out of the hospitals since he was young. pt states he does not have hallucination, he does not hear things, he does not have schizophrenia like they said he has.
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
[2024-09-26 14:00] VITALS: BP 130/77; PULSE 95; RESP 18; TEMP 36.8; O2SAT 95
[2024-09-26] MEDS: perphenazine 4 mg Tablet PO ×2 (14:26→20:16)
--- NOTE | 2024-09-26 14:37 | PC.NURSE ---
THIS NURSE SPOKE WITH PT MULTIPLE TIMES THROUGHOUT THE DAY ABOUT THE DIFFERENT MEDICATIONS THAT THE PHYSICIAN WAS HOPING TO BE ABLE TO GET HIM TO TAKE. PT WAS VERY RESISTIVE TO TAKING MEDICATION SO THIS NURSE CONTINUED TO PROVIDE EDUCATION, 1:1 TALK, OPTIONS, AND ANSWERED ALL PT QUESTIONS. ULTIMATELY THIS NURSE AND PT SAT TOGETHER AND LOOKED OVER LIST OF MEDICATION OPTIONS TO DETERMINE WHAT PT IS COMFORTABLE WITH, HAS TRIED, OR DOES NOT FEEL COMFORTABLE WITH. DURING THIS TIME PT DECIDED THAT HE WOULD BE WILLING TO TAKE PERPHENAZINE 4 MG TWICE DAILY, PT REQUESTED IF HE WOULD BE ABLE TO RECEIVE A DOSE IMMEDIATELY. THIS NURSE SPOKE WITH PHYSICIAN ABOUT RECEIVING AN NOW DOSE ORDER WHICH GAVE VERBALLY. THIS NURSE PLACED THE ORDER AND ADMINISTERED THE MEDICATIONS TO WHICH PT WAS COOPERATIVE WITH TAKING IT. PT CURRENT NEEDS ARE MET AT THIS TIME.
[2024-09-26 19:28] VITALS: BP 145/90; PULSE 97; RESP 16; TEMP 36.6; O2SAT 98
[2024-09-26] MEDS: CLONazepam 1 mg Tablet PO (20:16)
[2024-09-26] MEDS: trazodone 150 mg Tablet PO (20:16)
[2024-09-27 06:00] VITALS: BP 118/82; PULSE 93; RESP 18; TEMP 36.4; O2SAT 95
[2024-09-27] MEDS: nicotine 4 mg lozenge MUCOUS MEM ×2 (07:48→15:13)
[2024-09-27] MEDS: folic acid 1 mg Tablet PO (08:02)
[2024-09-27] MEDS: perphenazine 4 mg Tablet PO ×2 (08:02→20:43)
[2024-09-27] MEDS: multivitamin therapeutic Tablet 1 TAB PO (08:02)
[2024-09-27] MEDS: thiamine 100 mg Tablet PO (08:02)
--- NOTE | 2024-09-27 08:57 | PC.NURSE ---
CONTINUES TO BE OBSERVED PACING UP AND DOWN THE HALLS. INTRUSIVE AT THE NURSES STATION AND WILL INSPECTOR TUBES FRONT OF NURSES AND SPEAKING TO UNSEEN OTHERS. PT RESPONDS TO INTERNAL AND EXTERNAL STIMULI. DENIES PAIN. DENIES SI/HI AND AVH AT THIS TIME, BUT PT IS RESPONDING TO UNSEEN OTHERS. SPEECH IS MUMBLED AT TIMES, EXCESSIVE, RAMBLING AND PRESSURED. PT IS EVASIVE WITH ASSESSMENT. GOES INTO GREAT DETAIL ABOUT NOT TAKING MEDICATIONS AND WHICH ONES WORK AND WHICH ONES DO NOT. PT DID TAKE AM MEDICATIONS. UP TO DAY ROOM FOR BREAKFAST. PT HAS BEEN VERBALLY REDIRECTED AWAY FROM THE NURSES STATION SEVERAL TIMES THIS AM. PT STATES HE HAS NO GOAL. RATES ANXIETY AND DEPRESSION 0/10. THEN WILL LOOK TO THE SIDE AND LAUGH AND SAY YEAH ANXIETY YEAH YEAH. THEN LAUGH AGAIN. ALL QUESTIONS WERE ANSWERED AND SUPPORT VOICED.
[2024-09-27 14:00] VITALS: BP 138/79; PULSE 79; RESP 16; TEMP 36.6; O2SAT 99
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
[2024-09-27] MEDS: CLONazepam 1 mg Tablet PO (20:43)
[2024-09-27 22:00] VITALS: BP 121/78; PULSE 71; RESP 17; TEMP 36.8; O2SAT 97
[2024-09-28 06:00] VITALS: BP 125/87; PULSE 93; RESP 17; TEMP 36.4; O2SAT 100
[2024-09-28] MEDS: nicotine 4 mg lozenge MUCOUS MEM ×3 (07:54→22:20)
[2024-09-28] MEDS: perphenazine 4 mg Tablet PO (08:23)
[2024-09-28] MEDS: folic acid 1 mg Tablet PO (08:23)
[2024-09-28] MEDS: thiamine 100 mg Tablet PO (08:23)
[2024-09-28] MEDS: multivitamin therapeutic Tablet 1 TAB PO (08:23)
[2024-09-28 14:00] VITALS: RESP 18
--- NOTE | 2024-09-28 14:13 | P.NPUPN_ITS ---
Subjective NPU 2 Subjective: 43-year-old male with a history of schiz ophrenia and polysubstance abuse admitted with continued active psychosis. Patient continued to have conversations with himself incessantly on the unit. He had appeared to be at times staring at various staff members and appeared to be actively involved in extended conversations. He had been less isolative. He continued to remain paranoid and stated that he had felt that there was a plot against him. He had expressed resistance to being on Haldol stating that his psychosis was made worse with the presence of Haldol. He had required considerable prompting for completion of the most basic levels of activities of daily living. Mental Status Exam 2 MSE Comments: The patient with shaved head appeared to be fixed and intense eye contact with poor hygiene. His gait appeared within normal limits. There was no evidence of any abnormal involuntary motor movements tics or tremors appreciated. He was alert and oriented to person and place and time. He was remained guarded on interview. His speech was monotone in quality and normal in rate and normal in volume. He did appear to be responding to internal stimuli. There was evidence of bizarre delusions. His mood was described as ok. His affect was bizarre and subdued. His thought process was illogical and tangential. He denied any homicidal or suicidal ideation. Recent and remote memory appeared poor. His insight is impaired. His judgment is impaired. His impulse control appeared poor. 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 #1.? Engage patient in individual milieu and group therapy. #2?? Recommend sober living treatment at the highest level of care to which the patient is willing to commit #3???Increase perphenazine 8mg bid. #4?? TO-15 minute checks? #5?? Cpntinue Klonopin at 1mg at night. Involuntary Hold Information 2 96 Hour Hold: 96 Hour Involuntary Admission: Yes 96 Hour Hold Ending Date: 10/04/24 96 Hour Hold Ending Time: 20:01 Other Hold: Hold End Date: 09/27/24 Attestations NPU 2 Medical Necessity Statement*: Inpatient hospitalization is medically necessary and deemed to ?be ?the clinically appropriate intervention ?at this time.? We will monitor/initiate medications and make changes as indicated.? The patient?s likely length of stay 7-10 days. Coding Level of Care Code Acute Code for [facility] Fwd Diagnoses 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
[2024-09-28] MEDS: guaiFENesin 600 mg Tablet PO (18:13)
[2024-09-28 20:00] VITALS: BP 128/85; PULSE 77; RESP 16; TEMP 36.4; O2SAT 97
[2024-09-28] MEDS: perphenazine 4 mg Tablet 8 MG PO (20:24)
[2024-09-28] MEDS: CLONazepam 1 mg Tablet PO (20:24)
[2024-09-29 06:00] VITALS: BP 138/88; PULSE 63; RESP 18; TEMP 37; O2SAT 99
[2024-09-29] MEDS: nicotine 4 mg lozenge MUCOUS MEM ×4 (06:43→20:31)
[2024-09-29] MEDS: multivitamin therapeutic Tablet 1 TAB PO (09:26)
[2024-09-29] MEDS: folic acid 1 mg Tablet PO (09:26)
[2024-09-29] MEDS: perphenazine 4 mg Tablet 8 MG PO (09:26)
[2024-09-29] MEDS: thiamine 100 mg Tablet PO (09:26)
--- NOTE | 2024-09-29 09:56 | PC.NURSE ---
PT CURRENTLY DENIES SI/HI/AH/VH. PT CURRENTLY DENIES DEPRESSION AND ANXIETY. WHILE PT DENIIES HALLUCINATIONS PT DOES APPEAR TO BE RESPONDING TO INTERNAL STIMULI. PT IS STANDING IN THE HALLWAY RAMBLING TO SELF. PT CONTINUES TO HAVE PARANOID DELUSIONS STATING THAT DEVICE IN MY SHOULDER, THE GPS, IT IS BOTHERING ME. I TOLD THEM I DIDN'T WANT IT AND THAT I WOULD TAKE AN ANKLE MONITOR. PT WAS COOPERATIVE WITH ASSESSMENT AND MEDICATIONS. PT CURRENT NEEDS ARE MET AT THIS TIME.
[2024-09-29 14:00] VITALS: BP 117/74; PULSE 74; RESP 18; TEMP 36.6; O2SAT 100
--- NOTE | 2024-09-29 17:11 | W.PM.NPUPNS ---
Subjective NPU Subjective: 43-year-old male with a history of schizophrenia and polysubstance abuse admitted with continued active psychosis. Patient continued to have conversations with himself incessantly on the unit. He had remained compliant to perphenazine at this time. He had slept better. He had continued to have periods of time of incessant speech and engaging in odd behavior with conversations with himself for several minutes. He had been redirectable. He continued to struggle with completion of activities of daily living. The patient reported that he was feeling good today. Mental Status Exam MSE Comments: The patient with shaved head appeared to be fixed and intense eye contact with poor hygiene. His gait appeared within normal limits. There was no evidence of any abnormal involuntary motor movements tics or tremors appreciated. He was alert and oriented to person and place and time. He was remained guarded on interview. His speech was monotone in quality and normal in rate and normal in volume. He did appear to be responding to internal stimuli. There was evidence of bizarre delusions. His mood was described as good. His affect was bizarre and subdued. His thought process was illogical and tangential. He denied any homicidal or suicidal ideation. Recent and remote memory appeared poor. His insight is impaired. His judgment is impaired. His impulse control appeared poor. Vitals/I&O/Wt Last Vital Signs Temp 98.6 F 09/29/24 06:00 Pulse 63 09/29/24 06:00 Resp 18 09/29/24 06:00 BP 138/88 09/29/24 06:00 Pulse Ox 99 09/29/24 06:00 O2 Del Method Room Air 09/29/24 06:00 09/29/24 09/29/24 09/29/24 06:59 14:59 22:59 Intake Total 900 / 900 Balance 900 / 900 Data NPU 09/24/24 21:35 09/24/24 21:08 A&P Assessment and plan (1) Schizophrenia: Qualifiers: Schizophrenia type: undifferentiated schizophrenia Qualified Code(s): F20.3 - Undifferentiated schizophrenia (2) Schizoaffective disorder, manic type: (3) Alcoholic intoxication: (4) Polysubstance abuse: Plan 43-year-old male who presents with psychosis with a blood alcohol level of 220 with a history of schizophrenia noncompliant with Haldol for last 2 days and currently intoxicated admitted again with paranoia and bizarre delusions. #1.? Engage patient in individual milieu and group therapy. #2?? Recommend sober living treatment at the highest level of care to which the patient is willing to commit #3???Increase perphenazine 8mg tid. #4?? TO-15 minute checks? #5?? Continue Klonopin at 1mg at night. Involuntary Hold Information 96 Hour Hold: 96 Hour Involuntary Admission: Yes 96 Hour Hold Ending Date: 10/04/24 96 Hour Hold Ending Time: 20:01 Other Hold: Hold End Date: 09/27/24 Attestations NPU Medical Necessity Statement*: Inpatient hospitalization is medically necessary and deemed to ?be ?the clinically appropriate intervention ?at this time.? We will monitor/initiate medications and make changes as indicated.? The patient?s likely length of stay 7-10 days. Coding Level of Care Code Acute Code for [facility] Fwd Diagnoses 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
--- NOTE | 2024-09-29 18:38 | PC.NURSE ---
PT STANDING IN FRONT OF SINK TALKING TO HIMSELF WITH PANTS PULLED DOWN TO KNEES.
[2024-09-29 19:40] VITALS: BP 166/84; PULSE 98; RESP 16; TEMP 36.8; O2SAT 98
[2024-09-29] MEDS: CLONazepam 1 mg Tablet PO (20:31)
[2024-09-30 06:00] VITALS: BP 150/95; PULSE 99; RESP 18; TEMP 36.3; O2SAT 100
[2024-09-30] MEDS: nicotine 4 mg lozenge MUCOUS MEM (06:40)
[2024-09-30] MEDS: multivitamin therapeutic Tablet 1 TAB PO (08:00)
[2024-09-30] MEDS: thiamine 100 mg Tablet PO (08:00)
[2024-09-30] MEDS: folic acid 1 mg Tablet PO (08:00)
[2024-09-30] MEDS: perphenazine 4 mg Tablet 8 MG PO (08:01)
--- NOTE | 2024-09-30 13:00 | P.NPUPN_ITS ---
Subjective NPU 2 Subjective: 43-year-old male with a history of schiz ophrenia and polysubstance abuse admitted with continued active psychosis. The patient had been compliant with his medications with some prompting. He continued to remain psychotic on the unit. He had appeared confused and was talking about a revolution occurring while continuing to appear paranoid and suspicious of the intent of staff. The patient had appeared to spend an inordinate amount of time near the nursing station staring or speaking about anabaptism on the unit. Mental Status Exam 2 MSE Comments: The patient with shaved head appeared to be fixed and intense eye contact with poor hygiene. His gait appeared within normal limits. There was no evidence of any abnormal involuntary motor movements tics or tremors appreciated. He was alert and oriented to person and place and time. He remained guarded on interview. His speech was monotone in quality and normal in rate and normal in volume. He did appear to be responding to internal stimuli. There was evidence of bizarre delusions. His mood was described as allright. His affect was bizarre and subdued. His thought process was illogical and tangential. He denied any homicidal or suicidal ideation. Recent and remote memory appeared poor. His insight is impaired. His judgment is impaired. His impulse control appeared poor. Vitals/I&O/Wt Last Vital Signs Temp 97.4 F L 09/30/24 06:00 Pulse 99 09/30/24 06:00 Resp 18 09/30/24 06:00 BP 150/95 09/30/24 06:00 Pulse Ox 100 09/30/24 06:00 O2 Del Method Room Air 09/30/24 06:00 09/29/24 09/30/24 09/30/24 22:59 06:59 14:59 Intake Total 480 / 1380 Balance 480 / 1380 Data NPU 09/24/24 21:35 09/24/24 21:08 A&P Assessment and plan (1) Schizophrenia: Qualifiers: Schizophrenia type: undifferentiated schizophrenia Qualified Code(s): F 20.3 - Undifferentiated schizophrenia (2) Schizoaffective disorder, manic type: (3) Alcoholic intoxication: (4) Polysubstance abuse: Plan 43-year-old male who presents with psychosis with a blood alcohol level of 220 with a history of schizophrenia noncompliant with Haldol for last 2 days and currently intoxicated admitted again with paranoia and bizarre delusions. #1.? Engage patient in individual milieu and group therapy. #2?? Recommend sober living treatment at the highest level of care to which the patient is willing to commit #3???Continue perphenazine 8mg tid. #4?? TO-15 minute checks? #5?? Continue Klonopin at 1mg at night. Involuntary Hold Information 2 96 Hour Hold: 96 Hour Involuntary Admission: Yes 96 Hour Hold Ending Date: 10/04/24 96 Hour Hold Ending Time: 20:01 Other Hold: Hold End Date: 10/04/24 Attestations NPU 2 Medical Necessity Statement*: Inpatient hospitalization is medically necessary and deemed to ?be ?the clinically appropriate intervention ?at this time.? We will monitor/initiate medications and make changes as indicated.? The patient?s likely length of stay 7-10 days. Coding Level of Care Code Acute Code for [facility] Fwd Diagnoses 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
[2024-09-30 14:00] VITALS: BP 136/87; PULSE 101; RESP 18; TEMP 36.6; O2SAT 96
--- NOTE | 2024-09-30 15:01 | PC.NURSE ---
Patient refused perphenazine 8mg at 1500, stating He's wanting to increase it? Oh hell no, I ain't taking that shit. Better yet, I ain't taking it at all! This nurse attempted to talk with patient about the medication, but patient was agitated. Patient said that the doctor is just pushing pills. Patient said that he doesn't need the psychotic medication and that by taking the medication, it is making him psychotic. Patient also said he is going to enzo the hospital.
--- NOTE | 2024-09-30 17:02 | PC.NURSE ---
while sitting at nurses station talking to feed weigher, pt standing in doorway mumbling then started raising his voice calling me a fucking bitch spitting towards nurses station in my direction then pt came walking up to nurses station when this keno manager asked him what was wrong? pt came to window yelling pointed finger at don't come into my room and see the papers that I wrote about you bitch pt then turned walked back to his doorway continued to glare and yell, point his finger talking about AI, pt continued to be verbally aggressive towards this staff memeber. Security called. When Security came upon unit pt was administered an Injection Haldol 5mg, Ativan 2mg right deltoid by Datastage Consultant, pt sitting on bed in his room.
[2024-09-30] MEDS: LORazepam 2 mg/mL INJ 1 mL IM (17:22)
[2024-09-30] MEDS: haloperidol inj 5 mg/mL INJ 1 mL IM (17:26)
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
--- NOTE | 2024-09-30 20:38 | PC.NURSE ---
pt vs not collected resp 17 charge notified
[2024-10-01 06:00] VITALS: BP 144/83; PULSE 75; RESP 18; TEMP 36.3; O2SAT 99
--- NOTE | 2024-10-01 09:26 | PC.NURSE ---
PT CURRENTLY DENIES SI/HI/AH/VH. PT CURRENTLY DENIES DEPRESSION AND ANXIETY. PT IS CONTINUOUSLY TALKING ABOUT HOW HE PLANS TO CONTINUE REFUSING MEDICATIONS HE IS NOT PSYCHOTIC, IT IS JUST BECAUSE THE GPS TRACKER IS ON MY SHOULDER. PT WAS NOT COOPERATIVE WITH ASSESSMENT WILL ATTEMPT THROUGHOUT THE SHIFT. PT DID NOT TAKE MEDICATIONS. THIS NURSE INFORMED PHYSICIAN OF PT BEHAVIORS. NO NEW ORDERS AT THIS TIME.
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
[2024-10-01 14:00] VITALS: BP 156/99; PULSE 82; RESP 18; TEMP 36.6; O2SAT 99
[2024-10-01] MEDS: nicotine 4 mg lozenge MUCOUS MEM ×3 (15:03→21:56)
[2024-10-01 21:32] VITALS: BP 134/87; PULSE 76; RESP 17; TEMP 36.6; O2SAT 98
[2024-10-01] MEDS: OXcarbazepine 300 mg Tablet PO (21:56)
[2024-10-02 05:16] VITALS: BP 142/91; PULSE 76; RESP 18; TEMP 36.4; O2SAT 99
[2024-10-02] MEDS: OXcarbazepine 300 mg Tablet PO ×2 (08:19→19:58)
[2024-10-02] MEDS: guaiFENesin 600 mg Tablet PO (08:52)
--- NOTE | 2024-10-02 08:55 | PC.NURSE ---
PRN MUCINEX 600 MG GIVEN PO PER PT REQUEST & C/O INDIGESTION
--- NOTE | 2024-10-02 08:56 | PC.NURSE ---
REFUSED SCHEDULED MTV, THIAMINE, FOLIC ACID
--- NOTE | 2024-10-02 09:42 | PC.NURSE ---
Morning assessment During morning assessment, patient said that he isn't going to spit at me today, or throw coffee at the wall. Patient says that he has a list of 7 sluts because there were originally 7 sluts and he will get the 7 sluts in the afterlife. Patient's list shows staff members. This nurse told patient that it is not appropriate to call us sluts. Patient said that he only wrote that on there so I would remember. Patient frequently at window, rambling, loose associations. Patient keeps refusing his morning perphenazine medication, despite efforts from this nurse as well as from YEISON Noyola.
--- NOTE | 2024-10-02 13:53 | PC.NURSE ---
refused scheduled Trilafon, after several attempts made by staff, pt cont to refuse
[2024-10-02 14:00] VITALS: BP 151/96; PULSE 87; RESP 18; TEMP 36.7; O2SAT 99
[2024-10-02] MEDS: ibuprofen 600 mg Tablet PO (15:06)
[2024-10-02] MEDS: nicotine 4 mg lozenge MUCOUS MEM ×2 (15:06→19:58)
--- NOTE | 2024-10-02 15:09 | PC.NURSE ---
refused scheduled Trilafon @ [id number]
--- NOTE | 2024-10-02 17:55 | P.NPUPN_ITS ---
Subjective NPU 2 Subjective: Patient presented today reporting that he is feeling better. He reports he does not like the perphenazine and has been refusing it per staff reports. We discussed the critical importance of him being on a medication for the discharge is feasible. He is convinced that he will be discharging soon but we discussed the fact that without him having consistency with the medication discharge would not be a possibility. He endorses side effects to his medication which is reported reason why he refuses. Mental Status Exam 2 MSE Comments: This is a well-nourished well-developed white male in hospital scrubs with limited grooming and with no eye contact. No abnormal movements except for mild psychomotor agitation. He was mostly cooperative with exam in mild to moderate distress. Speech was increased rate but decreased volume. Mood described as fine affect odd and guarded. Thought process was mostly linear. Thought content: He denied suicidal or homicidal ideation, no delusions reported but clear paranoid, persecutory and likely grandiose delusions, he did not report any auditory or visual hallucinations but was at times responding to internal stimuli and somewhat distracted. Attention and concentration was limited and memory was unreliable but none formally tested. He was alert and oriented to person and place. Insight, judgment and impulse control are all impaired. Vitals/I&O/Wt Last Vital Signs Temp 98.0 F 10/02/24 14:00 Pulse 87 10/02/24 14:00 Resp 18 10/02/24 14:00 BP 151/96 10/02/24 14:00 Pulse Ox 99 10/02/24 14:00 O2 Del Method Room Air 10/02/24 14:00 10/02/24 10/02/24 10/02/24 06:59 14:59 22:59 Intake Total 480 / 480 480 / 960 Balance 480 / 480 480 / 960 Data NPU 09/24/24 21:35 09/24/24 21:08 A&P Assessment and plan (1) Schizophrenia: Qualifiers: Schizophrenia type: undifferentiated schizophrenia Qualified Code(s): F 20.3 - Undifferentiated schizophrenia (2) Schizoaffective disorder, manic type: (3) Alcoholic intoxication: (4) Polysubstance abuse: Plan 43-year-old male who presents with psychosis with a blood alcohol level of 220 with a history of schizophrenia noncompliant with Haldol for last 2 days and currently intoxicated admitted again with paranoia and bizarre delusions. 1..? Encourage individual, group and milieu therapy 2.?? Recommend sober living treatment at the highest level of care to which the patient is willing to commit 3.???Continue perphenazine 8mg tid. Patient will require forced medication with necessity of filing 21 day hold as soon as possible. 4.? TO-15 minute checks? 5.??Continue Klonopin at 1mg at night. Involuntary Hold Information 2 96 Hour Hold: 96 Hour Involuntary Admission: Yes 96 Hour Hold Ending Date: 10/04/24 96 Hour Hold Ending Time: 20:01 Other Hold: Hold End Date: 10/04/24 Attestations NPU 2 Medical Necessity Statement*: Inpatient hospitalization is medically necessary and?the clinically appropriate intervention?at this time.? We will monitor/initiate medications and make changes as indicated.? The patient?s likely length of stay 7-10 days. Coding Level of Care Code Acute Code for [facility] Fwd Diagnoses 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
[2024-10-02 19:36] VITALS: BP 130/86; PULSE 86; RESP 18; TEMP 36.6; O2SAT 99
[2024-10-02] MEDS: CLONazepam 1 mg Tablet PO (19:58)
--- NOTE | 2024-10-03 06:30 | PC.NURSE ---
vs not collected pt just fell asleep resp 18 charge notified
[2024-10-03] MEDS: nicotine 4 mg lozenge MUCOUS MEM ×2 (07:51→21:48)
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
--- NOTE | 2024-10-03 11:13 | W.PM.NPUPNS ---
Subjective NPU Subjective: Patient presented today reporting that he is doing okay. He was being very energetic and demonstrative per staff reports and direct observation. He was very focused on how his body moved or could moved. And was talking about being in certain positions like saluting and parade rest. He then struck multiple different positions around his room somewhat lost it and almost a stream of consciousness. He continued to deny any real need to be here. And endorsed not really liking his medication. Mental Status Exam MSE Comments: This is a well-nourished well-developed white male in hospital scrubs with limited grooming and with no eye contact. No abnormal movements except for mild psychomotor agitation. He was mostly cooperative with exam in mild to moderate distress. Speech was increased rate but decreased volume. Mood described as fine affect odd and guarded. Thought process was mostly linear. Thought content: He denied suicidal or homicidal ideation, no delusions reported but clear paranoid, persecutory and likely grandiose delusions, he did not report any auditory or visual hallucinations but was at times responding to internal stimuli and somewhat distracted. Attention and concentration was limited and memory was unreliable but none formally tested. He was alert and oriented to person and place. Insight, judgment and impulse control are all impaired. Vitals/I&O/Wt Last Vital Signs Temp 97.8 F 10/02/24 19:36 Pulse 86 10/02/24 19:36 Resp 18 10/02/24 19:36 BP 130/86 10/02/24 19:36 Pulse Ox 99 10/02/24 19:36 O2 Del Method Room Air 10/02/24 19:36 10/02/24 10/03/24 10/03/24 22:59 06:59 14:59 Intake Total 480 / 960 Balance 480 / 960 Weight last 48 hrs Weight 91.263 kg Data NPU 09/24/24 21:35 09/24/24 21:08 A&P Assessment and plan (1) Schizophrenia: Qualifiers: Schizophrenia type: undifferentiated schizophrenia Qualified Code(s): F20.3 - Undifferentiated schizophrenia (2) Schizoaffective disorder, manic type: (3) Alcoholic intoxication: (4) Polysubstance abuse: Plan 43-year-old male who presents with psychosis with a blood alcohol level of 220 with a history of schizophrenia noncompliant with Haldol for last 2 days and currently intoxicated admitted again with paranoia and bizarre delusions. 1..? Encourage individual, group and milieu therapy 2.?? Recommend sober living treatment at the highest level of care to which the patient is willing to commit 3.???Continue perphenazine 8mg tid. Patient will require forced medication with necessity of filing 21 day hold as soon as possible. We discussed a likelihood of forced medication. 4.? TO-15 minute checks? 5.??Continue Klonopin at 1mg at night. Involuntary Hold Information 96 Hour Hold: 96 Hour Involuntary Admission: Yes 96 Hour Hold Ending Date: 10/04/24 96 Hour Hold Ending Time: 20:01 Other Hold: Hold End Date: 10/04/24 Attestations NPU Medical Necessity Statement*: Inpatient hospitalization is medically necessary and?the clinically appropriate intervention?at this time.? We will monitor/initiate medications and make changes as indicated.? The patient?s likely length of stay 7-10 days. Coding Level of Care Code Acute Code for [facility] Fwd Diagnoses 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
[2024-10-03] MEDS: OXcarbazepine 300 mg Tablet PO ×2 (11:22→20:08)
--- NOTE | 2024-10-03 11:48 | PC.NURSE ---
Patient refused all medications, except for his trileptal, this morning. Patient initially agreed to take them all but then said he didn't want the vitamins because he says he gets enough vitamins in his food. He also refused the perphenazine and stated, I don't need that. It's an antipsychotic and I'm not psychotic. Attempted to explain benefits to patient but he continued to refuse.
[2024-10-03 13:55] VITALS: BP 132/85; PULSE 78; RESP 17; TEMP 36.6; O2SAT 98
--- NOTE | 2024-10-03 19:26 | PC.NURSE ---
pt on the phine with his son and this BRIM EDGE TRIMMER overheard him tell his son, yes son I just got today. Her name is Mary Carmen Knott, yes Mary Carmen Knott. It was a surprise we just got today.
[2024-10-03 19:47] VITALS: BP 133/76; PULSE 110; RESP 18; TEMP 36.9; O2SAT 97
[2024-10-03] MEDS: CLONazepam 1 mg Tablet PO (20:08)
[2024-10-04 04:39] VITALS: BP 127/86; PULSE 72; RESP 18; TEMP 36.4; O2SAT 95
[2024-10-04] MEDS: nicotine 4 mg lozenge MUCOUS MEM ×2 (06:10→20:12)
[2024-10-04] MEDS: OXcarbazepine 300 mg Tablet PO ×2 (08:36→20:13)
--- NOTE | 2024-10-04 11:15 | P.NPUPN_ITS ---
Subjective NPU 2 Subjective: Patient presented today reporting that he is doing okay. He reports that he does understand that we are initiating a 21-day hold and we discussed at length the fact that he needs to have some antipsychotic on board and that we are unclear about which 1 will be best but we do feel confident that he needs something. We discussed that that will be what we talk about in court and that what ever we choose has to have a long-acting injectable option because of his limited willingness to stick to a medication regiment. He was having significant delusional thinking related to a specific staff member identifying that she was the reason for some of his difficulties. We had a lengthy discussion about how that was not accurate and for some reason he has associated her with something that she has nothing to do with. We discussed the fact that this video games storywriter is the sole arbiter of medications prescribed. He continued to endorse side effects from certain medications but is currently refusing medications and we talked about that we would ultimately be requesting a forced medication protocol from the courts. Mental Status Exam 2 MSE Comments: This is a well-nourished well-developed white male in hospital scrubs with limited grooming and with no eye contact. No abnormal movements except for mild psychomotor agitation. He was mostly cooperative with exam in mild to moderate distress. Speech was increased rate but decreased volume. Mood described as fine affect odd and guarded. Thought process was mostly linear. Thought content: He denied suicidal or homicidal ideation, no delusions reported but clear paranoid, persecutory and likely grandiose delusions, he did not report any auditory or visual hallucinations but was at times responding to internal stimuli and somewhat distracted. Attention and concentration was limited and memory was unreliable but none formally tested. He was alert and oriented to person and place. Insight, judgment and impulse control are all impaired. Vitals/I&O/Wt Last Vital Signs Temp 97.5 F L 10/04/24 04:39 Pulse 72 10/04/24 04:39 Resp 18 10/04/24 04:39 BP 127/86 10/04/24 04:39 Pulse Ox 95 10/04/24 04:39 O2 Del Method Room Air 10/04/24 04:39 Weight last 48 hrs Weight 91.263 kg Data NPU 09/24/24 21:35 09/24/24 21:08 A&P Assessment and plan (1) Schizophrenia: Qualifiers: Schizophrenia type: undifferentiated schizophrenia Qualified Code(s): F 20.3 - Undifferentiated schizophrenia (2) Schizoaffective disorder, manic type: (3) Alcoholic intoxication: (4) Polysubstance abuse: Plan 43-year-old male who presents with psychosis with a blood alcohol level of 220 with a history of schizophrenia noncompliant with Haldol for last 2 days and currently intoxicated admitted again with paranoia and bizarre delusions. 1..? Encourage individual, group and milieu therapy 2.?? Recommend sober living treatment at the highest level of care to which the patient is willing to commit 3.???Continue perphenazine 8mg tid. Patient will require forced medication with necessity of filing 21 day hold as soon as possible. We discussed a likelihood of forced medication. 4.? TO-15 minute checks? 5.??Continue Klonopin at 1mg at night. 6. Filed 21-day paperwork today. Involuntary Hold Information 2 96 Hour Hold: 96 Hour Involuntary Admission: Yes 96 Hour Hold Ending Date: 10/04/24 96 Hour Hold Ending Time: 20:01 Other Hold: Hold End Date: 10/04/24 Attestations NPU 2 Medical Necessity Statement*: Inpatient hospitalization is medically necessary and?the clinically appropriate intervention?at this time.? We will monitor/initiate medications and make changes as indicated.? The patient?s likely length of stay 7-10 days. Coding Level of Care Code Acute Code for [facility] Fw Diagnoses 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
[2024-10-04] MEDS: ziprasidone 20 mg/mL SDV IM (13:53)
[2024-10-04] MEDS: water for injection-sterile 10 ML (13:54)
[2024-10-04 13:57] VITALS: RESP 18
[2024-10-04] MEDS: perphenazine 4 mg Tablet 8 MG PO (20:12)
[2024-10-04] MEDS: CLONazepam 1 mg Tablet PO (20:13)
[2024-10-04] MEDS: haloperidol 5 mg Tablet 10 MG PO (20:13)
[2024-10-04 21:42] VITALS: BP 100/62; PULSE 105; RESP 18; TEMP 36.6; O2SAT 96
[2024-10-05 06:00] VITALS: BP 131/86; PULSE 93; RESP 16; TEMP 36.4; O2SAT 98
[2024-10-05] MEDS: thiamine 100 mg Tablet PO (08:07)
[2024-10-05] MEDS: multivitamin therapeutic Tablet 1 TAB PO (08:07)
[2024-10-05] MEDS: OXcarbazepine 300 mg Tablet PO ×2 (08:07→21:05)
[2024-10-05] MEDS: perphenazine 4 mg Tablet 8 MG PO ×3 (08:07→20:48)
[2024-10-05] MEDS: folic acid 1 mg Tablet PO (08:07)
[2024-10-05] MEDS: neomycin-poly-bacitracin oint 28 gm 1 APPLIC TOPICAL (09:39)
[2024-10-05] MEDS: nicotine 4 mg lozenge MUCOUS MEM ×3 (10:36→20:06)
[2024-10-05 14:00] VITALS: BP 138/84; PULSE 83; RESP 20; TEMP 36.6; O2SAT 97
--- NOTE | 2024-10-05 18:21 | P.NPUPN_ITS ---
Subjective NPU 2 Subjective: Patient presented today reporting that he is feeling better. He continues his trend of now taking his medication as prescribed. He continues to be somewhat hypersexual and focused on likely erotomanic attraction to one of the nurses. Otherwise he is having no aggressiveness per staff reports and direct observation. Discussed the 21-day hold hearing tomorrow and we will likely consider a long-acting injectable after the hearing. He denied any side effects to the medication. Mental Status Exam 2 MSE Comments: This is a well-nourished well-developed white male in hospital scrubs with limited grooming and with no eye contact. No abnormal movements except for mild psychomotor agitation. He was mostly cooperative with exam in mild to moderate distress. Speech was increased rate but decreased volume. Mood described as fine affect odd and guarded. Thought process was mostly linear. Thought content: He denied suicidal or homicidal ideation, no delusions reported but clear paranoid, persecutory and likely grandiose delusions, he did not report any auditory or visual hallucinations but was at times responding to internal stimuli and somewhat distracted. Attention and concentration was limited and memory was unreliable but none formally tested. He was alert and oriented to person and place. Insight, judgment and impulse control are all impaired. Vitals/I&O/Wt Last Vital Signs Temp 98.2 F 10/05/24 20:29 Pulse 109 H 10/05/24 20:29 Resp 18 10/05/24 20:29 BP 142/91 10/05/24 20:29 Pulse Ox 96 10/05/24 20:29 O2 Del Method Room Air 10/05/24 20:29 Data NPU 09/24/24 21:35 09/24/24 21:08 A&P Assessment and plan (1) Schizophrenia: Qualifiers: Schizophrenia type: undifferentiated schizophrenia Qualified Code(s): F 20.3 - Undifferentiated schizophrenia (2) Schizoaffective disorder, manic type: (3) Alcoholic intoxication: (4) Polysubstance abuse: Plan 43-year-old male who presents with psychosis with a blood alcohol level of 220 with a history of schizophrenia noncompliant with Haldol for last 2 days and currently intoxicated admitted again with paranoia and bizarre delusions. 1..? Encourage individual, group and milieu therapy 2.?? Recommend sober living treatment at the highest level of care to which the patient is willing to commit 3.???Continue perphenazine 8mg tid. Patient will require forced medication with necessity of filing 21 day hold as soon as possible. We discussed a likelihood of forced medication. 4.? TO-15 minute checks? 5.??Continue Klonopin at 1mg at night. 6. Filed 21-day paperwork and hearing will to be tomorrow. Involuntary Hold Information 2 96 Hour Hold: 96 Hour Involuntary Admission: Yes 96 Hour Hold Ending Date: 10/04/24 96 Hour Hold Ending Time: 20:01 Other Hold: Hold End Date: 10/04/24 Attestations NPU 2 Medical Necessity Statement*: Inpatient hospitalization is medically necessary and?the clinically appropriate intervention?at this time.? We will monitor/initiate medications and make changes as indicated.? The patient?s likely length of stay 7-10 days. Coding Level of Care Code Acute Code for [facility] Fwd Diagnoses 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
[2024-10-05 20:29] VITALS: BP 142/91; PULSE 109; RESP 18; TEMP 36.8; O2SAT 96
[2024-10-05] MEDS: CLONazepam 1 mg Tablet PO (20:48)
[2024-10-05] MEDS: haloperidol 5 mg Tablet 10 MG PO (20:48)
[2024-10-06 06:00] VITALS: BP 114/84; PULSE 97; RESP 18; TEMP 36.8; O2SAT 95
[2024-10-06] MEDS: nicotine 4 mg lozenge MUCOUS MEM ×4 (07:33→22:14)
[2024-10-06] MEDS: OXcarbazepine 300 mg Tablet PO ×2 (09:05→21:56)
[2024-10-06] MEDS: multivitamin therapeutic Tablet 1 TAB PO (09:05)
--- NOTE | 2024-10-06 09:05 | PC.NURSE ---
UP THIS AM, [employer]ER REPORTS PT SLEPT 3-4 HOURS. WHEN ASKED HOW HE SLEPT PT STATES REALLY WELL. PT DOES HAVE [address] AND STATES I WILL PLEAD THE 5TH AND JUST LET DR. GOSS SPEAK FOR ME. RN ASSURED PT THAT IF THAT IS WHAT HE WANTS TO DO THEN IT SEEMS GOOD TO ME WELL. PT CONTINUES TO MAKE INAPPROPRIATE COMMENTS TO THE MANNEQUIN REFINISHER'S AND RN'S, ASKING TO THEM ALL. PT IS OBSERVED SPEAKING UNDER HIS BREATH TO UNSEEN OTHERS. DENIES SI/HI AND AVH AT THIS TIME. REPORTS GOAL FOR THE DAY IS TO GO HOME AND GO TO COURT TOO I GUESS. DENIES PAIN. CONTINUES TO HAVE ANIMATED, RAPID SPEECH THAT IS EXCESSIVE. PT WILL LINGER AT THE DESK AND IS NOTED TO BE INTRUSIVE AND IMPULSIVE AT TIMES. ALL QUESTIONS ANSWERED AND SUPPORT WAS VOICED.
[2024-10-06] MEDS: perphenazine 4 mg Tablet 8 MG PO ×3 (09:06→21:56)
[2024-10-06] MEDS: folic acid 1 mg Tablet PO (09:06)
[2024-10-06] MEDS: thiamine 100 mg Tablet PO (09:06)
[2024-10-06 14:00] VITALS: BP 136/93; PULSE 62; RESP 16; TEMP 36.6; O2SAT 100
--- NOTE | 2024-10-06 17:58 | P.NPUPN_ITS ---
Subjective NPU 2 Subjective: Patient presented today reporting that he is doing okay. We went to his 21-day hold hearing and he was placed on a 21-day hold. He discussed being open to taking his medication as prescribed and following our treatment planning. He denied any side effects to his medication. Mental Status Exam 2 MSE Comments: This is a well-nourished well-developed white male in hospital scrubs with limited grooming and with no eye contact. No abnormal movements except for mild psychomotor agitation. He was mostly cooperative with exam in mild to moderate distress. Speech was increased rate but decreased volume. Mood described as fine affect odd and guarded. Thought process was mostly linear. Thought content: He denied suicidal or homicidal ideation, no delusions reported but clear paranoid, persecutory and likely grandiose delusions, he did not report any auditory or visual hallucinations but was at times responding to internal stimuli and somewhat distracted. Attention and concentration was limited and memory was unreliable but none formally tested. He was alert and oriented to person and place. Insight, judgment and impulse control are all impaired. Vitals/I&O/Wt Last Vital Signs Temp 97.8 F 10/06/24 14:00 Pulse 62 10/06/24 14:00 Resp 16 10/06/24 14:00 BP 136/93 10/06/24 14:00 Pulse Ox 100 10/06/24 14:00 O2 Del Method Room Air 10/06/24 06:00 Data NPU 09/24/24 21:35 09/24/24 21:08 A&P Assessment and plan (1) Schizophrenia: Qualifiers: Schizophrenia type: undifferentiated schizophrenia Qualified Code(s): F 20.3 - Undifferentiated schizophrenia (2) Schizoaffective disorder, manic type: (3) Alcoholic intoxication: (4) Polysubstance abuse: Plan 43-year-old male who presents with psychosis with a blood alcohol level of 220 with a history of schizophrenia noncompliant with Haldol for last 2 days and currently intoxicated admitted again with paranoia and bizarre delusions. 1..? Encourage individual, group and milieu therapy 2.?? Recommend sober living treatment at the highest level of care to which the patient is willing to commit 3.???Continue perphenazine 8mg tid. We discussed a likelihood of forced medication. 4.? TO-15 minute checks? 5.??Continue Klonopin at 1mg at night. 6. Filed 21-day paperwork and hearing was today and she was placed on a 21-day hold. Involuntary Hold Information 2 96 Hour Hold: 96 Hour Involuntary Admission: Yes 96 Hour Hold Ending Date: 10/04/24 96 Hour Hold Ending Time: 20:01 Other Hold: Hold End Date: 10/04/24 Attestations NPU 2 Medical Necessity Statement*: Inpatient hospitalization is medically necessary and?the clinically appropriate intervention?at this time.? We will monitor/initiate medications and make changes as indicated.? The patient?s likely length of stay 7-10 days. Coding Level of Care Code Acute Code for [facility] Fwd Diagnoses 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
--- NOTE | 2024-10-06 20:54 | PC.NURSE ---
vs not collected pt ref resp 18 charge notified
[2024-10-06] MEDS: CLONazepam 1 mg Tablet PO (21:56)
[2024-10-06] MEDS: haloperidol 5 mg Tablet 10 MG PO (21:57)
[2024-10-07 06:00] VITALS: BP 128/83; PULSE 76; RESP 18; TEMP 36.4; O2SAT 99
[2024-10-07] MEDS: perphenazine 4 mg Tablet 8 MG PO ×3 (08:01→20:43)
[2024-10-07] MEDS: nicotine 4 mg lozenge MUCOUS MEM ×4 (08:01→20:43)
[2024-10-07] MEDS: folic acid 1 mg Tablet PO (08:01)
[2024-10-07] MEDS: thiamine 100 mg Tablet PO (08:01)
[2024-10-07] MEDS: multivitamin therapeutic Tablet 1 TAB PO (08:01)
[2024-10-07] MEDS: OXcarbazepine 300 mg Tablet PO ×2 (08:02→20:43)
--- NOTE | 2024-10-07 10:27 | PC.NURSE ---
Morning assessment During morning assessment, patient says that after court, he came back as a different person . Patient said that the women at court were affecting him through AI. Patient is more subdued during morning assessment. Patient denies suicidal thoughts, AVH, depression, and anxiety.
--- NOTE | 2024-10-07 12:32 | PC.NURSE ---
Patient rambling at nurses' window. Malicious people with AI devices. I don't have a sorcery problem, I was deceived. There was a misconception, all the way. This has been going on for a very long time, 23 years. Patient also introduced himself as Daniel Amos Jr. the brother of Ernesto Amos. Patient is oriented to place and year.
[2024-10-07 14:00] VITALS: BP 123/78; PULSE 73; RESP 16; TEMP 36.6; O2SAT 99
[2024-10-07 19:34] VITALS: BP 143/84; PULSE 82; RESP 18; TEMP 36.6; O2SAT 96
[2024-10-07] MEDS: CLONazepam 1 mg Tablet PO (20:43)
[2024-10-07] MEDS: haloperidol 5 mg Tablet 10 MG PO (20:43)
--- NOTE | 2024-10-07 21:35 | P.NPUPN_ITS ---
Subjective NPU 2 Subjective: Patient presented today reporting that he is doing okay. He continues to be agreeable to taking medication as prescribed and has been more cooperative with the treatment team but continues to have some bizarre/odd behaviors per staff reports and direct observation. He denies any side effects to his medication and we continue to discuss the possible need to add a medication as he is showing limited improvement in his psychosis. But he is showing improvement overall per staff reports and direct observation. Mental Status Exam 2 MSE Comments: This is a well-nourished well-developed white male in hospital scrubs with limited grooming and with no eye contact. No abnormal movements except for mild psychomotor agitation. He was mostly cooperative with exam in mild to moderate distress. Speech was increased rate but decreased volume. Mood described as fine affect odd and guarded. Thought process was mostly linear. Thought content: He denied suicidal or homicidal ideation, no delusions reported but clear paranoid, persecutory and likely grandiose delusions, he did not report any auditory or visual hallucinations but was at times responding to internal stimuli and somewhat distracted. Attention and concentration was limited and memory was unreliable but none formally tested. He was alert and oriented to person and place. Insight, judgment and impulse control are all impaired. Vitals/I&O/Wt Last Vital Signs Temp 97.9 F 10/07/24 19:34 Pulse 82 10/07/24 19:34 Resp 18 10/07/24 19:34 BP 143/84 10/07/24 19:34 Pulse Ox 96 10/07/24 19:34 O2 Del Method Room Air 10/07/24 14:00 10/07/24 10/07/24 10/07/24 06:59 14:59 22:59 Intake Total 480 / 480 Balance 480 / 480 Data NPU 09/24/24 21:35 09/24/24 21:08 A&P Assessment and plan (1) Schizophrenia: Qualifiers: Schizophrenia type: undifferentiated schizophrenia Qualified Code(s): F 20.3 - Undifferentiated schizophrenia (2) Schizoaffective disorder, manic type: (3) Alcoholic intoxication: (4) Polysubstance abuse: Plan 43-year-old male who presents with psychosis with a blood alcohol level of 220 with a history of schizophrenia noncompliant with Haldol for last 2 days and currently intoxicated admitted again with paranoia and bizarre delusions. 1..? Encourage individual, group and milieu therapy 2.?? Recommend sober living treatment at the highest level of care to which the patient is willing to commit 3.???Continue perphenazine 8mg tid. He has continued to take his medication as prescribed for the last few days and we discussed the possibility that we may need to add a additional/new or antipsychotic. 4.? TO-15 minute checks? 5.??Continue Klonopin at 1mg at night. 6. Filed 21-day paperwork and hearing was today and he was placed on a 21-day hold. Involuntary Hold Information 2 96 Hour Hold: 96 Hour Involuntary Admission: Yes 96 Hour Hold Ending Date: 10/04/24 96 Hour Hold Ending Time: 20:01 Other Hold: Hold End Date: 10/27/24 Attestations NPU 2 Medical Necessity Statement*: Inpatient hospitalization is medically necessary and?the clinically appropriate intervention?at this time.? We will monitor/initiate medications and make changes as indicated.? The patient?s likely length of stay 7-10 days. Coding Level of Care Code Acute Code for [facility] Fwd Diagnoses 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
[2024-10-08 06:00] VITALS: BP 111/78; PULSE 82; RESP 18; TEMP 36.6; O2SAT 95
[2024-10-08] MEDS: neomycin-poly-bacitracin oint 28 gm 1 APPLIC TOPICAL (07:51)
[2024-10-08] MEDS: thiamine 100 mg Tablet PO (07:52)
[2024-10-08] MEDS: OXcarbazepine 300 mg Tablet PO ×2 (07:52→21:07)
[2024-10-08] MEDS: perphenazine 4 mg Tablet 8 MG PO ×2 (07:52→14:58)
[2024-10-08] MEDS: multivitamin therapeutic Tablet 1 TAB PO (07:52)
[2024-10-08] MEDS: folic acid 1 mg Tablet PO (07:52)
--- NOTE | 2024-10-08 09:22 | P.NPUPN_ITS ---
Subjective NPU 2 Subjective: Patient presented today reporting he is fine. Continued to have wild comments to staff reflecting his paranoia and persecutory thinking, sometimes erotomanic. We discussed past medications and discussed the risks, benefits and alternatives of a trial of Trileptal and he understood and agreed to proceed as is documented in this note. He denied any side effects to the medication. Mental Status Exam 2 MSE Comments: This is a well-nourished well-developed white male in hospital scrubs with limited grooming and with no eye contact. No abnormal movements except for mild psychomotor agitation. He was mostly cooperative with exam in mild to moderate distress. Speech was increased rate but decreased volume. Mood described as fine affect odd and guarded. Thought process was mostly linear. Thought content: He denied suicidal or homicidal ideation, no delusions reported but clear paranoid, persecutory and likely grandiose delusions, he did not report any auditory or visual hallucinations but was at times responding to internal stimuli and somewhat distracted. Attention and concentration was limited and memory was unreliable but none formally tested. He was alert and oriented to person and place. Insight, judgment and impulse control are all impaired. Vitals/I&O/Wt Last Vital Signs Temp 97.8 F 10/08/24 06:00 Pulse 82 10/08/24 06:00 Resp 18 10/08/24 06:00 BP 111/78 10/08/24 06:00 Pulse Ox 95 10/08/24 06:00 O2 Del Method Room Air 10/07/24 14:00 10/07/24 10/08/24 10/08/24 22:59 06:59 14:59 Intake Total 480 / 480 Balance 480 / 480 Data NPU 09/24/24 21:35 09/24/24 21:08 A&P Assessment and plan (1) Schizophrenia: Qualifiers: Schizophrenia type: undifferentiated schizophrenia Qualified Code(s): F 20.3 - Undifferentiated schizophrenia (2) Schizoaffective disorder, manic type: (3) Alcoholic intoxication: (4) Polysubstance abuse: Plan 43-year-old male who presents with psychosis with a blood alcohol level of 220 with a history of schizophrenia noncompliant with Haldol for 2 days prior to admission and currently intoxicated admitted again with paranoia and bizarre delusions. 1..? Encourage individual, group and milieu therapy 2.?? Recommend sober living treatment at the highest level of care to which the patient is willing to commit 3.???Continue perphenazine 8mg tid. He has continued to take his medication as prescribed for the last few days and we discussed the possibility that we may need to increase his Trileptal. Will increase Trileptal to 600 mg p.o. twice daily 4.? TO-15 minute checks? 5.??Continue Klonopin at 1mg at night. 6. Filed 21-day paperwork and hearing was today and he was placed on a 21-day hold. Involuntary Hold Information 2 96 Hour Hold: 96 Hour Involuntary Admission: Yes 96 Hour Hold Ending Date: 10/04/24 96 Hour Hold Ending Time: 20:01 Other Hold: Hold End Date: 10/27/24 Attestations NPU 2 Medical Necessity Statement*: Inpatient hospitalization is medically necessary and?the clinically appropriate intervention?at this time.? We will monitor/initiate medications and make changes as indicated.? The patient?s likely length of stay 7-10 days. Coding Level of Care Code Acute Code for g Fwd Diagnoses 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
[2024-10-08] MEDS: nicotine 4 mg lozenge MUCOUS MEM ×3 (10:05→21:07)
[2024-10-08 14:00] VITALS: BP 133/88; PULSE 80; RESP 18; TEMP 36.5; O2SAT 97
--- NOTE | 2024-10-08 14:49 | PC.NURSE ---
PT CAME UP TO NURSES STATION STATING THAT HE DOES NOT WANT DR. GOSS TO BE HIS DOCTOR ANYMORE. WHEN THIS MAKE READY MECHANIC ASKED WHY PT STATES WHEN I JACKOFF DR. GOSS IS COMING INTO MY ROOM AND STEALING MY NUT. I DONT KNOW HOW HE IS DOING THIS BUT I KNOW IT IS HIM. PT CONTINUES TO RAMBLE ABOUT THIS AND EVENTUALLY STATES IF THIS CONTINUES I AM GOING TO STEAL DR. GOSS NUT THE NEXT TIME HE TRIES.
[2024-10-08 20:11] VITALS: BP 150/87; PULSE 108; RESP 16; TEMP 36.6; O2SAT 98
[2024-10-08] MEDS: CLONazepam 1 mg Tablet PO (21:07)
[2024-10-09 06:00] VITALS: BP 128/86; PULSE 60; RESP 18; TEMP 36.6; O2SAT 99
[2024-10-09] MEDS: thiamine 100 mg Tablet PO (08:26)
[2024-10-09] MEDS: multivitamin therapeutic Tablet 1 TAB PO (08:27)
[2024-10-09] MEDS: folic acid 1 mg Tablet PO (08:27)
[2024-10-09] MEDS: OXcarbazepine 300 mg Tablet 600 MG PO ×2 (08:29→22:00)
[2024-10-09] MEDS: nicotine 4 mg lozenge MUCOUS MEM ×3 (09:14→17:38)
--- NOTE | 2024-10-09 09:24 | P.NPUPN_ITS ---
Subjective NPU 2 Subjective: Patient presented today reporting that things were going okay. He reports that he is tolerating the change in the Trileptal and was very focused on trying to understand how Cogentin affects Haldol and perphenazine as well. We discussed the long-acting injectable and he said he was not excited about the idea but that he would probably be agreeable if that is what we wanted to do. We discussed waiting to see how the increase in the Trileptal system. Otherwise he denied any other issues or side effects to medication. Mental Status Exam 2 MSE Comments: This is a well-nourished well-developed white male in hospital scrubs with limited grooming and with no eye contact. No abnormal movements except for mild psychomotor agitation. He was mostly cooperative with exam in mild to moderate distress. Speech was increased rate but decreased volume. Mood described as fine affect odd and guarded. Thought process was mostly linear. Thought content: He denied suicidal or homicidal ideation, no delusions reported but clear paranoid, persecutory and likely grandiose delusions, he did not report any auditory or visual hallucinations but was at times responding to internal stimuli and somewhat distracted. Attention and concentration was limited and memory was unreliable but none formally tested. He was alert and oriented to person and place. Insight, judgment and impulse control are all impaired. 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 1..? Encourage individual, group and milieu therapy 2.?? Recommend sober living treatment at the highest level of care to which the patient is willing to commit 3.???Continue perphenazine 8mg tid. He has continued to take his medication as prescribed for the last few days and we discussed the possibility that we may need to increase his Trileptal. Increased Trileptal to 600 mg p.o. twice daily 4.? TO-15 minute checks? 5.??Continue Klonopin at 1mg at night. 6. Filed 21-day paperwork and hearing was today and he was placed on a 21-day hold. Involuntary Hold Information 2 96 Hour Hold: 96 Hour Involuntary Admission: Yes 96 Hour Hold Ending Date: 10/04/24 96 Hour Hold Ending Time: 20:01 Other Hold: Hold End Date: 10/27/24 Attestations NPU 2 Medical Necessity Statement*: Inpatient hospitalization is medically necessary and?the clinically appropriate intervention?at this time.? We will monitor/initiate medications and make changes as indicated.? The patient?s likely length of stay 7-10 days. Coding Level of Care Code Acute Code for Chg Fwd Diagnoses 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
[2024-10-09 14:00] VITALS: BP 113/79; PULSE 77; RESP 18; O2SAT 97
[2024-10-09 20:26] VITALS: BP 113/74; PULSE 95; RESP 18; TEMP 36.7; O2SAT 97
[2024-10-09] MEDS: CLONazepam 1 mg Tablet PO (21:53)
[2024-10-09] MEDS: haloperidol inj 5 mg/mL INJ 1 mL 10 MG IM (22:42)
[2024-10-10 06:00] VITALS: BP 115/81; PULSE 75; RESP 16; O2SAT 94; BMI 30.6
[2024-10-10] MEDS: nicotine 4 mg lozenge MUCOUS MEM ×4 (07:58→21:52)
--- NOTE | 2024-10-10 11:04 | PC.NURSE ---
Pt refused to take morning medication from the Charge nurse, 2nd attempt at the med pass, pt only took 300 mg of Triliptal. Pt stated that he didn't need the medications to keep on the [employer].
[2024-10-10] MEDS: OXcarbazepine 300 mg Tablet PO (11:29)
--- NOTE | 2024-10-10 12:05 | W.PM.NPUPNS ---
Subjective NPU Subjective: Patient presented today reporting that he is doing okay. He has been going the last few days with some medication refusal and today acknowledged his difficulties and said he would take a long-acting injectable. We discussed the risks, benefits and alternatives of Abilify Maintena versus Abilify Asimtufii and he understood and agreed to proceed as is documented in this note. He did not express any specific side effects to medication. Mental Status Exam MSE Comments: This is a well-nourished well-developed white male in hospital scrubs with limited grooming and with no eye contact. No abnormal movements except for mild psychomotor agitation. He was mostly cooperative with exam in mild to moderate distress. Speech was increased rate but decreased volume. Mood described as fine affect odd and guarded. Thought process was mostly linear. Thought content: He denied suicidal or homicidal ideation, no delusions reported but clear paranoid, persecutory and likely grandiose delusions, he did not report any auditory or visual hallucinations but was at times responding to internal stimuli and somewhat distracted. Attention and concentration was limited and memory was unreliable but none formally tested. He was alert and oriented to person and place. Insight, judgment and impulse control are all impaired. Vitals/I&O/Wt Last Vital Signs Temp 98.1 F 10/09/24 20:26 Pulse 75 10/10/24 06:00 Resp 16 10/10/24 06:00 BP 115/81 10/10/24 06:00 Pulse Ox 94 10/10/24 06:00 O2 Del Method Room Air 10/09/24 14:00 Weight last 48 hrs Weight 91.263 kg Data NPU 09/24/24 21:35 09/24/24 21:08 A&P Assessment and plan (1) Schizophrenia: Qualifiers: Schizophrenia type: undifferentiated schizophrenia Qualified Code(s): F20.3 - Undifferentiated schizophrenia (2) Schizoaffective disorder, manic type: (3) Alcoholic intoxication: (4) Polysubstance abuse: Plan 43-year-old male who presents with psychosis with a blood alcohol level of 220 with a history of schizophrenia noncompliant with Haldol for 2 days prior to admission and currently intoxicated admitted again with paranoia and bizarre delusions. 1..? Encourage individual, group and milieu therapy 2.?? Recommend sober living treatment at the highest level of care to which the patient is willing to commit 3.???Continue perphenazine 8mg tid. He has continued to take his medication as prescribed for the last few days and we discussed the possibility that we may need to increase his Trileptal. Increased Trileptal to 600 mg p.o. twice daily. Patient again having some issues with medication refusal but was agreeable to taking the Abilify Maintena injection. We attempted to get the Abilify Asimtufii from a pharmacy today however they were needing his physical insurance card which we were not able to locate. We will try to get the 2-month injection given his challenges. 4.? TO-15 minute checks? 5.??Continue Klonopin at 1mg at night. 6. Filed 21-day paperwork and hearing was today and he was placed on a 21-day hold. Involuntary Hold Information 96 Hour Hold: 96 Hour Involuntary Admission: Yes 96 Hour Hold Ending Date: 10/04/24 96 Hour Hold Ending Time: 20:01 Other Hold: Hold End Date: 10/27/24 Attestations NPU Medical Necessity Statement*: Inpatient hospitalization is medically necessary and?the clinically appropriate intervention?at this time.? We will monitor/initiate medications and make changes as indicated.? The patient?s likely length of stay 7-10 days. Coding Level of Care Code Acute Code for [facility] Fwd Diagnoses 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
[2024-10-10 14:00] VITALS: BP 113/67; PULSE 78; RESP 14; TEMP 36.7; O2SAT 95
[2024-10-10] MEDS: perphenazine 4 mg Tablet 8 MG PO ×2 (14:32→21:53)
--- NOTE | 2024-10-10 14:34 | PC.NURSE ---
Pt refused medication at 1500, pt rambling on about [facility] and knowing that this is all just a game that we the hospital are playing with him. Pt stated that an [employer] agent lives next door and called the ambulance on him. Dr. Zafar was notified.
--- NOTE | 2024-10-10 14:42 | PC.NURSE ---
Pt stated up at the nurses station that he was injected with a Mafia cocktail in the hip lastnight. Pt states that he knows what DrShantell order the THC shot. This nurse encouraged and instructed the pt. Pt did not receive news well.
[2024-10-10 19:47] VITALS: BP 115/78; PULSE 91; RESP 18; TEMP 36.6; O2SAT 98
[2024-10-10] MEDS: CLONazepam 1 mg Tablet PO (21:52)
[2024-10-10] MEDS: haloperidol inj 5 mg/mL INJ 1 mL 10 MG IM (21:53)
[2024-10-10] MEDS: OXcarbazepine 300 mg Tablet 600 MG PO (21:53)
[2024-10-11 06:15] VITALS: BP 118/79; PULSE 66; RESP 18; TEMP 36.6; O2SAT 97
--- NOTE | 2024-10-11 07:27 | PC.NURSE ---
Morning assessment During assessment, patient stated, I woke up feeling woke, awakened. Patient said that he is going to take his meds, even the shot. Patient said that the shot was decent. The patient prefers the shot because he says that pills can give him tardive dyskeneisa. Patient went on to say. I have 12 movies. You can ask your AI. Alcohol through telekinesis.
[2024-10-11] MEDS: perphenazine 4 mg Tablet 8 MG PO ×3 (07:42→20:49)
[2024-10-11] MEDS: thiamine 100 mg Tablet PO (07:42)
[2024-10-11] MEDS: multivitamin therapeutic Tablet 1 TAB PO (07:42)
[2024-10-11] MEDS: OXcarbazepine 300 mg Tablet 600 MG PO ×2 (07:43→20:49)
[2024-10-11] MEDS: folic acid 1 mg Tablet PO (07:43)
[2024-10-11] MEDS: simethicone 80 mg Chew PO (07:54)
[2024-10-11 14:00] VITALS: BP 158/89; PULSE 103; RESP 18; TEMP 36.6; O2SAT 98
--- NOTE | 2024-10-11 16:07 | P.NPUPN_ITS ---
Subjective NPU 2 Subjective: Patient presented today reporting that he is still open to take the Abilify injection. We discussed trying to get him the 2-month injection but we might be stuck with the 1 month injection to start. He reported being open to trying anything that might increase the likelihood that he could go home. He denied any side effects to his medication and continued to have reports of odd/psychotic behavior. Mental Status Exam 2 MSE Comments: This is a well-nourished well-developed white male in hospital scrubs with limited grooming and with no eye contact. No abnormal movements except for mild psychomotor agitation. He was mostly cooperative with exam in mild to moderate distress. Speech was increased rate but decreased volume. Mood described as fine affect odd and guarded. Thought process was mostly linear. Thought content: He denied suicidal or homicidal ideation, no delusions reported but clear paranoid, persecutory and likely grandiose delusions, he did not report any auditory or visual hallucinations but was at times responding to internal stimuli and somewhat distracted. Attention and concentration was limited and memory was unreliable but none formally tested. He was alert and oriented to person and place. Insight, judgment and impulse control are all impaired. Vitals/I&O/Wt Last Vital Signs Temp 97.9 F 10/11/24 06:15 Pulse 66 10/11/24 06:15 Resp 18 10/11/24 06:15 BP 118/79 10/11/24 06:15 Pulse Ox 97 10/11/24 06:15 O2 Del Method Room Air 10/10/24 14:00 Weight last 48 hrs Weight 91.263 kg Data NPU 09/24/24 21:35 09/24/24 21:08 A&P Assessment and plan (1) Schizophrenia: Qualifiers: Schizophrenia type: undifferentiated schizophrenia Qualified Code(s): F 20.3 - Undifferentiated schizophrenia (2) Schizoaffective disorder, manic type: (3) Alcoholic intoxication: (4) Polysubstance abuse: Plan 43-year-old male who presents with psychosis with a blood alcohol level of 220 with a history of schizophrenia noncompliant with Haldol for 2 days prior to admission and currently intoxicated admitted again with paranoia and bizarre delusions. 1..? Encourage individual, group and milieu therapy 2.?? Recommend sober living treatment at the highest level of care to which the patient is willing to commit 3.???Continue perphenazine 8mg tid. He has continued to take his medication as prescribed for the last few days and we discussed the possibility that we may need to increase his Trileptal. Increased Trileptal to 600 mg p.o. twice daily. Patient again having some issues with medication refusal but was agreeable to taking the Abilify Maintena injection. We attempted to get the Abilify Asimtufii from a pharmacy today however they were needing his physical insurance card which we were not able to locate. We will try to get the 2-month injection given his challenges. 4.? TO-15 minute checks? 5.??Continue Klonopin at 1mg at night. 6. Filed 21-day paperwork and hearing was today and he was placed on a 21-day hold. His level 2 and interrogatories have been completed. Involuntary Hold Information 2 96 Hour Hold: 96 Hour Involuntary Admission: Yes 96 Hour Hold Ending Date: 10/04/24 96 Hour Hold Ending Time: 20:01 Other Hold: Hold End Date: 10/27/24 Attestations NPU 2 Medical Necessity Statement*: Inpatient hospitalization is medically necessary and?the clinically appropriate intervention?at this time.? We will monitor/initiate medications and make changes as indicated.? The patient?s likely length of stay 7-10 days. Coding Level of Care Code Acute Code for Chg Fwd Diagnoses 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
[2024-10-11] MEDS: ARIPiprazole Maintena 400 MG IM (18:22)
--- NOTE | 2024-10-11 18:22 | PC.NURSE ---
BETSY MAINTENA 400 MG GIVEN IM ORDERED BY PHYSICIAN. GIVEN IN LEFT DELTOID. EDUCATED ON MED GIVEN, VERBALIZED UNDERSTANDING. WILL CONT TO MONITOR INJECTION SITE FOR ANY REDNESS, SWELLING, OR IRRITATION LOT [id number] EXP NOV 2026
[2024-10-11] MEDS: CLONazepam 1 mg Tablet PO (20:49)
[2024-10-11] MEDS: nicotine 4 mg lozenge MUCOUS MEM (20:49)
[2024-10-11] MEDS: haloperidol inj 5 mg/mL INJ 1 mL 10 MG IM (20:49)
[2024-10-11 20:57] VITALS: BP 144/94; PULSE 100; RESP 18; TEMP 36.6; O2SAT 97
[2024-10-12] MEDS: nicotine 4 mg lozenge MUCOUS MEM ×3 (05:53→20:40)
[2024-10-12 06:00] VITALS: BP 127/86; PULSE 77; RESP 16; TEMP 36.6; O2SAT 97
[2024-10-12] MEDS: multivitamin therapeutic Tablet 1 TAB PO (09:06)
[2024-10-12] MEDS: folic acid 1 mg Tablet PO (09:06)
[2024-10-12] MEDS: perphenazine 4 mg Tablet 8 MG PO ×3 (09:06→20:39)
[2024-10-12] MEDS: OXcarbazepine 300 mg Tablet 600 MG PO ×2 (09:07→20:40)
[2024-10-12] MEDS: thiamine 100 mg Tablet PO (09:07)
[2024-10-12 14:00] VITALS: RESP 16
--- NOTE | 2024-10-12 15:12 | P.NPUPN_ITS ---
Subjective NPU 2 Subjective: Patient presented today reporting that he is doing fine after the injection and wondering when he might be leaving. We discussed the importance of us identifying that the Todd is working before we consider discharge. We discussed the length of time that might take given that he has not had the oral medication recently. We continue to discuss them stability he will need to function independently given his current status. He denied any side effects of medication. Mental Status Exam 2 MSE Comments: This is a well-nourished well-developed white male in hospital scrubs with limited grooming and with no eye contact. No abnormal movements except for mild psychomotor agitation. He was mostly cooperative with exam in mild to moderate distress. Speech was increased rate but decreased volume. Mood described as fine affect odd and guarded. Thought process was mostly linear. Thought content: He denied suicidal or homicidal ideation, no delusions reported but clear paranoid, persecutory and likely grandiose delusions, he did not report any auditory or visual hallucinations but was at times responding to internal stimuli and somewhat distracted. Attention and concentration was limited and memory was unreliable but none formally tested. He was alert and oriented to person and place. Insight, judgment and impulse control are all impaired. Vitals/I&O/Wt Last Vital Signs Temp 97.9 F 10/12/24 06:00 Pulse 77 10/12/24 06:00 Resp 16 10/12/24 06:00 BP 127/86 10/12/24 06:00 Pulse Ox 97 10/12/24 06:00 O2 Del Method Room Air 10/12/24 06:00 Data NPU 09/24/24 21:35 09/24/24 21:08 A&P Assessment and plan (1) Schizophrenia: Qualifiers: Schizophrenia type: undifferentiated schizophrenia Qualified Code(s): F 20.3 - Undifferentiated schizophrenia (2) Schizoaffective disorder, manic type: (3) Alcoholic intoxication: (4) Polysubstance abuse: Plan 43-year-old male who presents with psychosis with a blood alcohol level of 220 with a history of schizophrenia noncompliant with Haldol for 2 days prior to admission and currently intoxicated admitted again with paranoia and bizarre delusions. 1..? Encourage individual, group and milieu therapy 2.?? Recommend sober living treatment at the highest level of care to which the patient is willing to commit 3.???Continue perphenazine 8mg tid. He has continued to take his medication as prescribed for the last few days and we discussed the possibility that we may need to increase his Trileptal. Increased Trileptal to 600 mg p.o. twice daily. Patient again having some issues with medication refusal but was agreeable to taking the Abilify Maintena injection. We attempted to get the Abilify Asimtufii from a pharmacy today however they were needing his physical insurance card which we were not able to locate. We will try to get the 2-month injection given his challenges. He was given the Abilify Maintena 400 mg 10/11/2024. 4.? TO-15 minute checks? 5.??Continue Klonopin at 1mg at night. 6. Filed 21-day paperwork and hearing was today and he was placed on a 21-day hold. His level 2 and interrogatories have been completed. Involuntary Hold Information 2 96 Hour Hold: 96 Hour Involuntary Admission: Yes 96 Hour Hold Ending Date: 10/04/24 96 Hour Hold Ending Time: 20:01 Other Hold: Hold End Date: 10/27/24 Attestations NPU 2 Medical Necessity Statement*: Inpatient hospitalization is medically necessary and?the clinically appropriate intervention?at this time.? We will monitor/initiate medications and make changes as indicated.? The patient?s likely length of stay 7-10 days. Coding Level of Care Code Acute Code for Chg Fwd Diagnoses 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
[2024-10-12] MEDS: CLONazepam 1 mg Tablet PO (20:39)
[2024-10-12] MEDS: haloperidol inj 5 mg/mL INJ 1 mL 10 MG IM (20:40)
[2024-10-12 20:58] VITALS: BP 113/76; PULSE 88; RESP 16; TEMP 36.8; O2SAT 95
[2024-10-13 06:00] VITALS: BP 116/83; PULSE 90; RESP 18; TEMP 36.4; O2SAT 97
[2024-10-13] MEDS: multivitamin therapeutic Tablet 1 TAB PO (08:13)
[2024-10-13] MEDS: OXcarbazepine 300 mg Tablet 600 MG PO ×2 (08:13→21:19)
[2024-10-13] MEDS: thiamine 100 mg Tablet PO (08:14)
[2024-10-13] MEDS: perphenazine 4 mg Tablet 8 MG PO ×3 (08:14→21:19)
[2024-10-13] MEDS: folic acid 1 mg Tablet PO (08:14)
[2024-10-13] MEDS: nicotine 4 mg lozenge MUCOUS MEM ×5 (08:15→22:05)
--- NOTE | 2024-10-13 09:04 | P.NPUPN_ITS ---
Subjective NPU 2 Subjective: Patient presented today reporting that he is doing okay. He continued to have some of the same strange behaviors that have been present since he was admitted per staff reports and direct observation but they definitely report less irritability and more acceptance of his situation. We talked about the possibility of discharge and when that might happen. We discussed that it would be certainly after Dr. Grace returns on Friday. He denied any side effects of medication. Mental Status Exam 2 MSE Comments: This is a well-nourished well-developed white male in hospital scrubs with limited grooming and with no eye contact. No abnormal movements except for mild psychomotor agitation. He was mostly cooperative with exam in mild to moderate distress. Speech was increased rate but decreased volume. Mood described as fine affect odd and guarded. Thought process was mostly linear. Thought content: He denied suicidal or homicidal ideation, no delusions reported but clear paranoid, persecutory and likely grandiose delusions, he did not report any auditory or visual hallucinations but was at times responding to internal stimuli and somewhat distracted. Attention and concentration was limited and memory was unreliable but none formally tested. He was alert and oriented to person and place. Insight, judgment and impulse control are all impaired. Vitals/I&O/Wt Last Vital Signs Temp 97.5 F L 10/13/24 06:00 Pulse 90 10/13/24 06:00 Resp 18 10/13/24 06:00 BP 116/83 10/13/24 06:00 Pulse Ox 97 10/13/24 06:00 O2 Del Method Room Air 10/13/24 06:00 Data NPU 09/24/24 21:35 09/24/24 21:08 A&P Assessment and plan (1) Schizophrenia: Qualifiers: Schizophrenia type: undifferentiated schizophrenia Qualified Code(s): F 20.3 - Undifferentiated schizophrenia (2) Schizoaffective disorder, manic type: (3) Alcoholic intoxication: (4) Polysubstance abuse: Plan 43-year-old male who presents with psychosis with a blood alcohol level of 220 with a history of schizophrenia noncompliant with Haldol for 2 days prior to admission and currently intoxicated admitted again with paranoia and bizarre delusions. 1..? Encourage individual, group and milieu therapy 2.?? Recommend sober living treatment at the highest level of care to which the patient is willing to commit 3.???Continue perphenazine 8mg tid. He has continued to take his medication as prescribed for the last few days and we discussed the possibility that we may need to increase his Trileptal. Increased Trileptal to 600 mg p.o. twice daily. Patient again having some issues with medication refusal but was agreeable to taking the Abilify Maintena injection. We attempted to get the Abilify Asimtufii from a pharmacy today however they were needing his physical insurance card which we were not able to locate. We will try to get the 2-month injection given his challenges. He was given the Abilify Maintena 400 mg 10/11/2024. 4.? TO-15 minute checks? 5.??Continue Klonopin at 1mg at night. 6. Filed 21-day paperwork and hearing was today and he was placed on a 21-day hold. His level 2 and interrogatories have been completed. We discussed the fact that he would be working with Dr. Grace when he returns on plans for placement and discharge. Involuntary Hold Information 2 96 Hour Hold: 96 Hour Involuntary Admission: Yes 96 Hour Hold Ending Date: 10/04/24 96 Hour Hold Ending Time: 20:01 Other Hold: Hold End Date: 10/27/24 Attestations NPU 2 Medical Necessity Statement*: Inpatient hospitalization is medically necessary and?the clinically appropriate intervention?at this time.? We will monitor/initiate medications and make changes as indicated.? The patient?s likely length of stay 7-10 days. Coding Level of Care Code Acute Code for [facility] Fwd Diagnoses 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
[2024-10-13 14:00] VITALS: BP 155/92; PULSE 79; RESP 18; TEMP 36.4; O2SAT 98
[2024-10-13 20:24] VITALS: BP 136/91; PULSE 90; RESP 18; TEMP 36.5; O2SAT 98
[2024-10-13] MEDS: haloperidol inj 5 mg/mL INJ 1 mL 10 MG IM (21:18)
[2024-10-13] MEDS: CLONazepam 1 mg Tablet PO (21:18)
--- NOTE | 2024-10-14 02:58 | PC.NURSE ---
pt came out of his room and used the bathroom on next to the nurses station with the door open. As the pt waled out of the bathroom this SANITATION LABORER asked him if he would please flush the toilet to which the pt stated no fuck you as he walked to the dayroom and is currently watching tv.
--- NOTE | 2024-10-14 03:08 | PC.NURSE ---
as this SENIOR ACCOUNTANT was doing a round this pt was sitting in the dayroom watching football. Upon return to the nurses station pt walked up to the window in front of this SENIOR ACCOUNTANT and stated that AI is the reason his sink and shower in his room will not work. This SENIOR ACCOUNTANT informed the pt his sink is motion sensored and runs on batteries and we will have to change them. PT began to yell about the AI used on his shower and sink andthat he will tell how we are doing this to him . pt now in dayroom again watching tv. This SENIOR ACCOUNTANT reported this to YEISON Santiago
--- NOTE | 2024-10-14 06:16 | PC.NURSE ---
vs not collected pt ref resp18 charge notified
[2024-10-14] MEDS: perphenazine 4 mg Tablet 8 MG PO ×3 (08:42→21:43)
[2024-10-14] MEDS: multivitamin therapeutic Tablet 1 TAB PO (08:42)
[2024-10-14] MEDS: OXcarbazepine 300 mg Tablet 600 MG PO ×2 (08:42→21:43)
[2024-10-14] MEDS: nicotine 4 mg lozenge MUCOUS MEM ×3 (08:42→22:18)
[2024-10-14] MEDS: folic acid 1 mg Tablet PO (08:42)
[2024-10-14] MEDS: thiamine 100 mg Tablet PO (08:42)
[2024-10-14 14:00] VITALS: BP 115/78; PULSE 90; RESP 18; TEMP 36.6; O2SAT 96
--- NOTE | 2024-10-14 14:36 | P.NPUPN_ITS ---
Subjective NPU 2 Subjective: Patient presented today reporting that he is feeling better. Staff thought it noteworthy that he seems to be having more cogent conversation acknowledgment of his limitations and issues which was also noted in direct conversation. We had a conversation about the timeline to discharge and the fact that the guardianship process is initially temporary and he will have a chance to show that these improvements from the medications he is agreed to take and is taking allow him to be functional at a level that he does not need conservatorship. He denies any side effects to medication. Mental Status Exam 2 MSE Comments: This is a well-nourished well-developed white male in hospital scrubs with limited grooming and with no eye contact. No abnormal movements except for mild psychomotor agitation. He was mostly cooperative with exam in mild distress. Speech was increased rate but decreased volume. Mood described as getting a little better, affect odd but less guarded. Thought process was mostly linear. Thought content: He denied suicidal or homicidal ideation, no delusions reported but clear paranoid, persecutory and likely grandiose delusions noted but seeming to have some improvement, he did not report any auditory or visual hallucinations and appeared to have less times times responding to internal stimuli and being distracted. Attention and concentration was improving and memory was unreliable, but more reliable but none formally tested. He was alert and oriented to person and place. Insight, judgment and impulse control are all limited but improving. 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 1..? Encourage individual, group and milieu therapy 2.?? Recommend sober living treatment at the highest level of care to which the patient is willing to commit 3.???Continue perphenazine 8mg tid. He has continued to take his medication as prescribed for the last few days and we discussed the possibility that we may need to increase his Trileptal. Increased Trileptal to 600 mg p.o. twice daily. Patient again having some issues with medication refusal but was agreeable to taking the Abilify Maintena injection. We attempted to get the Abilify Asimtufii from a pharmacy today however they were needing his physical insurance card which we were not able to locate. We will try to get the 2-month injection given his challenges. He was given the Abilify Maintena 400 mg 10/11/2024. 4.? TO-15 minute checks? 5.??Continue Klonopin at 1mg at night. 6. Filed 21-day paperwork and hearing was today and he was placed on a 21-day hold. His level 2 and interrogatories have been completed. We discussed the fact that he would be working with Dr. Grace when he returns on plans for placement and discharge. Involuntary Hold Information 2 96 Hour Hold: 96 Hour Involuntary Admission: Yes 96 Hour Hold Ending Date: 10/04/24 96 Hour Hold Ending Time: 20:01 Other Hold: Hold End Date: 10/27/24 Attestations NPU 2 Medical Necessity Statement*: Inpatient hospitalization is medically necessary and?the clinically appropriate intervention?at this time.? We will monitor/initiate medications and make changes as indicated.? The patient?s likely length of stay 7-10 days. Coding Level of Care Code Acute Code for [facility] Fwd Diagnoses 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
[2024-10-14] MEDS: CLONazepam 1 mg Tablet PO (21:43)
[2024-10-14] MEDS: haloperidol inj 5 mg/mL INJ 1 mL 10 MG IM (21:44)
--- NOTE | 2024-10-14 23:12 | PC.NURSE ---
pt ref vs resp 18 charge notified
[2024-10-15] MEDS: nicotine 4 mg lozenge MUCOUS MEM ×4 (06:34→20:52)
--- NOTE | 2024-10-15 06:39 | PC.NURSE ---
vs not collected per charge. resp 18
[2024-10-15] MEDS: folic acid 1 mg Tablet PO (07:57)
[2024-10-15] MEDS: multivitamin therapeutic Tablet 1 TAB PO (07:57)
[2024-10-15] MEDS: thiamine 100 mg Tablet PO (07:57)
[2024-10-15] MEDS: OXcarbazepine 300 mg Tablet 600 MG PO ×2 (07:57→20:51)
[2024-10-15] MEDS: perphenazine 4 mg Tablet 8 MG PO ×3 (07:58→20:52)
--- NOTE | 2024-10-15 09:59 | P.NPUPN_ITS ---
Subjective NPU 2 Subjective: Patient presented today reporting that he is doing okay. He continues to seem to gain a better understanding of his circumstance and a greater willingness to move forward with the process. He did get served for with the guardianship hearing which is likely going to be on Friday. He understands that it is a temporary guardianship first and he has an opportunity to demonstrate how well he is doing now that he is taking the medication. He denied any side effects to the medications. Mental Status Exam 2 MSE Comments: This is a well-nourished well-developed white male in hospital scrubs with limited grooming and with no eye contact. No abnormal movements except for mild psychomotor agitation. He was mostly cooperative with exam in mild distress. Speech was increased rate but decreased volume. Mood described as getting a little better, affect odd but less guarded. Thought process was mostly linear. Thought content: He denied suicidal or homicidal ideation, no delusions reported but clear paranoid, persecutory and likely grandiose delusions noted but seeming to have some improvement, he did not report any auditory or visual hallucinations and appeared to have less times times responding to internal stimuli and being distracted. Attention and concentration was improving and memory was unreliable, but more reliable but none formally tested. He was alert and oriented to person and place. Insight, judgment and impulse control are all limited but improving. Vitals/I&O/Wt Last Vital Signs Temp 97.9 F 10/14/24 14:00 Pulse 90 10/14/24 14:00 Resp 18 10/14/24 14:00 BP 115/78 10/14/24 14:00 Pulse Ox 96 10/14/24 14:00 O2 Del Method Room Air 10/13/24 20:24 Data NPU 09/24/24 21:35 09/24/24 21:08 A&P Assessment and plan (1) Schizophrenia: Qualifiers: Schizophrenia type: undifferentiated schizophrenia Qualified Code(s): F 20.3 - Undifferentiated schizophrenia (2) Schizoaffective disorder, manic type: (3) Alcoholic intoxication: (4) Polysubstance abuse: Plan 43-year-old male who presents with psychosis with a blood alcohol level of 220 with a history of schizophrenia noncompliant with Haldol for 2 days prior to admission and currently intoxicated admitted again with paranoia and bizarre delusions. 1..? Encourage individual, group and milieu therapy 2.?? Recommend sober living treatment at the highest level of care to which the patient is willing to commit 3.???Continue perphenazine 8mg tid. He has continued to take his medication as prescribed for the last few days and we discussed the possibility that we may need to increase his Trileptal. Increased Trileptal to 600 mg p.o. twice daily. Patient again having some issues with medication refusal but was agreeable to taking the Abilify Maintena injection. We attempted to get the Abilify Asimtufii from a pharmacy today however they were needing his physical insurance card which we were not able to locate. We will try to get the 2-month injection given his challenges. He was given the Abilify Maintena 400 mg 10/11/2024. 4.? TO-15 minute checks? 5.??Continue Klonopin at 1mg at night. 6. Filed 21-day paperwork and hearing was today and he was placed on a 21-day hold. His level 2 and interrogatories have been completed. We discussed the fact that he would be working with Dr. Grace when he returns on plans for placement and discharge. Involuntary Hold Information 2 96 Hour Hold: 96 Hour Involuntary Admission: Yes 96 Hour Hold Ending Date: 10/04/24 96 Hour Hold Ending Time: 20:01 Other Hold: Hold End Date: 10/27/24 Attestations NPU 2 Medical Necessity Statement*: Inpatient hospitalization is medically necessary and?the clinically appropriate intervention?at this time.? We will monitor/initiate medications and make changes as indicated.? The patient?s likely length of stay 7-10 days. Coding Level of Care Code Acute Code for [facility] Fwd Diagnoses 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
[2024-10-15 14:00] VITALS: BP 132/91; PULSE 91; RESP 18; TEMP 36.6; O2SAT 97
[2024-10-15 19:46] VITALS: BP 123/75; PULSE 83; RESP 16; TEMP 36.4; O2SAT 99
[2024-10-15] MEDS: CLONazepam 1 mg Tablet PO (20:52)
[2024-10-15] MEDS: haloperidol inj 5 mg/mL INJ 1 mL 10 MG IM (20:52)
[2024-10-16 06:00] VITALS: BP 104/73; PULSE 79; RESP 18; TEMP 36.4; O2SAT 98
[2024-10-16] MEDS: nicotine 4 mg lozenge MUCOUS MEM ×4 (06:37→20:04)
[2024-10-16] MEDS: perphenazine 4 mg Tablet 8 MG PO ×3 (08:36→20:04)
[2024-10-16] MEDS: folic acid 1 mg Tablet PO (08:36)
[2024-10-16] MEDS: multivitamin therapeutic Tablet 1 TAB PO (08:36)
[2024-10-16] MEDS: thiamine 100 mg Tablet PO (08:36)
[2024-10-16] MEDS: OXcarbazepine 300 mg Tablet 600 MG PO ×2 (08:36→20:03)
--- NOTE | 2024-10-16 08:58 | PC.NURSE ---
Morning assessment Patient has excessive speech and flight of ideas during morning assessment. patient stated that he is doing good because Sherice has got his strings all lined out. Patient said there are 2 Aguirre and 2 Eves. Patient talking about his experience with the second coming of Alcides. Patient talking about robbie
--- NOTE | 2024-10-16 09:51 | P.NPUPN_ITS ---
Subjective NPU 2 Subjective: Patient presented today reporting that he is doing fine. He continues to report understanding his circumstance and is willing to accept the plan for guardianship hearing which is likely going to be on Friday. He understands that it is a temporary guardianship first and he has an opportunity to demonstrate how well he is doing now that he is taking the medication. Dr Grace is returning tomorrow and he reports being open to placement. He denied any side effects to the medications. Mental Status Exam 2 MSE Comments: This is a well-nourished well-developed white male in hospital scrubs with limited grooming and with no eye contact. No abnormal movements except for mild psychomotor agitation. He was mostly cooperative with exam in mild distress. Speech was increased rate but decreased volume. Mood described as getting a little better, affect odd but less guarded. Thought process was mostly linear. Thought content: He denied suicidal or homicidal ideation, no delusions reported but clear paranoid, persecutory and likely grandiose delusions noted but seeming to have some improvement, he did not report any auditory or visual hallucinations and appeared to have less times times responding to internal stimuli and being distracted. Attention and concentration was improving and memory was unreliable, but more reliable but none formally tested. He was alert and oriented to person and place. Insight, judgment and impulse control are all limited but improving. Vitals/I&O/Wt Last Vital Signs Temp 97.5 F L 10/16/24 06:00 Pulse 79 10/16/24 06:00 Resp 18 10/16/24 06:00 BP 104/73 10/16/24 06:00 Pulse Ox 98 10/16/24 06:00 O2 Del Method Room Air 10/13/24 20:24 Data NPU 09/24/24 21:35 09/24/24 21:08 A&P Assessment and plan (1) Schizophrenia: Qualifiers: Schizophrenia type: undifferentiated schizophrenia Qualified Code(s): F 20.3 - Undifferentiated schizophrenia (2) Schizoaffective disorder, manic type: (3) Alcoholic intoxication: (4) Polysubstance abuse: Plan 43-year-old male who presents with psychosis with a blood alcohol level of 220 with a history of schizophrenia noncompliant with Haldol for 2 days prior to admission and currently intoxicated admitted again with paranoia and bizarre delusions. 1..? Encourage individual, group and milieu therapy 2.?? Recommend sober living treatment at the highest level of care to which the patient is willing to commit 3.???Continue perphenazine 8mg tid. He has continued to take his medication as prescribed for the last few days and we discussed the possibility that we may need to increase his Trileptal. Increased Trileptal to 600 mg p.o. twice daily. Patient again having some issues with medication refusal but was agreeable to taking the Abilify Maintena injection. We attempted to get the Abilify Asimtufii from a pharmacy today however they were needing his physical insurance card which we were not able to locate. We will try to get the 2-month injection given his challenges. He was given the Abilify Maintena 400 mg 10/11/2024. 4.? TO-15 minute checks? 5.??Continue Klonopin at 1mg at night. 6. Filed 21-day paperwork and hearing was today and he was placed on a 21-day hold. His level 2 and interrogatories have been completed. We discussed the fact that he would be working with Dr. Grace when he returns on plans for placement and discharge. Involuntary Hold Information 2 96 Hour Hold: 96 Hour Involuntary Admission: Yes 96 Hour Hold Ending Date: 10/04/24 96 Hour Hold Ending Time: 20:01 Other Hold: Hold End Date: 10/27/24 Attestations NPU 2 Medical Necessity Statement*: Inpatient hospitalization is medically necessary and?the clinically appropriate intervention?at this time.? We will monitor/initiate medications and make changes as indicated.? The patient?s likely length of stay 7-10 days. Coding Level of Care Code Acute Code for [facility] Fwd Diagnoses 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
[2024-10-16 14:00] VITALS: BP 119/84; PULSE 80; RESP 18; TEMP 37.1; O2SAT 96
[2024-10-16 19:42] VITALS: BP 115/80; PULSE 66; RESP 18; TEMP 36.7; O2SAT 97
[2024-10-16] MEDS: haloperidol inj 5 mg/mL INJ 1 mL 10 MG IM (20:04)
[2024-10-16] MEDS: CLONazepam 1 mg Tablet PO (20:04)
[2024-10-17 06:15] VITALS: BP 90/60; PULSE 76; RESP 16; TEMP 36.4; O2SAT 97
[2024-10-17] MEDS: nicotine 4 mg lozenge MUCOUS MEM ×4 (06:15→20:36)
[2024-10-17] MEDS: OXcarbazepine 300 mg Tablet 600 MG PO ×2 (08:15→20:36)
[2024-10-17] MEDS: perphenazine 4 mg Tablet 8 MG PO ×3 (08:15→20:36)
[2024-10-17] MEDS: folic acid 1 mg Tablet PO (08:15)
[2024-10-17] MEDS: thiamine 100 mg Tablet PO (08:15)
[2024-10-17] MEDS: multivitamin therapeutic Tablet 1 TAB PO (08:15)
[2024-10-17 14:00] VITALS: BP 119/79; PULSE 76; RESP 15; TEMP 36.6; O2SAT 99
--- NOTE | 2024-10-17 18:06 | P.NPUPN_ITS ---
Subjective NPU 2 Subjective: 43-year-old male with schizoaffective di sorder admitted with disorganized behavior and thinking. The patient had taken his IM Abilify and appeared to be more compliant. The patient stated that he would likely be under temporary guardianship and stated that he wished to follow all the rules because if he went back to drinking again he would likely be placed in full guardianship through the state according to the patient. The patient had stated that he believed that witchcraft was ultimately the reason that he went back to drinking and stated that he did not wish to be part of any witchcraft. He reported no side effects from his current medication regimen. He had continued to report that particular nurses were his and reported that he was uncertain as to why his needed to be here in the hospital. Mental Status Exam 2 MSE Comments: This is a well-nourished well-developed white male in hospital scrubs with limited grooming and with no eye contact. No abnormal movements except for mild psychomotor agitation. He was mostly cooperative with exam in mild distress. Speech was increased in rate but decreased in volume. Mood described as good. His affect was odd but less guarded. Thought process was mostly linear. Thought content: He denied suicidal or homicidal ideation, no delusions reported but clear paranoid, persecutory and likely grandiose delusions noted but seeming to have some improvement. he did at times appear to be responding to internal stimuli. Attention and concentration was improving and memory was unreliable, but more reliable but none formally tested. He was alert and oriented to person and place. Insight, judgment and impulse control are all limited but improving. Vitals/I&O/Wt Last Vital Signs Temp 97.9 F 10/17/24 14:00 Pulse 76 10/17/24 14:00 Resp 15 10/17/24 14:00 BP 119/79 10/17/24 14:00 Pulse Ox 99 10/17/24 14:00 O2 Del Method Room Air 10/17/24 14:00 10/17/24 10/17/24 10/17/24 06:59 14:59 22:59 Intake Total 960 / 960 480 / 1440 Balance 960 / 960 480 / 1440 Weight last 48 hrs Weight 87.77 kg Data NPU 09/24/24 21:35 09/24/24 21:08 A&P Assessment and plan (1) Schizophrenia: Qualifiers: Schizophrenia type: undifferentiated schizophrenia Qualified Code(s): F 20.3 - Undifferentiated schizophrenia (2) Schizoaffective disorder, manic type: (3) Alcoholic intoxication: (4) Polysubstance abuse: Plan 43-year-old male who presents with psychosis with a blood alcohol level of 220 with a history of schizophrenia noncompliant with Haldol for 2 days prior to admission and currently intoxicated admitted again with paranoia and bizarre delusions. 1..? Encourage individual, group and milieu therapy 2.?? Recommend sober living treatment at the highest level of care to which the patient is willing to commit 3.???Continue perphenazine 8mg tid. Continue Trileptal to 600 mg p.o. twice daily. Patient again having some issues with medication refusal but was agreeable to taking the Abilify Maintena injection. We attempted to get the Abilify Asimtufii from a pharmacy today however they were needing his physical insurance card which we were not able to locate. We will try to get the 2-month injection given his challenges. He was given the Abilify Maintena 400 mg 10/11/2024. 4.? TO-15 minute checks? 5.??Continue Klonopin at 1mg at night. 6. Filed 21-day paperwork and hearing was today and he was placed on a 21-day hold. His level 2 and interrogatories have been completed. Involuntary Hold Information 2 96 Hour Hold: 96 Hour Involuntary Admission: Yes 96 Hour Hold Ending Date: 10/04/24 96 Hour Hold Ending Time: 20:01 Other Hold: Hold End Date: 10/27/24 Attestations NPU 2 Medical Necessity Statement*: Inpatient hospitalization is medically necessary and?the clinically appropriate intervention?at this time.? We will monitor/initiate medications and make changes as indicated.? The patient?s likely length of stay 7-10 days. Coding Level of Care Code Acute Code for [facility] Fwd Diagnoses 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
[2024-10-17 19:57] VITALS: BP 143/88; PULSE 86; RESP 16; TEMP 36.6; O2SAT 96
[2024-10-17] MEDS: CLONazepam 1 mg Tablet PO (20:36)
[2024-10-17] MEDS: haloperidol inj 5 mg/mL INJ 1 mL 10 MG IM (20:36)
[2024-10-18 06:00] VITALS: BP 118/80; PULSE 80; RESP 16; TEMP 36.3; O2SAT 97
[2024-10-18] MEDS: nicotine 4 mg lozenge MUCOUS MEM ×4 (06:31→21:17)
[2024-10-18] MEDS: OXcarbazepine 300 mg Tablet 600 MG PO ×2 (08:21→21:17)
[2024-10-18] MEDS: thiamine 100 mg Tablet PO (08:21)
[2024-10-18] MEDS: perphenazine 4 mg Tablet 8 MG PO ×3 (08:21→21:17)
[2024-10-18] MEDS: folic acid 1 mg Tablet PO (08:21)
[2024-10-18] MEDS: multivitamin therapeutic Tablet 1 TAB PO (08:21)
[2024-10-18 14:00] VITALS: BP 120/80; PULSE 78; RESP 18; TEMP 36.9; O2SAT 97
--- NOTE | 2024-10-18 17:11 | P.NPUPN_ITS ---
Subjective NPU 2 Subjective: 43-year-old male with schizoaffective di sorder admitted with disorganized behavior and thinking. Patient had reported that he continued to be worried about witchcraft but stated that he was ready to go to the hearing and allow the court to appoint a guardian for him. He had been compliant with his oral medications as well. He had reported adequate sleep and reported no side effects to his current medication regimen. He had acknowledged 6 significant use of substances in the past often leading to increased behavioral issues. He had limited interactions in groups. Mental Status Exam 2 MSE Comments: This is a well-nourished well-developed white male in hospital scrubs with limited grooming and with no eye contact. No abnormal movements except for pacing. He was mostly cooperative with exam in mild distress. Speech was increased in rate and normal in volume. Mood described as good. His affect was odd but less guarded. Thought process was mostly linear. Thought content: He denied suicidal or homicidal ideation, no delusions reported but clear paranoid, persecutory and likely grandiose delusions noted but seeming to have some improvement. He did at times appear to be responding to internal stimuli. Attention and concentration was improving and memory was unreliable, but more reliable but none formally tested. He was alert and oriented to person and place. Insight, judgment and impulse control are all limited but improving. Vitals/I&O/Wt Last Vital Signs Temp 98.5 F 10/18/24 14:00 Pulse 78 10/18/24 14:00 Resp 18 10/18/24 14:00 BP 120/80 10/18/24 14:00 Pulse Ox 97 10/18/24 14:00 O2 Del Method Room Air 10/18/24 06:00 Weight last 48 hrs Weight 87.77 kg Data NPU 09/24/24 21:35 09/24/24 21:08 A&P Assessment and plan (1) Schizophrenia: Qualifiers: Schizophrenia type: undifferentiated schizophrenia Qualified Code(s): F 20.3 - Undifferentiated schizophrenia (2) Schizoaffective disorder, manic type: (3) Alcoholic intoxication: (4) Polysubstance abuse: Plan 43-year-old male who presents with psychosis with a blood alcohol level of 220 with a history of schizophrenia noncompliant with Haldol for 2 days prior to admission and currently intoxicated admitted again with paranoia and bizarre delusions. 1..? Encourage individual, group and milieu therapy 2.?? Recommend sober living treatment at the highest level of care to which the patient is willing to commit 3.???Continue perphenazine 8mg tid. Continue Trileptal to 600 mg p.o. twice daily. Patient again having some issues with medication refusal but was agreeable to taking the Abilify Maintena injection. We attempted to get the Abilify Asimtufii from a pharmacy today however they were needing his physical insurance card which we were not able to locate. We will try to get the 2-month injection given his challenges. He was given the Abilify Maintena 400 mg 10/11/2024. 4.? TO-15 minute checks? 5.??Continue Klonopin at 1mg at night. 6. Guardianship hearing today. Involuntary Hold Information 2 96 Hour Hold: 96 Hour Involuntary Admission: Yes 96 Hour Hold Ending Date: 10/04/24 96 Hour Hold Ending Time: 20:01 Other Hold: Hold End Date: 10/27/24 Attestations NPU 2 Medical Necessity Statement*: Inpatient hospitalization is medically necessary and?the clinically appropriate intervention?at this time.? We will monitor/initiate medications and make changes as indicated.? The patient?s likely length of stay 7-10 days. Coding Level of Care Code Acute Code for g Fwd Diagnoses 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
[2024-10-18 20:20] VITALS: BP 141/88; PULSE 94; RESP 18; TEMP 36.4; O2SAT 97
[2024-10-18] MEDS: haloperidol inj 5 mg/mL INJ 1 mL 10 MG IM (21:17)
[2024-10-18] MEDS: CLONazepam 1 mg Tablet PO (21:17)
[2024-10-19 06:00] VITALS: BP 103/71; PULSE 96; RESP 16; TEMP 36.5; O2SAT 97
[2024-10-19] MEDS: OXcarbazepine 300 mg Tablet 600 MG PO ×2 (08:56→21:05)
[2024-10-19] MEDS: perphenazine 4 mg Tablet 8 MG PO ×3 (08:56→21:05)
[2024-10-19] MEDS: folic acid 1 mg Tablet PO (08:57)
[2024-10-19] MEDS: multivitamin therapeutic Tablet 1 TAB PO (08:57)
[2024-10-19] MEDS: thiamine 100 mg Tablet PO (08:57)
[2024-10-19] MEDS: nicotine 4 mg lozenge MUCOUS MEM ×2 (13:55→19:38)
[2024-10-19 14:00] VITALS: BP 100/65; PULSE 97; RESP 18; TEMP 36.6; O2SAT 97
--- NOTE | 2024-10-19 16:09 | P.NPUPN_ITS ---
Subjective NPU 2 Subjective: 43-year-old male with schizoaffective di sorder admitted with disorganized behavior and thinking. Patient reported no changes today. He appeared to continue to have conversations with himself but did not appear to make any overt threats. He had continued to report concerns about witchcraft. He had been compliant with his oral medications. He had reported adequate sleep. Patient had been placed under temporary guardianship from the court and was scheduled for a interview today with the state regarding placement. He had continued to attend groups and appeared more engaged. He had reported adequate sleep. Mental Status Exam 2 MSE Comments: This is a well-nourished well-developed white male in hospital scrubs with limited grooming and with no eye contact. No abnormal movements except for pacing. He was cooperative with exam in mild distress. Speech was normal in rate and normal in volume and productivity. Mood described as good. His affect was odd but less guarded. Thought process was mostly linear. Thought content: He denied suicidal or homicidal ideation, no delusions reported but clear paranoid, persecutory and likely grandiose delusions noted but seeming to have some improvement. He did at times appear to be responding to internal stimuli. Attention and concentration was improving and memory was unreliable, but more reliable but none formally tested. He was alert and oriented to person and place. Insight, judgment and impulse control are all limited but improving. 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 1..? Encourage individual, group and milieu therapy 2.?? Recommend sober living treatment at the highest level of care to which the patient is willing to commit 3.???Continue perphenazine 8mg tid. Continue Trileptal to 600 mg p.o. twice daily. Patient again having some issues with medication refusal but was agreeable to taking the Abilify Maintena injection. We attempted to get the Abilify Asimtufii from a pharmacy today however they were needing his physical insurance card which we were not able to locate. We will try to get the 2-month injection given his challenges. He was given the Abilify Maintena 400 mg 10/11/2024. 4.? TO-15 minute checks? 5.??Continue Klonopin at 1mg at night. 6. Guardianship given to court under Fabian Bradley. Involuntary Hold Information 2 96 Hour Hold: 96 Hour Involuntary Admission: Yes 96 Hour Hold Ending Date: 10/04/24 96 Hour Hold Ending Time: 20:01 Other Hold: Hold End Date: 10/27/24 Attestations NPU 2 Medical Necessity Statement*: Inpatient hospitalization is medically necessary and?the clinically appropriate intervention?at this time.? We will monitor/initiate medications and make changes as indicated.? The patient?s likely length of stay 7-10 days. Coding Level of Care Code Acute Code for Chg Fwd Diagnoses 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
[2024-10-19 20:09] VITALS: BP 125/82; PULSE 73; RESP 18; TEMP 36.8; O2SAT 95
[2024-10-19] MEDS: CLONazepam 1 mg Tablet 0.75 MG PO (21:05)
[2024-10-19] MEDS: haloperidol inj 5 mg/mL INJ 1 mL 10 MG IM (21:06)
[2024-10-19] MEDS: neomycin-poly-bacitracin oint 28 gm 1 APPLIC TOPICAL (21:25)
[2024-10-20] MEDS: nicotine 4 mg lozenge MUCOUS MEM ×4 (06:00→20:04)
[2024-10-20 06:30] VITALS: BP 114/71; PULSE 72; RESP 18; TEMP 36.3; O2SAT 97
[2024-10-20] MEDS: OXcarbazepine 300 mg Tablet 600 MG PO ×2 (08:10→20:55)
[2024-10-20] MEDS: perphenazine 4 mg Tablet 8 MG PO ×3 (08:10→20:55)
[2024-10-20] MEDS: folic acid 1 mg Tablet PO (08:11)
[2024-10-20] MEDS: multivitamin therapeutic Tablet 1 TAB PO (08:11)
[2024-10-20] MEDS: thiamine 100 mg Tablet PO (08:11)
[2024-10-20 14:00] VITALS: BP 129/84; PULSE 78; RESP 18; TEMP 36.6; O2SAT 97
--- NOTE | 2024-10-20 19:11 | P.NPUPN_ITS ---
Subjective NPU 2 Subjective: 43-year-old male with schizoaffective di sorder admitted with disorganized behavior and thinking. Patient continued to appear at times suspicious of the intention of others but was able to remain on the milieu with no aggression. He had reported no side effects from his current medication regimen. He stated that he needed to find a place to go to live. The patient had been placed on a level 2 and now has a guardian. He had reported no sleep continuity disruption. He was able to attend groups without significant distraction. Mental Status Exam 2 MSE Comments: This is a well-nourished well-developed white male in hospital scrubs with limited grooming and with no eye contact. No abnormal movements except for pacing. He was cooperative with exam in mild distress. Speech was normal in rate and normal in volume and productivity. Mood described as okay. His affect was blunted. Thought process was mostly linear. Thought content: He denied suicidal or homicidal ideation, no delusions reported but clear paranoid, persecutory and likely delusions of persecution noted but seeming to have some improvement. He did at times appear to be responding to internal stimuli. Attention and concentration was improving and memory was unreliable, but more reliable but none formally tested. He was alert and oriented to person and place. Insight, judgment and impulse control are all limited but improving. Vitals/I&O/Wt Last Vital Signs Temp 97.8 F 10/20/24 14:00 Pulse 78 10/20/24 14:00 Resp 18 10/20/24 14:00 BP 129/84 10/20/24 14:00 Pulse Ox 97 10/20/24 14:00 O2 Del Method Room Air 10/19/24 06:00 Data NPU 09/24/24 21:35 09/24/24 21:08 A&P Assessment and plan (1) Schizophrenia: Qualifiers: Schizophrenia type: undifferentiated schizophrenia Qualified Code(s): F 20.3 - Undifferentiated schizophrenia (2) Schizoaffective disorder, manic type: (3) Alcoholic intoxication: (4) Polysubstance abuse: Plan 43-year-old male who presents with psychosis with a blood alcohol level of 220 with a history of schizophrenia noncompliant with Haldol for 2 days prior to admission and currently intoxicated admitted again with paranoia and bizarre delusions. 1..? Encourage individual, group and milieu therapy 2.?? Recommend sober living treatment at the highest level of care to which the patient is willing to commit 3.???Continue perphenazine 8mg tid. Continue Trileptal to 600 mg p.o. twice daily. Patient again having some issues with medication refusal but was agreeable to taking the Abilify Maintena injection. We attempted to get the Abilify Asimtufii from a pharmacy today however they were needing his physical insurance card which we were not able to locate. We will try to get the 2-month injection given his challenges. He was given the Abilify Maintena 400 mg 10/11/2024. 4.? TO-15 minute checks? 5.??Continue Klonopin at 1mg at night. 6. Guardianship given to court under Fabian Bradley. Level 2 completed today. Involuntary Hold Information 2 96 Hour Hold: 96 Hour Involuntary Admission: Yes 96 Hour Hold Ending Date: 10/04/24 96 Hour Hold Ending Time: 20:01 Other Hold: Hold End Date: 10/27/24 Attestations NPU 2 Medical Necessity Statement*: Inpatient hospitalization is medically necessary and?the clinically appropriate intervention?at this time.? We will monitor/initiate medications and make changes as indicated.? The patient?s likely length of stay 7-10 days. Coding Level of Care Code Acute Code for g Fwd Diagnoses 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
[2024-10-20 20:07] VITALS: BP 127/89; PULSE 89; RESP 20; O2SAT 97
[2024-10-20] MEDS: haloperidol 5 mg Tablet 10 MG PO (20:56)
[2024-10-20] MEDS: CLONazepam 1 mg Tablet 0.75 MG PO (20:56)
[2024-10-21 05:09] VITALS: BP 117/83; PULSE 60; RESP 18; O2SAT 100
[2024-10-21] MEDS: nicotine 4 mg lozenge MUCOUS MEM ×5 (06:32→21:31)
[2024-10-21] MEDS: folic acid 1 mg Tablet PO (08:39)
[2024-10-21] MEDS: thiamine 100 mg Tablet PO (08:39)
[2024-10-21] MEDS: OXcarbazepine 300 mg Tablet 600 MG PO ×2 (08:39→21:30)
[2024-10-21] MEDS: multivitamin therapeutic Tablet 1 TAB PO (08:39)
[2024-10-21] MEDS: perphenazine 4 mg Tablet 8 MG PO ×3 (08:39→21:30)
[2024-10-21 14:00] VITALS: BP 124/71; PULSE 75; RESP 17; O2SAT 97
--- NOTE | 2024-10-21 15:22 | P.NPUPN_ITS ---
Subjective NPU 2 Subjective: 43-year-old male with schizoaffective di sorder admitted with disorganized behavior and thinking. Patient had been pleasant and compliant on the milieu. He continued to report that he was agreeable to seeking placement. He had continued at times to discuss beliefs regarding specific plots by the government but stated that he would not contribute to any conversations regarding witchcraft. Patient had reported that witchcraft had led him to using drugs in the past and he had a plan to remain drug-free. Mental Status Exam 2 MSE Comments: This is a well-nourished well-developed white male in hospital scrubs with limited grooming and with no eye contact. No abnormal movements except for pacing. He was cooperative with exam in mild distress. Speech was normal in rate and normal in volume and productivity. Mood described as good. His affect was blunted and mood incongruent. Thought process was linear. Thought content: He denied suicidal or homicidal ideation, no delusions reported but clear paranoid, persecutory and likely delusions of persecution noted but seeming to have some improvement. He did at times appear to be responding to internal stimuli. Attention and concentration was improving and memory was unreliable, but more reliable but none formally tested. He was alert and oriented to person and place. Insight was poor. His judgment and impulse control were limited but improving. Vitals/I&O/Wt Last Vital Signs Temp 97.8 F 10/20/24 14:00 Pulse 60 10/21/24 05:09 Resp 18 10/21/24 05:09 BP 117/83 10/21/24 05:09 Pulse Ox 100 10/21/24 05:09 O2 Del Method Room Air 10/19/24 06:00 10/21/24 10/21/24 10/21/24 06:59 14:59 22:59 Intake Total 480 / 480 Balance 480 / 480 Data NPU 09/24/24 21:35 09/24/24 21:08 A&P Assessment and plan (1) Schizophrenia: Qualifiers: Schizophrenia type: undifferentiated schizophrenia Qualified Code(s): F 20.3 - Undifferentiated schizophrenia (2) Schizoaffective disorder, manic type: (3) Alcoholic intoxication: (4) Polysubstance abuse: Plan 43-year-old male who presents with psychosis with a blood alcohol level of 220 with a history of schizophrenia noncompliant with Haldol for 2 days prior to admission and currently intoxicated admitted again with paranoia and bizarre delusions. 1..? Encourage individual, group and milieu therapy 2.?? Recommend sober living treatment at the highest level of care to which the patient is willing to commit 3.???Continue perphenazine 8mg tid. Continue Trileptal to 600 mg p.o. twice daily. Patient again having some issues with medication refusal but was agreeable to taking the Abilify Maintena injection. We attempted to get the Abilify Asimtufii from a pharmacy today however they were needing his physical insurance card which we were not able to locate. We will try to get the 2-month injection given his challenges. He was given the Abilify Maintena 400 mg 10/11/2024. 4.? TO-15 minute checks? 5.??Continue Klonopin at .75mg at night. 6. Guardianship given to court under Fabian Bradley. Level 2 completed, awaiting placement. Involuntary Hold Information 2 96 Hour Hold: 96 Hour Involuntary Admission: Yes 96 Hour Hold Ending Date: 10/04/24 96 Hour Hold Ending Time: 20:01 Other Hold: Hold End Date: 10/27/24 Attestations NPU 2 Medical Necessity Statement*: Inpatient hospitalization is medically necessary and?the clinically appropriate intervention?at this time.? We will monitor/initiate medications and make changes as indicated.? The patient?s likely length of stay 7-10 days. Coding Level of Care Code Acute Code for [facility] Diagnoses 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
[2024-10-21 19:51] VITALS: BP 116/70; PULSE 73; RESP 18; O2SAT 98
[2024-10-21] MEDS: haloperidol 5 mg Tablet 10 MG PO (21:30)
[2024-10-21] MEDS: CLONazepam 1 mg Tablet 0.75 MG PO (21:30)
[2024-10-22 06:00] VITALS: BP 144/79; PULSE 79; RESP 18; O2SAT 97
[2024-10-22] MEDS: nicotine 4 mg lozenge MUCOUS MEM ×4 (06:43→20:45)
[2024-10-22] MEDS: perphenazine 4 mg Tablet 8 MG PO ×3 (09:23→20:45)
[2024-10-22] MEDS: OXcarbazepine 300 mg Tablet 600 MG PO ×2 (09:23→20:46)
[2024-10-22] MEDS: folic acid 1 mg Tablet PO (09:23)
[2024-10-22] MEDS: multivitamin therapeutic Tablet 1 TAB PO (09:23)
[2024-10-22] MEDS: thiamine 100 mg Tablet PO (09:23)
[2024-10-22 14:00] VITALS: BP 128/90; PULSE 75; RESP 18; TEMP 36.9; O2SAT 99
--- NOTE | 2024-10-22 17:25 | P.NPUPN_ITS ---
Subjective NPU 2 Subjective: 43-year-old male with schizoaffective di sorder admitted with disorganized behavior and thinking. The patient had reported that he was feeling fine. He reported no side effects from his medication regimen. The patient had endorsed some increased anxiety later in the afternoon and had requested Klonopin. Patient had continued to report that he was struggling with the fact that he was going to be under someone's guardianship. He had continued to remain guarded although he had continued to speak of specific plots against him. Mental Status Exam 2 MSE Comments: This is a well-nourished well-developed white male in hospital scrubs with limited grooming and with no eye contact. No abnormal movements except for pacing. He was cooperative with exam in mild distress. Speech was normal in rate and normal in volume and productivity. Mood described as anxious. His affect remained blunted and mood incongruent. Thought process was linear. Thought content: He denied suicidal or homicidal ideation, no delusions reported but clear paranoid, persecutory and likely delusions of persecution noted but seeming to have some improvement. He did not appear to be responding to internal stimuli. Attention and concentration was improving and memory was unreliable, but more reliable but none formally tested. He was alert and oriented to person and place. Insight was poor. His judgment and impulse control were limited but improving. Vitals/I&O/Wt Last Vital Signs Temp 98.4 F 10/22/24 14:00 Pulse 75 10/22/24 14:00 Resp 18 10/22/24 14:00 BP 128/90 10/22/24 14:00 Pulse Ox 99 10/22/24 14:00 O2 Del Method Room Air 10/22/24 14:00 10/22/24 10/22/24 10/22/24 06:59 14:59 22:59 Intake Total 960 / 960 Balance 960 / 960 Data NPU 09/24/24 21:35 09/24/24 21:08 A&P Assessment and plan (1) Schizophrenia: Qualifiers: Schizophrenia type: undifferentiated schizophrenia Qualified Code(s): F 20.3 - Undifferentiated schizophrenia (2) Schizoaffective disorder, manic type: (3) Alcoholic intoxication: (4) Polysubstance abuse: Plan 43-year-old male who presents with psychosis with a blood alcohol level of 220 with a history of schizophrenia noncompliant with Haldol for 2 days prior to admission and currently intoxicated admitted again with paranoia and bizarre delusions. 1..? Encourage individual, group and milieu therapy 2.?? Recommend sober living treatment at the highest level of care to which the patient is willing to commit 3.???Continue perphenazine 8mg tid. Continue Trileptal to 600 mg p.o. twice daily. Patient again having some issues with medication refusal but was agreeable to taking the Abilify Maintena injection. We attempted to get the Abilify Asimtufii from a pharmacy today however they were needing his physical insurance card which we were not able to locate. We will try to get the 2-month injection given his challenges. He was given the Abilify Maintena 400 mg 10/11/2024. 4.? TO-15 minute checks? 5.??Continue Klonopin at .75mg at night. 6. Guardianship given to court under Fabian Bradley. Level 2 completed, awaiting placement. Involuntary Hold Information 2 96 Hour Hold: 96 Hour Involuntary Admission: Yes 96 Hour Hold Ending Date: 10/04/24 96 Hour Hold Ending Time: 20:01 Other Hold: Hold End Date: 10/27/24 Attestations NPU 2 Medical Necessity Statement*: Inpatient hospitalization is medically necessary and?the clinically appropriate intervention?at this time.? We will monitor/initiate medications and make changes as indicated.? The patient?s likely length of stay 7-10 days. Coding Level of Care Code Acute Code for [facility] Diagnoses 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
--- NOTE | 2024-10-22 18:39 | PC.NURSE ---
Patient agitated about a fellow patient who is walking the hallway patting his belly.
[2024-10-22] MEDS: haloperidol 5 mg Tablet 10 MG PO (18:43)
--- NOTE | 2024-10-22 18:44 | PC.NURSE ---
pt upset do another patient yelling at him about smacking his lips while eating. pt requested haldol 10mg po bedtime medication for agitiation instead of waiting til 2100. spoke with doctor Grace about early administration of haldol 10mg and klonopin 1mg po do to agitation. verbal order given for early administration of 2100 medication.
[2024-10-22] MEDS: CLONazepam 1 mg Tablet PO (20:48)
[2024-10-22] MEDS: haloperidol 5 mg Tablet PO (20:49)
[2024-10-22 21:52] VITALS: BP 151/73; PULSE 79; RESP 17; TEMP 36.6; O2SAT 97
[2024-10-23 06:00] VITALS: BP 113/74; PULSE 63; RESP 17; TEMP 36.4; O2SAT 100
[2024-10-23] MEDS: nicotine 4 mg lozenge MUCOUS MEM ×5 (06:11→22:05)
[2024-10-23] MEDS: perphenazine 4 mg Tablet 8 MG PO ×3 (08:16→21:33)
[2024-10-23] MEDS: folic acid 1 mg Tablet PO (08:16)
[2024-10-23] MEDS: multivitamin therapeutic Tablet 1 TAB PO (08:16)
[2024-10-23] MEDS: thiamine 100 mg Tablet PO (08:16)
[2024-10-23] MEDS: OXcarbazepine 300 mg Tablet 600 MG PO ×2 (08:18→21:33)
--- NOTE | 2024-10-23 13:14 | P.NPUPN_ITS ---
Subjective NPU 2 Subjective: 43-year-old male with schizoaffective di sorder admitted with disorganized behavior and thinking. The patient had reported that he felt that he was part of a larger plan. He had been discussing the necessity of keeping in a stance that was consistent with maintaining his energy level as he had equated it to practicing his karate. Patient had continued to appear more social. He had reported being more distracted by another peer yesterday but stated that he was feeling better since moving to the other side of the unit. He had denied having thoughts of hurting himself or others. He stated that he would be going to a new place and appeared to understand that he was now under temporary guardianship. Mental Status Exam 2 MSE Comments: This is a well-nourished well-developed white male in hospital scrubs with limited grooming and with no eye contact. No abnormal movements except for pacing. He was cooperative with exam in mild distress. Speech was normal in rate and normal in volume and productivity. Mood described as anxious. His affect remained blunted and mood incongruent. Thought process was linear. Thought content: He denied suicidal or homicidal ideation, continued ideas of reference today. Continued delusions of persecution. He did not appear to be responding to internal stimuli. Attention and concentration was improving and memory was unreliable, but more reliable but none formally tested. He was alert and oriented to person and place. Insight was poor. His judgment and impulse control were limited but improving. Vitals/I&O/Wt Last Vital Signs Temp 97.6 F 10/23/24 06:00 Pulse 63 10/23/24 06:00 Resp 17 10/23/24 06:00 BP 113/74 10/23/24 06:00 Pulse Ox 100 10/23/24 06:00 O2 Del Method Room Air 10/23/24 06:00 10/22/24 10/23/24 10/23/24 22:59 06:59 14:59 Intake Total 480 / 1440 Balance 480 / 1440 Data NPU 09/24/24 21:35 09/24/24 21:08 A&P Assessment and plan (1) Schizophrenia: Qualifiers: Schizophrenia type: undifferentiated schizophrenia Qualified Code(s): F 20.3 - Undifferentiated schizophrenia (2) Schizoaffective disorder, manic type: (3) Alcoholic intoxication: (4) Polysubstance abuse: Plan 43-year-old male who presents with psychosis with a blood alcohol level of 220 with a history of schizophrenia noncompliant with Haldol for 2 days prior to admission and currently intoxicated admitted again with paranoia and bizarre delusions. 1..? Encourage individual, group and milieu therapy 2.?? Recommend sober living treatment at the highest level of care to which the patient is willing to commit 3.???Continue perphenazine 8mg tid. Continue Trileptal to 600 mg p.o. twice daily. He was given the Abilify Maintena 400 mg 10/11/2024. Haldol 10mg at night. 4.? TO-15 minute checks? 5.??Continue Klonopin at 1mg at night. 6. Guardianship given to court under Fabian Bradley. Level 2 completed, awaiting placement. Involuntary Hold Information 2 96 Hour Hold: 96 Hour Involuntary Admission: Yes 96 Hour Hold Ending Date: 10/04/24 96 Hour Hold Ending Time: 20:01 Attestations NPU 2 Medical Necessity Statement*: Inpatient hospitalization is medically necessary and?the clinically appropriate intervention?at this time.? We will monitor/initiate medications and make changes as indicated.? The patient?s likely length of stay 7-10 days. Coding Level of Care Code Acute Code for [facility] Fwd Diagnoses 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
[2024-10-23 14:00] VITALS: BP 121/81; PULSE 76; RESP 17; O2SAT 97
[2024-10-23] MEDS: haloperidol 5 mg Tablet PO (17:12)
[2024-10-23] MEDS: trazodone 150 mg Tablet PO (21:33)
[2024-10-23] MEDS: CLONazepam 1 mg Tablet PO (21:33)
[2024-10-23] MEDS: haloperidol 5 mg Tablet 10 MG PO (21:33)
[2024-10-23 21:39] VITALS: BP 109/68; PULSE 85; RESP 16; O2SAT 98
[2024-10-24 06:00] VITALS: BP 124/74; PULSE 90; RESP 17; TEMP 36.3; O2SAT 97
[2024-10-24] MEDS: nicotine 4 mg lozenge MUCOUS MEM ×5 (06:16→20:42)
[2024-10-24] MEDS: folic acid 1 mg Tablet PO (08:02)
[2024-10-24] MEDS: thiamine 100 mg Tablet PO (08:02)
[2024-10-24] MEDS: OXcarbazepine 300 mg Tablet 600 MG PO ×2 (08:03→20:45)
[2024-10-24] MEDS: multivitamin therapeutic Tablet 1 TAB PO (08:03)
[2024-10-24] MEDS: perphenazine 4 mg Tablet 8 MG PO ×3 (08:03→20:43)
--- NOTE | 2024-10-24 12:59 | P.NPUPN_ITS ---
Subjective NPU 2 Subjective: 43-year-old male with schizoaffective di sorder admitted with disorganized behavior and thinking. The patient had reported that he was feeling okay. He continued to report concerns about a high stating that he was concerned about his future. He had stated that he had been talking to his brother about wanting him to be his guardian in the future and place of [facility]. The patient had reported some concern about being controlled. He had remained compliant with oral medication. Mental Status Exam 2 MSE Comments: This is a well-nourished well-developed white male in hospital scrubs with limited grooming and with no eye contact. No abnormal involuntary motor movements appreciated. He was cooperative with exam in mild distress. Speech was normal in rate and normal in volume and productivity. Mood described as allright. His affect remained blunted. Thought process was linear. Thought content: He denied suicidal or homicidal ideation, continued ideas of reference today. Continued persecutory delusions. He did not appear to be responding to internal stimuli. Attention and concentration was improving and memory was unreliable, but more reliable but none formally tested. He was alert and oriented to person and place. Insight was poor. His judgment and impulse control were limited but improving. Vitals/I&O/Wt Last Vital Signs Temp 97.4 F L 10/24/24 06:00 Pulse 90 10/24/24 06:00 Resp 17 10/24/24 06:00 BP 124/74 10/24/24 06:00 Pulse Ox 97 10/24/24 06:00 O2 Del Method Room Air 10/24/24 06:00 Weight last 48 hrs Weight 94.438 kg Data NPU 09/24/24 21:35 09/24/24 21:08 A&P Assessment and plan (1) Schizophrenia: Qualifiers: Schizophrenia type: undifferentiated schizophrenia Qualified Code(s): F 20.3 - Undifferentiated schizophrenia (2) Schizoaffective disorder, manic type: (3) Alcoholic intoxication: (4) Polysubstance abuse: Plan 43-year-old male who presents with psychosis with a blood alcohol level of 220 with a history of schizophrenia noncompliant with Haldol for 2 days prior to admission and currently intoxicated admitted again with paranoia and bizarre delusions. 1..? Encourage individual, group and milieu therapy 2.?? Recommend sober living treatment at the highest level of care to which the patient is willing to commit 3.???Continue perphenazine 8mg tid. Continue Trileptal to 600 mg p.o. twice daily. He was given the Abilify Maintena 400 mg 10/11/2024. Haldol 10mg at night. 4.? TO-15 minute checks? 5.??Continue Klonopin at 1mg at night. 6. Guardianship given to court under Fabian Bradley. Level 2 completed, awaiting placement. Involuntary Hold Information 2 96 Hour Hold: 96 Hour Involuntary Admission: Yes 96 Hour Hold Ending Date: 10/04/24 96 Hour Hold Ending Time: 20:01 Attestations NPU 2 Medical Necessity Statement*: Inpatient hospitalization is medically necessary and?the clinically appropriate intervention?at this time.? We will monitor/initiate medications and make changes as indicated.? The patient?s likely length of stay 7-10 days. Coding Level of Care Code Acute Code for [facility] Fwd Diagnoses 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
[2024-10-24 14:00] VITALS: BP 109/64; PULSE 84; RESP 18; TEMP 36.6; O2SAT 96
[2024-10-24] MEDS: trazodone 150 mg Tablet PO (20:43)
[2024-10-24] MEDS: haloperidol 5 mg Tablet 10 MG PO (20:43)
[2024-10-24] MEDS: CLONazepam 1 mg Tablet PO (20:45)
[2024-10-24 21:25] VITALS: BP 120/79; PULSE 84; RESP 17; TEMP 36.3; O2SAT 99
[2024-10-25 06:00] VITALS: BP 110/73; PULSE 67; RESP 17; TEMP 36.3; O2SAT 95
[2024-10-25] MEDS: nicotine 4 mg lozenge MUCOUS MEM ×5 (06:02→21:09)
[2024-10-25] MEDS: folic acid 1 mg Tablet PO (07:45)
[2024-10-25] MEDS: thiamine 100 mg Tablet PO (07:45)
[2024-10-25] MEDS: multivitamin therapeutic Tablet 1 TAB PO (07:45)
[2024-10-25] MEDS: perphenazine 4 mg Tablet 8 MG PO ×3 (07:46→20:54)
[2024-10-25] MEDS: OXcarbazepine 300 mg Tablet 600 MG PO ×2 (07:46→20:54)
--- NOTE | 2024-10-25 13:54 | P.NPUPN_ITS ---
Subjective NPU 2 Subjective: 43-year-old male with schizoaffective di sorder admitted with disorganized behavior and thinking. The patient had continued to stressed that he needed to go to a correction by being informed that he was under guardianship under Fabian Bradley. The patient had reported that he felt that there was a witch on his block where he was residing that was largely responsible for him being placed here in the hospital. He also alluded to artificial intelligence being at the center of the decision for him to be under the care of a guardian. Mental Status Exam 2 MSE Comments: This is a well-nourished well-developed white male in hospital scrubs with limited grooming and with no eye contact. No abnormal involuntary motor movements appreciated. He was cooperative with exam in mild distress. Speech was normal in rate and normal in volume and productivity. Mood described as okay. His affect remained blunted. Thought process was linear. Thought content: He denied suicidal or homicidal ideation, continued ideas of reference today. Continued persecutory delusions. He did appear to be responding to internal stimuli. Attention and concentration was improving and memory was unreliable, but more reliable but none formally tested. He was alert and oriented to person and place. Insight was poor. His judgment and impulse control were limited but improving. 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 1..? Encourage individual, group and milieu therapy 2.?? Recommend sober living treatment at the highest level of care to which the patient is willing to commit 3.???Continue perphenazine 8mg tid. Continue Trileptal to 600 mg p.o. twice daily. He was given the Abilify Maintena 400 mg 10/11/2024. Haldol 10mg at night. 4.? TO-15 minute checks? 5.??Continue Klonopin at 1mg at night. 6. Guardianship given to court under Fabian Bradley. Level 2 completed, awaiting placement. Involuntary Hold Information 2 96 Hour Hold: 96 Hour Involuntary Admission: Yes 96 Hour Hold Ending Date: 10/04/24 96 Hour Hold Ending Time: 20:01 Attestations NPU 2 Medical Necessity Statement*: Inpatient hospitalization is medically necessary and?the clinically appropriate intervention?at this time.? We will monitor/initiate medications and make changes as indicated.? The patient?s likely length of stay 7-10 days. Coding Level of Care Code Acute Code for [facility] Fwd Diagnoses 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
[2024-10-25 14:00] VITALS: BP 123/72; PULSE 89; RESP 16; TEMP 36.6; O2SAT 99
[2024-10-25] MEDS: haloperidol 5 mg Tablet 10 MG PO (20:55)
[2024-10-25] MEDS: CLONazepam 1 mg Tablet PO (20:55)
[2024-10-25 22:00] VITALS: BP 127/74; PULSE 86; RESP 17; TEMP 36.4; O2SAT 97
[2024-10-26 06:00] VITALS: BP 107/73; PULSE 71; RESP 17; TEMP 36.5; O2SAT 96
[2024-10-26] MEDS: nicotine 4 mg lozenge MUCOUS MEM ×4 (06:03→20:40)
[2024-10-26] MEDS: folic acid 1 mg Tablet PO (08:45)
[2024-10-26] MEDS: OXcarbazepine 300 mg Tablet 600 MG PO ×2 (08:45→21:44)
[2024-10-26] MEDS: thiamine 100 mg Tablet PO (08:45)
[2024-10-26] MEDS: perphenazine 4 mg Tablet 8 MG PO ×3 (08:45→20:40)
[2024-10-26] MEDS: multivitamin therapeutic Tablet 1 TAB PO (08:45)
[2024-10-26 14:00] VITALS: BP 131/79; PULSE 76; RESP 18; TEMP 36.6; O2SAT 98
--- NOTE | 2024-10-26 15:28 | P.NPUPN_ITS ---
Subjective NPU 2 Subjective: Patient presented today reporting that he is feeling pretty good. He continues to await placement and understands the process of guardianship. He continues to aspired to do well enough on the medication that the guardianship ultimately is not made permanent. He denied any side effects to his medications. Mental Status Exam 2 MSE Comments: This is a well-nourished well-developed white male in hospital scrubs with limited grooming and with no eye contact. No abnormal involuntary motor movements appreciated. He was cooperative with exam in mild distress. Speech was normal in rate and normal in volume and productivity. Mood described as okay. His affect remained blunted. Thought process was linear. Thought content: He denied suicidal or homicidal ideation, continued ideas of reference today. Continued persecutory delusions. He did appear to be responding to internal stimuli. Attention and concentration were improving and memory was unreliable, but more reliable but none formally tested. He was alert and oriented to person and place. Insight was poor. His judgment and impulse control were limited but improving. Vitals/I&O/Wt Last Vital Signs Temp 97.7 F 10/26/24 06:00 Pulse 71 10/26/24 06:00 Resp 17 10/26/24 06:00 BP 107/73 10/26/24 06:00 Pulse Ox 96 10/26/24 06:00 O2 Del Method Room Air 10/26/24 06:00 Data NPU 09/24/24 21:35 09/24/24 21:08 A&P Assessment and plan (1) Schizophrenia: Qualifiers: Schizophrenia type: undifferentiated schizophrenia Qualified Code(s): F 20.3 - Undifferentiated schizophrenia (2) Schizoaffective disorder, manic type: (3) Alcoholic intoxication: (4) Polysubstance abuse: Plan 43-year-old male who presents with psychosis with a blood alcohol level of 220 with a history of schizophrenia noncompliant with Haldol for 2 days prior to admission and currently intoxicated admitted again with paranoia and bizarre delusions. 1..? Encourage individual, group and milieu therapy 2.?? Recommend sober living treatment at the highest level of care to which the patient is willing to commit 3.???Continue perphenazine 8mg tid. Continue Trileptal to 600 mg p.o. twice daily. He was given the Abilify Maintena 400 mg 10/11/2024. Haldol 10mg at night. 4.? TO-15 minute checks? 5.??Continue Klonopin at 1mg at night. 6. Guardianship given to court under Fabian Bradley. Level 2 completed, awaiting placement. Involuntary Hold Information 2 96 Hour Hold: 96 Hour Involuntary Admission: Yes 96 Hour Hold Ending Date: 10/04/24 96 Hour Hold Ending Time: 20:01 Attestations NPU 2 Medical Necessity Statement*: Inpatient hospitalization is medically necessary and?the clinically appropriate intervention?at this time.? We will monitor/initiate medications and make changes as indicated.? The patient?s likely length of stay 7-10 days. Coding Level of Care Code Acute Code for g Fwd Diagnoses 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
[2024-10-26 19:24] VITALS: BP 150/97; PULSE 88; RESP 18; TEMP 36.7; O2SAT 99
[2024-10-26] MEDS: CLONazepam 1 mg Tablet PO (20:40)
[2024-10-26] MEDS: haloperidol 5 mg Tablet 10 MG PO (20:41)
--- NOTE | 2024-10-26 22:27 | PC.NURSE ---
when doing rounds pt was playing with self stated to this typewriter assembler come on in and join me this typewriter assembler told pt that was inappropriate. nurse notified
[2024-10-27 06:00] VITALS: BP 111/85; PULSE 84; RESP 18; TEMP 36.7; O2SAT 98
[2024-10-27] MEDS: nicotine 4 mg lozenge MUCOUS MEM ×4 (06:01→20:06)
[2024-10-27] MEDS: folic acid 1 mg Tablet PO (09:08)
[2024-10-27] MEDS: multivitamin therapeutic Tablet 1 TAB PO (09:08)
[2024-10-27] MEDS: OXcarbazepine 300 mg Tablet 600 MG PO ×2 (09:08→20:06)
[2024-10-27] MEDS: thiamine 100 mg Tablet PO (09:08)
[2024-10-27] MEDS: perphenazine 4 mg Tablet 8 MG PO ×3 (09:08→20:06)
[2024-10-27 14:00] VITALS: BP 116/76; PULSE 76; RESP 16; TEMP 37.2; O2SAT 97
[2024-10-27] MEDS: haloperidol 5 mg Tablet PO (14:48)
--- NOTE | 2024-10-27 14:53 | W.PM.NPUPNS ---
Subjective NPU Subjective: Patient presented today reporting that he is doing fine. Staff report that he continues to be talked and without any challenges. He continues to endorse understand the process and is awaiting an appropriate placement. He continues to be optimistic about continuing to function well once he is in placement so that he can regain his independence improved to the court that he can be more independent. We continue to discussed that having a guardian does not prevent a person from being in more independent environment if that type of behavior is demonstrated. He denied any side effects to the medication. Mental Status Exam MSE Comments: This is a well-nourished well-developed white male in hospital scrubs with limited grooming and with no eye contact. No abnormal involuntary motor movements appreciated. He was cooperative with exam in mild distress. Speech was normal in rate and normal in volume and productivity. Mood described as okay. His affect remained blunted. Thought process was linear. Thought content: He denied suicidal or homicidal ideation, continued ideas of reference today. Continued persecutory delusions. He did appear to be responding to internal stimuli. Attention and concentration were improving and memory was unreliable, but more reliable but none formally tested. He was alert and oriented to person and place. Insight was poor. His judgment and impulse control were limited but improving. Vitals/I&O/Wt Last Vital Signs Temp 98.9 F 10/27/24 14:00 Pulse 76 10/27/24 14:00 Resp 16 10/27/24 14:00 BP 116/76 10/27/24 14:00 Pulse Ox 97 10/27/24 14:00 O2 Del Method Room Air 10/27/24 14:00 Data NPU 09/24/24 21:35 09/24/24 21:08 A&P Assessment and plan (1) Schizophrenia: Qualifiers: Schizophrenia type: undifferentiated schizophrenia Qualified Code(s): F20.3 - Undifferentiated schizophrenia (2) Schizoaffective disorder, manic type: (3) Alcoholic intoxication: (4) Polysubstance abuse: Plan 43-year-old male who presents with psychosis with a blood alcohol level of 220 with a history of schizophrenia noncompliant with Haldol for 2 days prior to admission and currently intoxicated admitted again with paranoia and bizarre delusions. 1..? Encourage individual, group and milieu therapy 2.?? Recommend sober living treatment at the highest level of care to which the patient is willing to commit 3.???Continue perphenazine 8mg tid. Continue Trileptal to 600 mg p.o. twice daily. He was given the Abilify Maintena 400 mg 10/11/2024. Haldol 10mg at night. 4.? TO-15 minute checks? 5.??Continue Klonopin at 1mg at night. 6. Guardianship given to court under Fabian Bradley. Level 2 completed, awaiting placement. Involuntary Hold Information 96 Hour Hold: 96 Hour Involuntary Admission: Yes 96 Hour Hold Ending Date: 10/04/24 96 Hour Hold Ending Time: 20:01 Attestations NPU Medical Necessity Statement*: Inpatient hospitalization is medically necessary and?the clinically appropriate intervention?at this time.? We will monitor/initiate medications and make changes as indicated.? The patient?s likely length of stay 7-10 days. Coding Level of Care Code Acute Code for [facility] Fwd Diagnoses 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
[2024-10-27 19:43] VITALS: BP 137/91; PULSE 69; RESP 18; TEMP 36.4; O2SAT 97
[2024-10-27] MEDS: CLONazepam 1 mg Tablet PO (20:06)
[2024-10-27] MEDS: haloperidol 5 mg Tablet 10 MG PO (20:06)
[2024-10-27] MEDS: neomycin-poly-bacitracin oint 28 gm 1 APPLIC TOPICAL (20:33)
[2024-10-28 06:00] VITALS: BP 117/79; PULSE 77; RESP 18; TEMP 36.3; O2SAT 98
[2024-10-28] MEDS: nicotine 4 mg lozenge MUCOUS MEM ×4 (06:10→20:37)
[2024-10-28] MEDS: multivitamin therapeutic Tablet 1 TAB PO (08:36)
[2024-10-28] MEDS: folic acid 1 mg Tablet PO (08:36)
[2024-10-28] MEDS: OXcarbazepine 300 mg Tablet 600 MG PO ×2 (08:36→20:16)
[2024-10-28] MEDS: perphenazine 4 mg Tablet 8 MG PO ×3 (08:36→20:15)
[2024-10-28] MEDS: thiamine 100 mg Tablet PO (08:36)
[2024-10-28 14:00] VITALS: BP 114/73; PULSE 64; RESP 16; TEMP 37; O2SAT 99
--- NOTE | 2024-10-28 14:25 | P.NPUPN_ITS ---
Subjective NPU 2 Subjective: Patient presented today reporting that he is feeling fine. He endorsed having no issues or problems with his medication. He denied any side effects to the medication. He continued to report working with the social work team to find a most reasonable option for discharge and his placement. Staff report no issues or difficulties with patient. Mental Status Exam 2 MSE Comments: This is a well-nourished well-developed white male in hospital scrubs with limited grooming and with no eye contact. No abnormal involuntary motor movements appreciated. He was cooperative with exam in mild distress. Speech was normal in rate and normal in volume and productivity. Mood described as okay. His affect remained blunted. Thought process was linear. Thought content: He denied suicidal or homicidal ideation, continued ideas of reference today. Continued persecutory delusions. He did appear to be responding to internal stimuli. Attention and concentration were improving and memory was unreliable, but more reliable but none formally tested. He was alert and oriented to person and place. Insight was poor. His judgment and impulse control were limited but improving. Vitals/I&O/Wt Last Vital Signs Temp 98.6 F 10/28/24 14:00 Pulse 64 10/28/24 14:00 Resp 16 10/28/24 14:00 BP 114/73 10/28/24 14:00 Pulse Ox 99 10/28/24 14:00 O2 Del Method Room Air 10/28/24 14:00 Data NPU 09/24/24 21:35 09/24/24 21:08 A&P Assessment and plan (1) Schizophrenia: Qualifiers: Schizophrenia type: undifferentiated schizophrenia Qualified Code(s): F 20.3 - Undifferentiated schizophrenia (2) Schizoaffective disorder, manic type: (3) Alcoholic intoxication: (4) Polysubstance abuse: Plan 43-year-old male who presents with psychosis with a blood alcohol level of 220 with a history of schizophrenia noncompliant with Haldol for 2 days prior to admission and currently intoxicated admitted again with paranoia and bizarre delusions. 1..? Encourage individual, group and milieu therapy 2.?? Recommend sober living treatment at the highest level of care to which the patient is willing to commit 3.???Continue perphenazine 8mg tid. Continue Trileptal to 600 mg p.o. twice daily. He was given the Abilify Maintena 400 mg 10/11/2024. Haldol 10mg at night. 4.? TO-15 minute checks? 5.??Continue Klonopin at 1mg at night. 6. Guardianship given to court under Fabian Bradley. Level 2 completed, awaiting placement. Involuntary Hold Information 2 96 Hour Hold: 96 Hour Involuntary Admission: Yes 96 Hour Hold Ending Date: 10/04/24 96 Hour Hold Ending Time: 20:01 Attestations NPU 2 Medical Necessity Statement*: Inpatient hospitalization is medically necessary and?the clinically appropriate intervention?at this time.? We will monitor/initiate medications and make changes as indicated.? The patient?s likely length of stay 7-10 days. Coding Level of Care Code Acute Code for g Fwd Diagnoses 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
[2024-10-28 20:02] VITALS: BP 112/79; PULSE 63; RESP 18; TEMP 36.7; O2SAT 95
[2024-10-28] MEDS: haloperidol 5 mg Tablet 10 MG PO (20:15)
[2024-10-28] MEDS: CLONazepam 1 mg Tablet PO (20:15)
[2024-10-29 06:00] VITALS: BP 104/73; PULSE 75; RESP 20; TEMP 36.7; O2SAT 97
[2024-10-29] MEDS: nicotine 4 mg lozenge MUCOUS MEM ×6 (06:34→22:47)
[2024-10-29] MEDS: multivitamin therapeutic Tablet 1 TAB PO (08:01)
[2024-10-29] MEDS: folic acid 1 mg Tablet PO (08:01)
[2024-10-29] MEDS: perphenazine 4 mg Tablet 8 MG PO ×3 (08:01→22:44)
[2024-10-29] MEDS: thiamine 100 mg Tablet PO (08:01)
[2024-10-29] MEDS: OXcarbazepine 300 mg Tablet 600 MG PO ×2 (08:01→22:43)
[2024-10-29 14:00] VITALS: BP 132/86; PULSE 76; RESP 16; TEMP 37.2; O2SAT 100
--- NOTE | 2024-10-29 16:49 | P.NPUPN_ITS ---
Subjective NPU 2 Subjective: Patient presented today reporting that he is doing fine. He continues to work with the social work team on possible discharge options and reports an open mind as to what he does next. He denied any side effects of the medication and he is being cooperative and not being a problem per staff reports and direct observation. Mental Status Exam 2 MSE Comments: This is a well-nourished well-developed white male in hospital scrubs with limited grooming and with no eye contact. No abnormal involuntary motor movements appreciated. He was cooperative with exam in mild distress. Speech was normal in rate and normal in volume and productivity. Mood described as okay. His affect remained blunted. Thought process was linear. Thought content: He denied suicidal or homicidal ideation, continued ideas of reference today. Continued persecutory delusions. He did appear to be responding to internal stimuli. Attention and concentration were improving and memory was unreliable, but more reliable but none formally tested. He was alert and oriented to person and place. Insight was poor. His judgment and impulse control were limited but improving. Vitals/I&O/Wt Last Vital Signs Temp 99 F 10/29/24 14:00 Pulse 76 10/29/24 14:00 Resp 16 10/29/24 14:00 BP 132/86 10/29/24 14:00 Pulse Ox 100 10/29/24 14:00 O2 Del Method Room Air 10/29/24 14:00 Data NPU 09/24/24 21:35 09/24/24 21:08 A&P Assessment and plan (1) Schizophrenia: Qualifiers: Schizophrenia type: undifferentiated schizophrenia Qualified Code(s): F 20.3 - Undifferentiated schizophrenia (2) Schizoaffective disorder, manic type: (3) Alcoholic intoxication: (4) Polysubstance abuse: Plan 43-year-old male who presents with psychosis with a blood alcohol level of 220 with a history of schizophrenia noncompliant with Haldol for 2 days prior to admission and currently intoxicated admitted again with paranoia and bizarre delusions. 1..? Encourage individual, group and milieu therapy 2.?? Recommend sober living treatment at the highest level of care to which the patient is willing to commit 3.???Continue perphenazine 8mg tid. Continue Trileptal to 600 mg p.o. twice daily. He was given the Abilify Maintena 400 mg 10/11/2024. Haldol 10mg at night. 4.? TO-15 minute checks? 5.??Continue Klonopin at 1mg at night. 6. Guardianship given to court under Fabian Bradley. Level 2 completed, awaiting placement. Involuntary Hold Information 2 96 Hour Hold: 96 Hour Involuntary Admission: Yes 96 Hour Hold Ending Date: 10/04/24 96 Hour Hold Ending Time: 20:01 Attestations NPU 2 Medical Necessity Statement*: Inpatient hospitalization is medically necessary and?the clinically appropriate intervention?at this time.? We will monitor/initiate medications and make changes as indicated.? The patient?s likely length of stay 7-10 days. Coding Level of Care Code Acute Code for g Fwd Diagnoses 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
[2024-10-29 20:58] VITALS: BP 121/79; PULSE 62; RESP 12; TEMP 36.8; O2SAT 98
[2024-10-29] MEDS: haloperidol 5 mg Tablet 10 MG PO (22:44)
[2024-10-29] MEDS: CLONazepam 1 mg Tablet PO (22:45)
[2024-10-30 06:00] VITALS: BP 102/75; PULSE 94; RESP 17; TEMP 36.7; O2SAT 95
[2024-10-30] MEDS: thiamine 100 mg Tablet PO (08:03)
[2024-10-30] MEDS: folic acid 1 mg Tablet PO (08:03)
[2024-10-30] MEDS: multivitamin therapeutic Tablet 1 TAB PO (08:03)
[2024-10-30] MEDS: perphenazine 4 mg Tablet 8 MG PO ×3 (08:03→20:20)
[2024-10-30] MEDS: OXcarbazepine 300 mg Tablet 600 MG PO ×2 (08:03→20:20)
[2024-10-30] MEDS: nicotine 4 mg lozenge MUCOUS MEM ×3 (08:08→20:20)
--- NOTE | 2024-10-30 13:04 | W.PM.NPUPNS ---
Subjective NPU Subjective: Patient presented today reporting that he is doing fine. He expressed confidence in the treatment team to get him to a better situation. He was rambling about something related to Carlos Rodriguezriktahir and fear in him learning something from him and learning something from someone at a sober living program that told him sometimes you have to let go and trust that people working to help you we will do that and he reports he is willing to do that with the treatment team. He denied any side effects of the medication and denied any new issues. Mental Status Exam MSE Comments: This is a well-nourished well-developed white male in hospital scrubs with limited grooming and with no eye contact. No abnormal involuntary motor movements appreciated. He was cooperative with exam in mild distress. Speech was normal in rate and normal in volume and productivity. Mood described as okay. His affect remained blunted. Thought process was linear. Thought content: He denied suicidal or homicidal ideation, continued ideas of reference today. Continued persecutory delusions. He did appear to be responding to internal stimuli. Attention and concentration were improving and memory was unreliable, but more reliable but none formally tested. He was alert and oriented to person and place. Insight was poor. His judgment and impulse control were limited but improving. Vitals/I&O/Wt Last Vital Signs Temp 98.1 F 10/30/24 06:00 Pulse 94 10/30/24 06:00 Resp 17 10/30/24 06:00 BP 102/75 10/30/24 06:00 Pulse Ox 95 10/30/24 06:00 O2 Del Method Room Air 10/30/24 06:00 Data NPU 09/24/24 21:35 09/24/24 21:08 A&P Assessment and plan (1) Schizophrenia: Qualifiers: Schizophrenia type: undifferentiated schizophrenia Qualified Code(s): F20.3 - Undifferentiated schizophrenia (2) Schizoaffective disorder, manic type: (3) Alcoholic intoxication: (4) Polysubstance abuse: Plan 43-year-old male who presents with psychosis with a blood alcohol level of 220 with a history of schizophrenia noncompliant with Haldol for 2 days prior to admission and currently intoxicated admitted again with paranoia and bizarre delusions. 1..? Encourage individual, group and milieu therapy 2.?? Recommend sober living treatment at the highest level of care to which the patient is willing to commit 3.???Continue perphenazine 8mg tid. Continue Trileptal to 600 mg p.o. twice daily. He was given the Abilify Maintena 400 mg 10/11/2024. Haldol 10mg at night. 4.? TO-15 minute checks? 5.??Continue Klonopin at 1mg at night. 6. Guardianship given to court under Fabian Bradley. Level 2 completed, awaiting placement. Involuntary Hold Information 96 Hour Hold: 96 Hour Involuntary Admission: Yes 96 Hour Hold Ending Date: 10/04/24 96 Hour Hold Ending Time: 20:01 Attestations NPU Medical Necessity Statement*: Inpatient hospitalization is medically necessary and?the clinically appropriate intervention?at this time.? We will monitor/initiate medications and make changes as indicated.? The patient?s likely length of stay 7-10 days. Coding Level of Care Code Acute Code for [facility] Fwd Diagnoses 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
[2024-10-30 14:00] VITALS: BP 114/57; PULSE 104; RESP 18; TEMP 37.3; O2SAT 96
[2024-10-30] MEDS: haloperidol 5 mg Tablet 10 MG PO (20:19)
[2024-10-30] MEDS: CLONazepam 1 mg Tablet PO (20:20)
[2024-10-30 22:00] VITALS: BP 132/68; PULSE 87; RESP 17; TEMP 27.7; O2SAT 96
[2024-10-31] MEDS: nicotine 4 mg lozenge MUCOUS MEM ×4 (05:42→20:45)
[2024-10-31 06:00] VITALS: BP 111/76; PULSE 77; RESP 16; O2SAT 96
[2024-10-31] MEDS: OXcarbazepine 300 mg Tablet 600 MG PO ×2 (08:51→20:46)
[2024-10-31] MEDS: thiamine 100 mg Tablet PO (08:51)
[2024-10-31] MEDS: perphenazine 4 mg Tablet 8 MG PO ×3 (08:51→20:45)
[2024-10-31] MEDS: multivitamin therapeutic Tablet 1 TAB PO (08:51)
[2024-10-31] MEDS: folic acid 1 mg Tablet PO (08:51)
--- NOTE | 2024-10-31 10:49 | P.NPUPN_ITS ---
Subjective NPU 2 Subjective: Patient presented today denying any changes or challenges. He endorsed being prepared to work with the social work team on any adjustments he needs to make to be able to discharge. Staff report him being compliant and without agitation or concern which was observed on direct observation. He denied any side effects to the medication. Mental Status Exam 2 MSE Comments: This is a well-nourished well-developed white male in hospital scrubs with limited grooming and with no eye contact. No abnormal involuntary motor movements appreciated. He was cooperative with exam in mild distress. Speech was normal in rate and normal in volume and productivity. Mood described as okay. His affect remained blunted. Thought process was linear. Thought content: He denied suicidal or homicidal ideation, continued ideas of reference today. Continued persecutory delusions. He did appear to be responding to internal stimuli. Attention and concentration were improving and memory was unreliable, but more reliable but none formally tested. He was alert and oriented to person and place. Insight was poor. His judgment and impulse control were limited but improving. Vitals/I&O/Wt Last Vital Signs Temp 82 F L 10/30/24 22:00 Pulse 77 10/31/24 06:00 Resp 16 10/31/24 06:00 BP 111/76 10/31/24 06:00 Pulse Ox 96 10/31/24 06:00 O2 Del Method Room Air 10/31/24 06:00 10/30/24 10/31/24 10/31/24 22:59 06:59 14:59 Intake Total 120 / 120 Balance 120 / 120 Weight last 48 hrs Weight 97.704 kg Data NPU 09/24/24 21:35 09/24/24 21:08 A&P Assessment and plan (1) Schizophrenia: Qualifiers: Schizophrenia type: undifferentiated schizophrenia Qualified Code(s): F 20.3 - Undifferentiated schizophrenia (2) Schizoaffective disorder, manic type: (3) Alcoholic intoxication: (4) Polysubstance abuse: Plan 43-year-old male who presents with psychosis with a blood alcohol level of 220 with a history of schizophrenia noncompliant with Haldol for 2 days prior to admission and currently intoxicated admitted again with paranoia and bizarre delusions. 1..? Encourage individual, group and milieu therapy 2.?? Recommend sober living treatment at the highest level of care to which the patient is willing to commit 3.???Continue perphenazine 8mg tid. Continue Trileptal to 600 mg p.o. twice daily. He was given the Abilify Maintena 400 mg 10/11/2024. Haldol 10mg at night. 4.? TO-15 minute checks? 5.??Continue Klonopin at 1mg at night. 6. Guardianship given to court under Fabian Bradley. Level 2 completed, awaiting placement. Involuntary Hold Information 2 96 Hour Hold: 96 Hour Involuntary Admission: Yes 96 Hour Hold Ending Date: 10/04/24 96 Hour Hold Ending Time: 20:01 Attestations NPU 2 Medical Necessity Statement*: Inpatient hospitalization is medically necessary and?the clinically appropriate intervention?at this time.? We will monitor/initiate medications and make changes as indicated.? The patient?s likely length of stay 7-10 days. Coding Level of Care Code Acute Code for [facility] Fwd Diagnoses 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
[2024-10-31 14:00] VITALS: BP 126/81; PULSE 82; RESP 18; TEMP 36.8; O2SAT 94
[2024-10-31 20:08] VITALS: BP 135/78; PULSE 67; RESP 18; TEMP 36.6; O2SAT 98
[2024-10-31] MEDS: haloperidol 5 mg Tablet 10 MG PO (20:45)
[2024-10-31] MEDS: CLONazepam 1 mg Tablet PO (20:45)
[2024-11-01 06:00] VITALS: BP 117/81; PULSE 75; RESP 16; TEMP 36.3; O2SAT 96
[2024-11-01] MEDS: nicotine 4 mg lozenge MUCOUS MEM ×5 (06:10→20:33)
[2024-11-01] MEDS: multivitamin therapeutic Tablet 1 TAB PO (08:26)
[2024-11-01] MEDS: perphenazine 4 mg Tablet 8 MG PO ×3 (08:26→20:32)
[2024-11-01] MEDS: folic acid 1 mg Tablet PO (08:26)
[2024-11-01] MEDS: OXcarbazepine 300 mg Tablet 600 MG PO ×2 (08:26→20:32)
[2024-11-01] MEDS: thiamine 100 mg Tablet PO (08:26)
[2024-11-01 14:00] VITALS: BP 130/89; PULSE 81; RESP 16; TEMP 36.7; O2SAT 96
--- NOTE | 2024-11-01 15:29 | P.NPUPN_ITS ---
Subjective NPU 2 Subjective: Patient presented today reporting that things are unchanged. He continues to report awaiting placement. Plan for him having great improvement over his initial presentation and being no difficulty whatsoever with no problematic behaviors. He denied any side effects of medication and endorsed understanding and we were seeking Mental Status Exam 2 MSE Comments: This is a well-nourished well-developed white male in hospital scrubs with limited grooming and with no eye contact. No abnormal involuntary motor movements appreciated. He was cooperative with exam in mild distress. Speech was normal in rate and normal in volume and productivity. Mood described as okay. His affect remained blunted. Thought process was linear. Thought content: He denied suicidal or homicidal ideation, continued ideas of reference today. Continued persecutory delusions. He did appear to be responding to internal stimuli. Attention and concentration were improving and memory was unreliable, but more reliable but none formally tested. He was alert and oriented to person and place. Insight was poor. His judgment and impulse control were limited but improving. 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 1..? Encourage individual, group and milieu therapy 2.?? Recommend sober living treatment at the highest level of care to which the patient is willing to commit 3.???Continue perphenazine 8mg tid. Continue Trileptal to 600 mg p.o. twice daily. He was given the Abilify Maintena 400 mg 10/11/2024. Haldol 10mg at night. 4.? TO-15 minute checks? 5.??Continue Klonopin at 1mg at night. 6. Guardianship given to court under Fabian Bradley. Level 2 completed, awaiting placement. Involuntary Hold Information 2 96 Hour Hold: 96 Hour Involuntary Admission: Yes 96 Hour Hold Ending Date: 10/04/24 96 Hour Hold Ending Time: 20:01 Attestations NPU 2 Medical Necessity Statement*: Inpatient hospitalization is medically necessary and?the clinically appropriate intervention?at this time.? We will monitor/initiate medications and make changes as indicated.? The patient?s likely length of stay 7-10 days. Coding Level of Care Code Acute Code for [facility] Fwd Diagnoses 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
[2024-11-01] MEDS: CLONazepam 1 mg Tablet PO (20:32)
[2024-11-01] MEDS: haloperidol 5 mg Tablet 10 MG PO (20:32)
[2024-11-01 20:35] VITALS: BP 127/77; PULSE 87; RESP 18; TEMP 36.3; O2SAT 98
[2024-11-02 06:00] VITALS: BP 112/71; PULSE 93; RESP 16; TEMP 36.4; O2SAT 97
[2024-11-02] MEDS: folic acid 1 mg Tablet PO (08:43)
[2024-11-02] MEDS: multivitamin therapeutic Tablet 1 TAB PO (08:43)
[2024-11-02] MEDS: perphenazine 4 mg Tablet 8 MG PO ×3 (08:43→21:22)
[2024-11-02] MEDS: thiamine 100 mg Tablet PO (08:44)
[2024-11-02] MEDS: OXcarbazepine 300 mg Tablet 600 MG PO ×2 (08:44→21:22)
[2024-11-02] MEDS: haloperidol 5 mg Tablet PO (11:48)
[2024-11-02] MEDS: nicotine 4 mg lozenge MUCOUS MEM ×3 (13:16→19:20)
[2024-11-02 14:00] VITALS: BP 118/77; PULSE 77; RESP 17; TEMP 36.6; O2SAT 99
--- NOTE | 2024-11-02 16:32 | PC.NURSE ---
Patient brought up the top portion one of his teeth, a molar or biscupid located on right lower mandible. On inspection, the tooth is black and rotted. The bottom of the tooth are still in place. Patient said he thinks that this happened because of telekinises. Patient said that if feels like God just pulled it up and moved it over. Patient denies any pain. Dr. Zafar aware.
--- NOTE | 2024-11-02 18:01 | P.NPUPN_ITS ---
Subjective NPU 2 Subjective: Patient presents today denying any issues or changes. He continues to be more prosocial and engaging on the unit with staff and other patients per staff reports and direct observation. No problems or concerns from his behaviors or expressed by him. He denies any side effects to medication. Mental Status Exam 2 MSE Comments: This is a well-nourished well-developed white male in hospital scrubs with limited grooming and with no eye contact. No abnormal involuntary motor movements appreciated. He was cooperative with exam in mild distress. Speech was normal in rate and normal in volume and productivity. Mood described as okay. His affect remained blunted. Thought process was linear. Thought content: He denied suicidal or homicidal ideation, continued ideas of reference today. Continued persecutory delusions. He did appear to be responding to internal stimuli. Attention and concentration were improving and memory was unreliable, but more reliable but none formally tested. He was alert and oriented to person and place. Insight was poor. His judgment and impulse control were limited but improving. Vitals/I&O/Wt Last Vital Signs Temp 97.9 F 11/02/24 14:00 Pulse 77 11/02/24 14:00 Resp 17 11/02/24 14:00 BP 118/77 11/02/24 14:00 Pulse Ox 99 11/02/24 14:00 O2 Del Method Room Air 11/01/24 20:35 Data NPU 09/24/24 21:35 09/24/24 21:08 A&P Assessment and plan (1) Schizophrenia: Qualifiers: Schizophrenia type: undifferentiated schizophrenia Qualified Code(s): F 20.3 - Undifferentiated schizophrenia (2) Schizoaffective disorder, manic type: (3) Alcoholic intoxication: (4) Polysubstance abuse: Plan 43-year-old male who presents with psychosis with a blood alcohol level of 220 with a history of schizophrenia noncompliant with Haldol for 2 days prior to admission and currently intoxicated admitted again with paranoia and bizarre delusions. 1..? Encourage individual, group and milieu therapy 2.?? Recommend sober living treatment at the highest level of care to which the patient is willing to commit 3.???Continue perphenazine 8mg tid. Continue Trileptal to 600 mg p.o. twice daily. He was given the Abilify Maintena 400 mg 10/11/2024. Haldol 10mg at night. 4.? TO-15 minute checks? 5.??Continue Klonopin at 1mg at night. 6. Guardianship given to court under Fabian Bradley. Level 2 completed, awaiting placement. Involuntary Hold Information 2 96 Hour Hold: 96 Hour Involuntary Admission: Yes 96 Hour Hold Ending Date: 10/04/24 96 Hour Hold Ending Time: 20:01 Attestations NPU 2 Medical Necessity Statement*: Inpatient hospitalization is medically necessary and?the clinically appropriate intervention?at this time.? We will monitor/initiate medications and make changes as indicated.? The patient?s likely length of stay 7-10 days. Coding Level of Care Code Acute Code for [facility] Fwd Diagnoses 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
[2024-11-02 19:42] VITALS: BP 118/68; PULSE 80; RESP 18; TEMP 36.4; O2SAT 97
[2024-11-02] MEDS: CLONazepam 1 mg Tablet PO (21:22)
[2024-11-02] MEDS: haloperidol 5 mg Tablet 10 MG PO (21:22)
[2024-11-03 06:00] VITALS: BP 113/72; PULSE 76; RESP 18; TEMP 36.6; O2SAT 96
[2024-11-03] MEDS: nicotine 4 mg lozenge MUCOUS MEM ×2 (06:05→19:30)
--- NOTE | 2024-11-03 07:43 | P.NPUPN_ITS ---
Subjective NPU 2 Subjective: Patient presents today reporting that things are unchanged and going well. He continues to be a model citizen and identifies his desire to follow through with the treatment plan of getting him in an appropriate facility. He continues to be hopeful that he will be able to demonstrate his independence once he is on the medication and at a facility. So that eventually and ultimately he will be able to get his independence back. Otherwise he continues to take his medication as prescribed and denies any side effects or any other issues. Mental Status Exam 2 MSE Comments: This is a well-nourished well-developed white male in hospital scrubs with limited grooming and with no eye contact. No abnormal involuntary motor movements appreciated. He was cooperative with exam in mild distress. Speech was normal in rate and normal in volume and productivity. Mood described as okay. His affect remained blunted. Thought process was linear. Thought content: He denied suicidal or homicidal ideation, continued ideas of reference today. Continued persecutory delusions. He did appear to be responding to internal stimuli. Attention and concentration were improving and memory was unreliable, but more reliable but none formally tested. He was alert and oriented to person and place. Insight was poor. His judgment and impulse control were limited but improving. Vitals/I&O/Wt Last Vital Signs Temp 97.9 F 11/03/24 06:00 Pulse 76 11/03/24 06:00 Resp 18 11/03/24 06:00 BP 113/72 11/03/24 06:00 Pulse Ox 96 11/03/24 06:00 O2 Del Method Room Air 11/03/24 06:00 Data NPU 09/24/24 21:35 09/24/24 21:08 A&P Assessment and plan (1) Schizophrenia: Qualifiers: Schizophrenia type: undifferentiated schizophrenia Qualified Code(s): F 20.3 - Undifferentiated schizophrenia (2) Schizoaffective disorder, manic type: (3) Alcoholic intoxication: (4) Polysubstance abuse: Plan 43-year-old male who presents with psychosis with a blood alcohol level of 220 with a history of schizophrenia noncompliant with Haldol for 2 days prior to admission and currently intoxicated admitted again with paranoia and bizarre delusions. 1..? Encourage individual, group and milieu therapy 2.?? Recommend sober living treatment at the highest level of care to which the patient is willing to commit 3.???Continue perphenazine 8mg tid. Continue Trileptal to 600 mg p.o. twice daily. He was given the Abilify Maintena 400 mg 10/11/2024. Haldol 10mg at night. 4.? TO-15 minute checks? 5.??Continue Klonopin at 1mg at night. 6. Guardianship given to court under Fabian Bradley. Level 2 completed, awaiting placement. Involuntary Hold Information 2 96 Hour Hold: 96 Hour Involuntary Admission: Yes 96 Hour Hold Ending Date: 10/04/24 96 Hour Hold Ending Time: 20:01 Attestations NPU 2 Medical Necessity Statement*: Inpatient hospitalization is medically necessary and?the clinically appropriate intervention?at this time.? We will monitor/initiate medications and make changes as indicated.? The patient?s likely length of stay 7-10 days. Coding Level of Care Code Acute Code for [facility] Fwd Diagnoses 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
[2024-11-03] MEDS: folic acid 1 mg Tablet PO (08:28)
[2024-11-03] MEDS: OXcarbazepine 300 mg Tablet 600 MG PO ×2 (08:28→21:12)
[2024-11-03] MEDS: perphenazine 4 mg Tablet 8 MG PO ×3 (08:28→21:12)
[2024-11-03] MEDS: thiamine 100 mg Tablet PO (08:28)
[2024-11-03] MEDS: multivitamin therapeutic Tablet 1 TAB PO (08:28)
[2024-11-03 14:00] VITALS: BP 133/84; PULSE 68; RESP 17; TEMP 36.6; O2SAT 100
[2024-11-03] MEDS: simethicone 80 mg Chew PO (14:26)
[2024-11-03 20:11] VITALS: BP 132/89; PULSE 72; RESP 18; O2SAT 99
[2024-11-03] MEDS: CLONazepam 1 mg Tablet PO (21:12)
[2024-11-03] MEDS: haloperidol 5 mg Tablet 10 MG PO (21:12)
[2024-11-04 06:00] VITALS: BP 123/82; PULSE 83; RESP 18; TEMP 36.4; O2SAT 96
[2024-11-04] MEDS: nicotine 4 mg lozenge MUCOUS MEM ×4 (06:22→23:36)
[2024-11-04] MEDS: perphenazine 4 mg Tablet 8 MG PO ×3 (08:18→20:19)
[2024-11-04] MEDS: OXcarbazepine 300 mg Tablet 600 MG PO ×2 (08:19→20:19)
[2024-11-04] MEDS: thiamine 100 mg Tablet PO (08:19)
[2024-11-04] MEDS: folic acid 1 mg Tablet PO (08:19)
[2024-11-04] MEDS: multivitamin therapeutic Tablet 1 TAB PO (08:19)
[2024-11-04] MEDS: simethicone 80 mg Chew PO (09:53)
[2024-11-04 14:00] VITALS: BP 133/85; PULSE 79; RESP 18; TEMP 37.2; O2SAT 97
[2024-11-04] MEDS: haloperidol 5 mg Tablet 10 MG PO (20:19)
[2024-11-04] MEDS: trazodone 150 mg Tablet PO (20:19)
[2024-11-04] MEDS: CLONazepam 1 mg Tablet PO (20:19)
[2024-11-04 20:22] VITALS: BP 124/78; PULSE 94; RESP 16; TEMP 36.8; O2SAT 94
--- NOTE | 2024-11-04 20:24 | P.NPUPN_ITS ---
Subjective NPU 2 Subjective: Patient presented today reporting that he is doing okay. No staff reports of difficulties or problems and he continues to be a model student/model patient without any concerns or problematic behaviors. He denies any side effects to his medications and understands that this is a waiting process. Mental Status Exam 2 MSE Comments: This is a well-nourished well-developed white male in hospital scrubs with limited grooming and with no eye contact. No abnormal involuntary motor movements appreciated. He was cooperative with exam in mild distress. Speech was normal in rate and normal in volume and productivity. Mood described as okay. His affect remained blunted. Thought process was linear. Thought content: He denied suicidal or homicidal ideation, continued ideas of reference today. Continued persecutory delusions. He did appear to be responding to internal stimuli. Attention and concentration were improving and memory was unreliable, but more reliable but none formally tested. He was alert and oriented to person and place. Insight was poor. His judgment and impulse control were limited but improving. Vitals/I&O/Wt Last Vital Signs Temp 98.3 F 11/04/24 20:22 Pulse 94 11/04/24 20:22 Resp 16 11/04/24 20:22 BP 124/78 11/04/24 20:22 Pulse Ox 94 11/04/24 20:22 O2 Del Method Room Air 11/04/24 20:22 11/04/24 11/04/24 11/04/24 06:59 14:59 22:59 Intake Total 120 / 120 Balance 120 / 120 Data NPU 09/24/24 21:35 09/24/24 21:08 A&P Assessment and plan (1) Schizophrenia: Qualifiers: Schizophrenia type: undifferentiated schizophrenia Qualified Code(s): F 20.3 - Undifferentiated schizophrenia (2) Schizoaffective disorder, manic type: (3) Alcoholic intoxication: (4) Polysubstance abuse: Plan 43-year-old male who presents with psychosis with a blood alcohol level of 220 with a history of schizophrenia noncompliant with Haldol for 2 days prior to admission and currently intoxicated admitted again with paranoia and bizarre delusions. 1..? Encourage individual, group and milieu therapy 2.?? Recommend sober living treatment at the highest level of care to which the patient is willing to commit 3.???Continue perphenazine 8mg tid. Continue Trileptal to 600 mg p.o. twice daily. He was given the Abilify Maintena 400 mg 10/11/2024. Haldol 10mg at night. Next Abilify Maintena or Abilify Asimtufii shot next week. 4.? TO-15 minute checks? 5.??Continue Klonopin at 1mg at night. 6. Guardianship given to court under Fabian Bradley. Level 2 completed, awaiting placement. Involuntary Hold Information 2 96 Hour Hold: 96 Hour Involuntary Admission: Yes 96 Hour Hold Ending Date: 10/04/24 96 Hour Hold Ending Time: 20:01 Attestations NPU 2 Medical Necessity Statement*: Inpatient hospitalization is medically necessary and?the clinically appropriate intervention?at this time.? We will monitor/initiate medications and make changes as indicated.? The patient?s likely length of stay 7-10 days. Coding Level of Care Code Acute Code for [facility] Fwd Diagnoses 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
--- NOTE | 2024-11-04 20:32 | PC.NURSE ---
IN BED RESTING, DENIES PAIN. DENIES SI/HI AND AVH AT THIS TIME. RATES ANXIETY AND DEPRESSION 0/10. AFFECT IS FLAT. DOES LAUGH INAPPROPRIATELY AT THE WINDOW WHEN GETTING MEDICATIONS THEN STOPS. TRAZODONE GIVEN FOR SLEEP. SUPPORT VOICED.
[2024-11-05 05:35] VITALS: BP 107/75; PULSE 87; RESP 16; TEMP 36.4; O2SAT 96
[2024-11-05] MEDS: nicotine 4 mg lozenge MUCOUS MEM ×4 (05:37→21:34)
[2024-11-05] MEDS: simethicone 80 mg Chew PO ×2 (06:02→21:34)
[2024-11-05] MEDS: perphenazine 4 mg Tablet 8 MG PO ×3 (08:19→20:23)
[2024-11-05] MEDS: multivitamin therapeutic Tablet 1 TAB PO (08:19)
[2024-11-05] MEDS: thiamine 100 mg Tablet PO (08:19)
[2024-11-05] MEDS: OXcarbazepine 300 mg Tablet 600 MG PO ×2 (08:19→20:23)
[2024-11-05] MEDS: folic acid 1 mg Tablet PO (08:19)
[2024-11-05 14:00] VITALS: BP 125/80; PULSE 80; RESP 18; TEMP 36.9; O2SAT 97
--- NOTE | 2024-11-05 18:57 | P.NPUPN_ITS ---
Subjective NPU 2 Subjective: Patient presented today reporting that he is doing fine. He denies any difficulties or problems. He understood that things have not changed and we are awaiting placement from the many referrals we have sent out. He denied any side effects to his medication. Mental Status Exam 2 MSE Comments: This is a well-nourished well-developed white male in hospital scrubs with limited grooming and with no eye contact. No abnormal involuntary motor movements appreciated. He was cooperative with exam in mild distress. Speech was normal in rate and normal in volume and productivity. Mood described as okay. His affect remained blunted. Thought process was linear. Thought content: He denied suicidal or homicidal ideation, continued ideas of reference today. Continued persecutory delusions. He did appear to be responding to internal stimuli. Attention and concentration were improving and memory was unreliable, but more reliable but none formally tested. He was alert and oriented to person and place. Insight was poor. His judgment and impulse control were limited but improving. Vitals/I&O/Wt Last Vital Signs Temp 98.4 F 11/05/24 14:00 Pulse 80 11/05/24 14:00 Resp 18 11/05/24 14:00 BP 125/80 11/05/24 14:00 Pulse Ox 97 11/05/24 14:00 O2 Del Method Room Air 11/05/24 05:35 Data NPU 09/24/24 21:35 09/24/24 21:08 A&P Assessment and plan (1) Schizophrenia: Qualifiers: Schizophrenia type: undifferentiated schizophrenia Qualified Code(s): F 20.3 - Undifferentiated schizophrenia (2) Schizoaffective disorder, manic type: (3) Alcoholic intoxication: (4) Polysubstance abuse: Plan 43-year-old male who presents with psychosis with a blood alcohol level of 220 with a history of schizophrenia noncompliant with Haldol for 2 days prior to admission and currently intoxicated admitted again with paranoia and bizarre delusions. 1..? Encourage individual, group and milieu therapy 2.?? Recommend sober living treatment at the highest level of care to which the patient is willing to commit 3.???Continue perphenazine 8mg tid. Continue Trileptal to 600 mg p.o. twice daily. He was given the Abilify Maintena 400 mg 10/11/2024. Haldol 10mg at night. Next Abilify Maintena or Abilify Asimtufii shot next week. 4.? TO-15 minute checks? 5.??Continue Klonopin at 1mg at night. 6. Guardianship given to court under Fabian Bradley. Level 2 completed, awaiting placement. Involuntary Hold Information 2 96 Hour Hold: 96 Hour Involuntary Admission: Yes 96 Hour Hold Ending Date: 10/04/24 96 Hour Hold Ending Time: 20:01 Attestations NPU 2 Medical Necessity Statement*: Inpatient hospitalization is medically necessary and?the clinically appropriate intervention?at this time.? We will monitor/initiate medications and make changes as indicated.? The patient?s likely length of stay 7-10 days. Coding Level of Care Code Acute Code for [facility] Fwd Diagnoses 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
[2024-11-05] MEDS: CLONazepam 1 mg Tablet PO (20:23)
[2024-11-05] MEDS: haloperidol 5 mg Tablet 10 MG PO (20:23)
[2024-11-05 21:42] VITALS: BP 116/78; PULSE 69; RESP 18; TEMP 36.6; O2SAT 97
[2024-11-06 06:00] VITALS: BP 135/79; PULSE 73; RESP 18; TEMP 36.3; O2SAT 96
[2024-11-06] MEDS: nicotine 4 mg lozenge MUCOUS MEM ×4 (06:25→22:21)
[2024-11-06] MEDS: folic acid 1 mg Tablet PO (08:21)
[2024-11-06] MEDS: perphenazine 4 mg Tablet 8 MG PO ×3 (08:21→21:36)
[2024-11-06] MEDS: multivitamin therapeutic Tablet 1 TAB PO (08:21)
[2024-11-06] MEDS: thiamine 100 mg Tablet PO (08:21)
[2024-11-06] MEDS: OXcarbazepine 300 mg Tablet 600 MG PO ×2 (08:21→21:58)
[2024-11-06 14:00] VITALS: BP 109/71; PULSE 90; RESP 17; TEMP 36.8; O2SAT 97
--- NOTE | 2024-11-06 15:32 | P.NPUPN_ITS ---
Subjective NPU 2 Subjective: Patient presented today reporting that he is fine. He continues to be a good patient on the unit per staff reports and direct observation. He continues to identify that he is awaiting placement and denied any side effects to medication. He denied any additional concerns. Mental Status Exam 2 MSE Comments: This is a well-nourished well-developed white male in hospital scrubs with limited grooming and with no eye contact. No abnormal involuntary motor movements appreciated. He was cooperative with exam in mild distress. Speech was normal in rate and normal in volume and productivity. Mood described as okay. His affect remained blunted. Thought process was linear. Thought content: He denied suicidal or homicidal ideation, continued ideas of reference today. Continued persecutory delusions. He did appear to be responding to internal stimuli. Attention and concentration were improving and memory was unreliable, but more reliable but none formally tested. He was alert and oriented to person and place. Insight was poor. His judgment and impulse control were limited but improving. Vitals/I&O/Wt Last Vital Signs Temp 97.4 F L 11/06/24 06:00 Pulse 73 11/06/24 06:00 Resp 18 11/06/24 06:00 BP 135/79 11/06/24 06:00 Pulse Ox 96 11/06/24 06:00 O2 Del Method Room Air 11/05/24 05:35 Data NPU 09/24/24 21:35 09/24/24 21:08 A&P Assessment and plan (1) Schizophrenia: Qualifiers: Schizophrenia type: undifferentiated schizophrenia Qualified Code(s): F 20.3 - Undifferentiated schizophrenia (2) Schizoaffective disorder, manic type: (3) Alcoholic intoxication: (4) Polysubstance abuse: Plan 43-year-old male who presents with psychosis with a blood alcohol level of 220 with a history of schizophrenia noncompliant with Haldol for 2 days prior to admission and currently intoxicated admitted again with paranoia and bizarre delusions. 1..? Encourage individual, group and milieu therapy 2.?? Recommend sober living treatment at the highest level of care to which the patient is willing to commit 3.???Continue perphenazine 8mg tid. Continue Trileptal to 600 mg p.o. twice daily. He was given the Abilify Maintena 400 mg 10/11/2024. Haldol 10mg at night. Next Abilify Maintena or Abilify Asimtufii shot next week. 4.? TO-15 minute checks? 5.??Continue Klonopin at 1mg at night. 6. Guardianship given to court under Fabian Bradley. Level 2 completed, awaiting placement. Involuntary Hold Information 2 96 Hour Hold: 96 Hour Involuntary Admission: Yes 96 Hour Hold Ending Date: 10/04/24 96 Hour Hold Ending Time: 20:01 Attestations NPU 2 Medical Necessity Statement*: Inpatient hospitalization is medically necessary and?the clinically appropriate intervention?at this time.? We will monitor/initiate medications and make changes as indicated.? The patient?s likely length of stay 7-10 days. Coding Level of Care Code Acute Code for [facility] Fwd Diagnoses 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
[2024-11-06] MEDS: haloperidol 5 mg Tablet 10 MG PO (21:36)
[2024-11-06] MEDS: CLONazepam 1 mg Tablet PO (21:37)
[2024-11-06 22:00] VITALS: BP 139/91; PULSE 83; RESP 18; TEMP 36.8; O2SAT 95
[2024-11-07] MEDS: nicotine 4 mg lozenge MUCOUS MEM ×6 (05:12→20:05)
[2024-11-07 06:00] VITALS: BP 105/72; PULSE 74; RESP 18; TEMP 36.3; O2SAT 97
[2024-11-07] MEDS: multivitamin therapeutic Tablet 1 TAB PO (07:37)
[2024-11-07] MEDS: folic acid 1 mg Tablet PO (07:37)
[2024-11-07] MEDS: thiamine 100 mg Tablet PO (07:37)
[2024-11-07] MEDS: perphenazine 4 mg Tablet 8 MG PO ×3 (07:37→20:05)
--- NOTE | 2024-11-07 10:34 | P.NPUPN_ITS ---
Subjective NPU 2 Subjective: Patient presents today denying any issues. He continues to be appropriate on the milieu per staff reports and direct observation. We continue to await someone to accept him for placement and will discuss this with the social work team tomorrow and hopefully begin encouraging people to actually meet him to see how positive the patient he would be for their facility. He takes his medication as prescribed and denied any side effects to his medications. Mental Status Exam 2 MSE Comments: This is a well-nourished well-developed white male in hospital scrubs with limited grooming and with no eye contact. No abnormal involuntary motor movements appreciated. He was cooperative with exam in mild distress. Speech was normal in rate and normal in volume and productivity. Mood described as okay. His affect remained blunted. Thought process was linear. Thought content: He denied suicidal or homicidal ideation, continued ideas of reference today. Continued persecutory delusions. He did appear to be responding to internal stimuli. Attention and concentration were improving and memory was unreliable, but more reliable but none formally tested. He was alert and oriented to person and place. Insight was poor. His judgment and impulse control were limited but improving. Vitals/I&O/Wt Last Vital Signs Temp 97.3 F L 11/07/24 06:00 Pulse 74 11/07/24 06:00 Resp 18 11/07/24 06:00 BP 105/72 11/07/24 06:00 Pulse Ox 97 11/07/24 06:00 O2 Del Method Room Air 11/05/24 05:35 Weight last 48 hrs Weight 99.972 kg Data NPU 09/24/24 21:35 09/24/24 21:08 A&P Assessment and plan (1) Schizophrenia: Qualifiers: Schizophrenia type: undifferentiated schizophrenia Qualified Code(s): F 20.3 - Undifferentiated schizophrenia (2) Schizoaffective disorder, manic type: (3) Alcoholic intoxication: (4) Polysubstance abuse: Plan 43-year-old male who presents with psychosis with a blood alcohol level of 220 with a history of schizophrenia noncompliant with Haldol for 2 days prior to admission and currently intoxicated admitted again with paranoia and bizarre delusions. 1..? Encourage individual, group and milieu therapy 2.?? Recommend sober living treatment at the highest level of care to which the patient is willing to commit 3.???Continue perphenazine 8mg tid. Continue Trileptal to 600 mg p.o. twice daily. He was given the Abilify Maintena 400 mg 10/11/2024. Haldol 10mg at night. Next Abilify Maintena or Abilify Asimtufii shot next week. 4.? TO-15 minute checks? 5.??Continue Klonopin at 1mg at night. 6. Guardianship given to court under Fabian Bradley. Level 2 completed, awaiting placement. Involuntary Hold Information 2 96 Hour Hold: 96 Hour Involuntary Admission: Yes 96 Hour Hold Ending Date: 10/04/24 96 Hour Hold Ending Time: 20:01 Attestations NPU 2 Medical Necessity Statement*: Inpatient hospitalization is medically necessary and?the clinically appropriate intervention?at this time.? We will monitor/initiate medications and make changes as indicated.? The patient?s likely length of stay 7-10 days. Coding Level of Care Code Acute Code for [facility] Fwd Diagnoses 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
[2024-11-07] MEDS: simethicone 80 mg Chew PO (12:47)
[2024-11-07 14:00] VITALS: BP 118/79; PULSE 76; RESP 17; TEMP 36.8; O2SAT 95
[2024-11-07] MEDS: OXcarbazepine 300 mg Tablet 600 MG PO ×2 (14:09→20:05)
[2024-11-07] MEDS: neomycin-poly-bacitracin oint 28 gm 1 APPLIC TOPICAL (15:37)
[2024-11-07 19:51] VITALS: BP 133/80; PULSE 88; RESP 18; TEMP 36.6; O2SAT 98
[2024-11-07] MEDS: CLONazepam 1 mg Tablet PO (20:05)
[2024-11-07] MEDS: haloperidol 5 mg Tablet 10 MG PO (20:05)
[2024-11-08] MEDS: ibuprofen 600 mg Tablet PO (03:52)
[2024-11-08] MEDS: nicotine 4 mg lozenge MUCOUS MEM ×5 (04:01→22:29)
[2024-11-08 04:18] VITALS: BP 101/60; PULSE 80; RESP 16; TEMP 36.6; O2SAT 96
[2024-11-08] MEDS: perphenazine 4 mg Tablet 8 MG PO ×3 (08:03→20:08)
[2024-11-08] MEDS: thiamine 100 mg Tablet PO (08:03)
[2024-11-08] MEDS: OXcarbazepine 300 mg Tablet 600 MG PO ×2 (08:03→20:08)
[2024-11-08] MEDS: folic acid 1 mg Tablet PO (08:03)
--- NOTE | 2024-11-08 08:08 | PC.NURSE ---
Per patient request, multivitamin, Vitamin B-1, and thiamine stopped.
[2024-11-08] MEDS: neomycin-poly-bacitracin oint 28 gm 1 APPLIC TOPICAL (09:24)
--- NOTE | 2024-11-08 13:32 | P.NPUPN_ITS ---
Subjective NPU 2 Subjective: Patient presented today reporting that he is doing fine. He denies any changes in staff reports that he continues to be a model patient with no concerns or any other issues. He denies side effects to his medications and we discussed the fact that his next injection is due in a few days. Mental Status Exam 2 MSE Comments: This is a well-nourished well-developed white male in hospital scrubs with limited grooming and with no eye contact. No abnormal involuntary motor movements appreciated. He was cooperative with exam in mild distress. Speech was normal in rate and normal in volume and productivity. Mood described as okay. His affect remained blunted. Thought process was linear. Thought content: He denied suicidal or homicidal ideation, continued ideas of reference today. Continued persecutory delusions. He did appear to be responding to internal stimuli. Attention and concentration were improving and memory was unreliable, but more reliable but none formally tested. He was alert and oriented to person and place. Insight was poor. His judgment and impulse control were limited but improving. Vitals/I&O/Wt Last Vital Signs Temp 97.9 F 11/08/24 04:18 Pulse 80 11/08/24 04:18 Resp 16 11/08/24 04:18 BP 101/60 11/08/24 04:18 Pulse Ox 96 11/08/24 04:18 O2 Del Method Room Air 11/08/24 04:18 11/07/24 11/08/24 11/08/24 22:59 06:59 14:59 Intake Total 120 / 120 Balance 120 / 120 Weight last 48 hrs Weight 99.972 kg Data NPU 09/24/24 21:35 09/24/24 21:08 A&P Assessment and plan (1) Schizophrenia: Qualifiers: Schizophrenia type: undifferentiated schizophrenia Qualified Code(s): F 20.3 - Undifferentiated schizophrenia (2) Schizoaffective disorder, manic type: (3) Alcoholic intoxication: (4) Polysubstance abuse: Plan 43-year-old male who presents with psychosis with a blood alcohol level of 220 with a history of schizophrenia noncompliant with Haldol for 2 days prior to admission and currently intoxicated admitted again with paranoia and bizarre delusions. 1..? Encourage individual, group and milieu therapy 2.?? Recommend sober living treatment at the highest level of care to which the patient is willing to commit 3.???Continue perphenazine 8mg tid. Continue Trileptal to 600 mg p.o. twice daily. He was given the Abilify Maintena 400 mg 10/11/2024. Haldol 10mg at night. Next Abilify Maintena or Abilify Asimtufii will be given in the next couple of days. 4.? TO-15 minute checks? 5.??Continue Klonopin at 1mg at night. 6. Guardianship given to court under Fabian Bradley. Level 2 completed, awaiting placement. Involuntary Hold Information 2 96 Hour Hold: 96 Hour Involuntary Admission: Yes 96 Hour Hold Ending Date: 10/04/24 96 Hour Hold Ending Time: 20:01 Attestations NPU 2 Medical Necessity Statement*: Inpatient hospitalization is medically necessary and?the clinically appropriate intervention?at this time.? We will monitor/initiate medications and make changes as indicated.? The patient?s likely length of stay 7-10 days. Coding Level of Care Code Acute Code for [facility] Fwd Diagnoses 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
[2024-11-08 14:00] VITALS: BP 133/85; PULSE 72; RESP 18; TEMP 36.8; O2SAT 98
[2024-11-08 19:31] VITALS: BP 142/89; PULSE 90; RESP 18; O2SAT 100
[2024-11-08] MEDS: haloperidol 5 mg Tablet 10 MG PO (20:08)
[2024-11-08] MEDS: CLONazepam 1 mg Tablet PO (20:08)
[2024-11-09 05:35] VITALS: BP 110/75; PULSE 80; RESP 17; TEMP 36.5; O2SAT 99
[2024-11-09] MEDS: nicotine 4 mg lozenge MUCOUS MEM ×4 (06:20→21:18)
[2024-11-09] MEDS: OXcarbazepine 300 mg Tablet 600 MG PO ×2 (08:59→21:19)
[2024-11-09] MEDS: perphenazine 4 mg Tablet 8 MG PO ×3 (08:59→21:18)
[2024-11-09 14:00] VITALS: BP 117/84; PULSE 69; RESP 18; TEMP 36.6; O2SAT 96
--- NOTE | 2024-11-09 17:08 | P.NPUPN_ITS ---
Subjective NPU 2 Subjective: Patient presented today reporting that he is doing fine. He continues to have the in a good place from the standpoint of his behavior on the unit per staff reports and direct observation. He continues take his medication as prescribed. We discussed the fact that he will be due for his long-acting injectable tomorrow. He denied any side effects to his medications. Mental Status Exam 2 MSE Comments: This is a well-nourished well-developed white male in hospital scrubs with limited grooming and with no eye contact. No abnormal involuntary motor movements appreciated. He was cooperative with exam in mild distress. Speech was normal in rate and normal in volume and productivity. Mood described as okay. His affect remained blunted. Thought process was linear. Thought content: He denied suicidal or homicidal ideation, continued ideas of reference today. Continued persecutory delusions. He did appear to be responding to internal stimuli. Attention and concentration were improving and memory was unreliable, but more reliable but none formally tested. He was alert and oriented to person and place. Insight was poor. His judgment and impulse control were limited but improving. Vitals/I&O/Wt Last Vital Signs Temp 97.8 F 11/09/24 14:00 Pulse 69 11/09/24 14:00 Resp 18 11/09/24 14:00 BP 117/84 11/09/24 14:00 Pulse Ox 96 11/09/24 14:00 O2 Del Method Room Air 11/09/24 05:35 Data NPU 09/24/24 21:35 09/24/24 21:08 A&P Assessment and plan (1) Schizophrenia: Qualifiers: Schizophrenia type: undifferentiated schizophrenia Qualified Code(s): F 20.3 - Undifferentiated schizophrenia (2) Schizoaffective disorder, manic type: (3) Alcoholic intoxication: (4) Polysubstance abuse: Plan 43-year-old male who presents with psychosis with a blood alcohol level of 220 with a history of schizophrenia noncompliant with Haldol for 2 days prior to admission and currently intoxicated admitted again with paranoia and bizarre delusions. 1..? Encourage individual, group and milieu therapy 2.?? Recommend sober living treatment at the highest level of care to which the patient is willing to commit 3.???Continue perphenazine 8mg tid. Continue Trileptal to 600 mg p.o. twice daily. He was given the Abilify Maintena 400 mg 10/11/2024. Haldol 10mg at night. Next Abilify Maintena or Abilify Asimtufii will be given tomorrow. 4.? TO-15 minute checks? 5.??Continue Klonopin at 1mg at night. 6. Guardianship given to court under Fabian Bradley. Level 2 completed, awaiting placement. Involuntary Hold Information 2 96 Hour Hold: 96 Hour Involuntary Admission: Yes 96 Hour Hold Ending Date: 10/04/24 96 Hour Hold Ending Time: 20:01 Attestations NPU 2 Medical Necessity Statement*: Inpatient hospitalization is medically necessary and?the clinically appropriate intervention?at this time.? We will monitor/initiate medications and make changes as indicated.? The patient?s likely length of stay 7-10 days. Coding Level of Care Code Acute Code for [facility] Fwd Diagnoses 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
[2024-11-09 20:25] VITALS: BP 136/66; PULSE 78; RESP 18; TEMP 36.5; O2SAT 98
[2024-11-09] MEDS: haloperidol 5 mg Tablet PO (21:19)
[2024-11-09] MEDS: CLONazepam 1 mg Tablet PO (21:19)
[2024-11-10 06:00] VITALS: BP 156/78; PULSE 103; RESP 18; TEMP 36.3; O2SAT 97
[2024-11-10] MEDS: nicotine 4 mg lozenge MUCOUS MEM ×4 (06:30→20:40)
[2024-11-10] MEDS: OXcarbazepine 300 mg Tablet 600 MG PO ×2 (08:13→20:40)
[2024-11-10] MEDS: perphenazine 4 mg Tablet 8 MG PO ×3 (08:13→20:39)
[2024-11-10] MEDS: simethicone 80 mg Chew PO (08:48)
[2024-11-10 13:49] VITALS: BP 126/81; PULSE 81; RESP 18; TEMP 36.7; O2SAT 97
--- NOTE | 2024-11-10 17:42 | P.NPUPN_ITS ---
Subjective NPU 2 Subjective: Patient presented today reporting that he is doing fine. No changes as he continues to have the in a good place from the standpoint of his behavior on the unit per staff reports and direct observation. He continues take his medication as prescribed. We discussed the fact that he will be due for his long-acting injectable. He denied any side effects to his medications. Mental Status Exam 2 MSE Comments: This is a well-nourished well-developed white male in hospital scrubs with limited grooming and with no eye contact. No abnormal involuntary motor movements appreciated. He was cooperative with exam in mild distress. Speech was normal in rate and normal in volume and productivity. Mood described as okay. His affect remained blunted. Thought process was linear. Thought content: He denied suicidal or homicidal ideation, continued ideas of reference today. Continued persecutory delusions. He did appear to be responding to internal stimuli. Attention and concentration were improving and memory was unreliable, but more reliable but none formally tested. He was alert and oriented to person and place. Insight was poor. His judgment and impulse control were limited but improving. Vitals/I&O/Wt Last Vital Signs Temp 98.0 F 11/10/24 14:00 Pulse 81 11/10/24 14:00 Resp 18 11/10/24 14:00 BP 126/81 11/10/24 14:00 Pulse Ox 97 11/10/24 14:00 O2 Del Method Room Air 11/10/24 14:00 Data NPU 09/24/24 21:35 09/24/24 21:08 A&P Assessment and plan (1) Schizophrenia: Qualifiers: Schizophrenia type: undifferentiated schizophrenia Qualified Code(s): F 20.3 - Undifferentiated schizophrenia (2) Schizoaffective disorder, manic type: (3) Alcoholic intoxication: (4) Polysubstance abuse: Plan 43-year-old male who presents with psychosis with a blood alcohol level of 220 with a history of schizophrenia noncompliant with Haldol for 2 days prior to admission and currently intoxicated admitted again with paranoia and bizarre delusions. 1..? Encourage individual, group and milieu therapy 2.?? Recommend sober living treatment at the highest level of care to which the patient is willing to commit 3.???Continue perphenazine 8mg tid. Continue Trileptal to 600 mg p.o. twice daily. He was given the Abilify Maintena 400 mg 10/11/2024. Haldol 10mg at night. Next Abilify Maintena or Abilify Asimtufii will be given tomorrow. 4.? TO-15 minute checks? 5.??Continue Klonopin at 1mg at night. 6. Guardianship given to court under Fabian Bradley. Level 2 completed, awaiting placement. Involuntary Hold Information 2 96 Hour Hold: 96 Hour Involuntary Admission: Yes 96 Hour Hold Ending Date: 10/04/24 96 Hour Hold Ending Time: 20:01 Attestations NPU 2 Medical Necessity Statement*: Inpatient hospitalization is medically necessary and?the clinically appropriate intervention?at this time.? We will monitor/initiate medications and make changes as indicated.? The patient?s likely length of stay 7-10 days. Coding Level of Care Code Acute Code for [facility] Fwd Diagnoses 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
[2024-11-10] MEDS: neomycin-poly-bacitracin oint 28 gm 1 APPLIC TOPICAL (18:31)
[2024-11-10 19:50] VITALS: BP 125/84; PULSE 78; RESP 18; TEMP 36.9; O2SAT 97
[2024-11-10] MEDS: haloperidol 5 mg Tablet 10 MG PO (20:39)
[2024-11-10] MEDS: CLONazepam 1 mg Tablet PO (20:39)
[2024-11-11] MEDS: nicotine 4 mg lozenge MUCOUS MEM ×5 (00:53→20:32)
[2024-11-11] MEDS: ibuprofen 600 mg Tablet PO (01:13)
[2024-11-11 06:00] VITALS: BP 125/87; PULSE 95; RESP 16; TEMP 36.3; O2SAT 98
[2024-11-11] MEDS: OXcarbazepine 300 mg Tablet 600 MG PO ×2 (08:02→21:37)
[2024-11-11] MEDS: simethicone 80 mg Chew PO ×2 (08:02→13:09)
[2024-11-11] MEDS: perphenazine 4 mg Tablet 8 MG PO ×3 (08:02→21:37)
[2024-11-11] MEDS: ARIPiprazole Maintena 400 MG IM (11:08)
[2024-11-11 14:00] VITALS: BP 163/103; PULSE 80; RESP 16; TEMP 36.8; O2SAT 98
--- NOTE | 2024-11-11 18:21 | P.NPUPN_ITS ---
Subjective NPU 2 Subjective: Patient presented today reporting things are going fine. We discussed the fact that there might be someone that is interested in taking him in their facility. We are sending paperwork and following up with them. Otherwise he denied any concerns and reported a willingness to cooperate with what ever facility we determined. He denied any side effects to the medication and received his monthly injection. Mental Status Exam 2 MSE Comments: This is a well-nourished well-developed white male in hospital scrubs with limited grooming and with no eye contact. No abnormal involuntary motor movements appreciated. He was cooperative with exam in mild distress. Speech was normal in rate and normal in volume and productivity. Mood described as okay. His affect remained blunted. Thought process was linear. Thought content: He denied suicidal or homicidal ideation, continued ideas of reference today. Continued persecutory delusions. He did appear to be responding to internal stimuli. Attention and concentration were improving and memory was unreliable, but more reliable but none formally tested. He was alert and oriented to person and place. Insight was poor. His judgment and impulse control were limited but improving. Vitals/I&O/Wt Last Vital Signs Temp 98.2 F 11/11/24 14:00 Pulse 80 11/11/24 14:00 Resp 16 11/11/24 14:00 BP 163/103 11/11/24 14:00 Pulse Ox 98 11/11/24 14:00 O2 Del Method Room Air 11/11/24 14:00 Data NPU 09/24/24 21:35 09/24/24 21:08 A&P Assessment and plan (1) Schizophrenia: Qualifiers: Schizophrenia type: undifferentiated schizophrenia Qualified Code(s): F 20.3 - Undifferentiated schizophrenia (2) Schizoaffective disorder, manic type: (3) Alcoholic intoxication: (4) Polysubstance abuse: Plan 43-year-old male who presents with psychosis with a blood alcohol level of 220 with a history of schizophrenia noncompliant with Haldol for 2 days prior to admission and currently intoxicated admitted again with paranoia and bizarre delusions. 1..? Encourage individual, group and milieu therapy 2.?? Recommend sober living treatment at the highest level of care to which the patient is willing to commit 3.???Continue perphenazine 8mg tid. Continue Trileptal to 600 mg p.o. twice daily. He was given the Abilify Maintena 400 mg 10/11/2024. Haldol 10mg at night. Next Abilify Maintena or Abilify Asimtufii will be given tomorrow. 4.? TO-15 minute checks? 5.??Continue Klonopin at 1mg at night. 6. Guardianship given to court under Fabian Bradley. Level 2 completed, awaiting placement. Involuntary Hold Information 2 96 Hour Hold: 96 Hour Involuntary Admission: Yes 96 Hour Hold Ending Date: 10/04/24 96 Hour Hold Ending Time: 20:01 Attestations NPU 2 Medical Necessity Statement*: Inpatient hospitalization is medically necessary and?the clinically appropriate intervention?at this time.? We will monitor/initiate medications and make changes as indicated.? The patient?s likely length of stay 7-10 days. Coding Level of Care Code Acute Code for [facility] Fwd Diagnoses 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
[2024-11-11 20:37] VITALS: BP 147/79; PULSE 81; RESP 16; TEMP 36.8; O2SAT 98
[2024-11-11] MEDS: CLONazepam 1 mg Tablet PO (21:37)
[2024-11-11] MEDS: haloperidol 5 mg Tablet 10 MG PO (21:37)
[2024-11-12] MEDS: nicotine 4 mg lozenge MUCOUS MEM ×5 (02:13→17:16)
[2024-11-12 06:00] VITALS: BP 113/80; PULSE 85; RESP 18; TEMP 36.3; O2SAT 100
[2024-11-12] MEDS: simethicone 80 mg Chew PO ×2 (07:42→13:18)
[2024-11-12] MEDS: perphenazine 4 mg Tablet 8 MG PO ×2 (08:09→14:53)
[2024-11-12] MEDS: OXcarbazepine 300 mg Tablet 600 MG PO (08:09)
[2024-11-12] MEDS: neomycin-poly-bacitracin oint 28 gm 1 APPLIC TOPICAL ×2 (09:13→17:29)
[2024-11-12 14:00] VITALS: BP 118/75; PULSE 72; RESP 18; TEMP 36.9; O2SAT 98
--- NOTE | 2024-11-12 17:44 | P.NPUPN_ITS ---
Subjective NPU 2 Subjective: Patient presented today reporting that he is doing fine. He continues to do well per staff reports and direct observation. He took his next monthly injection without any concerns and reports and optimism about being placed. He denied any side effects to his medication. Mental Status Exam 2 MSE Comments: This is a well-nourished well-developed white male in hospital scrubs with limited grooming and with no eye contact. No abnormal involuntary motor movements appreciated. He was cooperative with exam in mild distress. Speech was normal in rate and normal in volume and productivity. Mood described as okay. His affect remained blunted. Thought process was linear. Thought content: He denied suicidal or homicidal ideation, continued ideas of reference today. Continued persecutory delusions. He did appear to be responding to internal stimuli. Attention and concentration were improving and memory was unreliable, but more reliable but none formally tested. He was alert and oriented to person and place. Insight was poor. His judgment and impulse control were limited but improving. Vitals/I&O/Wt Last Vital Signs Temp 98.4 F 11/12/24 14:00 Pulse 72 11/12/24 14:00 Resp 18 11/12/24 14:00 BP 113/80 11/12/24 14:00 Pulse Ox 98 11/12/24 14:00 O2 Del Method Room Air 11/12/24 14:00 Data NPU 09/24/24 21:35 09/24/24 21:08 A&P Assessment and plan (1) Schizophrenia: Qualifiers: Schizophrenia type: undifferentiated schizophrenia Qualified Code(s): F 20.3 - Undifferentiated schizophrenia (2) Schizoaffective disorder, manic type: (3) Alcoholic intoxication: (4) Polysubstance abuse: Plan 43-year-old male who presents with psychosis with a blood alcohol level of 220 with a history of schizophrenia noncompliant with Haldol for 2 days prior to admission and currently intoxicated admitted again with paranoia and bizarre delusions. 1..? Encourage individual, group and milieu therapy 2.?? Recommend sober living treatment at the highest level of care to which the patient is willing to commit 3.???Continue perphenazine 8mg tid. Continue Trileptal to 600 mg p.o. twice daily. He was given the Abilify Maintena 400 mg 10/11/2024. Haldol 10mg at night. Next Abilifchavez Maintena given 400 mg IM today, 11/11/2024 4.? TO-15 minute checks? 5.??Continue Klonopin at 1mg at night. 6. Guardianship given to court under Fabian Bradley. Level 2 completed, awaiting placement. Involuntary Hold Information 2 96 Hour Hold: 96 Hour Involuntary Admission: Yes 96 Hour Hold Ending Date: 10/04/24 96 Hour Hold Ending Time: 20:01 Attestations NPU 2 Medical Necessity Statement*: Inpatient hospitalization is medically necessary and?the clinically appropriate intervention?at this time.? We will monitor/initiate medications and make changes as indicated.? The patient?s likely length of stay 7-10 days. Coding Level of Care Code Acute Code for [facility] Fwd Diagnoses 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
[2024-11-12 20:21] VITALS: BP 148/102; PULSE 90; RESP 18; TEMP 36.7; O2SAT 99
[2024-11-12] MEDS: CLONazepam 1 mg Tablet PO (20:41)
[2024-11-13] MEDS: nicotine 4 mg lozenge MUCOUS MEM ×6 (05:12→22:18)
[2024-11-13 06:00] VITALS: BP 114/69; PULSE 80; RESP 18; O2SAT 96
[2024-11-13] MEDS: perphenazine 4 mg Tablet 8 MG PO ×2 (07:57→15:28)
[2024-11-13] MEDS: OXcarbazepine 300 mg Tablet 600 MG PO (07:58)
[2024-11-13 14:00] VITALS: BP 126/78; PULSE 64; RESP 18; TEMP 37.1; O2SAT 96
--- NOTE | 2024-11-13 19:40 | P.NPUPN_ITS ---
Subjective NPU 2 Subjective: Patient presented today reporting he is doing okay. He reports that he is doing fine having had his monthly injection. He reports that he has been reading on some information on satellites having seen an article/news story about [employer] garber and all the satellites orbiting the earth. He denied any side effects of the medications and reports awaiting placement. Mental Status Exam 2 MSE Comments: This is a well-nourished well-developed white male in hospital scrubs with limited grooming and with no eye contact. No abnormal involuntary motor movements appreciated. He was cooperative with exam in mild distress. Speech was normal in rate and normal in volume and productivity. Mood described as okay. His affect remained blunted. Thought process was linear. Thought content: He denied suicidal or homicidal ideation, continued ideas of reference today. Continued persecutory delusions. He did appear to be responding to internal stimuli. Attention and concentration were improving and memory was unreliable, but more reliable but none formally tested. He was alert and oriented to person and place. Insight was poor. His judgment and impulse control were limited but improving. Vitals/I&O/Wt Last Vital Signs Temp 98.7 F 11/13/24 14:00 Pulse 64 11/13/24 14:00 Resp 18 11/13/24 14:00 BP 126/78 11/13/24 14:00 Pulse Ox 96 11/13/24 14:00 O2 Del Method Room Air 11/13/24 14:00 11/13/24 11/13/24 11/13/24 06:59 14:59 22:59 Intake Total 480 / 480 240 / 720 Balance 480 / 480 240 / 720 Data NPU 09/24/24 21:35 09/24/24 21:08 A&P Assessment and plan (1) Schizophrenia: Qualifiers: Schizophrenia type: undifferentiated schizophrenia Qualified Code(s): F 20.3 - Undifferentiated schizophrenia (2) Schizoaffective disorder, manic type: (3) Alcoholic intoxication: (4) Polysubstance abuse: Plan 43-year-old male who presents with psychosis with a blood alcohol level of 220 with a history of schizophrenia noncompliant with Haldol for 2 days prior to admission and currently intoxicated admitted again with paranoia and bizarre delusions. 1..? Encourage individual, group and milieu therapy 2.?? Recommend sober living treatment at the highest level of care to which the patient is willing to commit 3.???Continue perphenazine 8mg tid. Continue Trileptal to 600 mg p.o. twice daily. He was given the Abilify Maintena 400 mg 10/11/2024. Haldol 10mg at night. Next Abilify Maintena given 400 mg IM, 11/11/2024 4.? TO-15 minute checks? 5.??Continue Klonopin at 1mg at night. 6. Guardianship given to court under Fabian Bradley. Level 2 completed, awaiting placement. Involuntary Hold Information 2 96 Hour Hold: 96 Hour Involuntary Admission: Yes 96 Hour Hold Ending Date: 10/04/24 96 Hour Hold Ending Time: 20:01 Attestations NPU 2 Medical Necessity Statement*: Inpatient hospitalization is medically necessary and?the clinically appropriate intervention?at this time.? We will monitor/initiate medications and make changes as indicated.? The patient?s likely length of stay 7-10 days. Coding Level of Care Code Acute Code for [facility] Fwd Diagnoses 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
[2024-11-13 20:25] VITALS: BP 127/83; PULSE 106; RESP 18; TEMP 37; O2SAT 94
[2024-11-13] MEDS: CLONazepam 1 mg Tablet PO (21:55)
[2024-11-13] MEDS: haloperidol 5 mg Tablet 10 MG PO (21:56)
[2024-11-14] MEDS: nicotine 4 mg lozenge MUCOUS MEM ×4 (04:46→20:05)
[2024-11-14 06:00] VITALS: BP 128/88; PULSE 78; RESP 18; O2SAT 96
--- NOTE | 2024-11-14 07:36 | P.NPUPN_ITS ---
Subjective NPU 2 Subjective: Patient presented today reporting that he is doing fine. He endorsed that he would prefer to take less medication and we discussed that now that he has had the injection that maybe we could manage that but that it was important for him to take all medication as prescribed. We discussed that Dr. Grace would be returning tomorrow and he would hopefully be overseeing his discharge as there are few places considering excepting him. He denied any specific side effects to medications. Mental Status Exam 2 MSE Comments: This is a well-nourished well-developed white male in hospital scrubs with limited grooming and with no eye contact. No abnormal involuntary motor movements appreciated. He was cooperative with exam in mild distress. Speech was normal in rate and normal in volume and productivity. Mood described as okay. His affect remained blunted. Thought process was linear. Thought content: He denied suicidal or homicidal ideation, continued ideas of reference today. Continued persecutory delusions. He did appear to be responding to internal stimuli. Attention and concentration were improving and memory was unreliable, but more reliable but none formally tested. He was alert and oriented to person and place. Insight was poor. His judgment and impulse control were limited but improving. Vitals/I&O/Wt Last Vital Signs Temp 98.6 F 11/13/24 20:25 Pulse 78 11/14/24 06:00 Resp 18 11/14/24 06:00 BP 128/88 11/14/24 06:00 Pulse Ox 96 11/14/24 06:00 O2 Del Method Room Air 11/14/24 06:00 11/13/24 11/14/24 11/14/24 22:59 06:59 14:59 Intake Total 240 / 720 Balance 240 / 720 Weight last 48 hrs Weight 97.704 kg Data NPU 09/24/24 21:35 09/24/24 21:08 A&P Assessment and plan (1) Schizophrenia: Qualifiers: Schizophrenia type: undifferentiated schizophrenia Qualified Code(s): F 20.3 - Undifferentiated schizophrenia (2) Schizoaffective disorder, manic type: (3) Alcoholic intoxication: (4) Polysubstance abuse: Plan 43-year-old male who presents with psychosis with a blood alcohol level of 220 with a history of schizophrenia noncompliant with Haldol for 2 days prior to admission and currently intoxicated admitted again with paranoia and bizarre delusions. 1..? Encourage individual, group and milieu therapy 2.?? Recommend sober living treatment at the highest level of care to which the patient is willing to commit 3.???Continue perphenazine 8mg tid. Continue Trileptal to 600 mg p.o. twice daily. He was given the Abilify Maintena 400 mg 10/11/2024. Haldol 10mg at night. Next Abilify Maintena given 400 mg IM, 11/11/2024 4.? TO-15 minute checks? 5.??Continue Klonopin at 1mg at night. 6. Guardianship given to court under Fabian Bradley. Level 2 completed, awaiting placement. Involuntary Hold Information 2 96 Hour Hold: 96 Hour Involuntary Admission: Yes 96 Hour Hold Ending Date: 10/04/24 96 Hour Hold Ending Time: 20:01 Attestations NPU 2 Medical Necessity Statement*: Inpatient hospitalization is medically necessary and?the clinically appropriate intervention?at this time.? We will monitor/initiate medications and make changes as indicated.? The patient?s likely length of stay 7-10 days. Coding Level of Care Code Acute Code for [facility] Fwd Diagnoses 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
[2024-11-14] MEDS: OXcarbazepine 300 mg Tablet 600 MG PO ×2 (08:08→20:05)
[2024-11-14] MEDS: perphenazine 4 mg Tablet 8 MG PO ×3 (08:08→20:05)
--- NOTE | 2024-11-14 08:28 | PC.NURSE ---
[facility] PT REFUSED TO TAKE THE FULL SUBSCRIPTION OF HIS TRIAFON 8MG, PT ONLY TOOK 4MG, AND HIS TRILEPTAL 600MG HE ONLY TOOK 300MG, WILL CONTINUE TO MONITOR.
[2024-11-14 14:00] VITALS: BP 123/83; PULSE 101; RESP 17; TEMP 36.4; O2SAT 96
--- NOTE | 2024-11-14 16:44 | PC.NURSE ---
[facility] PT REFUSED TO TAKE HIS FULL DOSE OF TRIAFON 4MG INSTEAD OF 8MG, WILL CONTINUE TO MONITOR.
[2024-11-14 19:56] VITALS: BP 142/94; PULSE 85; RESP 18; TEMP 36.8; O2SAT 100
[2024-11-14] MEDS: haloperidol 5 mg Tablet 10 MG PO (20:05)
[2024-11-14] MEDS: CLONazepam 1 mg Tablet PO (20:05)
[2024-11-15 06:00] VITALS: BP 127/93; PULSE 111; RESP 18; TEMP 36.3; O2SAT 96
[2024-11-15] MEDS: nicotine 4 mg lozenge MUCOUS MEM ×4 (06:37→20:32)
[2024-11-15] MEDS: perphenazine 4 mg Tablet 8 MG PO ×3 (08:16→20:32)
[2024-11-15] MEDS: OXcarbazepine 300 mg Tablet 600 MG PO ×2 (08:16→20:32)
[2024-11-15] MEDS: neomycin-poly-bacitracin oint 28 gm 1 APPLIC TOPICAL (08:27)
[2024-11-15 14:00] VITALS: BP 133/84; PULSE 109; RESP 18; TEMP 36.6; O2SAT 100
[2024-11-15] MEDS: simethicone 80 mg Chew PO (15:03)
--- NOTE | 2024-11-15 19:31 | W.PM.NPUPNS ---
Subjective NPU Subjective: 43-year-old male with schizoaffective disorder admitted with disorganized behavior and thinking. Patient reported no new changes. He appeared to continue to have conversations with himself and stated that he was caught in the middle of a shit sandwich . Patient was unable to elaborate regarding this matter. He continued to report feeling optimistic about finding a place to reside in on a manager intermediate basis. Mental Status Exam MSE Comments: This is a well-nourished well-developed white male in hospital scrubs with limited grooming and with no eye contact. No abnormal involuntary motor movements appreciated. He was cooperative with exam in mild distress. Speech was normal in rate and normal in volume and productivity. Mood described as frustrated. His affect remained blunted. Thought process was linear. Thought content: He denied suicidal or homicidal ideation, continued ideas of reference today. Continued persecutory delusions. He did appear to be responding to internal stimuli. Attention and concentration were improving and memory was unreliable, but more reliable but none formally tested. He was alert and oriented to person and place. Insight was poor. His judgment and impulse control were limited but improving. Vitals/I&O/Wt Last Vital Signs Temp 97.9 F 11/15/24 14:00 Pulse 109 H 11/15/24 14:00 Resp 18 11/15/24 14:00 BP 133/84 11/15/24 14:00 Pulse Ox 100 11/15/24 14:00 O2 Del Method Room Air 11/15/24 06:00 Weight last 48 hrs Weight 97.704 kg Data NPU 09/24/24 21:35 09/24/24 21:08 A&P Assessment and plan (1) Schizophrenia: Qualifiers: Schizophrenia type: undifferentiated schizophrenia Qualified Code(s): F20.3 - Undifferentiated schizophrenia (2) Schizoaffective disorder, manic type: (3) Alcoholic intoxication: (4) Polysubstance abuse: Plan 43-year-old male who presents with psychosis with a blood alcohol level of 220 with a history of schizophrenia noncompliant with Haldol for 2 days prior to admission and currently intoxicated admitted again with paranoia and bizarre delusions. 1..? Encourage individual, group and milieu therapy 2.?? Recommend sober living treatment at the highest level of care to which the patient is willing to commit 3.???Continue perphenazine 8mg tid. Continue Trileptal to 600 mg p.o. twice daily. He was given the Abilify Maintena 400 mg 10/11/2024. Haldol 10mg at night. Next Abilify Maintena given 400 mg IM, 11/11/2024 4.? TO-15 minute checks? 5.??Continue Klonopin at 1mg at night. 6. Guardianship given to court under Fabian Bradley. Level 2 completed, awaiting placement. Involuntary Hold Information 96 Hour Hold: 96 Hour Involuntary Admission: Yes 96 Hour Hold Ending Date: 10/04/24 96 Hour Hold Ending Time: 20:01 Attestations NPU Medical Necessity Statement*: Inpatient hospitalization is medically necessary and?the clinically appropriate intervention?at this time.? We will monitor/initiate medications and make changes as indicated.? The patient?s likely length of stay 7-10 days. Coding Level of Care Code Acute Code for [facility] Fwd Diagnoses 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
[2024-11-15] MEDS: haloperidol 5 mg Tablet 10 MG PO (20:32)
[2024-11-15] MEDS: CLONazepam 1 mg Tablet PO (20:32)
[2024-11-15 20:54] VITALS: BP 149/72; PULSE 90; RESP 16; TEMP 37.1; O2SAT 97
[2024-11-16 06:00] VITALS: BP 123/83; PULSE 60; RESP 18; TEMP 36.3; O2SAT 98
[2024-11-16] MEDS: nicotine 2 mg Gum BUCCAL ×2 (06:22→11:39)
[2024-11-16] MEDS: OXcarbazepine 300 mg Tablet 600 MG PO ×2 (08:01→21:47)
[2024-11-16] MEDS: perphenazine 4 mg Tablet 8 MG PO ×3 (08:01→21:47)
[2024-11-16] MEDS: neomycin-poly-bacitracin oint 28 gm 1 APPLIC TOPICAL (08:47)
--- NOTE | 2024-11-16 08:58 | PC.NURSE ---
Morning assessment During morning assessment, patient made such statements as: everything is robot powered and that's just AI talking . Patient denies AVH, depression, anxiety, SI, and HI. 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 Pleasant and cooperative.
[2024-11-16] MEDS: haloperidol 5 mg Tablet PO (11:39)
--- NOTE | 2024-11-16 11:44 | PC.NURSE ---
Patient was at window talking to this nurse and YEISON Solares. Patient told staff that he is not suicidal but that he is so sick of the transponder messages that he is continuously receiving, that he might nonchalantly walk in front of a train going 65 mph . This nurse asked if his medications were helpful and whether he has talked with his doctors about this. Patient said he has not. Patient ended up saying that he does not feel like he could go through with hurting himself.
[2024-11-16 14:00] VITALS: BP 129/87; PULSE 67; RESP 16; TEMP 36.7; O2SAT 97
[2024-11-16] MEDS: nicotine 4 mg lozenge MUCOUS MEM ×3 (15:19→21:47)
--- NOTE | 2024-11-16 18:51 | P.NPUPN_ITS ---
Subjective NPU 2 Subjective: 43-year-old male with schizoaffective di sorder admitted with disorganized behavior and thinking. Patient reported no side effects from his medication. He had continued to express some odd bizarre beliefs to staff. He had expressed some concern that there were impostors among others. He had stated that he had been feeling more anxious as he had admitted to staff that he continued to hear voices in his head. He had reported that he was frustrated with remaining here at this time. Mental Status Exam 2 MSE Comments: This is a well-nourished well-developed white male in hospital scrubs with limited grooming and with no eye contact. No abnormal involuntary motor movements appreciated. He was cooperative with exam in mild distress. Speech was normal in rate and normal in volume. His mood was described as okay. His affect remained blunted. Thought process was linear. Thought content: He denied suicidal or homicidal ideation, continued ideas of reference today. Continued persecutory delusions. He did appear to be responding to internal stimuli. Attention and concentration were improving and memory was unreliable, but more reliable but none formally tested. He was alert and oriented to person and place. Insight was poor. His judgment and impulse control were limited but improving. Vitals/I&O/Wt Last Vital Signs Temp 98.0 F 11/16/24 14:00 Pulse 67 11/16/24 14:00 Resp 16 11/16/24 14:00 BP 129/87 11/16/24 14:00 Pulse Ox 97 11/16/24 14:00 O2 Del Method Room Air 11/16/24 06:00 Data NPU 09/24/24 21:35 09/24/24 21:08 A&P Assessment and plan (1) Schizophrenia: Qualifiers: Schizophrenia type: undifferentiated schizophrenia Qualified Code(s): F 20.3 - Undifferentiated schizophrenia (2) Schizoaffective disorder, manic type: (3) Alcoholic intoxication: (4) Polysubstance abuse: Plan 43-year-old male who presents with psychosis with a blood alcohol level of 220 with a history of schizophrenia noncompliant with Haldol for 2 days prior to admission and currently intoxicated admitted again with paranoia and bizarre delusions. 1..? Encourage individual, group and milieu therapy 2.?? Recommend sober living treatment at the highest level of care to which the patient is willing to commit 3.???Continue perphenazine 8mg tid. Continue Trileptal to 600 mg p.o. twice daily. He was given the Abilify Maintena 400 mg 10/11/2024. Haldol 10mg at night. Next Abilify Maintena given 400 mg IM, 11/11/2024 4.? TO-15 minute checks? 5.??Continue Klonopin at 1mg at night. 6. Guardianship given to court under Fabian Bradley. Level 2 completed, awaiting placement. Interview with [facility] scheduled later this week. Involuntary Hold Information 2 96 Hour Hold: 96 Hour Involuntary Admission: Yes 96 Hour Hold Ending Date: 10/04/24 96 Hour Hold Ending Time: 20:01 Attestations NPU 2 Medical Necessity Statement*: Inpatient hospitalization is medically necessary and?the clinically appropriate intervention?at this time.? We will monitor/initiate medications and make changes as indicated.? The patient?s likely length of stay 7-10 days. Coding Level of Care Code Acute Code for Chg Fwd Diagnoses 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
[2024-11-16 19:23] VITALS: BP 120/76; PULSE 84; RESP 18; TEMP 36.4; O2SAT 97
[2024-11-16] MEDS: CLONazepam 1 mg Tablet PO (21:46)
[2024-11-16] MEDS: haloperidol 5 mg Tablet 10 MG PO (21:47)
[2024-11-17 06:00] VITALS: BP 118/83; PULSE 79; RESP 16; TEMP 36.3; O2SAT 99
[2024-11-17] MEDS: perphenazine 4 mg Tablet 8 MG PO ×3 (08:07→21:15)
[2024-11-17] MEDS: CLONazepam 0.5 mg Tablet PO ×2 (08:08→21:16)
[2024-11-17] MEDS: OXcarbazepine 300 mg Tablet 600 MG PO ×2 (08:08→21:15)
[2024-11-17] MEDS: neomycin-poly-bacitracin oint 28 gm 1 APPLIC TOPICAL (08:11)
[2024-11-17] MEDS: nicotine 4 mg lozenge MUCOUS MEM ×5 (08:37→23:19)
[2024-11-17 14:00] VITALS: BP 133/83; PULSE 74; RESP 18; TEMP 36.7; O2SAT 98
--- NOTE | 2024-11-17 16:59 | P.NPUPN_ITS ---
Subjective NPU 2 Subjective: 43-year-old male with schizoaffective di sorder admitted with disorganized behavior and thinking. The patient had been interviewed at [facility] for potential placement in the behavioral health unit there. He had expressed excitement over leaving here. He had been compliant here on the unit. And reported improved mood. He had continued to have periods of conversations with himself but appeared to be more social and engaged with his peers. The patient reported no side effects from his medication. Mental Status Exam 2 MSE Comments: This is a well-nourished well-developed white male in hospital scrubs with limited grooming and with no eye contact. No abnormal involuntary motor movements appreciated. He was cooperative with exam in mild distress. Speech was normal in rate and normal in volume. His mood was described as good.. His affect was brighter Thought process was linear. Thought content: He denied suicidal or homicidal ideation, continued ideas of reference today. Continued persecutory delusions. He did appear to be responding to internal stimuli. Attention and concentration were improving and memory was unreliable, but more reliable but none formally tested. He was alert and oriented to person and place. Insight was poor. His judgment and impulse control were limited but improving. Vitals/I&O/Wt Last Vital Signs Temp 98.1 F 11/17/24 14:00 Pulse 74 11/17/24 14:00 Resp 18 11/17/24 14:00 BP 133/83 11/17/24 14:00 Pulse Ox 98 11/17/24 14:00 O2 Del Method Room Air 11/17/24 06:00 Data NPU 09/24/24 21:35 09/24/24 21:08 A&P Assessment and plan (1) Schizophrenia: Qualifiers: Schizophrenia type: undifferentiated schizophrenia Qualified Code(s): F 20.3 - Undifferentiated schizophrenia (2) Schizoaffective disorder, manic type: (3) Alcoholic intoxication: (4) Polysubstance abuse: Plan 43-year-old male who presents with psychosis with a blood alcohol level of 220 with a history of schizophrenia noncompliant with Haldol for 2 days prior to admission and currently intoxicated admitted again with paranoia and bizarre delusions. 1..? Encourage individual, group and milieu therapy 2.?? Recommend sober living treatment at the highest level of care to which the patient is willing to commit 3.???Continue perphenazine 8mg tid. Continue Trileptal to 600 mg p.o. twice daily. He was given the Abilify Maintena 400 mg 10/11/2024. Haldol 10mg at night. Next Abilify Maintena given 400 mg IM, 11/11/2024 4.? TO-15 minute checks? 5.??Continue Klonopin at 1mg at night. 6. Guardianship given to court under Fabian Bradley. Level 2 completed, awaiting placement. Patient to be placed tommorow at [facility]. Involuntary Hold Information 2 96 Hour Hold: 96 Hour Involuntary Admission: Yes 96 Hour Hold Ending Date: 10/04/24 96 Hour Hold Ending Time: 20:01 Attestations NPU 2 Medical Necessity Statement*: Inpatient hospitalization is medically necessary and?the clinically appropriate intervention?at this time.? We will monitor/initiate medications and make changes as indicated.? The patient?s likely length of stay 1-2 days. Coding Level of Care Code Acute Code for Chg Fwd Diagnoses 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
[2024-11-17] MEDS: haloperidol 5 mg Tablet 10 MG PO (21:16)
[2024-11-17 22:00] VITALS: BP 121/87; PULSE 88; RESP 16; TEMP 36.4; O2SAT 96
[2024-11-18] MEDS: hyDROXYzine 25 mg Capsule 50 MG PO (00:36)
[2024-11-18] MEDS: trazodone 150 mg Tablet PO (00:37)
[2024-11-18 06:00] VITALS: BP 123/83; PULSE 93; RESP 17; O2SAT 98
[2024-11-18] MEDS: CLONazepam 0.5 mg Tablet PO (08:09)
[2024-11-18] MEDS: simethicone 80 mg Chew PO (08:09)
[2024-11-18] MEDS: perphenazine 4 mg Tablet 8 MG PO (08:09)
[2024-11-18] MEDS: nicotine 4 mg lozenge MUCOUS MEM ×2 (08:09→12:37)
[2024-11-18] MEDS: OXcarbazepine 300 mg Tablet 600 MG PO (08:09)
[2024-11-18 11:05] VITALS: BP 139/75; PULSE 98; RESP 16; TEMP 37; O2SAT 99
[2024-11-18 12:17] VITALS: BP 132/84; PULSE 87; RESP 18; TEMP 37; O2SAT 98
--- NOTE | 2024-11-18 13:55 | PC.NURSE ---
NURSE TO NURSE COMPLETED WITH PRASANNA LATHAM AT [facility]. ALL QUESTIONS WERE ANSWERED. PT LEFT FACILITY TO GO TO [facility] AT [id number]
--- NOTE | 2024-11-18 16:05 | P.NPUDS_ITS ---
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 life story but will always come right back to the original question. At times this [facility] would get lost trying to follow the client. This client needs a lot of redirection as he tends to get off topic quite easily. For the above identified treatment goal of: Referral will be placed for Medication management and Psychiatric evaluation as well as CPRC abd RUSLAN services to manage his mental health sympytoms and his sobriety. Referral(s) to the following services have been made: Medication Services, CPRC and Other (RUSLAN) Education Given Rights and Responsibilities, Confidentiality and limits, Client/Staff boundaries, Crisis Management, Treatment Planning and Options, Grievance Policy, Ombudsman Program, Available Services Coding Non [facility] DM Assessment Current/Historical Substance Current/Historical Substance Use Client?s drug and/or alcohol use in the last 30 days: Yes Have you ever felt that you ought to cut down on your drinking or drug use?: Yes Have people annoyed you by criticizing your drinking or drug use?: Yes Have you ever felt bad or guilty about your drinking or drug use?: Yes Have you ever had a drink or used drugs first thing in the morning to steady your nerves or to get rid of a hangover?: Yes Total Number of Yes responces: 4 Family history of substance abuse: Alcohol Alcohol Date of last use: 11/14/23 Prior Lifetime use/Use in the last 3 months: Prior Lifetime Use Method of Use: Oral Frequency in last 30 days: Daily Amount of use in the last 30 days Would drink 2 tall cans of malt liquor Age at first use: 6 Has the Audit-C been completed in the last 2 years?: No Amphetamine Date of last use: 04/16/21 Prior Lifetime use/Use in the last 3 months: Prior Lifetime Use Method of Use: Smoked and Other (Snort) Frequency in last 30 days: Daily Amount of use in the last 30 days For Example: 1 joint daily, 30 pack of beer, 1 joint weekly, grams, etc.: When available did what ever dpe man was doing Age at first use: 17 Cannabis Date of last use: 04/24/21 Prior Lifetime use/Use in the last 3 months: Prior Lifetime Use Method of Use: Smoked Frequency in last 30 days: Other (Attempted once) Amount of use in the last 30 days For Example: 1 joint daily, 30 pack of beer, 1 joint weekly, grams, etc.: A joint once and made him sick Age at first use: 40 Cocaine/Crack Date of last use: 08/30/21 Prior Lifetime use/Use in the last 3 months: Prior Lifetime Use Method of Use: Smoked (Glass pipe ) and Other Frequency in last 30 days: Other (Tried once) Amount of use in the last 30 days For Example: 1 joint daily, 30 pack of beer, 1 joint weekly, grams, etc.: Tried once smoked out of glass pipe Age at first use: 40 Compulsive Spending Denies Past History: Denies Past History Gambling Denies Past History: Denies Past History Hallucinogens Date of last use: 01/12/02 Method of Use: Oral Amount of use in the last 30 days For Example: 1 joint daily, 30 pack of beer, 1 joint weekly, grams, etc.: Took acid hits Age at first use: 21 Inhalants Date of last use: 05/15/03 Prior Lifetime use/Use in the last 3 months: Prior Lifetime Use Method of Use: Other (huffed) Frequency in last 30 days: Other (When available ) Amount of use in the last 30 days For Example: 1 joint daily, 30 pack of beer, 1 joint weekly, grams, etc.: Coolant bottle on break at work Age at first use: 13 Misuse of RX Medications Denies Past History: Denies Past History Amount of use in the last 30 days Nicotine Date of last use: 06/23/24 Prior Lifetime use/Use in the last 3 months: Use in the last 3 months Method of Use: Smoked Frequency in last 30 days: Daily Amount of use in the last 30 days For Example: 1 joint daily, 30 pack of beer, 1 joint weekly, grams, etc.: a pack of smokes a day Age at first use: 9 Do you want a referral to a tobacco medical education specialist?: No Opioid Pain Medications (non-prescribed) Denies Past History: Denies Past History Amount of use in the last 30 days [id number] Denies Past History: Denies Past History Amount of use in the last 30 days Sedatives(Benzos,Sleep Pills, No script) Denies Past History: Denies Past History Amount of use in the last 30 days In the last 12 months have you Taken the substance in larger amounts for longer than you're meant to: Nicotine Wanting to cut down or stop using the substance but not managing to: Alcohol Spending a lot of time getting, using, or recovering from use of the substance: Alcohol Cravings and urges to use the substance: Alcohol and Nicotine Not managing to do what you should at work, home, or school because of substance use: Alcohol Using substances again and again, even when it puts you in danger: Alcohol and Nicotine Continuing to use, even when you know you have a physical or psychological problems that could have been caused or made worse by the substance: Alcohol and Nicotine Needing more of the substance to get the effect you want (tolerance): Alcohol and Nicotine 2 to 3 symptoms indicate Mild RUSLAN, 4 to 5 Symptoms indicate moderate RUSLAN, 5 or More indicate Severe RUSLAN AOD (Alcohol and Other Drugs) Diagnosis and justification:: F17.200 Referrals and Recommendations: RUSLAN Outpatient Services: Does client have a less severe RUSLAN?: No Does client wish to have referral to RUSLAN treatment?: Yes Tobacco Cessation Treatment: Does Client have a nicotine use disorder?: Yes Does the client want a referral to the Tobacco Cessation Treatment program?: No Co-Occurring Treatment/ITCD services: Does client have [facility] qualifying mental health diagnosis and RUSLAN diagnosis?: Yes Does the client want a referral to the ITCD program?: Yes Patient-Family Edu. Assessment Date Done Patient Family Education Date Done: 06/23/24 Education Assessment Motivation Level: Appears Motivated, Asks Questions and Cooperative Best Way to Learn: Hands-On Level of Education: Less than 12 years(Specify) (10th Grade) Preferred Language for Healthcare: [place] Barriers Which Affect Learning Language/Culture: No Difficulty Reading: No Difficulty Writing: No Physical Barriers: No Sensory Barriers: No Emotional Barriers: No Cognitive Barriers: No Intensity of Illness: Yes Financial Concerns: No Any jainism or cultural practices that may affect medical care (Restrictions of diet, Blood Transfusions, etc.): No Knowledge of Current Illness: Below Average What would you like to know about your condition or illness?: More About Diagnosis, How to [place], Treatment Options and Prognosis Goals/Plans Education Goals/Plans: Plan of care, Treatment and Services, Basic Health Prac tices and Safety and Habilitation or Rehabilitation Techniques/Achieving [place] Risks Date Date of last Risks: 06/23/24 Suicide Risk Assessment In the last 30 days have you... Little interest or pleasure in doing things: not at all Feeling down, depressed, or hopeless: more than half the days PHQ-2 Score: 2 Total (If greater than 3 please do full PHQ-9): Yes Have you had suicidal thoughts?: Not At All Do you ever wish you weren't alive anymore?: Not At All Suicide Risk Score: 2 Patient score 3 or greater or had suicidal thoughts?: No Risk to Others Current or History of HI: Denies any homicidal thoughts, plans, intentions, or time frames Previous and/or current violence: No Previous and/or current threats (verbal/physical): No If both Yes, then complete full screening: No Other Self-Harm or Risk Taking Behaviors Other Risk Taking Behaviors:: None Protective Factors Protective Factors and Deterrents: Identifies a reason for living and Responsibility to family or others Final Disposition of Risk Screening Final Disposition: No Emergency response: Safety planning OZH PHQ-9 Over the last 2 weeks, how often have you been bothered by any of the following problems? 1. Little interest or pleasure in doing things: not at all2. Feeling down, depressed, or hopeless: more than half the daysPHQ-9 score (0-4 None; 5-9 Mild; 10-14 Moderate; 15-19 Moderately severe; 20-27 Severe) Source: Developed by Drs. Danie De Paz, Chelle Zafar, Keegan Saldana and colleagues, with an educational jun from [employer]. OZH JAZMINE-7 JAZMINE-7 Over the last 2 weeks, have you felt bothered by any of these things? Feeling nervous, anxious, or on edge: 3 = Nearly every day Not being able to stop or control worryin = More than half the days Worrying too much about different things: 0 = Not at all Trouble relaxin = Several days Being so restless that it is hard to sit still: 1 = Several days Becoming easily annoyed or irritable: 0 = Not at all Feeling afraid as if something awful might happen: 1 = Several days Total JAZMINE-7 score (0-4 normal; 5-9 mild; 10-14 moderate; 15-21 severe): 8 Source: Developed by Drs. Danie De Paz, Chelle Zafar, Keegan Saldana and colleagues, with an educational jun from [employer]. Hospital Course Hospital Course During the hospitalization, the patient had routine laboratory studies which were within normal limits except for a few outliers.? Additionally, there was a general medical evaluation which was also within normal limits and revealed no new acute processes.? At the time of discharge, lethality was denied and psychosis was resolving.? Mood and anxiety were well managed.? The patient endorsed a plan to avoid all drugs of abuse and follow up with the aftercare recommendations of the treatment team.? The patient was evaluated and deemed to be absent credible lethality and had achieved the maximum benefit from an inpatient hospitalization, and so was discharged. ?Patient had initially refused any medications to manage his manic symptoms and psychotic symptoms. U ltimately, the patient had been placed on a 21-day hold and was forcibly medicated with Haldol which was titrated up to a dose of 10 mg a day at the time of discharge. He had received several as needed medications due to agitation and threatening behavior but appeared to calm down during his extended stay here and ultimately appeared significantly better while continuing at times to be responding internal stimuli but reporting less paranoia and appearing far less hostile with improvement in self-care noted. He had been agreeable to return home and continue to take Haldol. He also continue to remain on Klonopin as prescribed prior to his entrance into the neuropsychiatric unit. Hospital Course Hospital Course This was this second admission for the patient in less than a week. The patient presented extremely psychotic and paranoid while refusing to take any medications. Eventually the patient was placed on a 21-day hold and was able to began forced medications. Patient had shown some limited improvement. It was ultimately decided that the patient was unable to live outside of this envir onment and guardianship was pursued and eventually granted by the court as he had a court appointed guardian in [facility]. He had expressed some concern about being placed in a prison but eventually became agreeable to this and after several days in a prison was found at [facility]. During the hospitalization, the patient had routine laboratory studies which were within normal limits except for a few outliers.? Additionally, there was a general medical evaluation which was also within normal limits and revealed no new acute processes.? At the time of discharge, lethality was denied and psychosis was present but less prominent. ? Mood and anxiety were well managed with no aggression or impulsivity appreciated. The patient endorsed a plan to avoid all drugs of abuse and follow up with the aftercare recommendations of the treatment team.? The patient was evaluated and deemed to be absent credible lethality and had achieved the maximum benefit from an inpatient hospitalization, and so was discharged. He remained on monthly IM Abilify 400mg monthly, Trileptal, Perphenazine, and Haldol as prescribed daily along with klonopin. ? Involuntary Hold Information 96 Hour Hold: 96 Hour Involuntary Admission: Yes 96 Hour Hold Ending Date: 10/04/24 96 Hour Hold Ending Time: 20:01 Other Hold: Hold End Date: 11/18/24 Mental Status Exam MSE Comments: This is a well-nourished well-developed white male in hospital scrubs with limited grooming and with no eye contact. No abnormal involuntary motor movements appreciated. He was cooperative with exam in mild distress. Speech was normal in rate and normal in volume. His mood was described as good.. His affect was brighter Thought process was linear. Thought content: He denied suicidal or homicidal ideation, continued ideas of reference today. Continued ideas of reference but no overt delusions appreciated. He did appear to be responding to internal stimuli at times. Attention and concentration were improving and memory was unreliable, but more reliable but none formally tested. He was alert and oriented to person and place. Insight was poor. His judgment and impulse control were limited but improving. Discharge Data Studies Completed and Pending: Laboratory Results WBC 5.45 10^3/uL (3.2 9-11.43) 09/24/24 21:35 Corrected WBC Cancelled 09/24/24 21:08 RBC 5.05 10^6/uL (3.8 5-5.65) 09/24/24 21:35 Hgb 14.50 g/dL (11.27 -16.99) 09/24/24 21:35 Hct 45.0 % (37-53) 09/24/24 21:35 MCV 89.1 fl (82-101) 09/24/24 21:35 MCH 28.7 pg (27-33) 09/24/24 21:35 MCHC 32.2 g/dL (30-55) 09/24/24 21:35 RDW 14.0 % (12.1-15.1 ) 09/24/24 21:35 Plt Count 235 10^3/cmm (157 -399) 09/24/24 21:35 MPV 10.0 fL (7.4-10.4 ) 09/24/24 21:35 Gran % Cancelled 09/24/24 21:08 Neut % (Auto) 54.2 % 09/24/24 21:35 Lymph % (Auto) 33.4 % 09/24/24 21:35 [place] % (Auto) 9.4 % 09/24/24 21:35 Eos % (Auto) 1.8 % 09/24/24 21:35 Baso % (Auto) 0.6 % 09/24/24 21:35 Neut # (Auto) 2.96 10^3/uL (1.8 -7.7) 09/24/24 21:35 Lymph # (Auto) 1.8 10^3/uL (0.8- 4.8) 09/24/24 21:35 [place] # (Auto) 0.5 10^3/uL (0.2- 0.9) 09/24/24 21:35 Eos # (Auto) 0.1 10^3/uL (0.0- 0.8) 09/24/24 21:35 Baso # (Auto) 0.0 10^3/uL (0.0- 0.1) 09/24/24 21:35 Absolute Gran (aut o) Cancelled 09/24/24 21:08 Nucleated RBC % (a uto) 0 % 09/24/24 21:35 Nucleated RBCs # 0.0 /100WBC 09/24/24 21:35 Sodium 144 mmol/L (136-1 45) 09/24/24 21:08 Potassium 3.9 mmol/L (3.5-5 .1) 09/24/24 21:08 Chloride 107 mmol/L (98-10 7) 09/24/24 21:08 Carbon Dioxide 26 mmol/L (22-29) 09/24/24 21:08 Anion Gap 14.9 (5-19) 09/24/24 21:08 BUN 7 mg/dL (6-20) 09/24/24 21:08 Creatinine 0.8 mg/dL (0.7-1. 2) 09/24/24 21:08 GFR Calculation 106.0 mL/min (90- 130) 09/24/24 21:08 Glucose 75 mg/dL (65-115) 09/24/24 21:08 Calculated Osmolal ity 295 mOsm/kg (285- 295) 09/24/24 21:08 Calcium 8.4 mg/dL (8.5-10 .5) L 09/24/24 21:08 Total Bilirubin 0.2 mg/dL (0.15-1 .2) 09/24/24 21:08 AST 29 U/L (0-40) 09/24/24 21:08 ALT 25 U/L (0-41) 09/24/24 21:08 Alkaline Phosphata se 116 U/L (40-130) 09/24/24 21:08 Total Protein 7.4 g/dL (6.6-8.7 ) 09/24/24 21:08 Albumin 4.4 g/dL (3.5-5.2 ) 09/24/24 21:08 Globulin 3.0 g/dL (1.3-4.6 ) 09/24/24 21:08 TSH 1.05 uIU/mL (0.27 -4.20) 09/24/24 21:08 Urine Color Yellow (Yellow) 09/25/24 06:50 Urine Appearance Clear (CLEAR) 09/25/24 06:50 Urine pH 5.0 (5-7) 09/25/24 06:50 Ur Specific Gravit y 1.010 (1.005-1.0 30) 09/25/24 06:50 Urine Protein Negative (Negati ve) 09/25/24 06:50 Urine Glucose (UA) Negative (Normal ) 09/25/24 06:50 Urine Ketones Negative (Negati ve) 09/25/24 06:50 Urine Blood Negative (Negati ve) 09/25/24 06:50 Urine Nitrate Negative (Negati ve) 09/25/24 06:50 Urine Bilirubin Negative (Negati ve) 09/25/24 06:50 Urine Urobilinogen 0.2 mg/dL (Negati ve) 09/25/24 06:50 Ur Leukocyte Elvie ase Negative (Negati ve) 09/25/24 06:50 Urine RBC 0-2 /hpf (0-2) 09/25/24 06:50 Urine WBC 0-5 /hpf (0-5) 09/25/24 06:50 Ur Squamous Epith Cells 0-5 /hpf (0-5) 09/25/24 06:50 Amorphous Sediment Not Reportable 09/25/24 06:50 Urine Bacteria None seen /hpf (N ONE) 09/25/24 06:50 Hyaline Casts 2.05 /lpf 09/25/24 06:50 Salicylates < 0.3 mg/dL (3-10 ) L 09/24/24 21:08 Urine Opiates Scre en Negative ng/mL (N egative) 09/25/24 06:50 Acetaminophen < 5.0 ug/mL (10-3 0) L 09/24/24 21:08 Ur Barbiturates Sc reen Negative ng/mL (N egative) 09/25/24 06:50 Ur Phencyclidine S crn Negative ng/mL (N egative) 09/25/24 06:50 Ur Amphetamines Sc reen Negative ng/mL (N egative) 09/25/24 06:50 U Benzodiazepines Scrn Positive ng/mL (N egative) H 09/25/24 06:50 Urine Cocaine Scre en Negative ng/mL (N egative) 09/25/24 06:50 U Marijuana (THC) Screen Negative ng/mL (N egative) 09/25/24 06:50 Ethyl Alcohol 230 mg/dL (0-10) H 09/24/24 21:08 Vitals: Last Vital Signs Temp 98.6 F 11/18/24 12:17 Pulse 87 11/18/24 12:17 Resp 18 11/18/24 12:17 BP 132/84 11/18/24 12:17 Pulse Ox 98 11/18/24 12:17 O2 Del Method Room Air 11/17/24 06:00 Discharge Plan Discharge Patient Disposition: Home Condition: Stable Prescriptions: New simethicone 80 mg Tablet,Chewable 80 mg PO QID PRN (Reason: Flatulence) 30 Days Qty: 120 1RF perphenazine 4 mg Tablet 8 mg PO TID 30 Days Qty: 180 1RF oxcarbazepine 300 mg Tablet 600 mg PO 899,2099 30 Days Qty: 120 1RF haloperidol 5 mg Tablet 10 mg PO BEDTIME 30 Days Qty: 60 1RF clonazepam 0.5 mg Tablet 0.5 mg PO 00,2099 30 Days Qty: 60 0RF Continued Abilify Maintena 400 mg Suspension,Extended Rel Recon 400 mg IM Q28D 28 Days Qty: 1 0RF Rx Instructions: IM Next Due date 12/09/24 Discontinued clonazepam [Klonopin] 1 mg tablet 1 mg PO 899,2099 haloperidol 5 mg tablet 10 mg PO BEDTIME Discharge Orders: Discharge Order (Routine); Ordered 11/18/24 Ordered By: Javier Grace Referrals: [facility] [Other] - 11/18/24 1:00 pm [facility] [Outside] Discharge Diet: Usual diet Discharge Activity: Resume usual activity Patient Instructions: Alcoholism, Perphenazine/Amitriptyline (By mouth), Simethicone (By mouth) (Gas-X, Gas-X Extra Strength, Gas-X Thin..., Aripiprazole (By injection) (Abilify Maintena Dual-Chambered..., Depression (DC), Schizophrenia (DC), Psychotic Disorder (DC), Suicide Prevention (DC), Opioid Safety Discharge Attestations NPU Time Spent in Discharge Care*: less than 30 min Specific Discharge Activities: Specific discharge activities: educating patient, discussing with case assistant/social workers/dc planners and documenting/other paperwork Coding Level of Care Code Acute Code for [facility] Fw Diagnoses 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
== END 2024-11-18 13:15 | disposition intermediate care facility (04) | DRG 885 ==
LOC: ER 19:42 → NP 20:32
PROVIDERS: Emergency Medicine; Admitting Provider Psychiatry & Neurology Psychiatry; Emergency Provider Emergency Medicine; PCP Family Medicine Adult Medicine; Visit Provider Psychiatry & Neurology Psychiatry
DX: F25.0 Schizoaffective disorder, bipolar type (principal); F10.129 Alcohol abuse with intoxication, unspecified; F19.10 Other psychoactive substance abuse, uncomplicated; Y90.7 Blood alcohol level of 200-239 mg/100 ml; T43.4X6A Underdosing of butyrophenone and thiothixene neuroleptics, initial encounter; Z91.128 Patient's intentional underdosing of medication regimen for other reason; F52.8 Other sexual dysfunction not due to a substance or known physiological condition; Z75.1 Person awaiting admission to adequate facility elsewhere; F17.200 Nicotine dependence, unspecified, uncomplicated
CPT/HCPCS: 80053; 80306; 80307; 81001; 84443; 85025; 93005; 96372; 97150; 97165; 99285; J1630; J2060; J3486; Q0175